=== PATIENT | female | born 1995 | race Caucasian/White ===

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

== ENCOUNTER 2017-01-24 21:52 | Emergency (ER) | payer MEDICAID ==
[~2017-01-24] VITALS: Ht 160 cm; Wt 100.2 kg
[~2017-01-24 21:52] MED LIST changes: +CEPH-507 PO
--- NOTE | 2017-01-24 23:25 | ED General ---
General Chief Complaint: Oral/Throat Problems Stated Complaint: SORE THROAT/COUGH Nursing Triage Note: PT COMPLAINS OF HAVING A SORE THROAT FOR PAST COUPLE DAYS. NO N/V. MILD COUGH NOTED BY PT. Source of Information: Patient Exam Limitations: No Limitations History of Present Illness Time Seen by Provider: 21:57 Initial Comments This 23-year-old young lady presents to emergency room with complaints of sore throat and mild cough for about 4 days. She denies fever, nausea, vomiting, or diarrhea. She is recently been on prednisone for serous otitis. She has not been taking any medications for pain or for allergies. She has had some sneezing. She reports eating and drinking has been difficult because of the pain. Allergies and Home Medications Allergies Coded Allergies: No Known Drug Allergies (Unverified , 10/29/15) Home Medications Amoxicillin 875 Mg Tablet, 875 MG PO BID, #20 Prescribed by: STACY CHU on 08/17/16 2203 Brexpiprazole 1 Mg Tablet, 1 MG PO DAILY, (Reported) Cephalexin 500 Mg Capsule, 500 MG PO QID, #28 Prescribed by: RA BOO on 10/27/16 2303 Gabapentin 300 Mg Capsule, 100 MG PO TID, #60 (Reported) Lamotrigine 100 Mg Tablet, 100 MG PO BID, #60 (Reported) Loratadine/Pseudoephedrine 1 Each Tab.er.12h, 1 EACH PO BID, #20 Prescribed by: STACY CHU on 08/17/16 2203 Omeprazole 20 Mg Tablet.dr, 20 MG PO BID, (Reported) Prednisone 10 Mg Tab, 40 MG PO DAILY, #12 Prescribed by: STACY CHU on 08/17/16 2203 Topiramate 200 Mg Cap.er.24h, 200 MG PO BID, (Reported) p-Sjbrtqs-Uas Estr/Ethin Estra 1 Each Tbdspk.3mo, 1 EACH PO DAILY, (Reported) Constitutional: no symptoms reported EENTM: see HPI Respiratory: see HPI Cardiovascular: no symptoms reported Gastrointestinal: no symptoms reported Genitourinary: no symptoms reported Musculoskeletal: no symptoms reported Skin: no symptoms reported Psychiatric/Neurological: No Symptoms Reported Hematologic/Lymphatic: No Symptoms Reported Past Ckagssv-Rxakzu-Phptrv Hx Patient Social History Alcohol Use: Denies Use Recreational Drug Use: No Smoking Status: Never a Smoker 2nd Hand Smoke Exposure: No Recent Foreign Travel: No Contact w/Someone Who Travel: No Recent Infectious Disease Expo: No Recent Hopitalizations: No Ebola Symptoms: Denies Symptoms Listed Immunizations Up To Date PED Vaccines UTD: Yes Seasonal Allergies Seasonal Allergies: No Surgeries HX Surgeries: Yes (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) Surgeries: Adenoidectomy, Orthopedic, Tonsillectomy Respiratory Hx Respiratory Disorders: No Cardiovascular Hx Cardiac Disorders: No Neurological Hx Neurological Disorders: Yes Neurological Disorders: Developmental Disorder, Seizure Disorder Genitourinary Hx Genitourinary Disorders: No Gastrointestinal Hx Gastrointestinal Disorders: Yes Gastrointestinal Disorders: Gastroesophageal Reflux Musculoskeletal Hx Musculoskeletal Disorders: No Endocrine Hx Endocrine Disorders: No HEENT HX ENT Disorders: No Cancer Hx Cancer: No Psychosocial Hx Psychiatric Problems: Yes (ASPERGERS, MILD MR) Behavioral Health Disorders: Personality Disorder Integumentary HX Skin/Integumentary Disorder: Yes (DERMOID TUMOR RIGHT FOREHEAD REMOVED) Blood Transfusions Hx Blood Disorders: No Adverse Reaction to a Blood Tr: No Physical Exam Vital Signs Vital Sign - Last 12Hours Capillary Refill : General Appearance: No Apparent Distress, WD/WN HEENT: PERRL/EOMI, TMs Normal, Normal ENT Inspection, Pharynx Normal Neck: Normal Inspection, Non Tender, Supple, No Lymphadenopathy (L), No Lymphadenopathy (R) Respiratory: Lungs Clear, Normal Breath Sounds, No Accessory Muscle Use, No Respiratory Distress Cardiovascular: Regular Rate, Rhythm, No Edema, No Murmur Gastrointestinal: Normal Bowel Sounds, Non Tender, Soft Extremity: Normal Inspection, No Pedal Edema Neurologic/Psychiatric: Alert, Oriented x3, No Motor/Sensory Deficits, Normal Mood/Affect, kaiako kura kaupapa maori II-XII Norm as Tested Skin: Normal Color, Warm/Dry Progress/Results/Core Measures Results/Orders Lab Results Laboratory Tests Test 01/24/17 22:23 Range/Units Group A Streptococcus Screen NEGATIVE NEGATIVE My Orders Orders - RA TRUJILLO MD Rapid Strep A Screen (01/24/17 21:56) Vital Signs/I&O Vital Sign - Last 12Hours 01/24/17 01/24/17 01/24/17 22:18 22:18 23:31 Temp 97.8 97.8 Pulse 90 90 0 Resp 20 20 0 B/P (MAP) 119/75 119/75 Pulse Ox 98 0 O2 Delivery Room Air Room Air Progress Note : Progress Note Rapid strep test negative Departure Impression Impression: Primary Impression: Sore throat Additional Impression: Cough Disposition: 01 HOME, SELF-CARE Condition: Stable/Unchanged Departure-Patient Inst. Decision time for Depature: 23:24 Referrals: [facility] (PCP/Family) Primary Care Physician Patient Instructions: Sore Throat in Adults Add. Discharge Instructions: Drink plenty of clear liquids. You may take ibuprofen up to 600 mg every 6 hours as needed for pain. You may additionally take Tylenol (acetaminophen) up to 1000 mg every 6 hours as needed for additional pain relief. A backup strep culture will be performed and should be available in 2-3 days. Follow-up with your primary care provider if not improved by Saturday. All discharge instructions reviewed with patient and/or family. Voiced understanding. RA TRUJILLO MD Jan 24, 2017 23:25
--- OUTSIDE RECORDS SUMMARY | 2017-01-25 00:40 | XMS REPORT | Continuity of Care Document ---
Author Author [facility] Organization [facility] Address Unknown Phone Unavailable Care Team Providers Care Java Programmer Name Role Phone Glendy Rowland PCP [phone] Source Comments Some departments are not documenting in the electronic medical record. If you do not see the information that you expected, contact Release of Information in the Health Information Management department at [phone] for further assistance in locating additional records.[facility] Active Allergies and Adverse Reactions Not on File Current Medications Not on file Active Problems Not on file Most Recent Encounters Date Type Specialty Providers Description 11/14/2016 [facility] Neurology Glendy Rowland MD Encounter Social History Tobacco Use Types Packs/Day Years Used Date Never Assessed Plan of Care Health Maintenance Due Date Last Done Comments Physical (Comprehensive) 2004 Exam Hpv Vaccines (#1) 2008 Pertussis Vaccine 2008 Tetanus Vaccine 2014 Influenza Vaccine 03/29/2017 Results from Last 3 Months Not on file
--- OUTSIDE RECORDS SUMMARY | 2017-01-25 00:42 | XMS REPORT | Continuity of Care Document ---
Author Author [facility] Organization [facility] Address Unknown Phone Unavailable Allergies Active Description Code Type Severity Reaction Onset Reported/Identified Relationship to Patient Clinical Status Yes No Known Drug Allergies [id number] Drug Allergy Unknown N/ A 10/29/2015 Medications Problems Date Dx Coded Attending Type Code Diagnosis Diagnosed By 10/29/2015 Ot G40.909 EPILEPSY, UNSP, NOT INTRACTABLE, WITHOUT 10/29/2015 Ot Z79.899 OTHER NURSING HOME (CURRENT) DRUG THERAPY 11/02/2015 BRENNAN GONZALEZ VENETIAN BLIND TAPE CUTTER Ot G40.909 11/06/2015 BRENNAN GONZALEZ VENETIAN BLIND TAPE CUTTER Ot G40.909 11/06/2015 JULIENNE HERNANDEZ MD Ot G40.909 EPILEPSY, UNSP, NOT INTRACTABLE, WITHOUT 11/06/2015 JULIENNE HERNANDEZ MD Ot N39.0 URINARY TRACT INFECTION, SITE NOT SPECIF 11/06/2015 BRENNAN GONZALEZ VENETIAN BLIND TAPE CUTTER Ot G40.909 11/07/2015 MANUEL LEO VENETIAN BLIND TAPE CUTTER Ot F84.5 ASPERGER'S SYNDROME 11/07/2015 MANUEL LEO APRN Ot G40.909 EPILEPSY, UNSP, NOT INTRACTABLE, WITHOUT 11/07/2015 MANUEL LEO VENETIAN BLIND TAPE CUTTER Ot Z79.899 OTHER TACK COVERER (CURRENT) DRUG THERAPY 11/07/2015 BRENNAN GONZALEZ VENETIAN BLIND TAPE CUTTER Ot G40.909 11/08/2015 BRENNAN GONZALEZ VENETIAN BLIND TAPE CUTTER Ot G40.909 11/08/2015 MANUEL LEO APRN Ot F84.5 ASPERGER'S SYNDROME 11/08/2015 MANUEL LEO APRN Ot G40.909 EPILEPSY, UNSP, NOT INTRACTABLE, WITHOUT 11/09/2015 MANUEL LEO APRN Ot F84.5 11/09/2015 MANUEL LEO APRN Ot G40.909 11/09/2015 MANUEL LEO APRN Ot Z79.899 11/15/2015 CANO DO, HEMA L Ot F84.5 ASPERGER'S SYNDROME 11/15/2015 CANO DO, HEMA L Ot G40.909 EPILEPSY, UNSP, NOT INTRACTABLE, WITHOUT 11/24/2015 MANUEL LEO VENETIAN BLIND TAPE CUTTER Ot F84.5 ASPERGER'S SYNDROME 11/24/2015 MANUEL LEO VENETIAN BLIND TAPE CUTTER Ot G40.909 EPILEPSY, UNSP, NOT INTRACTABLE, WITHOUT 11/24/2015 MANUEL LEO VENETIAN BLIND TAPE CUTTER Ot Z79.899 OTHER TACK COVERER (CURRENT) DRUG THERAPY 12/12/2015 BRENNAN GONZALEZ VENETIAN BLIND TAPE CUTTER Ot G40.909 EPILEPSY, UNSP, NOT INTRACTABLE, WITHOUT [...] Ot R25.1 TREMOR, UNSPECIFIED 12/23/2015 BRENNAN GONZALEZ VENETIAN BLIND TAPE CUTTER Ot G40.909 EPILEPSY, UNSP, NOT INTRACTABLE, WITHOUT 08/17/2016 LB CHU DOA K Ot F84.5 ASPERGER'S SYNDROME 08/17/2016 LB CHU DOA K Ot H66.91 OTITIS MEDIA, UNSPECIFIED, RIGHT EAR 08/17/2016 STACY CHU DO Ot H92.01 OTALGIA, RIGHT EAR 08/17/2016 VLAD DO, STACY K Ot Z79.899 OTHER NURSING HOME (CURRENT) DRUG THERAPY 08/20/2016 VLAD DO, STACY K Ot F84.5 ASPERGER'S SYNDROME 08/20/2016 VLAD DO, STACY K Ot H66.91 OTITIS MEDIA, UNSPECIFIED, RIGHT EAR 08/20/2016 VLAD DO, STACY K Ot H92.01 OTALGIA, RIGHT EAR 08/20/2016 VLAD DO, STACY K Ot Z79.899 OTHER TACK COVERER (CURRENT) DRUG THERAPY 08/20/2016 VLAD DO, STACY K Ot F84.5 ASPERGER'S SYNDROME 08/20/2016 VLAD DO, STACY K Ot H66.91 OTITIS MEDIA, UNSPECIFIED, RIGHT EAR 08/20/2016 VLAD DO, STACY K Ot H92.01 OTALGIA, RIGHT EAR 08/20/2016 VLAD DO, STACY K Ot Z79.899 OTHER NURSING HOME (CURRENT) DRUG THERAPY 10/27/2016 RONNIE WILSON, RA Saxena Ot F84.5 ASPERGER'S SYNDROME 10/27/2016 RONNIE WILSON, RA Saxena Ot G40.909 EPILEPSY, UNSP, NOT INTRACTABLE, WITHOUT 10/27/2016 RONNIE WILSON, RA Saxena Ot Z79.899 OTHER NURSING HOME (CURRENT) DRUG THERAPY Procedures Results Test Result [...] Status Pt. Type Provider Facility Loc./Unit Complaint [id number] 10/27/2016 22:02:00 2016 23:06:00 DIS Emergency RONNIE WILSON, RA Saxena [facility] ER SEIZURE [id number] 08/17/2016 21:04:00 2016 22:06:00 DIS Emergency LB CHU DOA Skyler [facility] ER R EAR PAIN/BLEEDING [id number] 12/21/2015 08:05:00 2015 09:02:00 DIS Emergency RA TRUJILLO MD [facility] ER [id number] 12/20/2015 16:03:00 2015 17:43:00 DIS Emergency RA TRUJILLO MD [facility] ER [id number] 11/15/2015 13:01:00 2015 13:46:00 DIS Emergency JEROME ELIZABETH HEMA Courtney [facility] ER [id number] 11/08/2015 10:51:00 2015 11:00:00 DIS Emergency MANUEL LEO APRN [facility] ER [id number] 11/07/2015 21:46:00 2015 23:10:00 DIS Emergency MANUEL LEO APRN [facility] ER [id number] 11/06/2015 18:03:00 2015 20:49:00 DIS Emergency JULIENNE HERNANDEZ MD [facility] ER [id number] 11/01/2015 18:46:00 ACT Outpatient BRENNAN GONZALEZ APRN [facility] LAB [id number] 10/29/2015 20:18:00 Document Registration
== END 2017-01-24 23:31 | disposition home or self-care (01) ==
LOC: EDUNIT# 21:52 → ER 21:53
DX: J02.9 Acute pharyngitis, unspecified (principal); R05 Cough; G40.909 Epilepsy, unspecified, not intractable, without status epilepticus; K21.9 Gastro-esophageal reflux disease without esophagitis; F70 Mild intellectual disabilities; Z79.899 Other long term (current) drug therapy
CPT/HCPCS: 87430; 99282

== ENCOUNTER 2017-03-19 19:34 | Emergency (ER) | payer MEDICAID ==
[~2017-03-19] VITALS: Ht 162.6 cm; Wt 100.7 kg
--- OUTSIDE RECORDS SUMMARY | 2017-03-19 19:39 | XMS REPORT | Clinical Summary ---
Author Author [facility] Organization [facility] Address Unknown Phone Unavailable Care Team Providers Care Ultrasound Tech Name Role Phone PCP Unavailable Source Comments Some departments are not documenting in the electronic medical record. If you do not see the information that you expected, contact Release of Information in the Health Information Management department at [phone] for further assistance in locating additional records.[facility] Allergies Not on File Current Medications Not on file Active Problems Not on file Social History Tobacco Use Types Packs/Day Years Used Date Never Assessed Sex Assigned at Date Recorded Not on file Last Filed Vital Signs Not on file Plan of Treatment Health Maintenance Due Date Last Done Comments PHYSICAL (COMPREHENSIVE) 2004 EXAM HPV VACCINES (#1) 2008 PERTUSSIS VACCINE 2008 TETANUS VACCINE 2014 INFLUENZA VACCINE 03/29/2017 Results Not on filefrom Last 3 Months
--- OUTSIDE RECORDS SUMMARY | 2017-03-19 19:42 | XMS REPORT ---
Author Author MYLES GARCIA Organization [facility] Address [address] [place] [address] Care Team Providers Care Waste/Materials Exchange Specialist Name Role Phone MYLES GARCIA Unavailable PROBLEMS Type Condition ICD9-CM Code [id number] Code Onset Dates Condition Status SNOMED Code Problem Epilepsy G40.909 Active 76353973 Problem Tremors of nervous system R25.1 Active 183488750 Problem Constipation K59.00 Active 74038818 Problem Physical exam, annual Z00.00 Active 103272685 Problem Vitamin D deficiency E55.9 Active 60272483 Problem Asperger syndrome F84.5 Active 52723114 Problem Nexplanon in place Z97.5 Active 258669852 Problem Mood disorder F39 Active 59238370 Problem Oppositional behavior F91.3 Active 00944760 Problem GERD (gastroesophageal reflux disease) K21.9 Active 929626557 Problem Dysuria R30.0 Active 72634409 Problem Obesity (BMI 30.0-34.9) E66.9 Active 780351478851450 ALLERGIES Unknown Allergies SOCIAL HISTORY No smoking Hx information available PLAN OF CARE Activity Details Follow Up Next available Reason:BH F/U VITAL SIGNS MEDICATIONS Unknown Medications RESULTS No Results PROCEDURES Procedure Date Ordered Related Diagnosis Body Site Family Therapy w/Pt Jul 20, 2016 IMMUNIZATIONS No Known Immunizations
[2017-03-19 20:06] LABS: BILIRUBIN,URINE NEGATIVE (NEGATIVE); KETONES,URINE NEGATIVE (NEGATIVE); LEUKOCYTE ESTERASE ,URINE 1+ (NEGATIVE); NITRITE,URINE NEGATIVE (NEGATIVE); PH,URINE 6 (5-9); PROTEIN,URINE NEGATIVE (NEGATIVE); UROBILINOGEN,URINE NORMAL (NORMAL)
[2017-03-19 20:21] LABS: WBC,URINE RARE /HPF
--- NOTE | 2017-03-19 20:33 | ED GU-Female ---
General Chief Complaint: -Female Stated Complaint: TROUBLE URINATING Nursing Triage Note: pt reports difficulty urinating and back pain x 2 weeks. Source: patient Exam Limitations: no limitations History of Present Illness Time seen by provider: 20:33 Initial Comments 21 yo female patient presents to the ED with c/o dysuria, hesitancy, and low back pain for 2 wks. patient reports a h/o UTI's. Denies fever, chills, hematuria, abdominal pain. Timing/Duration: other (2 wk onset) Severity/Quality: aching, cramping Location: other (low back) Radiation: left flank Activities at Onset: other (urinating) Prior Genitourinary Problems: similar symptoms Modifying Factors: Worsens With Movement, Worsens With Urinating Allergies and Home Medications Allergies Coded Allergies: No Known Drug Allergies (Unverified , 10/29/15) Home Medications Brexpiprazole 1 Mg Tablet, 1 MG PO DAILY, (Reported) Etonogestrel 68 Mg Implant, 68 MG SQ UD, (Reported) Gabapentin 300 Mg Capsule, 300 MG PO TID, (Reported) Lamotrigine 100 Mg Tablet, 100 MG PO BID, (Reported) Nitrofurantoin Monohyd/M-Cryst 100 Mg Capsule, 100 MG PO BID WITH MEALS, #14 Prescribed by: GALLO MORE on 04/03/17 1031 Omeprazole 20 Mg Tablet.dr, 20 MG PO DAILY, (Reported) Phenazopyridine HCl 200 Mg Tablet, 200 MG PO TID PRN for PAIN-MILD, #15 Prescribed by: GALLO MORE on 04/03/17 1031 Constitutional: No chills, No diaphoresis, No dizziness, No fever, No malaise Respiratory: No cough, No phlegm, No short of breath Cardiovascular: No chest pain, No edema Gastrointestinal: No abdominal pain, No constipation, No diarrhea, No nausea, No vomiting Genitourinary: see HPI, denies discharge, dysuria, frequency, flank pain (left flank pain), denies hematuria Musculoskeletal: see HPI, back pain, No joint pain, No neck pain Skin: no symptoms reported Psychiatric/Neurological: Denies Numbness, Denies Paresthesia, Denies Tingling , Denies Weakness All Other Systemes Reviewed Negative Unless Noted: Yes (Negative excepted noted.) Past Rwcawlt-Ysobre-Mk[place] Hx Patient Social History Alcohol Use: Denies Use Recreational Drug Use: No Smoking Status: Never a Smoker 2nd Hand Smoke Exposure: No Recent Foreign Travel: No Contact w/Someone Who Travel: No Recent Infectious Disease Expo: No Recent Hopitalizations: No Physical Abuse: No Sexual Abuse: No Mistreated: No Fear: No Immunizations Up To Date PED Vaccines UTD: Yes Seasonal Allergies Seasonal Allergies: No Surgeries History of Surgeries: Yes (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) Surgeries: Adenoidectomy, Orthopedic, Tonsillectomy Respiratory History of Respiratory Disorde: No Cardiovascular History of Cardiac Disorders: No Neurological History of Neurological Disord: Yes Neurological Disorders: Developmental Disorder, Seizure Disorder Genitourinary History of Genitourinary Disor: No Gastrointestinal History of Gastrointestinal Di: Yes Gastrointestinal Disorders: Gastroesophageal Reflux Musculoskeletal History of Musculoskeletal Dis: No Endocrine History of Endocrine Disorders: No HEENT History of HEENT Disorders: No Cancer History of Cancer: No Psychosocial History of Psychiatric Problem: Yes (ASPERGERS, MILD MR) Behavioral Health Disorders: Personality Disorder Suicide Risk Score: 1 Integumentary History of Skin or Integumenta: Yes (DERMOID TUMOR RIGHT FOREHEAD REMOVED) Blood Transfusions History of Blood Disorders: No Adverse Reaction to a Blood Tr: No Reviewed Nursing Assessment Reviewed/Agree w Nursing PMH: Yes Family Medical History Significant Family History: No Pertinent Family Hx Physical Exam Vital Signs Capillary Refill : General Appearance: WD/WN, no apparent distress HEENT: PERRL/EOMI, pharynx normal Neck: supple, normal inspection Cardiovascular: normal peripheral pulses, regular rate, rhythm, no edema, no murmur Respiratory: lungs clear, normal breath sounds, no respiratory distress, no accessory muscle use Gastrointestinal: normal bowel sounds, non tender, soft, no organomegaly, No distended Back: no vertebral tenderness, No CVA tenderness (R), CVA tenderness (L), No decreased range of motion, muscle spasm (bilateral low back muscle spasm with TTP (L>R). ) Extremities: non-tender, normal inspection, no pedal edema, normal capillary refill, pelvis stable Neurologic/Psychiatric: no motor/sensory deficits, alert, normal mood/affect, oriented x 3 Skin: normal color, warm/dry Progress/Results/Core Measures Results/Orders Lab Results My Orders Vital Signs/I&O Diagnostic Imaging Diagonstic Imaging: CT Plain Films/CT/US/NM/MRI: abdomen, pelvis Comments FINDINGS: The lung bases are clear. The liver appears normal. The gallbladder is present. The pancreas is normal. The spleen is not enlarged. The kidneys and adrenals appear normal. The small bowel is not dilated. The appendix is normal. There is enlargement of stool in the colon. The uterus is present. The urinary bladder is normal. The adnexa are unremarkable. There is no intraperitoneal free air or free fluid. IMPRESSION: No acute abnormality is seen in the abdomen or pelvis. Possible constipation Dictated by: Dictated on workstation # [id number] Reviewed: Reviewed by Me (radiology report reviewed by me) Departure Communication Progress Notes urinalysis and CT abd/pelvis results discussed with the patient. patient was given 1 dose of lortab in the ED with improvement in symptoms. plan for dsch to home. Impression Impression: Primary Impression: Lumbago Qualified Codes: M54.5 - Low back pain Additional Impression: Renal colic on left side Disposition: HOME, SELF-CARE Condition: Improved Departure-Patient Inst. Decision time for Depature: 22:18 Referrals: [facility] (PCP) Primary Care Physician BRENNAN GONZALEZ APRN (Family) Primary Care Physician Patient Instructions: Muscle Strain (DC), Renal Colic (DC) Add. Discharge Instructions: All discharge instructions reviewed with patient and/or family. Voiced understanding. Medications as instructed. Drink plenty of fluids. Alternate water and Gatorade/Powerade. Ice packs or heating pads as needed for pain. Follow-up with your primary care physician for recheck in the next 2-3 days, call for appointment time tomorrow morning. Return to the emergency department for worsened symptoms or any other concerns. CAREN SAL Mar 19, 2017 20:33
[2017-03-19] MEDS ORDERED: HYDROcodone/APAP 5 MG/325 MG (LORTAB) TAB PO STA (20:42)
--- NOTE | 2017-03-19 21:04 | Diagnostic Imaging Report ---
PROCEDURE: CT urinary tract, rule out kidney stone. TECHNIQUE: Multiple contiguous axial images were obtained through the abdomen and pelvis without the use of intravenous contrast. INDICATION: Back pain x2 weeks. FINDINGS: The lung bases are clear. The liver appears normal. The gallbladder is present. The pancreas is normal. The spleen is not enlarged. The kidneys and adrenals appear normal. The small bowel is not dilated. The appendix is normal. There is enlargement of stool in the colon. The uterus is present. The urinary bladder is normal. The adnexa are unremarkable. There is no intraperitoneal free air or free fluid. IMPRESSION: No acute abnormality is seen in the abdomen or pelvis. Possible constipation Dictated by: Dictated on workstation # [id number]
[2017-03-19] MEDS ORDERED: PHEN-639 PO (22:21)
[2017-03-19] MEDS ORDERED: CIPR500T4 PO (22:21)
== END 2017-03-19 22:31 | disposition home or self-care (01) ==
LOC: EDUNIT# 19:34 → ER 19:35
DX: M54.5 Low back pain (principal); N23 Unspecified renal colic; G40.909 Epilepsy, unspecified, not intractable, without status epilepticus; K21.9 Gastro-esophageal reflux disease without esophagitis; Z90.89 Acquired absence of other organs
CPT/HCPCS: 74176; 81000; 84703; 99283

== ENCOUNTER 2017-03-28 10:22 | Outpatient (CLI) | payer MEDICAID ==
[~2017-03-28] VITALS: Ht 162.6 cm; Wt 100.7 kg
[~2017-03-28 10:22] MED LIST changes: +CIPR500T4 PO; +PHEN-639 PO
[2017-03-28] MEDS ORDERED: LORA10TA7 PO (15:59)
[2017-03-28] MEDS ORDERED: ETON68IM3 SQ (16:00)
== END 2017-03-28 16:04 ==
LOC: PREOP 10:22
PROVIDERS: ATTEND Urology
DX: Z01.818 Encounter for other preprocedural examination (principal); N31.9 Neuromuscular dysfunction of bladder, unspecified; R33.9 Retention of urine, unspecified

== ENCOUNTER 2017-04-03 07:37 | Day surgery (SDC) | payer MEDICAID ==
[~2017-04-03] VITALS: Ht 162.6 cm; Wt 100.7 kg
[~2017-04-03 07:37] MED LIST changes: +ETON68IM3 SQ; +LORA10TA7 PO
--- OUTSIDE RECORDS SUMMARY | 2017-04-03 07:59 | XMS REPORT | Clinical Summary ---
Author Author [facility] Organization [facility] Address Unknown Phone Unavailable Care Team Providers Care Weight Control Lecturer Name Role Phone PCP Unavailable Source Comments Some departments are not documenting in the electronic medical record. If you do not see the information that you expected, contact Release of Information in the Health Information Management department at [phone] for further assistance in locating additional records.[facility] Allergies Not on File Current Medications [...]
--- OUTSIDE RECORDS SUMMARY | 2017-04-03 08:01 | XMS REPORT ---
Author Author KENAN LANCE Organization [facility] Address [address] [place] [address] Care Team Providers Care Branding Machine Operator Name Role Phone NATALIOKENAN Unavailable PROBLEMS Type Condition ICD9-CM Code [id number] Code Onset Dates Condition Status SNOMED Code Problem Vitamin D deficiency E55.9 Active 33900982 Problem GERD (gastroesophageal reflux disease) K21.9 Active 580088021 Problem Constipation K59.00 Active 04206162 Problem Physical exam, annual Z00.00 Active 543489767 Problem Asperger syndrome F84.5 Active 07489928 Problem Epilepsy G40.909 Active 99322927 Problem Nexplanon in place Z97.5 Active 594311174 Problem Mood disorder F39 Active 85001872 Problem Oppositional behavior F91.3 Active 31446695 Problem Tremors of nervous system R25.1 Active 995707750 Problem Dysuria R30.0 Active 76334390 Problem Obesity (BMI 30.0-34.9) E66.9 Active 495646888996216 ALLERGIES Substance Reaction Event Type Date Status N.K.D.A. Unknown Non Drug Allergy Jul, Unknown SOCIAL HISTORY No smoking Hx information available PLAN OF CARE Activity Details Follow Up 4 Weeks Reason: VITAL SIGNS Height 63.5 in 2016-08-01 Weight 236.8 lbs 2016-08-01 Heart Rate 72 bpm 2016-08-01 Respiratory Rate 18 2016-08-01 BMI 41.28 kg/m2 2016-08-01 Blood pressure systolic 120 mmHg 2016-08-01 Blood pressure diastolic 82 mmHg 2016-08-01 MEDICATIONS Medication Instructions Dosage Frequency Start Date End Date Duration Status Rexulti 1 MG Orally Once a day 1 tablet 24h Active Diazepam 10 mg Rectal with seizure activity 10 mg as needed Oct, Active Lamictal 25 MG Orally Twice a day 2 tablets 12h Active Topiramate 50 MG Orally Twice a day 1 tablet 12h Active Triamcinolone Acetonide 0.025 % Externally Twice a day apply thin layer to rash on hands 12h 17 Apr, 2016 Active Seasonique 0.15-0.03 &0.01 MG Orally Once a day 1 tablet 24h Feb, 91 day(s) Active Levetiracetam 750 MG Orally every 12 hrs 1 tablet 12h 30 Active Vistaril 25 MG Orally at bedtime 1 capsule as needed Active RESULTS No Results PROCEDURES Procedure Date Ordered Related Diagnosis Body Site Office Visit, Est Pt., Level 2 Aug 01, 2016 IMMUNIZATIONS No Known Immunizations
--- OUTSIDE RECORDS SUMMARY | 2017-04-03 08:01 | XMS REPORT ---
Author Author ALONSO JAIMES Organization [facility] Address [address] [place] [address] Care Team Providers Care Sales Representative Publications Name Role Phone ALONSO JAIMES Unavailable PROBLEMS Type Condition ICD9-CM Code SET53-NR Code Onset Dates Condition Status SNOMED Code Problem Vitamin D deficiency E55.9 Active 37221368 Problem GERD (gastroesophageal reflux disease) K21.9 Active 411285025 Problem Constipation K59.00 Active 09356376 Problem Physical exam, annual Z00.00 Active 207091466 Problem Asperger syndrome F84.5 Active 16834535 Problem Epilepsy G40.909 Active 09576049 Problem Nexplanon in place Z97.5 Active 599362013 Problem Mood disorder F39 Active 26510046 Problem Oppositional behavior F91.3 Active 63162026 Problem Tremors of nervous system R25.1 Active 108324172 Problem Dysuria R30.0 Active 35061096 Problem Obesity (BMI 30.0-34.9) E66.9 Active 098755059776142 ALLERGIES Substance Reaction Event Type Date Status N.K.D.A. Unknown Non Drug Allergy Jul, Unknown SOCIAL HISTORY No smoking Hx information available PLAN OF CARE Activity Details Follow Up prn Reason: VITAL SIGNS Height 63.5 in 2016-08-01 Weight 223.2 lbs 2016-08-01 Temperature 98.2 degrees Fahrenheit 2016-08-01 Heart Rate 76 bpm 2016-08-01 Respiratory Rate 20 2016-08-01 BMI 38.91 kg/m2 2016-08-01 Blood pressure systolic 120 mmHg 2016-08-01 Blood pressure diastolic 82 mmHg 2016-08-01 MEDICATIONS Medication Instructions Dosage Frequency Start Date End Date Duration Status Topiramate 50 MG Orally Twice a day 1 tablet 12h Active Levetiracetam 750 MG Orally every 12 hrs 1 tablet 12h 30 Active Diazepam 10 mg Rectal with seizure activity 10 mg as needed Oct, Active Rexulti 1 MG Orally Once a day 1 tablet 24h Active Seasonique 0.15-0.03 &0.01 MG Orally Once a day 1 tablet 24h Feb, 91 day(s) Active PredniSONE 20 MG Orally Once a day 1 tablet 24h Jul, Jul, 5 days Active Lamictal 25 MG Orally Twice a day 2 tablets 12h Active Triamcinolone Acetonide 0.025 % Externally Twice a day apply thin layer to rash on hands 12h Apr, Active Vistaril 25 MG Orally at bedtime 1 capsule as needed Active Amoxicillin 500 MG Orally every 12 hrs 1 capsule 12h Jul, 10 day(s) Active RESULTS No Results PROCEDURES Procedure Date Ordered Related Diagnosis Body Site Office Visit, Est Pt., Level 3 Aug 01, 2016 IMMUNIZATIONS No Known Immunizations
[2017-04-03] MEDS ORDERED: fentaNYL INJECTION 100 MCG/2 ML AMP ONE (08:07)
[2017-04-03] MEDS ORDERED: ONDANSETRON 4 MG/2 ML (SDV) Z0FRAN ONE ×2 (08:07→09:00)
[2017-04-03] MEDS ORDERED: LACTATED RINGERS 1,000 ML IV ONE (08:07)
[2017-04-03] MEDS ORDERED: DEXAMETHASONE 10 MG/ML (DECADRON) 1 ML VIAL ONE ×2 (08:07→09:00)
[2017-04-03] MEDS ORDERED: PROPOFOL INJECTION 50 ML IV ONE (08:07)
[2017-04-03] MEDS ORDERED: LACTATED RINGERS 1,000 ML IV PRN (08:11)
[2017-04-03] MEDS ORDERED: MIDAZOLAM 2 MG/2 ML (VERSED) VIAL ONE (08:12)
[2017-04-03] MEDS ORDERED: MIDAZOLAM 2 MG/2 ML (VERSED) VIAL IV ONE (08:15)
[2017-04-03] MEDS ORDERED: LIDOCAINE 1% 10 MG/ML 0.2 ML SYR (FOR IV START) ONE (08:16)
--- NOTE | 2017-04-03 08:22 | Progress Note-Pre Operative ---
Pre-Operative Progress Note H&P Reviewed The H&P was reviewed, patient examined and no changes noted. Date Seen by Provider: Apr 03, 2017 Time Seen by Provider: 08:22 Date H&P Reviewed: Apr 03, 2017 Time H&P Reviewed: 08:22 Pre-Operative Diagnosis: DIFFICULT URINATION, RETENTION, POSSIBLE DUS KIKI DRIVER MD Apr 03, 2017 8:22 am
--- NOTE | 2017-04-03 08:23 | Progress Note-Post Operative ---
Post-Operative Progess Note Surgeon (s)/Crime Lab Analyst (s) Surgeon KIKI DRIVER MD Crime Lab Analyst: N/A Pre-Operative Diagnosis DIFFICULT URINATION, RETENTION, POSSIBLE DUS Post-Operative Diagnosis SAME Procedure & Operative Findings Date of Procedure 04/03/17 Procedure Performed/Findings CYSTO, UD, VAGINAL EXAM Anesthesia Type GENERAL Estimated Blood Loss Estimated blood loss (mL): N/A Specimens/Packing Specimens Removed N/A Packing: N/A KIKI DRIVER MD Apr 03, 2017 8:23 am
--- NOTE | 2017-04-03 08:25 | Discharge Inst-Urology ---
Discharge Inst-Urology Discharge Medications New, Converted, or Re-newed RX: RX on Chart Patient Instructions/Follow Up Plan Please make appointment to been seen in office in 4 weeks. Increase oral fluids for 48 hours and then as needed. Diet and Activity as tolerated. If questions or concerns contact your physician Or seek help at emergency department. KIKI DRIVER MD Apr 03, 2017 8:25 am
[2017-04-03] MEDS ORDERED: LIDOCAINE 1% 10 MG/ML 0.2 ML SYR (FOR IV START) INJ ONE (08:45)
[2017-04-03 09:10] VITALS: BP 117/62
[2017-04-03] MEDS ORDERED: morphine INJ 10 MG/ML 1ML (SYR OR VIAL) IVP PRN (09:30)
[2017-04-03] MEDS ORDERED: ONDANSETRON 4 MG/2 ML (SDV) Z0FRAN IVP PRN (09:30)
[2017-04-03 10:15] VITALS: BP 121/70
[2017-04-03] MEDS ORDERED: NITR-65 PO (10:31)
[2017-04-03] MEDS ORDERED: PHEN-640 PO (10:31)
[2017-04-03 10:45] VITALS: BP 121/70
[2017-04-03 11:00] VITALS: BP 121/70
--- NOTE | 2017-04-03 12:42 | OPERATIVE REPORT ---
DATE OF SERVICE: 04/03/2017 PREOPERATIVE DIAGNOSIS: Difficult urination, possible distal urethral stenosis. POSTOPERATIVE DIAGNOSIS: 1. Difficult urination, possible distal urethral stenosis. 2. Mild cystitis. PROCEDURE PERFORMED: Cystoscopy with urethral dilatation and vaginoscopy. SURGEON: Dr. Butch Driver. ANESTHESIA: General. COMPLICATIONS: None. DESCRIPTION OF PROCEDURE: With the patient in the lithotomy position, genitalia were prepped and draped in the usual sterile fashion. Urethral dilatation was carried easily from 20-Cymraes to 30-Cymraes. Postvoid residual was 35 mL. There was some cystocele. No rectocele. Cystoscopy was performed with both lenses. There was mild cystitis, no evidence of interstitial cystitis, carcinoma in situ, no bladder tumors, foreign body. Ureteric orifice is normal in shape, size and configuration with clear refluxes. Bladder was evacuated. Cystoscope was removed. Vaginoscopy showed normal cervix, no vaginitis, discharge or bleeding. The patient tolerated the procedure and anesthesia well, was sent to the recovery room in stable condition. PLAN: See the effect of dilatation on her voiding. Put her on some Macrobid twice a day for a week and some Pyridium p.r.n. Instructions and plan was fully explained to the mother. Job ID: [id number] DocumentID: [id number] Dictated Date: 04/03/2017 09:14:51 Electronic Game Developer Date: 04/03/2017 09:43:52 Dictated By: BUTCH DRIVER MD
== END 2017-04-03 11:00 | disposition home or self-care (01) ==
LOC: SDC 07:37
PROVIDERS: ATTEND Urology
DX: N30.90 Cystitis, unspecified without hematuria (principal); N81.10 Cystocele, unspecified; G40.909 Epilepsy, unspecified, not intractable, without status epilepticus; F84.5 Asperger's syndrome; K21.9 Gastro-esophageal reflux disease without esophagitis; F32.9 Major depressive disorder, single episode, unspecified; F60.9 Personality disorder, unspecified; Z79.899 Other long term (current) drug therapy
CPT/HCPCS: 36415; 84703; 87081

== ENCOUNTER 2017-04-10 16:05 | Emergency (ER) | payer MEDICAID ==
[~2017-04-10] VITALS: Ht 162.6 cm; Wt 100.7 kg
[~2017-04-10 16:05] MED LIST changes: +NITR-65 PO; +PHEN-640 PO
--- OUTSIDE RECORDS SUMMARY | 2017-04-10 16:11 | XMS REPORT | Clinical Summary ---
Author Author [facility] Organization [facility] Address Unknown Phone Unavailable Care Team Providers Care Biodiesel Plant Manager Name Role Phone PCP Unavailable Source Comments Some departments are not documenting in the electronic medical record. If you do not see the information that you expected, contact Release of Information in the Health Information Management department at [phone] for further assistance in locating additional records.[facility] Allergies Not on File Current Medications Not [...]
--- OUTSIDE RECORDS SUMMARY | 2017-04-10 16:12 | XMS REPORT ---
Author Author MYLES GARCIA [facility] Address [address] [place] [address] Care Team Providers Care Coal Picker Name Role Phone MYLES GARCIA Unavailable PROBLEMS Type Condition ICD9-CM Code OMF72-CY Code Onset Dates Condition Status SNOMED Code Problem Vitamin D deficiency E55.9 Active 87295998 Problem GERD (gastroesophageal reflux disease) K21.9 Active 167070495 Problem Constipation K59.00 Active 64054482 Problem Physical exam, annual Z00.00 Active 145695175 Problem Asperger syndrome F84.5 Active 00889827 Problem Epilepsy G40.909 Active 76650823 Problem Nexplanon in place Z97.5 Active 932166315 Problem Mood disorder F39 Active 06265573 Problem Oppositional behavior F91.3 Active 28377942 Problem Tremors of nervous system R25.1 Active 850354985 Problem Dysuria R30.0 Active 72297715 Problem Obesity (BMI 30.0-34.9) E66.9 Active 484069263033628 ALLERGIES Unknown Allergies SOCIAL HISTORY No smoking Hx information available PLAN OF CARE Activity Details Follow Up 2 Weeks Reason:BH F/U VITAL SIGNS MEDICATIONS Unknown Medications RESULTS No Results PROCEDURES Procedure Date Ordered Related Diagnosis Body Site Family Therapy w/Pt Aug 17, 2016 IMMUNIZATIONS No Known Immunizations
--- OUTSIDE RECORDS SUMMARY | 2017-04-10 16:12 | XMS REPORT ---
Author [facility] Address [address] [place] [address] Care Team Providers Care Information Tech Name Role Phone KENAN LANCE Unavailable PROBLEMS Type Condition ICD9-CM Code TUB62-GF Code Onset Dates Condition Status SNOMED Code Problem Vitamin D deficiency E55.9 Active 31730212 Problem GERD (gastroesophageal reflux disease) K21.9 Active 443846418 Problem Constipation K59.00 Active 36575523 Problem Physical exam, annual Z00.00 Active 231788419 Problem Asperger syndrome F84.5 Active 04415833 Problem Epilepsy G40.909 Active 14144722 Problem Nexplanon in place Z97.5 Active 647242989 Problem Mood disorder F39 Active 46240743 Problem Oppositional behavior F91.3 Active 88210072 Problem Tremors of nervous system R25.1 Active 455981505 Problem Dysuria R30.0 Active 62420866 Problem Obesity (BMI 30.0-34.9) E66.9 Active 179251244109628 ALLERGIES Unknown Allergies SOCIAL HISTORY No smoking Hx information available PLAN OF CARE VITAL SIGNS MEDICATIONS Medication Instructions Dosage Frequency Start Date End Date Duration Status Rexulti 1 MG Orally Once a day 1 tablet 24h Active RESULTS No Results PROCEDURES No Known procedures IMMUNIZATIONS No Known Immunizations
--- OUTSIDE RECORDS SUMMARY | 2017-04-10 16:14 | XMS REPORT ---
Author Author KE[facility]N LANCE [facility] Address [address] [place] [address] Care Team Providers Care Tile And Marble Installer Name Role Phone KENAN LANCE Unavailable PROBLEMS Type Condition ICD9-CM Code MDR37-GT Code Onset Dates Condition Status SNOMED Code Problem Vitamin D deficiency E55.9 Active 04341081 Problem GERD (gastroesophageal reflux disease) K21.9 Active 094787551 Problem Constipation K59.00 Active 94288104 Problem Physical exam, annual Z00.00 Active 067530630 Problem Asperger syndrome F84.5 Active 79312752 Problem Epilepsy G40.909 Active 82208692 Problem Nexplanon in place Z97.5 Active 898511765 Problem Mood disorder F39 Active 63317406 Problem Oppositional behavior F91.3 Active 30126663 Problem Tremors of nervous system R25.1 Active 655875381 Problem Dysuria R30.0 Active 29771739 Problem Obesity (BMI 30.0-34.9) E66.9 Active 107301741774857 ALLERGIES Unknown Allergies SOCIAL HISTORY No smoking Hx information available PLAN OF CARE VITAL SIGNS MEDICATIONS Unknown Medications RESULTS No Results PROCEDURES No Known procedures IMMUNIZATIONS No Known Immunizations
--- NOTE | 2017-04-10 16:25 | ED Neurological Problem ---
General Stated Complaint: SEIZURE Source: patient Exam Limitations: no limitations History of Present Illness Time seen by provider: 16:22 Initial Comments To ER with reports of a seizure. She arrives per EMS from [place]. She refused to go to [facility]. Apparently the seizure began while she was on the school bus going home. According to mother this lasted for "12 minutes". Patient was then confused after she awakened. She is only on Lamictal for seizure control has recently been taken off of her topiramate for seizure control by her neurologist Dr. Rowland in [place]. No fevers or chills but she states that she did have a urethral stricture dilatation done last week and hasn't felt well since. She is currently on Pyridium but did finish her antibiotics. She is known to present here and to multiple outside hospitals or seizure-like activity which is complicated by her behavioral disorder and pseudoseizure history. Timing/Duration: 1 week Severity: moderate Allergies and Home Medications Allergies Coded Allergies: No Known Drug Allergies (Unverified , 10/29/15) Home Medications Brexpiprazole 1 Mg Tablet, 1 MG PO DAILY, (Reported) Etonogestrel 68 Mg Implant, 68 MG SQ UD, (Reported) Gabapentin 300 Mg Capsule, 300 MG PO TID, (Reported) Lamotrigine 100 Mg Tablet, 100 MG PO BID, (Reported) Nitrofurantoin Monohyd/M-Cryst 100 Mg Capsule, 100 MG PO BID WITH MEALS, #14 Prescribed by: GALLO MORE on 04/03/17 1031 Omeprazole 20 Mg Tablet.dr, 20 MG PO DAILY, (Reported) Phenazopyridine HCl 200 Mg Tablet, 200 MG PO TID PRN for PAIN-MILD, #15 Prescribed by: GALLO MORE on 04/03/17 1031 Constitutional: see HPI Eyes: No Symptoms Reported Ears, Nose, Mouth, Throat: no symptoms reported Respiratory: no symptoms reported Cardiovascular: no symptoms reported Genitourinary: no symptoms reported Skin: no symptoms reported Past Fzpsnkt-Nvrrmp-Tzlfls Hx Patient Social History 2nd Hand Smoke Exposure: No Recent Foreign Travel: No Contact w/Someone Who Travel: No Recent Hopitalizations: No Immunizations Up To Date PED Vaccines UTD: Yes Seasonal Allergies Seasonal Allergies: Yes Surgeries History of Surgeries: Yes (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) Surgeries: Orthopedic, Tonsillectomy Respiratory History of Respiratory Disorde: No Cardiovascular History of Cardiac Disorders: No Neurological History of Neurological Disord: Yes Neurological Disorders: Developmental Disorder, Seizure Disorder Reproductive System Hx Reproductive Disorders: No Genitourinary History of Genitourinary Disor: No Gastrointestinal History of Gastrointestinal Di: Yes Gastrointestinal Disorders: Gastroesophageal Reflux Musculoskeletal History of Musculoskeletal Dis: No Endocrine History of Endocrine Disorders: No HEENT History of HEENT Disorders: No Cancer History of Cancer: No Psychosocial History of Psychiatric Problem: Yes (ASPERGERS, MILD MR) Behavioral Health Disorders: Personality Disorder Integumentary History of Skin or Integumenta: Yes (DERMOID TUMOR RIGHT FOREHEAD REMOVED) Blood Transfusions History of Blood Disorders: No Adverse Reaction to a Blood Tr: No Physical Exam Vital Signs Vital Sign - Last 12Hours 04/10/17 16:27 Temp 98.5 Pulse 92 Resp 18 B/P (MAP) 120/71 O2 Delivery Room Air Capillary Refill : General Appearance: WD/WN, no apparent distress, other (alert and oriented talkative, vitals stable.) HEENT: PERRL/EOMI, normal ENT inspection, TMs normal Neck: non-tender, full range of motion Respiratory: normal breath sounds, no respiratory distress, no accessory muscle use Cardiovascular: regular rate, rhythm, no murmur Gastrointestinal: normal bowel sounds, non tender, soft Neurologic/Psychiatric: alert, normal mood/affect, oriented x 3 Crainal Nerves: normal hearing, normal speech, PERRL Skin: normal color, warm/dry Progress/Results/Core Measures Results/Orders Lab Results Laboratory Tests Test 04/10/17 16:50 04/10/17 17:00 Range/Units White Blood Count 9.7 4.3-11.0 10^3/uL Red Blood Count 4.04 L 4.35-5.85 10^6/uL Hemoglobin 11.3 L 11.5-16.0 G/DL Hematocrit 34 L 35-52 % Mean Corpuscular Volume 85 80-99 FL Mean Corpuscular Hemoglobin 28 25-34 PG Mean Corpuscular Hemoglobin Concent 33 32-36 G/DL Red Cell Distribution Width 13.1 10.0-14.5 % Platelet Count 250 130-400 10^3/uL Mean Platelet Volume 9.1 7.4-10.4 FL Neutrophils (%) (Auto) 48 42-75 % Lymphocytes (%) (Auto) 43 12-44 % Monocytes (%) (Auto) 8 0-12 % Eosinophils (%) (Auto) 1 0-10 % Basophils (%) (Auto) 0 0-10 % Neutrophils # (Auto) 4.6 1.8-7.8 X 10^3 Lymphocytes # (Auto) 4.1 H 1.0-4.0 X 10^3 Monocytes # (Auto) 0.8 0.0-1.0 X 10^3 Eosinophils # (Auto) 0.1 0.0-0.3 10^3/uL Basophils # (Auto) 0.0 0.0-0.1 10^3/uL Sodium Level 139 135-145 MMOL/L Potassium Level 4.1 3.6-5.0 MMOL/L Chloride Level 106 98-107 MMOL/L Carbon Dioxide Level 25 21-32 MMOL/L Anion Gap 8 5-14 MMOL/L Blood Urea Nitrogen 15 7-18 MG/DL Creatinine 0.70 0.60-1.30 MG/DL Estimat Glomerular Filtration Rate > 60 BUN/Creatinine Ratio 21 Glucose Level 89 70-105 MG/DL Calcium Level 9.2 8.5-10.1 MG/DL Total Bilirubin 0.3 0.1-1.0 MG/DL Aspartate Amino Transf (AST/SGOT) 12 5-34 U/L Alanine Aminotransferase (ALT/SGPT) 16 0-55 U/L Alkaline Phosphatase 86 40-136 U/L Total Protein 6.5 6.4-8.2 GM/DL Albumin 3.8 3.2-4.5 GM/DL My Orders Orders - MANUEL LEO APRN Cbc With Automated Diff (04/10/17 16:21) Comprehensive Metabolic Panel (04/10/17 16:21) Ua Culture If Indicated (04/10/17 16:21) Urine Bedside (04/10/17 16:21) Vital Signs/I&O Vital Sign - Last 12Hours 04/10/17 16:27 Temp 98.5 Pulse 92 Resp 18 B/P (MAP) 120/71 O2 Delivery Room Air Departure Impression Impression: Primary Impression: Asperger syndrome Additional Impression: Seizure-like activity Disposition: 01 HOME, SELF-CARE Condition: Stable Departure-Patient Inst. Decision time for Depature: 17:23 Referrals: [facility] (PCP) Primary Care Physician BRENNAN GONZALEZ APRN (Family) Primary Care Physician Patient Instructions: NO INSTRUCTIONS GIVEN Add. Discharge Instructions: 1. Return to ER for any concerns 2. MANUEL LEO APRN Apr 10, 2017 16:25
[2017-04-10 16:54] LABS: BASOPHILS % (AUTO) 0 % (0-10); EOSINOPHILS # (AUTO) 0.1 10^3/uL (0.0-0.3); EOSINOPHILS % (AUTO) 1 % (0-10); LYMPHOCYTES # (AUTO) 4.1 X 10^3 (1.0-4.0); LYMPHOCYTES % (AUTO) 43 % (12-44); MEAN CORPUSCULAR HEMOGLOBIN 28 PG (25-34); MEAN CORPUSCULAR HGB CONC 33 G/DL (32-36); MEAN CORPUSCULAR VOLUME 85 FL (80-99); MEAN PLATELET VOLUME 9.1 FL (7.4-10.4); MONOCYTES # (AUTO) 0.8 X 10^3 (0.0-1.0); MONOCYTES % (AUTO) 8 % (0-12); NEUTROPHILS # (AUTO) 4.6 X 10^3 (1.8-7.8); NEUTROPHILS % (AUTO) 48 % (42-75); PLATELET COUNT 250 10^3/uL (130-400); RED BLOOD COUNT 4.04 10^6/uL (4.35-5.85); RED CELL DISTRIBUTION WIDTH 13.1 % (10.0-14.5); WHITE BLOOD COUNT 9.7 10^3/uL (4.3-11.0)
[2017-04-10 17:13] LABS: ALANINE AMINOTRANSFERASE 16 U/L (0-55); ALBUMIN 3.8 GM/DL (3.2-4.5); ANION GAP 8 MMOL/L (5-14); ASPARTATE AMINO TRANSFERASE 12 U/L (5-34); BILIRUBIN,TOTAL 0.3 MG/DL (0.1-1.0); BLOOD UREA NITROGEN 15 MG/DL (7-18); BUN/CREATININE RATIO 21; CALCIUM 9.2 MG/DL (8.5-10.1); CARBON DIOXIDE 25 MMOL/L (21-32); CHLORIDE 106 MMOL/L (98-107); GFR ESTIMATED > 60; GLUCOSE 89 MG/DL (70-105); POTASSIUM 4.1 MMOL/L (3.6-5.0); SODIUM 139 MMOL/L (135-145); TOTAL PROTEIN 6.5 GM/DL (6.4-8.2)
[2017-04-10 17:15] LABS: BILIRUBIN,URINE NEGATIVE (NEGATIVE); KETONES,URINE NEGATIVE (NEGATIVE); LEUKOCYTE ESTERASE ,URINE NEGATIVE (NEGATIVE); NITRITE,URINE NEGATIVE (NEGATIVE); PH,URINE 6.5 (5-9); PROTEIN,URINE NEGATIVE (NEGATIVE); UROBILINOGEN,URINE NORMAL (NORMAL)
[2017-04-10 17:24] LABS: WBC,URINE 0-2 /HPF
== END 2017-04-10 17:37 | disposition home or self-care (01) ==
LOC: EDUNIT# 16:05 → ER 16:07
DX: F84.5 Asperger's syndrome (principal); R25.8 Other abnormal involuntary movements; G40.909 Epilepsy, unspecified, not intractable, without status epilepticus; K21.9 Gastro-esophageal reflux disease without esophagitis; F60.9 Personality disorder, unspecified; Z90.89 Acquired absence of other organs; Z87.898 Personal history of other specified conditions
CPT/HCPCS: 36415; 80053; 81000; 84703; 85025; 99283

== ENCOUNTER 2017-08-04 21:40 | Emergency (ER) | payer SELFPAY ==
[~2017-08-04] VITALS: Ht 157.5 cm; Wt 104.3 kg
--- OUTSIDE RECORDS SUMMARY | 2017-08-04 21:45 | XMS REPORT | Clinical Summary ---
Author Author [facility] Organization [facility] Address Unknown Phone Unavailable Care Team Providers Care Remediation Project Engineer Name Role Phone PCP Unavailable Source Comments Some departments are not documenting in the electronic medical record. If you do not see the information that you expected, contact Release of Information in the Health Information Management department at [phone] for further assistance in locating additional records.[facility] Allergies Not on File Current Medications Prescription Sig. Disp. Refills Start End Date Status Date lamoTRIgine (LAMICTAL) Take 1 tablet by mouth 60 tablet 3 05/14/20 Active 100 mg tabletIndications: twice daily. 17 Intractable seizures (HCC) gabapentin (NEURONTIN) Take 1 capsule by mouth 90 capsule 3 05/14/20 Active 300 mg three times daily. 17 capsuleIndications: Intractable seizures (HCC) diazepam(+) (DIASTAT) Administer 20mg per 2 kit 1 06/04/20 Active 12.5-15-17.5-20 mg rectal rectum for a seizure 17 gelIndications: Other lasting longer than 5 generalized epilepsy and minutes or if has 3 or epileptic syndromes, more seizures in 30 mins. intractable, with status NTE 2 doses in 24 hrs. epilepticus (HCC) Active Problems Not on file Encounters Date Type Specialty Care Team Description 06/03/2017 Refill Neurology Glendy Rowland MD Other generalized epilepsy and epileptic syndromes, intractable, with status epilepticus (HCC) (Primary Dx) 05/14/2017 Refill Neurology Glendy Rowland MD Other generalized epilepsy, intractable, with status epilepticus (HCC) (Primary Dx);Intractable seizures (HCC) from Last 3 Months Social History Tobacco Use Types Packs/Day Years Used Date Never Assessed Sex Assigned at Date Recorded Not on file Last Filed Vital Signs Not on file Plan of Treatment Health Maintenance Due Date Last Done Comments PHYSICAL (COMPREHENSIVE) 2004 EXAM HPV VACCINES (1 of 3 - 2008 Female 3 Dose Series) PERTUSSIS VACCINE 2008 TETANUS VACCINE 2014 INFLUENZA VACCINE 02/26/2017 Results Not on filefrom Last 3 Months
--- OUTSIDE RECORDS SUMMARY | 2017-08-04 21:45 | XMS REPORT | Encounter Summary ---
Author Author [facility] Organization [facility] Address Unknown Phone Unavailable Care Team Providers Care Core Carrier Name Role Phone PCP Unavailable Reason for Visit * Reason Comments Medication Refill Encounter Details Date Type Department Care Team Description 06/03/2017 Refill Comprehensive Epilepsy Glendy Rowland MD Other generalized Center [address] [facility] epilepsy and epileptic [facility] G056 MS 2012 syndromes, intractable, [address] [place] [address] [place] [address] (HCC) (Primary Dx) [phone] Social History Tobacco Use Types Packs/Day Years Used Date Never Assessed Sex Assigned at Date Recorded Not on file as of this encounter Plan of Treatment Not on fileas of this encounter Visit Diagnoses Diagnosis Other generalized epilepsy and epileptic syndromes, intractable, with status epilepticus (HCC) - Primary in this encounter
--- OUTSIDE RECORDS SUMMARY | 2017-08-04 21:45 | XMS REPORT | Clinical Summary ---
Author Author [facility] Address Unknown Phone Unavailable Allergies No Known Allergies Current Medications Prescription Sig. Disp. Refills Start End Date Status Date topiramate (TOPAMAX) 100 take 2 tablet (200MG) by 0 03/21/20 Active MG tablet oral route 2 times every 11 day acetaminophen-codeine take 1 tablet by oral 12 0 04/05/20 Active (TYLENOL #3) 300-30 MG route every 4 - 6 hours 11 per tablet prn pain. Max tylenol 4,000mg in 24 hours. Loratadine (CLARITIN take 1 Tablet by Oral 0 03/21/20 Active REDITABS) 5 MG TBDP route every day 11 .reconcile (MEDICATION No Sig 1 0 01/17/20 Active LIST IMPORTED) 13 Active Problems Not on file Social History Tobacco Use Types Packs/Day Years Used Date Never Smoker Sex Assigned at Date Recorded Not on file Last Filed Vital Signs Vital Sign Reading Time Taken Blood Pressure - - Pulse - - Temperature - - Respiratory Rate - - Oxygen Saturation - - Inhaled Oxygen - - Concentration Weight 60.8 kg (134 lb) 04/05/2011 11:14 AM CDT Height 148.6 cm (4' 10.5") 04/05/2011 11:14 AM CDT Body Mass Index 27.53 04/05/2011 11:14 AM CDT Plan of Treatment Health Maintenance Due Date Last Done Comments HPV Vaccines (1 of 3 - 2008 Female 3 Dose Series) Varicella Vaccines (1 of 2010 2 - 2 Dose Adolescent Series) MenB Vaccine (Bexsero) (1 2013 of 2) DTaP,Tdap,and Td Vaccines 2016 (1 - Tdap) Influenza Vaccine (#1) 2017 Results Not on filefrom Last 3 Months
--- OUTSIDE RECORDS SUMMARY | 2017-08-04 21:45 | XMS REPORT ---
Author Author CORNELIUS BROWN [facility] Address Unknown Care Team Providers Care Senior J2Ee Developer Name Role Phone CORNELIUS BROWN Unavailable PROBLEMS Type Condition ICD9-CM Code [id number] Code Onset Dates Condition Status SNOMED Code Problem Vitamin D deficiency E55.9 Active 12352083 Problem GERD (gastroesophageal reflux disease) K21.9 Active 801452777 Problem Constipation K59.00 Active 79710282 Problem Physical exam, annual Z00.00 Active 545626073 Problem Asperger syndrome F84.5 Active 95966218 Problem Epilepsy G40.909 Active 06654032 Problem Nexplanon in place Z97.5 Active 459355658 Problem Mood disorder F39 Active 02606214 Problem Oppositional behavior F91.3 Active 30639376 Problem Tremors of nervous system R25.1 Active 642150280 Problem Dysuria R30.0 Active 47061575 Problem Obesity (BMI 30.0-34.9) E66.9 Active 266877257481946 ALLERGIES Substance Reaction Event Type Date Status N.K.D.A. Unknown Non Drug Allergy Jul, Unknown SOCIAL HISTORY No smoking Hx information available PLAN OF CARE Activity Details Follow Up prn Reason:O&R #2 VITAL SIGNS MEDICATIONS Medication Instructions Dosage Frequency Start Date End Date Duration Status Levetiracetam 750 MG Orally every 12 hrs 1 tablet 12h 30 Active Diazepam 10 mg Rectal with seizure activity 10 mg as needed Oct, Active Topiramate 50 MG Orally Twice a day 1 tablet 12h Active Seasonique 0.15-0.03 &0.01 MG Orally Once a day 1 tablet 24h Feb, 91 day(s) Active Triamcinolone Acetonide 0.025 % Externally Twice a day apply thin layer to rash on hands 12h Apr, Active Lamictal 25 MG Orally Twice a day 2 tablets 12h Active Rexulti 1 MG Orally Once a day 1 tablet 24h Active RESULTS No Results PROCEDURES Procedure Date Ordered Related Diagnosis Body Site COMP ORAL EVALUATION - NEW/EST PT Aug 08, 2016 IMMUNIZATIONS No Known Immunizations
--- OUTSIDE RECORDS SUMMARY | 2017-08-04 21:45 | XMS REPORT | Encounter Summary ---
Author Author [facility] Organization [facility] Address Unknown Phone Unavailable Care Team Providers Care Loan Adviser Name Role Phone PCP Unavailable Reason for Visit * Reason Comments Medication Refill Encounter Details Date Type Department Care Team Description 05/14/2017 Refill Comprehensive Epilepsy Glendy Rowland MD Other generalized Center [address] [facility] epilepsy, intractable, [facility] G056 MS 2012 with status epilepticus [address] [place] [address] (HCC) ([place] [address] Dx);Intractable seizures [phone] (HCC) Social History Tobacco Use Types Packs/Day Years Used Date Never Assessed Sex Assigned at Date Recorded Not on file as of this encounter Plan of Treatment Not on fileas of this encounter Visit Diagnoses Diagnosis Other generalized epilepsy, intractable, with status epilepticus (HCC) - Primary Intractable seizures (HCC) Unspecified epilepsy with intractable epilepsy in this encounter
--- OUTSIDE RECORDS SUMMARY | 2017-08-04 21:45 | XMS REPORT | Continuity of Care Document ---
Author Author [employer] Organization [facility] Address Unknown Phone Unavailable Care Team Providers Care Setter Automatic Spinning Lathe Name Role Phone [employer] Unavailable Unavailable Problems Medications Allergies, Adverse Reactions, Alerts Immunizations Results Vital Signs Encounters Location Location Details Encounter Type Encounter Number Reason For Visit Attending Provider ADM Date DC Date Status Source OUTPATIENT [id number] DESTINI DESOUZA 11/14/20162016 Active [facility] OUTPATIENT [id number] DESTINI DESOUZA 05/13/2017 Active [facility] O DESTINI DESOUZA Active [facility] Procedures Plan of Care Social History Assessment and Plan Family History Advance Directives Functional Status
--- OUTSIDE RECORDS SUMMARY | 2017-08-04 21:47 | XMS REPORT ---
Author Author MYLES GARCIA Organization [facility] Address [address] [place] [address] Care Team Providers Care Radiation / Chemistry Technician Name Role Phone MYLES GARCIA Unavailable PROBLEMS Type Condition ICD9-CM Code [id number] Code Onset Dates Condition Status SNOMED Code Problem Vitamin D deficiency E55.9 Active 04567662 Problem GERD (gastroesophageal reflux disease) K21.9 Active 615017005 Problem Constipation K59.00 Active 43208317 Problem Physical exam, annual Z00.00 Active 373467625 Problem Asperger syndrome F84.5 Active 53140042 Problem Epilepsy G40.909 Active 72849317 Problem Nexplanon in place Z97.5 Active 335729939 Problem Mood disorder F39 Active 65578986 Problem Oppositional behavior F91.3 Active 88034868 Problem Tremors of nervous system R25.1 Active 433384791 Problem Dysuria R30.0 Active 57280265 Problem Obesity (BMI 30.0-34.9) E66.9 Active [id number] ALLERGIES No Information SOCIAL HISTORY Never Assessed PLAN OF CARE Activity Details Follow Up 2 Weeks Reason:BH F/U VITAL SIGNS MEDICATIONS Unknown Medications RESULTS No Results PROCEDURES No Known procedures IMMUNIZATIONS No Known Immunizations MEDICAL (GENERAL) HISTORY Type Description Date Medical History epilepsy Medical History acid reflux Surgical History 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
--- OUTSIDE RECORDS SUMMARY | 2017-08-04 21:47 | XMS REPORT ---
Author Author MYLES GARCIA Organization [facility] [place] Address [address] [place] [address] Care Team Providers Care Lockstitch Back Maker Name Role Phone MYLES GARCIA Unavailable PROBLEMS Type Condition ICD9-CM Code [id number] Code Onset Dates Condition Status SNOMED Code Problem Vitamin D deficiency E55.9 Active 42127498 Problem GERD (gastroesophageal reflux disease) K21.9 Active 697419707 Problem Constipation K59.00 Active 85460428 Problem Physical exam, annual Z00.00 Active 277308509 Problem Asperger syndrome F84.5 Active 29140016 Problem Epilepsy G40.909 Active 88249862 Problem Nexplanon in place Z97.5 Active 708243223 Problem Mood disorder F39 Active 49832919 Problem Oppositional behavior F91.3 Active 30326136 Problem Tremors of nervous system R25.1 Active 777580481 Problem Dysuria R30.0 Active 69002875 Problem Obesity (BMI 30.0-34.9) E66.9 Active [id number] ALLERGIES No Information SOCIAL HISTORY Never Assessed PLAN OF CARE Activity Details Follow Up 1 Week Reason:BH F/U VITAL SIGNS MEDICATIONS Unknown Medications [...]
--- OUTSIDE RECORDS SUMMARY | 2017-08-04 21:47 | XMS REPORT ---
Author Author ELYSE SHEPARD Organization [facility] Address [address] [place] [address] Care Team Providers Care Plant Taxonomy Teacher Name Role Phone ELYSE SHEPARD Unavailable PROBLEMS Type Condition ICD9-CM Code [id number] Code Onset Dates Condition Status SNOMED Code Problem Vitamin D deficiency E55.9 Active 98417307 Problem GERD (gastroesophageal reflux disease) K21.9 Active 037363700 Problem Constipation K59.00 Active 73507354 Problem Physical exam, annual Z00.00 Active 488039442 Problem Asperger syndrome F84.5 Active 63175365 Problem Epilepsy G40.909 Active 00964810 Problem Nexplanon in place Z97.5 Active 313665417 Problem Mood disorder F39 Active 34843916 Problem Oppositional behavior F91.3 Active 48315134 Problem Tremors of nervous system R25.1 Active 726864552 Problem Dysuria R30.0 Active 79927899 Problem Obesity (BMI 30.0-34.9) E66.9 Active 440265989505177 ALLERGIES No Known Allergies SOCIAL HISTORY Never Assessed PLAN OF CARE Activity Details Follow Up prn Reason: VITAL SIGNS Height 63.5 in 2016-12-20 Weight 229.8 lbs 2016-12-20 Temperature 99.2 degrees Fahrenheit 2016-12-20 Heart Rate 92 bpm 2016-12-20 Respiratory Rate 20 2016-12-20 BMI 40.06 kg/m2 2016-12-20 Blood pressure systolic 126 mmHg 2016-12-20 Blood pressure diastolic 90 mmHg 2016-12-20 MEDICATIONS Medication Instructions Dosage Frequency Start Date End Date Duration Status Diazepam 10 mg Rectal with seizure activity 10 mg as needed Oct, Active Triamcinolone Acetonide 0.025 % Externally Twice a day apply thin layer to rash on hands 12h 17 Apr, 2016 Active Triamcinolone Acetonide 0.1 % Externally Twice a day 1 application to affected area 12h November, 7 days Active Lamictal 25 MG Orally Twice a day 2 tablets 12h Active Topiramate 100 MG Orally Twice a day 1 tablet 12h Active Omeprazole 20 mg Orally Once a day 1 capsules 24h 90 Active Gabapentin 300 MG Orally Three times a day 1 capsule 8h Active RESULTS No Results PROCEDURES No Known [...]
--- OUTSIDE RECORDS SUMMARY | 2017-08-04 21:47 | XMS REPORT ---
Author Author MYLES GARCIA [facility] Address [address] [place] [address] Care Team Providers Care Medical Service Representative Name Role Phone MYLES GARCIA Unavailable PROBLEMS Type Condition ICD9-CM Code [id number] Code Onset Dates Condition Status SNOMED Code Problem Vitamin D deficiency E55.9 Active 33600155 Problem GERD (gastroesophageal reflux disease) K21.9 Active 355625420 Problem Constipation K59.00 Active 91702249 Problem Physical exam, annual Z00.00 Active 340887731 Problem Asperger syndrome F84.5 Active 04804378 Problem Epilepsy G40.909 Active 70667629 Problem Nexplanon in place Z97.5 Active 156487444 Problem Mood disorder F39 Active 72457928 Problem Oppositional behavior F91.3 Active 49286856 Problem Tremors of nervous system R25.1 Active 326491825 Problem Dysuria R30.0 Active 49622245 Problem Obesity (BMI 30.0-34.9) E66.9 Active 997538208274639 ALLERGIES Unknown Allergies SOCIAL HISTORY No smoking Hx information available PLAN OF CARE Activity Details Follow Up 2 Weeks Reason:BH F/U VITAL SIGNS MEDICATIONS Unknown Medications RESULTS No Results PROCEDURES Procedure Date Ordered Related Diagnosis Body Site Family Therapy w/Pt Aug 31, 2016 IMMUNIZATIONS No Known Immunizations
--- OUTSIDE RECORDS SUMMARY | 2017-08-04 21:47 | XMS REPORT ---
Author Author BRENNAN GONZALEZ Organization [facility] Address [address] [place] [address] Care Team Providers Care Rug Setter [place] Name Role Phone BRENNAN GONZALEZ Unavailable PROBLEMS Type Condition ICD9-CM Code BBU28-[id number] Code Onset Dates Condition Status SNOMED Code Problem Vitamin D deficiency E55.9 Active 08689362 Problem GERD (gastroesophageal reflux disease) K21.9 Active 283977564 Problem Constipation K59.00 Active 83743157 Problem Physical exam, annual Z00.00 Active 454087703 Problem Asperger syndrome F84.5 Active 88844172 Problem Epilepsy G40.909 Active 72920781 Problem Nexplanon in place Z97.5 Active 035670478 Problem Mood disorder F39 Active 98022209 Problem Oppositional behavior F91.3 Active 52770712 Problem Tremors of nervous system R25.1 Active 321835190 Problem Dysuria R30.0 Active 29487899 Problem Obesity (BMI 30.0-34.9) E66.9 Active 008917916438052 ALLERGIES Unknown Allergies SOCIAL HISTORY No smoking Hx information available PLAN OF CARE VITAL SIGNS MEDICATIONS Medication Instructions Dosage Frequency Start Date End Date Duration Status Seasonique 0.15-0.03 &0.01 MG Orally Once a day TAKE ONE TABLET BY MOUTH ONCE DAILY 24h 91 days Active RESULTS No Results PROCEDURES No Known procedures IMMUNIZATIONS No Known Immunizations
--- OUTSIDE RECORDS SUMMARY | 2017-08-04 21:47 | XMS REPORT ---
Author Author KENAN LANCE Organization [facility] Address [address] [place] [address] Care Team Providers Care Liability Claims Adjuster Name Role Phone KENAN LANCE Unavailable PROBLEMS Type Condition ICD9-CM Code LQA24-[id number] Code Onset Dates Condition Status SNOMED Code Problem Vitamin D deficiency E55.9 Active 52960617 Problem GERD (gastroesophageal reflux disease) K21.9 Active 578650689 Problem Constipation K59.00 Active 09878990 Problem Physical exam, annual Z00.00 Active 493233755 Problem Asperger syndrome F84.5 Active 65945784 Problem Epilepsy G40.909 Active 30668190 Problem Nexplanon in place Z97.5 Active 389859636 Problem Mood disorder F39 Active 04064848 Problem Oppositional behavior F91.3 Active 97254166 Problem Tremors of nervous system R25.1 Active 301936391 Problem Dysuria R30.0 Active 71327389 Problem Obesity (BMI 30.0-34.9) E66.9 Active [id number] ALLERGIES No Information SOCIAL HISTORY Never Assessed PLAN OF CARE VITAL SIGNS Height 63.5 in 2016-09-05 Weight 228 lbs 2016-09-05 Respiratory Rate 22 2016-09-05 BMI 39.75 kg/m2 2016-09-05 Blood pressure systolic 112 mmHg 2016-09-05 Blood pressure diastolic 62 mmHg 2016-09-05 MEDICATIONS Medication Instructions Dosage Frequency Start Date End Date Duration Status Lamictal 25 MG Orally Twice a day 2 tablets 12h Active Triamcinolone Acetonide 0.025 % Externally Twice a day apply thin layer to rash on hands 12h Apr, Active Diazepam 10 mg Rectal with seizure activity 10 mg as needed Oct, Active Rexulti 1 MG Orally Once a day 1 tablet 24h Active Topiramate 100 MG Orally Twice a day 1 tablet 12h Active RESULTS No Results PROCEDURES No Known [...]
--- OUTSIDE RECORDS SUMMARY | 2017-08-04 21:47 | XMS REPORT ---
Author Author BRITANY ELY Organization [facility] Address [address] [place] [address] Care Team Providers Care Nca Certified Concierge Name Role Phone BRITANY ELY Unavailable PROBLEMS Type Condition ICD9-CM Code NVA12-AA Code Onset Dates Condition Status SNOMED Code Problem Vitamin D deficiency E55.9 Active 45068666 Problem GERD (gastroesophageal reflux disease) K21.9 Active 961498912 Problem Constipation K59.00 Active 42647029 Problem Physical exam, annual Z00.00 Active 251679532 Problem Asperger syndrome F84.5 Active 33336140 Problem Epilepsy G40.909 Active 82855982 Problem Nexplanon in place Z97.5 Active 727970680 Problem Mood disorder F39 Active 24208052 Problem Oppositional behavior F91.3 Active 94817792 Problem Tremors of nervous system R25.1 Active 490359123 Problem Dysuria R30.0 Active 63329662 Problem Obesity (BMI 30.0-34.9) E66.9 Active 244774890350640 ALLERGIES No Known Allergies SOCIAL HISTORY Never Assessed PLAN OF CARE Activity Details Follow Up followup with PCP Dorene Reason: VITAL SIGNS Height 63.5 in 2016-10-02 Weight 224.0 lbs 2016-10-02 Temperature 98.0 degrees Fahrenheit 2016-10-02 Heart Rate 78 bpm 2016-10-02 Respiratory Rate 22 2016-10-02 BMI 39.05 kg/m2 2016-10-02 Blood pressure systolic 130 mmHg 2016-10-02 Blood pressure diastolic 76 mmHg 2016-10-02 MEDICATIONS Medication Instructions Dosage Frequency Start Date End Date Duration Status Gabapentin 300 MG Orally Three times a day 1 capsule 8h Active Triamcinolone Acetonide 0.025 % Externally Twice a day apply thin layer to rash on hands 12h 17 Apr, 2016 Active Diazepam 10 mg Rectal with seizure activity 10 mg as needed Oct, Active Topiramate 100 MG Orally Twice a day 1 tablet 12h Active Lamictal 25 MG Orally Twice a day 2 tablets 12h Active RESULTS No Results PROCEDURES Procedure Date Ordered Result Body Site INSERT DRUG IMPLANT DEVICE October 02, 2016 ETONOGESTREL IMPLANT SYSTEM October 02, 2016 IMMUNIZATIONS No Known Immunizations MEDICAL (GENERAL) HISTORY Type Description Date Medical History epilepsy Medical History acid reflux Surgical History 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
--- OUTSIDE RECORDS SUMMARY | 2017-08-04 21:47 | XMS REPORT ---
Author Author BRENNAN GONZALEZ Organization [facility] Address [address] [place] [address] Care Team Providers Care Silica Spray Mixer Name Role Phone BRENNAN GONZALEZ Unavailable PROBLEMS Type Condition ICD9-CM Code [id number] Code Onset Dates Condition Status SNOMED Code Problem Vitamin D deficiency E55.9 Active 38549985 Problem GERD (gastroesophageal reflux disease) K21.9 Active 267857454 Problem Constipation K59.00 Active 35376156 Problem Physical exam, annual Z00.00 Active 501323313 Problem Asperger syndrome F84.5 Active 71287278 Problem Epilepsy G40.909 Active 27360466 Problem Nexplanon in place Z97.5 Active 300747118 Problem Mood disorder F39 Active 95865220 Problem Oppositional behavior F91.3 Active 23948800 Problem Tremors of nervous system R25.1 Active 721862251 Problem Dysuria R30.0 Active 56707771 Problem Obesity (BMI 30.0-34.9) E66.9 Active 831623120245506 ALLERGIES No Known Allergies SOCIAL HISTORY Never Assessed PLAN OF CARE Activity Details Follow Up 4 Weeks Reason:Nexplanon w/ [place] VITAL SIGNS Height 63.5 in 2016-09-11 Weight 225.2 lbs 2016-09-11 Temperature 98.5 degrees Fahrenheit 2016-09-11 Heart Rate 77 bpm 2016-09-11 Respiratory Rate 20 2016-09-11 BMI 39.26 kg/m2 2016-09-11 Blood pressure systolic 122 mmHg 2016-09-11 Blood pressure diastolic 76 mmHg 2016-09-11 MEDICATIONS Medication Instructions Dosage Frequency Start Date End Date Duration Status Diazepam 10 mg Rectal with seizure activity 10 mg as needed Oct, Active Triamcinolone Acetonide 0.025 % Externally Twice a day apply thin layer to rash on hands 12h 17 Apr, 2016 Active Rexulti 1 MG Orally Once a day 1 tablet 24h Active Topiramate 100 MG Orally Twice a day 1 tablet 12h Active Seasonique 0.15-0.03 &0.01 MG TAKE ONE TABLET BY MOUTH ONCE DAILY 28 Active Omeprazole 20 mg Orally Once a day 1 capsules 24h 30 Active Lamictal 25 MG Orally Twice a day 2 tablets 12h Active RESULTS Name Result Date Reference Range TEST, URINE (IN HOUSE) 2016-09-11 RESULTS Negative Lot # [id number] Control + Exp date PROCEDURES Procedure Date Ordered Result Body Site URINE TEST Sep 11, 2016 IMMUNIZATIONS No Known Immunizations MEDICAL (GENERAL) HISTORY Type Description Date Medical History epilepsy Medical History acid reflux Surgical History 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
--- OUTSIDE RECORDS SUMMARY | 2017-08-04 21:48 | XMS REPORT ---
Author Author GURMEET Gómez [facility] Address Unknown Care Team Providers Care Nutrition Aide Name Role Phone GURMEET Gómez Unavailable PROBLEMS Type Condition ICD9-CM Code [id number] Code Onset Dates Condition Status SNOMED Code Problem Vitamin D deficiency E55.9 Active 28221857 Problem GERD (gastroesophageal reflux disease) K21.9 Active 248793064 Problem Constipation K59.00 Active 80299387 Problem Physical exam, annual Z00.00 Active 414050070 Problem Asperger syndrome F84.5 Active 57290177 Problem Epilepsy G40.909 Active 83997706 Problem Nexplanon in place Z97.5 Active 475419570 Problem Mood disorder F39 Active 81707673 Problem Oppositional behavior F91.3 Active 01601591 Problem Tremors of nervous system R25.1 Active 624318558 Problem Dysuria R30.0 Active 28349473 Problem Obesity (BMI 30.0-34.9) E66.9 Active 565430898917098 ALLERGIES No Known Allergies SOCIAL HISTORY Never Assessed PLAN OF CARE Activity Details Follow Up 2 Weeks Reason:Filling #2 VITAL SIGNS Height 63.5 in 2016-09-05 Blood pressure systolic 110 mmHg 2016-09-05 Blood pressure diastolic 57 mmHg 2016-09-05 MEDICATIONS Medication Instructions Dosage Frequency Start Date End Date Duration Status Diazepam 10 mg Rectal with seizure activity 10 mg as needed Oct, Active Triamcinolone Acetonide 0.025 % Externally Twice a day apply thin layer to rash on hands 12h 17 Apr, 2016 Active Seasonique 0.15-0.03 &0.01 MG TAKE ONE TABLET BY MOUTH ONCE DAILY 28 Active Topiramate 50 MG Orally Twice a day 1 tablet 12h Active Lamictal 25 MG Orally Twice a day 2 tablets 12h Active Levetiracetam 750 MG Orally every 12 hrs 1 tablet 12h 30 Active Rexulti 1 MG Orally Once a day 1 tablet 24h Active RESULTS No Results PROCEDURES Procedure Date Ordered Result Body Site LTD ORAL EVALUATION - PROBLEM FOCUS Sep 05, 2016 INTRAORL-PERIAPICAL 1 FILM [id number] Sep 05, 2016 BITEWING - SINGLE FILM Sep 05, 2016 IMMUNIZATIONS No Known Immunizations MEDICAL (GENERAL) HISTORY Type Description Date Medical History epilepsy Medical History acid reflux Surgical History 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
--- OUTSIDE RECORDS SUMMARY | 2017-08-04 21:48 | XMS REPORT ---
Author Author ELYSE SHEPARD Organization [facility] Address [address] [place] [address] Care Team Providers Care Feather Trimmer Name Role Phone ELYSE SHEPARD Unavailable PROBLEMS Type Condition ICD9-CM Code UVP19-VT Code Onset Dates Condition Status SNOMED Code Problem Vitamin D deficiency E55.9 Active 65201133 Problem GERD (gastroesophageal reflux disease) K21.9 Active 392198346 Problem Constipation K59.00 Active 63479946 Problem Physical exam, annual Z00.00 Active 565251078 Problem Asperger syndrome F84.5 Active 52710129 Problem Epilepsy G40.909 Active 13080077 Problem Nexplanon in place Z97.5 Active 300959158 Problem Mood disorder F39 Active 50359790 Problem Oppositional behavior F91.3 Active 73645706 Problem Tremors of nervous system R25.1 Active 567813100 Problem Dysuria R30.0 Active 04166912 Problem Obesity (BMI 30.0-34.9) E66.9 Active 770821977620363 ALLERGIES Substance Reaction Event Type Date Status N.K.D.A. Unknown Non Drug Allergy Jul, Unknown SOCIAL HISTORY No smoking Hx information available PLAN OF CARE Activity Details Follow Up prn Reason: VITAL SIGNS Height 63.5 in 2016-08-23 Weight 224.8 lbs 2016-08-23 Temperature 99.4 degrees Fahrenheit 2016-08-23 Heart Rate 76 bpm 2016-08-23 Respiratory Rate 20 2016-08-23 BMI 39.19 kg/m2 2016-08-23 Blood pressure systolic 122 mmHg 2016-08-23 Blood pressure diastolic 68 mmHg 2016-08-23 MEDICATIONS Medication Instructions Dosage Frequency Start Date End Date Duration Status Cefdinir 300 MG Orally every 12 hrs 1 capsule 12h Jul, Aug, 10 day(s) Active Diazepam 10 mg Rectal with seizure activity 10 mg as needed Oct, Active Triamcinolone Acetonide 0.025 % Externally Twice a day apply thin layer to rash on hands 12h 17 Apr, 2016 Active Lamictal 25 MG Orally Twice a day 2 tablets 12h Active Topiramate 50 MG Orally Twice a day 1 tablet 12h Active Levetiracetam 750 MG Orally every 12 hrs 1 tablet 12h 30 Active Seasonique 0.15-0.03 &0.01 MG TAKE ONE TABLET BY MOUTH ONCE DAILY 28 Active Rexulti 1 MG Orally Once a day 1 tablet 24h Active RESULTS No Results PROCEDURES Procedure Date Ordered Related Diagnosis Body Site Office Visit, Est Pt., Level 3 Aug 23, 2016 IMMUNIZATIONS No Known Immunizations
--- OUTSIDE RECORDS SUMMARY | 2017-08-04 21:49 | XMS REPORT | Continuity of Care Document ---
Author Author [facility] Organization [facility] Address Unknown Phone Unavailable Allergies Active Description Code Type Severity Reaction Onset Reported/Identified Relationship to Patient Clinical Status Yes No Known Drug Allergies [id number] Drug Allergy Unknown N/A 10/29/2015 Medications There is no data. Problems Date Dx Coded Attending Type Code Diagnosis Diagnosed By 10/29/2015 Ot G40.909 EPILEPSY, UNSP, NOT INTRACTABLE, WITHOUT 10/29/2015 Ot Z79.899 OTHER HORSE RACER (CURRENT) DRUG THERAPY 11/02/2015 BRENNAN GONZALEZ APRN Ot G40.909 11/06/2015 BRENNAN GONZALEZ COAL UNLOADER Ot G40.909 11/06/2015 JULIENNE HERNANDEZ MD Ot G40.909 EPILEPSY, UNSP, NOT INTRACTABLE, WITHOUT 11/06/2015 JULIENNE HERNANDEZ MD Ot N39.0 URINARY TRACT INFECTION, SITE NOT SPECIF 11/06/2015 BRENNAN GONZALEZ COAL UNLOADER Ot G40.909 11/07/2015 MANUEL LEO COAL UNLOADER Ot F84.5 ASPERGER'S SYNDROME 11/07/2015 MANUEL LEO APRN Ot G40.909 EPILEPSY, UNSP, NOT INTRACTABLE, WITHOUT 11/07/2015 MANUEL LEO COAL UNLOADER Ot Z79.899 OTHER RESIDENTIAL (CURRENT) DRUG THERAPY 11/07/2015 BRENNAN GONZALEZ COAL UNLOADER Ot G40.909 11/08/2015 BRENNAN GONZALEZ COAL UNLOADER Ot G40.909 11/08/2015 MANUEL LEO COAL UNLOADER Ot F84.5 ASPERGER'S SYNDROME 11/08/2015 MANUEL LEO APRN Ot G40.909 EPILEPSY, UNSP, NOT INTRACTABLE, WITHOUT 11/09/2015 MANUEL LEO APRN Ot F84.5 11/09/2015 MANUEL LEO COAL UNLOADER Ot G40.909 11/09/2015 MANUEL LEO APRN Ot Z79.899 11/15/2015 CANO DO, HEMA L Ot F84.5 ASPERGER'S SYNDROME 11/15/2015 JEROME ELIZABETH, HEMA L Ot G40.909 EPILEPSY, UNSP, NOT INTRACTABLE, WITHOUT 11/24/2015 MANUEL LEO APRN Ot F84.5 ASPERGER'S SYNDROME 11/24/2015 MANUEL LEO APRN Ot G40.909 EPILEPSY, UNSP, NOT INTRACTABLE, WITHOUT 11/24/2015 MANUEL LEO COAL UNLOADER Ot Z79.899 OTHER RESIDENTIAL (CURRENT) DRUG THERAPY 12/12/2015 BRENNAN GONZALEZ COAL UNLOADER Ot G40.909 EPILEPSY, UNSP, NOT INTRACTABLE, WITHOUT [...] Ot R25.1 TREMOR, UNSPECIFIED 12/23/2015 BRENNAN GONZALEZ APRN Ot G40.909 EPILEPSY, UNSP, NOT INTRACTABLE, WITHOUT 08/17/2016 STACY CHU DO Ot F84.5 ASPERGER'S SYNDROME 08/17/2016 STACY CHU DO Ot H66.91 OTITIS MEDIA, UNSPECIFIED, RIGHT EAR 08/17/2016 VLAD DO, STACY K Ot H92.01 OTALGIA, RIGHT EAR 08/17/2016 VLAD DO, STACY K Ot Z79.899 OTHER HORSE RACER (CURRENT) DRUG THERAPY 08/20/2016 VLAD DO, STACY K Ot F84.5 ASPERGER'S SYNDROME 08/20/2016 VLAD DO, STACY K Ot H66.91 OTITIS MEDIA, UNSPECIFIED, RIGHT EAR 08/20/2016 VLAD DO, STACY K Ot H92.01 OTALGIA, RIGHT EAR 08/20/2016 VLAD DO, STACY K Ot Z79.899 OTHER RESIDENTIAL (CURRENT) DRUG THERAPY 08/20/2016 VLAD DO, STACY K Ot F84.5 ASPERGER'S SYNDROME 08/20/2016 VLAD DO, STACY K Ot H66.91 OTITIS MEDIA, UNSPECIFIED, RIGHT EAR 08/20/2016 VLAD DO, STAYC K Ot H92.01 OTALGIA, RIGHT EAR 08/20/2016 VLAD DO, STACY K Ot Z79.899 OTHER RESIDENTIAL (CURRENT) DRUG THERAPY 10/27/2016 RONNIE WILSON, RA Saxena Ot F84.5 ASPERGER'S SYNDROME 10/27/2016 RONNIE WILSON, RA Saxena Ot G40.909 EPILEPSY, UNSP, NOT INTRACTABLE, WITHOUT 10/27/2016 RA TRUJILLO MD Ot Z79.899 OTHER HORSE RACER (CURRENT) DRUG THERAPY 01/24/2017 RA TRUJILLO MD Ot F70 MILD INTELLECTUAL DISABILITIES 01/24/2017 RA TRUJILLO MD Ot G40.909 EPILEPSY, UNSP, NOT INTRACTABLE, WITHOUT 01/24/2017 RA TRUJILLO MD Ot J02.9 ACUTE PHARYNGITIS, UNSPECIFIED 01/24/2017 RA TRUJILLO MD Ot K21.9 GASTRO-ESOPHAGEAL REFLUX DISEASE WITHOUT 01/24/2017 RA TRUJILLO MD Ot R05 COUGH 01/24/2017 RA TRUJILLO MD Ot Z79.899 OTHER HORSE RACER (CURRENT) DRUG THERAPY 01/25/2017 RA TRUJILLO MD Ot F70 MILD INTELLECTUAL DISABILITIES 01/25/2017 RA TRUJILLO MD Ot G40.909 EPILEPSY, UNSP, NOT INTRACTABLE, WITHOUT 01/25/2017 RA TRUJILLO MD Ot J02.9 ACUTE PHARYNGITIS, UNSPECIFIED 01/25/2017 RA TRUJILLO MD Ot K21.9 GASTRO-ESOPHAGEAL REFLUX DISEASE WITHOUT 01/25/2017 RA TRUJILLO MD Ot R05 COUGH 01/25/2017 RA TRUJILLO MD Ot Z79.899 OTHER HORSE RACER (CURRENT) DRUG THERAPY 03/19/2017 CAREN BAH Ot G40.909 EPILEPSY, UNSP, NOT INTRACTABLE, WITHOUT 03/19/2017 CAREN BAH Ot K21.9 GASTRO-ESOPHAGEAL REFLUX DISEASE WITHOUT 03/19/2017 CAREN BAH Ot M54.5 LOW BACK PAIN 03/19/2017 CAREN BAH Ot N23 UNSPECIFIED RENAL COLIC 03/19/2017 CAREN BAH Ot R30.0 DYSURIA 03/19/2017 CAREN BAH Ot Z90.89 ACQUIRED ABSENCE OF OTHER ORGANS 04/02/2017 KIKI DRIVER MD Ot N31.9 NEUROMUSCULAR DYSFUNCTION OF BLADDER, UN 04/02/2017 KIKI DRIVER MD, Ot R33.9 RETENTION OF URINE, UNSPECIFIED 04/02/2017 KIKI DRIVER MD, Ot Z01.818 ENCOUNTER FOR OTHER PREPROCEDURAL EXAMIN 04/03/2017 KIKI DRIVER MD Ot F32.9 MAJOR DEPRESSIVE DISORDER, SINGLE EPISOD 04/03/2017 KIKI DRIVER MD Ot F60.9 PERSONALITY DISORDER, UNSPECIFIED 04/03/2017 KIKI DRIVER MD Ot F84.5 ASPERGER'S SYNDROME 04/03/2017 KIKI DRIVER MD, Ot G40.909 EPILEPSY, UNSP, NOT INTRACTABLE, WITHOUT 04/03/2017 KIKI DRIVER MD Ot K21.9 GASTRO-ESOPHAGEAL REFLUX DISEASE WITHOUT 04/03/2017 KIKI DRIVER MD Ot N30.90 CYSTITIS, UNSPECIFIED WITHOUT HEMATURIA 04/03/2017 KIKI DRIVER MD, Ot N81.10 CYSTOCELE, UNSPECIFIED 04/03/2017 KIKI DRIVER MD Ot Z79.899 OTHER RESIDENTIAL (CURRENT) DRUG THERAPY 04/09/2017 KIKI DRIVER MD Ot F32.9 MAJOR DEPRESSIVE DISORDER, SINGLE EPISOD 04/09/2017 VILLA WILSON, KIKI [place] Ot F60.9 PERSONALITY DISORDER, UNSPECIFIED 04/09/2017 KIKI DRIVER MD Ot F84.5 ASPERGER'S SYNDROME 04/09/2017 VILLA WILSON, KIKI [place] Ot G40.909 EPILEPSY, UNSP, NOT INTRACTABLE, WITHOUT 04/09/2017 VILLA WILSON, KIKI [place] Ot K21.9 GASTRO-ESOPHAGEAL REFLUX DISEASE WITHOUT 04/09/2017 KIKI DRIVER MD Ot N30.90 CYSTITIS, UNSPECIFIED WITHOUT HEMATURIA 04/09/2017 KIKI DRIVER MD Ot N81.10 CYSTOCELE, UNSPECIFIED 04/09/2017 KIKI DRIVER MD Ot Z79.899 OTHER RESIDENTIAL (CURRENT) DRUG THERAPY 04/10/2017 MANUEL LEO APRN Ot F60.9 PERSONALITY DISORDER, UNSPECIFIED 04/10/2017 MANUEL LEO APRN Ot F84.5 ASPERGER'S SYNDROME 04/10/2017 MANUEL LEO APRN Ot G40.909 EPILEPSY, UNSP, NOT INTRACTABLE, WITHOUT 04/10/2017 MANUEL LEO APRN Ot K21.9 GASTRO-ESOPHAGEAL REFLUX DISEASE WITHOUT 04/10/2017 MANUEL LEO APRN Ot R25.8 OTHER ABNORMAL INVOLUNTARY MOVEMENTS 04/10/2017 MANUEL LEO APRN Ot R56.9 UNSPECIFIED CONVULSIONS 04/10/2017 MANUEL LEO COAL UNLOADER Ot Z87.898 PERSONAL HISTORY OF OTHER SPECIFIED COND 04/10/2017 MANUEL LEO APRN Ot Z90.89 ACQUIRED ABSENCE OF OTHER ORGANS Procedures There is no data. Results Test Result Range Complete urinalysis with reflex to culture - 10/27/16 22:19 Urine color determination YELLOW NRG Urine clarity determination CLEAR NRG Urine pH measurement by test strip 6 5-9 Specific gravity of urine by test strip 1.025 1.016- 1.022 Urine protein assay by test strip, semi-quantitative [...] CULTURE RESULTS MORE THAN 3 ISOLATES NRG Streptococcus pyogenes antigen detection - 01/24/17 22:23 Streptococcus pyogenes antigen detection NEGATIVE NEGATIVE Bacterial throat culture - 01/24/17 22:23 Bacterial throat culture NBS NRG Complete urinalysis with reflex to culture - 03/19/17 19:59 Urine color determination YELLOW NRG Urine clarity determination CLEAR NRG Urine pH measurement by test strip 6 5-9 Specific gravity of urine by test strip 1.015 1.016- 1.022 Urine protein assay by test strip, semi-quantitative NEGATIVE NEGATIVE Urine glucose detection by automated test strip NEGATIVE NEGATIVE Erythrocytes detection in urine sediment by light microscopy 1+ NEGATIVE Urine ketones detection by automated test strip NEGATIVE NEGATIVE Urine nitrite detection by test strip NEGATIVE NEGATIVE Urine total bilirubin detection by test strip NEGATIVE NEGATIVE Urine urobilinogen measurement by automated test strip (mass/volume) NORMAL NORMAL Urine leukocyte esterase detection by dipstick 1+ NEGATIVE Automated urine sediment erythrocyte count by microscopy (number/high power field) RARE NRG Automated urine sediment leukocyte count by microscopy (number/high power field ) RARE NRG Bacteria detection in urine sediment by light microscopy NEGATIVE NRG Squamous epithelial cells detection in urine sediment by light microscopy 10-25 NRG Crystals detection in urine sediment by light microscopy NONE NRG Casts detection in urine sediment by light microscopy NONE NRG Mucus detection in urine sediment by light microscopy NEGATIVE NRG Complete urinalysis with reflex to culture NO NRG Serum or plasma choriogonadotropin ( test) detection - 04/03/17 08:05 Serum or plasma choriogonadotropin ( test) detection NEGATIVE NEGATIVE Methicillin resistant Staphylococcus aureus (MRSA) screening culture - 08:20 Methicillin resistant Staphylococcus aureus (MRSA) screening culture NEG NRG Complete blood count (CBC) with automated white blood cell (WBC) differential - 04/10/17 16:50 Blood leukocytes automated count (number/volume) 9.7 10*3/uL 4.3-11.0 Blood erythrocytes automated count (number/volume) 4.04 10*6/uL 4.35-5.85 Venous blood hemoglobin measurement (mass/volume) 11.3 g/dL 11.5-16.0 Blood hematocrit (volume fraction) 34 % 35-52 Automated erythrocyte mean corpuscular volume 85 [foz_us] 80-99 Automated erythrocyte mean corpuscular hemoglobin (mass per erythrocyte) 28 pg 25-34 Automated erythrocyte mean corpuscular hemoglobin concentration measurement ( mass/volume) 33 g/dL 32-36 Automated erythrocyte distribution width ratio 13.1 % 10.0-14.5 Automated blood platelet count (count/volume) 250 10*3/uL 130-400 Automated blood platelet mean volume measurement 9.1 [foz_us] 7.4-10.4 Automated blood neutrophils/100 leukocytes 48 % 42-75 Automated blood lymphocytes/100 leukocytes 43 % 12-44 Blood monocytes/100 leukocytes 8 % 0-12 Automated blood eosinophils/100 leukocytes 1 % 0-10 Automated blood basophils/100 leukocytes 0 % 0-10 Blood neutrophils automated count (number/volume) 4.6 10*3 1.8-7.8 Blood lymphocytes automated count (number/volume) 4.1 10*3 1.0-4.0 Blood monocytes automated count (number/volume) 0.8 10*3 0.0-1.0 Automated eosinophil count 0.1 10*3/uL 0.0-0.3 Automated blood basophil count (count/volume) 0.0 10*3/uL 0.0-0.1 Comprehensive metabolic panel - 04/10/17 16:50 Serum or plasma sodium measurement (moles/volume) 139 mmol/L 135-145 Serum or plasma potassium measurement (moles/volume) 4.1 mmol/L 3.6-5.0 Serum or plasma chloride measurement (moles/volume) 106 mmol/L 98-107 Carbon dioxide 25 mmol/L 21-32 Serum or plasma anion gap determination (moles/volume) 8 mmol/L 5-14 Serum or plasma urea nitrogen measurement (mass/volume) 15 mg/dL 7-18 Serum or plasma creatinine measurement (mass/volume) 0.70 mg/dL 0.60-1.30 Serum or plasma urea nitrogen/creatinine mass ratio 21 NRG Serum or plasma creatinine measurement with calculation of estimated glomerular filtration rate > NRG Serum or plasma glucose measurement (mass/volume) 89 mg/dL 70-105 Serum or plasma calcium measurement (mass/volume) 9.2 mg/dL 8.5-10.1 Serum or plasma total bilirubin measurement (mass/volume) 0.3 mg/dL 0.1-1.0 Serum or plasma alkaline phosphatase measurement (enzymatic activity/volume) 86 U/L 40-136 Serum or plasma aspartate aminotransferase measurement (enzymatic activity/ volume) 12 U/L 5-34 Serum or plasma alanine aminotransferase measurement (enzymatic activity/volume ) 16 U/L 0-55 Serum or plasma protein measurement (mass/volume) 6.5 g/dL 6.4-8.2 Serum or plasma albumin measurement (mass/volume) 3.8 g/dL 3.2-4.5 Complete urinalysis with reflex to culture - 04/10/17 17:00 Urine color determination YELLOW NRG Urine clarity determination CLEAR NRG Urine pH measurement by test strip 6.5 5-9 Specific gravity of urine by test strip 1.010 1.016- 1.022 Urine protein assay by test strip, semi-quantitative NEGATIVE NEGATIVE Urine glucose detection by automated test strip NEGATIVE NEGATIVE Erythrocytes detection in urine sediment by light microscopy NEGATIVE NEGATIVE Urine ketones detection by automated test strip NEGATIVE NEGATIVE Urine nitrite detection by test strip NEGATIVE NEGATIVE Urine total bilirubin detection by test strip NEGATIVE NEGATIVE Urine urobilinogen measurement by automated test strip (mass/volume) NORMAL NORMAL Urine leukocyte esterase detection by dipstick NEGATIVE NEGATIVE Automated urine sediment erythrocyte count by microscopy (number/high power field) NONE NRG Automated urine sediment leukocyte count by microscopy (number/high power field ) [HPF] NRG Bacteria detection in urine sediment by light microscopy TRACE NRG Squamous epithelial cells detection in urine sediment by light microscopy 2-5 NRG Crystals detection in urine sediment by light microscopy NONE NRG Casts detection in urine sediment by light microscopy NONE NRG Mucus detection in urine sediment by light microscopy NEGATIVE NRG Complete urinalysis with reflex to culture NO NRG Encounters ACCT No. Visit Date/Time Discharge Status Pt. Type Provider Facility Loc./Unit Complaint [id number] 04/10/2017 16:07:00 04/10/2017 17:37:00 DIS Emergency MANUEL LEO APRN [facility] ER SEIZURE [id number] 04/03/2017 07:37:00 04/03/2017 11:00:00 DIS Outpatient KIKI DRIVER MD [facility] SDC NEUROGENIC BLADDER, RETENTION, DUS [id number] 03/28/2017 10:22:00 03/28/2017 16:04:00 DIS Outpatient KIKI DRIVER MD [facility] PREOP CYSTO, UD [id number] 03/19/2017 19:35:00 03/19/2017 22:31:00 DIS Emergency CAREN BAH [facility] ER TROUBLE URINATING [id number] 01/24/2017 21:53:00 01/24/2017 23:31:00 DIS Emergency RA TRUJILLO MD [facility] ER SORE THROAT/COUGH [id number] 10/27/2016 22:02:00 10/27/2016 23:06:00 DIS Emergency RA TRUJILLO MD [facility] ER SEIZURE [id number] 08/17/2016 21:04:00 08/17/2016 22:06:00 DIS Emergency STACY CHU DO [facility] ER R EAR PAIN/BLEEDING [id number] 12/21/2015 08:05:00 12/21/2015 09:02:00 DIS Emergency RA TRUJILLO MD [facility] ER [id number] 12/20/2015 16:03:00 12/20/2015 17:43:00 DIS Emergency RA TRUJILLO MD [facility] ER [id number] 11/15/2015 13:01:00 11/15/2015 13:46:00 DIS Emergency HEMA CANO DO [facility] ER [id number] 11/08/2015 10:51:00 11/08/2015 11:00:00 DIS Emergency MANUEL LEO APRN [facility] ER [id number] 11/07/2015 21:46:00 11/07/2015 23:10:00 DIS Emergency MANUEL LEO APRN [facility] ER [id number] 11/06/2015 18:03:00 11/06/2015 20:49:00 DIS Emergency JULIENNE HERNANDEZ MD [facility] ER [id number] 11/01/2015 18:46:00 11/01/2015 23:59:59 [facility] Outpatient BRENNAN GONZALEZ APRN [facility] LAB [id number] 10/29/2015 20:18:00 Document Registration
--- NOTE | 2017-08-04 22:10 | ED Neurological Problem ---
General Chief Complaint: Head/Cervical Problems Stated Complaint: FELL,SEIZURES Source: patient, family Exam Limitations: no limitations History of Present Illness Time seen by provider: 22:08 Initial Comments To ER by both parents with reports of seizures. Patient slipped and fell in the mud denies striking less overhead. She then had a seizure. She is alert and oriented at this time talking. GCS 15. She has known have a seizure disorder and frequency this emergency room and [facility] where I have also evaluated the patient. 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 Timing/Duration: 1-3 hours Severity: moderate Associated Symptoms: seizures Allergies and Home Medications Allergies Coded Allergies: No Known Drug Allergies (Unverified , 10/29/15) Home Medications Brexpiprazole 1 Mg Tablet, 1 MG PO DAILY, (Reported) Etonogestrel 68 Mg Implant, 68 MG SQ UD, (Reported) Gabapentin 300 Mg Capsule, 300 MG PO TID, (Reported) Lamotrigine 100 Mg Tablet, 100 MG PO BID, (Reported) Nitrofurantoin Monohyd/M-Cryst 100 Mg Capsule, 100 MG PO BID WITH MEALS, #14 Prescribed by: GALLO MORE on 04/03/17 1031 Omeprazole 20 Mg Tablet.dr, 20 MG PO DAILY, (Reported) Phenazopyridine HCl 200 Mg Tablet, 200 MG PO TID PRN for PAIN-MILD, #15 Prescribed by: GALLO MORE on 04/03/17 1031 Constitutional: see HPI Eyes: No Symptoms Reported Ears, Nose, Mouth, Throat: no symptoms reported Respiratory: no symptoms reported Cardiovascular: no symptoms reported Genitourinary: no symptoms reported Musculoskeletal: no symptoms reported Skin: no symptoms reported Psychiatric/Neurological: See HPI, Headache Past Mgirxrl-Netjzb-Miiycu Hx Patient Social History 2nd Hand Smoke Exposure: No Recent Foreign Travel: No Contact w/Someone Who Travel: No Recent Hopitalizations: No Immunizations Up To Date PED Vaccines UTD: Yes Seasonal Allergies Seasonal Allergies: Yes Surgeries History of Surgeries: Yes (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 , LEFT TOE) Surgeries: Orthopedic, Tonsillectomy Respiratory History of Respiratory Disorde: No Cardiovascular History of Cardiac Disorders: No Neurological History of Neurological Disord: Yes (EPILEPSY-LAST SEIZURE IN JANUARY 12) Neurological Disorders: Developmental Disorder, Seizure Disorder Reproductive System Hx Reproductive Disorders: No Genitourinary History of Genitourinary Disor: No Gastrointestinal History of Gastrointestinal Di: Yes Gastrointestinal Disorders: Gastroesophageal Reflux Musculoskeletal History of Musculoskeletal Dis: No Endocrine History of Endocrine Disorders: No HEENT History of HEENT Disorders: No Cancer History of Cancer: No Psychosocial History of Psychiatric Problem: Yes (ASPERGERS, MILD MR) Behavioral Health Disorders: Personality Disorder Integumentary History of Skin or Integumenta: Yes (DERMOID TUMOR RIGHT FOREHEAD REMOVED) Blood Transfusions History of Blood Disorders: No Adverse Reaction to a Blood Tr: No Physical Exam Vital Signs Capillary Refill : General Appearance: WD/WN, no apparent distress HEENT: PERRL/EOMI, normal ENT inspection Neck: non-tender, full range of motion Respiratory: no respiratory distress, no accessory muscle use Cardiovascular: regular rate, rhythm, no murmur Gastrointestinal: normal bowel sounds, non tender, soft Extremities: normal range of motion, non-tender Neurologic/Psychiatric: alert, normal mood/affect, oriented x 3 Crainal Nerves: normal hearing, normal speech, PERRL Skin: normal color, warm/dry Comments GCS 15. Pupils are equal. There is no scalp hematoma or abrasion or laceration. Stroke NIH Stroke Scale Assessment Limb Ataxia: 2=Present in two limbs (2), Total: 2 Progress/Results/Core Measures Results/Orders My Orders Orders - MANUEL LEO APRN Mixing Study Ptt Pt (08/04/17 22:04) Ct Head/Cervical Spine Wo (08/04/17 22:04) Departure Impression Impression: Primary Impression: Seizure disorder Additional Impression: Fall Disposition: 01 HOME, SELF-CARE Condition: Stable Departure-Patient Inst. Decision time for Depature: 22:10 Referrals: [facility]/ (PCP) Primary Care Physician BRENNAN GONZALEZ APRN (Family) Primary Care Physician Patient Instructions: Seizures, Child (DC) Add. Discharge Instructions: Continue all current medications. All discharge instructions reviewed with patient and/or family. Voiced understanding. MANUEL LEO APRN Aug 04, 2017 22:10
--- NOTE | 2017-08-05 07:06 | Diagnostic Imaging Report ---
PROCEDURE: CT head and CT cervical spine without contrast. TECHNIQUE: Multiple contiguous axial images were obtained through the brain and cervical spine without the use of intravenous contrast. Sagittal and coronal reformations through the cervical spine were then performed. INDICATION: Status post fall, hitting left side of head. History of seizures. COMPARISON: None CT HEAD FINDINGS: The ventricles and sulci are within normal limits. There is no midline shift or mass effect. No evidence for acute intracranial hemorrhage or extra-axial fluid collections. The bony calvarium is intact. Mucosal thickening the right maxillary sinus. CT CERVICAL SPINE FINDINGS: There is normal alignment and curvature of the cervical spine. There is no evidence for acute bony abnormality. The odontoid is intact. The prevertebral soft tissues are normal. IMPRESSION: 1. No acute intracranial abnormality. 2. No evidence for acute cervical spine fracture or subluxation. A preliminary report was provided by [employer]. Dictated by: Dictated on workstation # [id number]
== END 2017-08-04 23:27 | disposition home or self-care (01) ==
LOC: EDUNIT# 21:40 → ER 21:41
DX: G40.909 Epilepsy, unspecified, not intractable, without status epilepticus (principal); K21.9 Gastro-esophageal reflux disease without esophagitis; Z90.89 Acquired absence of other organs; W01.0XXA Fall on same level from slipping, tripping and stumbling without subsequent striking against object, initial encounter
CPT/HCPCS: 70450; 72125; 99282

== ENCOUNTER 2018-04-17 11:25 | Emergency (ER) | payer SELFPAY ==
[~2018-04-17] VITALS: Ht 157.5 cm; Wt 102.1 kg
--- OUTSIDE RECORDS SUMMARY | 2018-04-17 11:30 | XMS REPORT | Clinical Summary ---
Author Author [facility] Address Unknown Phone Unavailable Care Team Providers [employer] Sales Consultant Name Role Phone PP Unavailable Allergies No Known Allergies Current Medications [...] Vaccines (1 of 3 - 2008 Female 3-dose series) Varicella Vaccines (1 of 2010 2 - 2-dose adolescent series) MenB Vaccine (Bexsero) (1 2013 of 2) DTaP,Tdap,and Td Vaccines 2016 (1 - Tdap) Results Not on filefrom Last 3 Months
--- OUTSIDE RECORDS SUMMARY | 2018-04-17 11:31 | XMS REPORT ---
Author Author KENAN LANCE [facility] Address [address] [place] [address] Care Team Providers Care Administrative Receptionist Name Role Phone KENAN LANCE Unavailable PROBLEMS Type Condition ICD9-CM Code LOE13-EQ Code Onset Dates Condition Status SNOMED Code Problem Constipation K59.00 Active 77703426 Problem Dysuria R30.0 Active 72437808 Problem Oppositional behavior F91.3 Active 18987659 Problem Asperger syndrome F84.5 Active 12307905 Problem Epilepsy G40.909 Active 38821717 Problem Tremors of nervous system R25.1 Active 910009873 Problem GERD without esophagitis K21.9 Active 786868942 Problem Benign essential tremor G25.0 Active 515258316 Problem Morbid (severe) obesity due to excess calories E66.01 Active 677431113 Problem Mood disorder F39 Active 26705172 Problem Episode of recurrent major depressive disorder, unspecified depression episode severity F33.9 Active 936499523 Problem Body mass index (BMI) of 40.0-44.9 in adult Z68.41 Active 104267345 ALLERGIES No Information ENCOUNTERS Encounter Location Date Diagnosis [facility] [address], [place] [address] Apr, [facility] [id number] [place] [address]58- 3575 Apr, [facility] [address], [place] [address] Mar, Asperger syndrome F84.5 [facility] [address], [place] [address] Mar, [facility] [address], [place] [address] 07 Mar, 2018 Vertigo R42 [facility] [address] [address] 07 Mar, 2018 GERD without esophagitis K21.9 [facility] [address] [address] Mar, Asperger syndrome F84.5 [facility] [address] [address] Mar, [facility] [address] [address] Mar, Right otitis media with effusion H65.91 [place] [address] [address] Feb, [place] [address] [address] Jan, GERD without esophagitis K21.9 [facility] [address] [address] Dec, Hematuria, unspecified type R31.9 and Acute cystitis with hematuria N30.01 [place] [address] [address] November, Asperger syndrome F84.5 [place] [address] [address]- [address] November, [facility] [address] [address] Oct, Benign essential tremor G25.0 and GERD without esophagitis K21.9 [place] [address] [address] Aug, [facility] [address] [address] Aug, Asperger syndrome F84.5 [facility] [address] [address] Aug, Diarrhea, unspecified type R19.7 [facility] [address], [place] [address] Aug, Episode of recurrent major depressive disorder, unspecified depression episode severity F33.9 [facility] [id number] [id number] Jul, Dental examination Z01.20 [place] [id number] [place] [address] 07855- 6964 Jul, Asperger syndrome F84.5 [facility] [id number] [place] [address] 63885- 6858 Jul, Asperger syndrome F84.5 [facility] [id number] [place] [address] 09790- 8584 Jul, Dental examination Z01.20 [place] [address] [place] [address] 45506- 5146 Jul, Asperger syndrome F84.5 ; Epilepsy G40.909 ; GERD ( gastroesophageal reflux disease) K21.9 ; Mood disorder F39 ; BMI 40.0-44.9, adult Z68.41 and Tremors of nervous system R25.1 [place] [address] [place] [address] 60477- 9696 Jul, Asperger syndrome F84.5 and Oppositional behavior F91.3 [facility] [id number] [place] [address] 27239- 3992 Jun, Tremors of nervous system R25.1 [facility] [id number] [place] [address] 75447- 6329 Jun, Asperger syndrome F84.5 [facility] [id number] [place] [address] 11838- 1573 Jun, Asperger syndrome F84.5 [facility] [id number] [place] [address] 58539- 5882 May, [facility] [id number] [place] [address] 06083 -4880 May, Acute non-recurrent frontal sinusitis J01.10 [place] [id number] [place] [address] 47675- 9725 May, Mood disorder F39 and Asperger syndrome F84.5 [place] [address] 19498- 9949 May, Acne vulgaris L70.0 [place] [address] 19653- 7041 May, Acne vulgaris L70.0 and Tremors of nervous system R25.1 [facility] [id number] [place] [address]23 -5842 May, Other viral agents as the cause of diseases classified elsewhere B97.89 and Acute upper respiratory infection, unspecified J06.9 [place] [id number] [place] [address] 99170- 6066 May, Mood disorder F39 and Asperger syndrome F84.5 [place] [address] 97427- 9264 Apr, Asperger syndrome F84.5 [facility] [id number] [place] [address] 28633- 8940 Apr, Asperger syndrome F84.5 and Oppositional behavior F91.3 [facility] [id number] [place] [address] 89154- 1389 Mar, Mood disorder F39 and Asperger syndrome F84.5 [place] [address] 65[address]- 0498 Feb, GERD (gastroesophageal reflux disease) K21.9 ; Dysuria R30.0 ; Otalgia of right ear H92.01 and Decreased urination R34 [address] [address]- [address] Feb, Mood disorder F39 and Asperger syndrome F84.5 [facility] [id number] [place] [address] 58490- 5377 Feb, Asperger syndrome F84.5 and Oppositional behavior F91.3 [facility] [id number] [place] [address]2932 [address]75 Jan, Viral gastroenteritis A08.4 [facility] [address] [address]- [address] Jan, Mood disorder F39 and Asperger syndrome F84.5 [place] [address] 12540- 6712 Jan, Asperger syndrome F84.5 and Oppositional behavior F91.3 [facility] [id number] [place] [address] 14565 -[address] Dec, FRANSICO (secretory otitis media), right H65.91 [place] [id number] [place] [address] 63933- 1061 Dec, Mood disorder F39 and Asperger syndrome F84.5 [facility] [id number] [place] [address] 92345- 6725 Dec, Otalgia, left ear H92.02 [place] [id number] [place] [address] 21166- 3895 Dec, [facility] [facility] [id number] [place] [address] 19378- 1215 Dec, Mood disorder F39 and Asperger syndrome F84.5 [facility] [address] [place] [address] [id number] 07 Dec, 2016 Dental examination Z01.20 [place] [id number] [place] [address] 96813- 3418 November, Medicare annual wellness visit, subsequent Z00.00 ; GERD ( gastroesophageal reflux disease) K21.9 ; Counseling on health promotion and disease prevention Z71.89 and Encounter for preventative adult health care exam with abnormal findings Z00.01 [facility] [address] [address] November, Allergic contact dermatitis due to plants, except food L23.7 [place] [address] 22531- 14[address] 02 Nov, 2016 Mood disorder F39 and Asperger syndrome F84.5 [facility] [address] [address] 31 Sep, 2016 Acute bacterial conjunctivitis of right eye H10.31 and Acute suppurative otitis media of right ear without spontaneous rupture of tympanic membrane, recurrence not specified H66.001 [place] [address] [address]- 4748 07 Sep, 2016 Nexplanon insertion Z30.017 [place] [address] 97742- 3162 2016 Mood disorder F39 and Asperger syndrome F84.5 [place] [address] 74543- 6315 28 Aug, 2016 Mood disorder F39 and Asperger syndrome F84.5 [place] [address] 15949- 4801 14 Aug, 2016 control counseling Z30.09 [place] [address] 62[address]- 4345 08 Aug, 2016 Asperger syndrome F84.5 and Oppositional behavior F91.3 [facility] [address] [id number] 08 Aug, 2016 Dental examination Z01.20 [place] [address] 0[address]- 2490 03 Aug, 2016 Mood disorder F39 and Asperger syndrome F84.5 [facility] [address] [address] Jul, Acute suppurative otitis media of both ears without spontaneous rupture of tympanic membranes, recurrence not specified H66.003 [facility] [id number] [place] [address] 36448- 3820 Jul, [facility] [id number] [place] [address] 67487- 0395 Jul, Asperger syndrome F84.5 [facility] [id number] [place] [address] 01124- 7695 Jul, [facility] [id number] [place] [address] 02948- 2946 Jul, Mood disorder F39 and Asperger syndrome F84.5 [facility] [id number] [place] [address] [id number] Jul, Dental examination Z01.20 [facility] [id number] [place] [address] 72516 -1756 Jul, Acute non-recurrent pansinusitis J01.40 [facility] [id number] [place] [address] 00578- 9316 Jul, Asperger syndrome F84.5 and Oppositional behavior F91.3 [facility] [id number] [place] [address] 61664- 8900 Jun, Mood disorder F39 and Asperger syndrome F84.5 [facility] [id number] [place] [address] 73592- 2454 Jun, Mood disorder F39 and Asperger syndrome F84.5 [facility] [address] [place] [address] 46853- 2532 Jun, Mood disorder F39 and Asperger syndrome F84.5 [facility] [id number] [place] [address] 48245- 0019 May, Mood disorder F39 and Asperger syndrome F84.5 [facility] [id number] [place] [address] 60574- 2729 May, [facility] [id number] [place] [address] 96272- 6460 May, Asperger syndrome F84.5 and Oppositional behavior F91.3 [facility] [id number] [place] [address] 96761- 5429 17 May, 2016 Oral contraceptive pill surveillance Z30.41 [facility] [address] 72679- 3777 16 May, 2016 Mood disorder F39 and Asperger syndrome F84.5 [facility] [id number] [place] [address] 234629- 4248 11 May, 2016 Asperger syndrome F84.5 and Oppositional behavior F91.3 [place] [id number] [place] [address] 36995- 7283 02 May, 2016 Mood disorder F39 and Asperger syndrome F84.5 [facility] [id number] [place] [address] 22952- 4419 31 Apr, 2016 [facility] [id number] [place] [address] 45171- 7310 Apr, Oppositional behavior F91.3 [facility] [id number] [place] [address] 99881- 7356 Apr, Asperger syndrome F84.5 and Oppositional behavior F91.3 [facility] [id number] [place] [address] 71617 -0858 Apr, Contact dermatitis, unspecified contact dermatitis type, unspecified trigger L25.9 [facility] [id number] [place] [address] 46656- 0739 Apr, Mood disorder F39 and Asperger syndrome F84.5 [facility] [id number] [place] [address] 34485 -8859 15 Apr, 2016 Acute non-recurrent frontal sinusitis J01.10 and Encounter for immunization Z23 [facility] [address] [id number] 10 Apr, 2016 Encounter for dental examination Z01.20 [facility] [address] [id number] 21 Mar, 2016 Encounter for routine child health examination without abnormal findings Z00.129 [facility] [address] 09497- 6742 14 Mar, 2016 Mood disorder F39 and Asperger syndrome F84.5 [facility] [address] 87368- 2133 06 Mar, 2016 [place] [address] 48799- 5644 06 Mar, 2016 Asperger syndrome F84.5 and Oppositional behavior F91.3 [facility] [address] 56426- 0225 Feb, Mood disorder F39 and Asperger syndrome F84.5 [facility] [address] 81089- 2018 Feb, Fatigue, unspecified type R53.83 and GERD (gastroesophageal reflux disease) K21.9 [facility] [id number] [place] [address] 27133- 6375 Feb, Mood disorder F39 and Asperger syndrome F84.5 [facility] [id number] [place] [address] 66840- 4387 Feb, Asperger syndrome F84.5 and Oppositional behavior F91.3 [facility] [id number] [place] [address] 54128 -0904 05 Feb, 2016 Itchy eyes H57.8 [facility] [id number] [place] [address] 06614- 6471 Feb, Encounter for initial prescription of contraceptives Z30.019 [facility] [address] 55206- 7954 Feb, Mood disorder F39 and Asperger syndrome F84.5 [facility] [address] [place] [address] 03276- 8087 Feb, [place] [id number] [place] [address] 35503- 0559 Jan, Asperger syndrome F84.5 and Oppositional behavior F91.3 [facility] [id number] [place] [address] 13784- 5912 Jan, Mood disorder F39 and Asperger syndrome F84.5 [facility] [id number] [place] [address] 15913- 4684 Jan, [facility] [id number] [place] [address] 26896 -2558 Jan, Acute cystitis without hematuria N30.00 ; Asperger syndrome F84.5 and Oppositional behavior F91.3 [place] [id number] [place] [address] 91433- 0806 Dec, Mood disorder F39 and Asperger syndrome F84.5 [place] [id number] [place] [address] 83188- 0951 Dec, Epilepsy G40.909 ; Asperger syndrome F84.5 ; Vitamin D deficiency E55.9 and Routine health maintenance Z00.00 [place] [address] [place] [address] 70265- 1543 Dec, Mood disorder F39 and Asperger syndrome F84.5 [place] [address] [place] [address] 07751- 0383 Dec, Epilepsy G40.909 ; Asperger syndrome F84.5 ; Vitamin D deficiency E55.9 ; GERD (gastroesophageal reflux disease) K21.9 ; Tremors of nervous system R25.1 ; Constipation K59.00 ; Oppositional behavior F91.3 ; Routine health maintenance Z00.00 ; Dysuria R30.0 ; Obesity (BMI 30.0-34.9) E66.9 and Other seasonal allergic rhinitis J30.2 [facility] [address] 45[address] -8860 Dec, Leg pain, right M79.604 [place] [address] 80364- 6975 Dec, [place] [address] 45894- 5724 Dec, Dental examination Z01.20 [place] [address] 82368- 1091 November, Epilepsy G40.909 [place] [address] 75751- 1164 November, Scabies B86 ; Epilepsy G40.909 ; Vitamin D deficiency E55.9 ; Oppositional behavior F91.3 ; GERD (gastroesophageal reflux disease) K21.9 and Tremors of nervous system R25.1 [facility] [address] [address] November, Contact dermatitis, unspecified contact dermatitis type, unspecified trigger L25.9 [place] [address] 93175- 8458 November, Asperger syndrome F84.5 ; Epilepsy G40.909 and Oppositional behavior F91.3 [place] [address] 93361- 7274 November, [place] [address] 96771- 5428 Oct, Encounter for Depo-Provera contraception Z30.42 [place] [address] 72808- 2645 15 Oct, 2015 Epilepsy G40.909 ; Asperger syndrome F84.5 ; Vitamin D deficiency E55.9 ; Encounter for Depo-Provera contraception Z30.42 ; GERD ( gastroesophageal reflux disease) K21.9 ; Tremors of nervous system R25.1 and Constipation K59.00 [facility] [address], [place] [address]- 24[address] 13 Oct, 2015 Seizure disorder G40.909 and Depo-Provera contraceptive status Z30.42 [facility] [address], [place] [address]- 9435 12 Oct, 2015 [place] [address], [place] [address]- 6780 05 Oct, 2015 Epilepsy G40.909 ; Encounter for Depo-Provera contraception Z30.42 ; Asperger syndrome F84.5 and Vitamin D deficiency E55.9 IMMUNIZATIONS No Known Immunizations SOCIAL HISTORY Never Assessed REASON FOR VISIT [facility]s in-[facility] PLAN OF CARE VITAL SIGNS MEDICATIONS Unknown Medications RESULTS No Results PROCEDURES No Known procedures INSTRUCTIONS MEDICATIONS ADMINISTERED No Known Medications MEDICAL (GENERAL) HISTORY Type Description Date Medical History epilepsy Medical History acid reflux Medical History Nexplanon in place Surgical History 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
--- OUTSIDE RECORDS SUMMARY | 2018-04-17 11:31 | XMS REPORT | Clinical Summary ---
Author Author [facility] Organization [facility] Address Unknown Phone Unavailable Care Team Providers Care Public Health Veterinarian Name Role Phone Glendy Rowland MD Unavailable Glendy Rowland MD PCP Source Comments Some departments are not documenting in the electronic medical record. If you do not see the information that you expected, contact Release of Information in the Health Information Management department at [phone] for further assistance in locating additional records.[facility] Allergies Not on File Current Medications Prescription [...] epilepticus (HCC) Active Problems Not on file Social History Tobacco Use Types Packs/Day Years Used Date Never Assessed Sex Assigned at Date Recorded Not on file Last Filed Vital Signs Not on file Plan of Treatment Health Maintenance Due Date Last Done Comments PHYSICAL (COMPREHENSIVE) 2004 EXAM HPV VACCINES (1 of 3 - 2008 Female 3-dose series) PERTUSSIS VACCINE 2008 HIV SCREENING 2012 TETANUS VACCINE 2014 INFLUENZA VACCINE 04/28/2018 Results Not on filefrom Last 3 Months
--- OUTSIDE RECORDS SUMMARY | 2018-04-17 11:32 | XMS REPORT ---
Author Author BRENNAN GONZALEZ Organization [facility] Address [address] [place] [address] Care Team Providers Care Simonizer Name Role Phone BRENNAN GONZALEZ Unavailable PROBLEMS Type Condition ICD9-CM Code PFB23-QB Code Onset Dates Condition Status SNOMED Code Problem Constipation K59.00 Active 94559493 Problem Dysuria R30.0 Active 96780719 Problem Oppositional behavior F91.3 Active 97249756 Problem Asperger syndrome F84.5 Active 99526780 Problem Epilepsy G40.909 Active 06463894 Problem Tremors of nervous system R25.1 Active 024830326 Problem GERD without esophagitis K21.9 Active 502691103 Problem Benign essential tremor G25.0 Active 107835379 Problem Morbid (severe) obesity due to excess calories E66.01 Active 249652485 Problem Mood disorder F39 Active 10728898 Problem Episode of recurrent major depressive disorder, unspecified depression episode severity F33.9 Active 277649531 Problem Body mass index (BMI) of 40.0-44.9 in adult Z68.41 Active [id number] ALLERGIES No Information ENCOUNTERS Encounter Location Date Diagnosis [facility] [id number] [address] Apr, [facility] [id number] [place] [address]7615- 1395 Apr, [facility] [id number] [address] Mar, Asperger syndrome F84.5 [facility] [id number] [place] [address] 29901- 9061 Mar, [facility] [address] [address] Mar, Right otitis media with effusion H65.91 [facility] [id number] [place] [address] 49561- 9807 Feb, [facility] [id number] [place] [address] 11649- 5519 Jan, GERD without esophagitis K21.9 [facility] [id number] [place] [address] 06365 -1309 Dec, Hematuria, unspecified type R31.9 and Acute cystitis with hematuria N30.01 [facility] [id number] [place] [address] 19472- 2147 November, Asperger syndrome F84.5 [facility] [id number] [place] [address] 89131- 6352 November, [facility] [id number] [place] [address] 12951- 9997 Oct, Benign essential tremor G25.0 and GERD without esophagitis K21.9 [facility] [id number] [place] [address] 72588- 4915 Aug, [facility] [id number] [place] [address] 39946- 5609 Aug, Asperger syndrome F84.5 [facility] [id number] [place] [address] 30351 -2668 Aug, Diarrhea, unspecified type R19.7 [facility] [id number] [place] [address] 46358- 0712 Aug, Episode of recurrent major depressive disorder, unspecified depression episode severity F33.9 [facility] [id number] [place] [address] [id number] Jul, Dental examination Z01.20 [facility] [id number] [place] [address] 04002- 7654 Jul, Asperger syndrome F84.5 [facility] [address] [place] [address] 8779 Jul, Asperger syndrome F84.5 [facility] [address] 25110- 0177 Jul, Dental examination Z01.20 [facility] [id number] [place] [address] 20806- 5759 Jul, Asperger syndrome F84.5 ; Epilepsy G40.909 ; GERD ( gastroesophageal reflux disease) K21.9 ; Mood disorder F39 ; BMI 40.0-44.9, adult Z68.41 and Tremors of nervous system R25.1 [place] [address] 19509- 9566 Jul, Asperger syndrome F84.5 and Oppositional behavior F91.3 [facility] [address] 43591- 7180 Jun, Tremors of nervous system R25.1 [facility] [address] 82848- 8988 14 Jun, 2017 Asperger syndrome F84.5 [place] [address] 04764- 5031 Jun, Asperger syndrome F84.5 [facility] [address] 29939- 6599 May, [facility] [id number] [place] [address] 42025 -3161 May, Acute non-recurrent frontal sinusitis J01.10 [facility] [id number] [place] [address] 20906- 0704 May, Mood disorder F39 and Asperger syndrome F84.5 [facility] [id number] [place] [address] 39443- 0194 May, Acne vulgaris L70.0 [facility] [address] 71484- 6147 May, Acne vulgaris L70.0 and Tremors of nervous system R25.1 [facility] [id number] [place] [address] 64469 -3068 May, Other viral agents as the cause of diseases classified elsewhere B97.89 and Acute upper respiratory infection, unspecified J06.9 [facility] [id number] [place] [address] 65534- 1588 May, Mood disorder F39 and Asperger syndrome F84.5 [place] [address] 99372- 7907 Apr, Asperger syndrome F84.5 [place] [address] 39311- 4571 Apr, Asperger syndrome F84.5 and Oppositional behavior F91.3 [facility] [address] 04500- 6581 Mar, Mood disorder F39 and Asperger syndrome F84.5 [facility] [id number] [place] [address] 41804- 5338 Feb, GERD (gastroesophageal reflux disease) K21.9 ; Dysuria R30.0 ; Otalgia of right ear H92.01 and Decreased urination R34 [facility] [id number] [place] [address] 50631- 6003 Feb, Mood disorder F39 and Asperger syndrome F84.5 [facility] [id number] [place] [address] 45678- 3237 Feb, Asperger syndrome F84.5 and Oppositional behavior F91.3 [facility] [address] 37597 -8360 Jan, Viral gastroenteritis A08.4 [facility] [id number] [place] [address] 55454- 6358 Jan, Mood disorder F39 and Asperger syndrome F84.5 [facility] [address], [place] [address] 07 Jan, 2017 Asperger syndrome F84.5 and Oppositional behavior F91.3 [facility] [id number] [place] [address] 67302 -3031 Dec, FRANSICO (secretory otitis media), right H65.[address] 87969- 3900 Dec, Mood disorder F39 and Asperger syndrome F84.5 [id number] [place] [address] 11801- 2744 Dec, Otalgia, left ear H92.02 [place] [id number] [place] [address] 66290- 2710 14 Dec, 2016 [id number] [place] [address] 12732- 3534 Dec, Mood disorder F39 and Asperger syndrome F84.5 [facility] [id number] [place] [address] [id number] 07 Dec, 2016 Dental examination Z01.20 [place] [id number] [place] [address] 05921- 9090 November, Medicare annual wellness visit, subsequent Z00.00 ; GERD ( gastroesophageal reflux disease) K21.9 ; Counseling on health promotion and disease prevention Z71.89 and Encounter for preventative adult health care exam with abnormal findings Z00.01 [facility] [address] [place] [address] 42225 -8356 November, Allergic contact dermatitis due to plants, except food L23.7 [place] [id number] [place] [address] 70248- 8140 November, Mood disorder F39 and Asperger syndrome F84.5 [facility] [address] [place] [id number] [place] [address] 82082 -5867 Sep, Acute bacterial conjunctivitis of right eye H10.31 and Acute suppurative otitis media of right ear without spontaneous rupture of tympanic membrane, recurrence not specified H66.001 [facility] [address] 89965- 6046 07 Sep, 2016 Nexplanon insertion Z30.017 [facility] [address] 84053- 3290 2016 Mood disorder F39 and Asperger syndrome F84.5 [facility] [address] 797393- 8807 28 Aug, 2016 Mood disorder F39 and Asperger syndrome F84.5 [place] [address] 797391- 3474 14 Aug, 2016 control counseling Z30.09 [place] [address] 20980- 2619 08 Aug, 2016 Asperger syndrome F84.5 and Oppositional behavior F91.3 [facility] [address] [id number] 08 Aug, 2016 Dental examination Z01.20 [facility] [address] 11225- 1658 03 Aug, 2016 Mood disorder F39 and Asperger syndrome F84.5 [facility] [id number] [place] [address] 57112 -1479 Jul, Acute suppurative otitis media of both ears without spontaneous rupture of tympanic membranes, recurrence not specified H66.003 [facility] [id number] [place] [address] 23463- 4719 Jul, [facility] [address] 35159- 2185 Jul, Asperger syndrome F84.5 [facility] [id number] [place] [address] 35398- 6079 Jul, [facility] [address] [place] [address]- 8953 Jul, Mood disorder F39 and Asperger syndrome F84.5 [facility] [address] [place] [address] [id number] 11 Jul, 2016 Dental examination Z01.20 [facility] [address] [place] [address] 08851 -6265 Jul, Acute non-recurrent pansinusitis J01.40 [facility] [id number] [place] [address] 22900- 4749 Jul, Asperger syndrome F84.5 and Oppositional behavior F91.3 [facility] [id number] [place] [address] 87021- 5150 Jun, Mood disorder F39 and Asperger syndrome F84.5 [facility] [id number] [place] [address] 68364- 9141 14 Jun, 2016 Mood disorder F39 and Asperger syndrome F84.5 [facility] [id number] [place] [address] 52613- 6080 09 Jun, 2016 Mood disorder F39 and Asperger syndrome F84.5 [facility] [id number] [place] [address] 87037- 6946 30 May, 2016 Mood disorder F39 and Asperger syndrome F84.5 [facility] [id number] [place] [address] 62220- 1058 May, [facility] [id number] [place] [address] 58085- 4721 22 May, 2016 Asperger syndrome F84.5 and Oppositional behavior F91.3 [facility] [id number] [place] [address] 42671- 1582 17 May, 2016 Oral contraceptive pill surveillance Z30.41 [facility] [address] [place] [address] 27654- 2792 16 May, 2016 Mood disorder F39 and Asperger syndrome F84.5 [facility] [id number] [place] [address] 58182- 5848 11 May, 2016 Asperger syndrome F84.5 and Oppositional behavior F91.3 [facility] [id number] [place] [address] 45188- 6322 02 May, 2016 Mood disorder F39 and Asperger syndrome F84.5 [facility] [address] 08116- 8410 Apr, [facility] [address] 99067- 6677 Apr, Oppositional behavior F91.3 [place] [address] 78939- 0276 Apr, Asperger syndrome F84.5 and Oppositional behavior F91.3 [facility] [address] 31119 -0392 Apr, Contact dermatitis, unspecified contact dermatitis type, unspecified trigger L25.9 [facility] [id number] [place] [address] 12947- 8980 17 Apr, 2016 Mood disorder F39 and Asperger syndrome F84.5 [facility] [id number] [place] [address] 69151 -5612 15 Apr, 2016 Acute non-recurrent frontal sinusitis J01.10 and Encounter for immunization Z23 [facility] [id number] [place] [address] [id number] 10 Apr, 2016 Encounter for dental examination Z01.20 [facility] [id number] [place] [address] [id number] 21 Mar, 2016 Encounter for routine child health examination without abnormal findings Z00.129 [facility] [id number] [place] [address] 76928- 2338 14 Mar, 2016 Mood disorder F39 and Asperger syndrome F84.5 [facility] [id number] [place] [address] 81198- 5481 Mar, [facility] [id number] [place] [address] 99380- 4867 Mar, Asperger syndrome F84.5 and Oppositional behavior F91.3 [facility] [id number] [place] [address] 54201- 9841 Feb, Mood disorder F39 and Asperger syndrome F84.5 [facility] [address] 85559- 9325 Feb, Fatigue, unspecified type R53.83 and GERD (gastroesophageal reflux disease) K21.9 [facility] [id number] [place] [address] 15687- 4232 Feb, Mood disorder F39 and Asperger syndrome F84.5 [facility] [id number] [place] [address] 03248- 2733 Feb, Asperger syndrome F84.5 and Oppositional behavior F91.3 [facility] [id number] [place] [address] 41620 -0833 Feb, Itchy eyes H57.8 [facility] [address] 37280- 6556 Feb, Encounter for initial prescription of contraceptives Z30.019 [facility] [id number] [place] [address] 99959- 7106 Feb, Mood disorder F39 and Asperger syndrome F84.5 [facility] [id number] [place] [address] 19003- 4699 Feb, [facility] [id number] [place] [address] 55733- 4022 Jan, Asperger syndrome F84.5 and Oppositional behavior F91.3 [facility] [id number] [place] [address] 11048- 8843 Jan, Mood disorder F39 and Asperger syndrome F84.5 [facility] [address] [place] [address]- 1395 Jan, [facility] [id number] [place] [address] 18613 -6177 Jan, Acute cystitis without hematuria N30.00 ; Asperger syndrome F84.5 and Oppositional behavior F91.3 [facility] [address] 21571- 0894 Dec, Mood disorder F39 and Asperger syndrome F84.5 [place] [address] 18201- 9004 Dec, Epilepsy G40.909 ; Asperger syndrome F84.5 ; Vitamin D deficiency E55.9 and Routine health maintenance Z00.00 [place] [address] 74370- 6388 Dec, Mood disorder F39 and Asperger syndrome F84.5 [place] [address] 68862- 1498 Dec, Epilepsy G40.909 ; Asperger syndrome F84.5 ; Vitamin D deficiency E55.9 ; GERD (gastroesophageal reflux disease) K21.9 ; Tremors of nervous system R25.1 ; Constipation K59.00 ; Oppositional behavior F91.3 ; Routine health maintenance Z00.00 ; Dysuria R30.0 ; Obesity (BMI 30.0-34.9) E66.9 and Other seasonal allergic rhinitis J30.2 [facility] [id number] [place] [address] 17082 -3443 Dec, Leg pain, right M79.604 [place] [address] 54961- 1383 Dec, [place] [address] 94840- 1057 Dec, Dental examination Z01.20 [place] [address] 87656- 7707 November, Epilepsy G40.909 [facility] [id number] [place] [address] 88164- 7431 November, Scabies B86 ; Epilepsy G40.909 ; Vitamin D deficiency E55.9 ; Oppositional behavior F91.3 ; GERD (gastroesophageal reflux disease) K21.9 and Tremors of nervous system R25.1 [facility] [address] 62448 -8451 November, Contact dermatitis, unspecified contact dermatitis type, unspecified trigger L25.9 [place] [address] 81799- 5822 November, Asperger syndrome F84.5 ; Epilepsy G40.909 and Oppositional behavior F91.3 [place] [address] 48849- 7279 November, [place] [address] 69096- 0994 Oct, Encounter for Depo-Provera contraception Z30.42 [place] [address] 81616- 3683 Oct, Epilepsy G40.909 ; Asperger syndrome F84.5 ; Vitamin D deficiency E55.9 ; Encounter for Depo-Provera contraception Z30.42 ; GERD ( gastroesophageal reflux disease) K21.9 ; Tremors of nervous system R25.1 and Constipation K59.00 [place] [address] 37340- 3970 Oct, Seizure disorder G40.909 and Depo-Provera contraceptive status Z30.42 [place] [address] 39679- 5297 Oct, [place] [address] 27205- 3364 Oct, Epilepsy G40.909 ; Encounter for Depo-Provera contraception Z30.42 ; Asperger syndrome F84.5 and Vitamin D deficiency E55.9 IMMUNIZATIONS No Known Immunizations SOCIAL HISTORY Never Assessed REASON FOR VISIT Refill request PLAN OF CARE VITAL SIGNS MEDICATIONS Medication Instructions Dosage Frequency Start Date End Date Duration Status Omeprazole 20 mg Orally 2 times a day 1 capsules 12h Active RESULTS No Results PROCEDURES No [...]
--- OUTSIDE RECORDS SUMMARY | 2018-04-17 11:32 | XMS REPORT ---
Author Author ARIANE HARDY [facility] Address [address] [place] [address] Care Team Providers Care Senior Principal Process Engineer Name Role Phone ARIANE HARDY Unavailable PROBLEMS Type Condition ICD9-CM Code BSI46-VD Code Onset Dates Condition Status SNOMED Code Problem Constipation K59.00 Active 96471437 Problem Dysuria R30.0 Active 57282212 Problem Oppositional behavior F91.3 Active 97452846 Problem Asperger syndrome F84.5 Active 33824777 Problem Epilepsy G40.909 Active 71531797 Problem Tremors of nervous system R25.1 Active 316601247 Problem GERD without esophagitis K21.9 Active 413313272 Problem Benign essential tremor G25.0 Active 498860209 Problem Morbid (severe) obesity due to excess calories E66.01 Active 961594855 Problem Mood disorder F39 Active 40386577 Problem Episode of recurrent major depressive disorder, unspecified depression episode severity F33.9 Active 560832689 Problem Body mass index (BMI) of 40.0-44.9 in adult Z68.41 Active 053758548 ALLERGIES No Known Allergies ENCOUNTERS Encounter Location Date Diagnosis [facility] [id number] [place] [address] 56439- 0079 Feb, [facility] [id number] [place] [address] 30400- 9490 Jan, GERD without esophagitis K21.9 [facility] WALK IN [facility] [id number] [place] [address] 35610 -7819 Dec, Hematuria, unspecified type R31.9 and Acute cystitis with hematuria N30.01 [facility] [address] [address] November, Asperger syndrome F84.5 [facility] [id number] [place] [address] 26572- 6452 November, [facility] [address] 31[address]- 8070 Oct, Benign essential tremor G25.0 and GERD without esophagitis K21.9 [facility] [address] 87673- 6533 Aug, [facility] [address] 47716- 9305 Aug, Asperger syndrome F84.5 [facility] WALK IN [facility] [address] 57040 [address]42[address] 02 Aug, 2017 Diarrhea, unspecified type R19.7 [place] [address] 55882- 7456 02 Aug, 2017 Episode of recurrent major depressive disorder, unspecified depression episode severity F33.9 [facility] [id number] [place] [address] [id number] Jul, Dental examination Z01.20 [place] [address] 15314- 3200 Jul, Asperger syndrome F84.5 [place] [id number] [place] [address] 82101- 7618 Jul, Asperger syndrome F84.5 [facility] [id number] [place] [address] 43754- 7173 Jul, Dental examination Z01.20 [place] [address] 05915- 0064 Jul, Asperger syndrome F84.5 ; Epilepsy G40.909 ; GERD ( gastroesophageal reflux disease) K21.9 ; Mood disorder F39 ; BMI 40.0-44.9, adult Z68.41 and Tremors of nervous system R25.1 [facility] [address] 86222- 3426 Jul, Asperger syndrome F84.5 and Oppositional behavior F91.3 [place] [id number] [place] [address] 90926- 2219 Jun, Tremors of nervous system R25.1 [place] [id number] [place] [address] 07702- 9298 14 Jun, 2017 Asperger syndrome F84.5 [place] [address] 80494- 2334 Jun, Asperger syndrome F84.5 [place] [address] 81834- 7542 May, [facility] [id number] [place] [address] 58844 -3579 May, Acute non-recurrent frontal sinusitis J01.10 [place] [address] 67501- 3583 May, Mood disorder F39 and Asperger syndrome F84.5 [place] [id number] [place] [address] 16760- 1216 May, Acne vulgaris L70.0 [place] [id number] [place] [address] 68208- 4894 May, Acne vulgaris L70.0 and Tremors of nervous system R25.1 [facility] [id number] [place] [address] 83051 -8843 May, Other viral agents as the cause of diseases classified elsewhere B97.89 and Acute upper respiratory infection, unspecified J06.9 [place] [id number] [place] [address] 83187- 3480 May, Mood disorder F39 and Asperger syndrome F84.5 [place] [id number] [place] [address] 38517- 1731 Apr, Asperger syndrome F84.5 [place] [id number] [place] [address] 53551- 5376 Apr, Asperger syndrome F84.5 and Oppositional behavior F91.3 [place] [id number] [place] [address] 32854- 7887 Mar, Mood disorder F39 and Asperger syndrome F84.5 [place] [address] 88418- 8824 Feb, GERD (gastroesophageal reflux disease) K21.9 ; Dysuria R30.0 ; Otalgia of right ear H92.01 and Decreased urination R34 [place] [address] 69587- 9240 Feb, Mood disorder F39 and Asperger syndrome F84.5 [place] [address] 79925- 9661 Feb, Asperger syndrome F84.5 and Oppositional behavior F91.3 [facility]ARE [address] 92725 -9325 Jan, Viral gastroenteritis A08.4 [place] [address] 57991- 3040 Jan, Mood disorder F39 and Asperger syndrome F84.5 [place] [address] 26703- 1889 Jan, Asperger syndrome F84.5 and Oppositional behavior F91.3 [facility] [id number] [place] [address] 61712 -5836 Dec, FRANSICO (secretory otitis media), right H65.91 [place] [address] 03056- 2047 Dec, Mood disorder F39 and Asperger syndrome F84.5 [place] [id number] [place] [address] 58532- 7132 19 Best, 2017 Otalgia, left ear H92.02 [facility] [address] [place] [address] 78819- 4416 14 Dec, 2016 [place] [id number] [place] [address] 29829- 4652 14 Dec, 2016 Mood disorder F39 and Asperger syndrome F84.5 [facility] [address] [place] [address] [phone] Dec, 2016 Dental examination Z01.20 [place] [id number] [place] [address] 05390- 3769 November, Medicare annual wellness visit, subsequent Z00.00 ; GERD ( gastroesophageal reflux disease) K21.9 ; Counseling on health promotion and disease prevention Z71.89 and Encounter for preventative adult health care exam with abnormal findings Z00.01 [facility] [id number] [place] [address] 99718 -1233 November, Allergic contact dermatitis due to plants, except food L23.7 [place] [id number] [place] [address] 42314- 3991 November, Mood disorder F39 and Asperger syndrome F84.5 [facility] [place] [id number] [place] [address] 71560 -1612 Sep, Acute bacterial conjunctivitis of right eye H10.31 and Acute suppurative otitis media of right ear without spontaneous rupture of tympanic membrane, recurrence not specified H66.001 [place] [address] [place] [address] 45688- 8284 Sep, Nexplanon insertion Z30.017 [place] [id number] [place] [address] 58031- 2668 Sep, Mood disorder F39 and Asperger syndrome F84.5 [place] [id number] [place] [address] 08634- 5784 Aug, Mood disorder F39 and Asperger syndrome F84.5 [place] [address] [place] [address] 73[address] 14 Aug, 2016 control counseling Z30.09 [facility] [address] 40952- 7433 08 Aug, 2016 Asperger syndrome F84.5 and Oppositional behavior F91.3 [facility] [id number] [place] [address] [phone] 08 Aug, 2016 Dental examination Z01.20 [facility] [address] 25912- 7109 03 Aug, 2016 Mood disorder F39 and Asperger syndrome F84.5 [facility] [address] 36970 -9726 26 Jul, 2016 Acute suppurative otitis media of both ears without spontaneous rupture of tympanic membranes, recurrence not specified H66.003 [facility] [address] 34730- 2741 24 Jul, 2016 [facility] [address] 73693- 4455 Jul, Asperger syndrome F84.5 [facility] [id number] [place] [address] 98529- 2416 Jul, [facility] [id number] [place] [address] 15960- 0003 Jul, Mood disorder F39 and Asperger syndrome F84.5 [facility] [id number] [place] [address] [phone] 11 Jul, 2016 Dental examination Z01.20 [facility] [address] 82081 -6815 04 Jul, 2016 Acute non-recurrent pansinusitis J01.40 [facility] [id number] [place] [address] 05434- 2789 04 Jul, 2016 Asperger syndrome F84.5 and Oppositional behavior F91.3 [facility] [address] [place] [address]- 0784 23 Jun, 2016 Mood disorder F39 and Asperger syndrome F84.5 [facility] [id number] [place] [address] 76327- 9003 14 Jun, 2016 Mood disorder F39 and Asperger syndrome F84.5 [facility] [address] [place] [address] 08521- 9666 09 Jun, 2016 Mood disorder F39 and Asperger syndrome F84.5 [facility] [id number] [place] [address] 08953- 1977 30 May, 2016 Mood disorder F39 and Asperger syndrome F84.5 [facility] [id number] [place] [address] 13894- 5222 28 May, 2016 [facility] [id number] [place] [address] 51936- 7253 May, Asperger syndrome F84.5 and Oppositional behavior F91.3 [facility] [address] [place] [address] 26027- 2455 17 May, 2016 Oral contraceptive pill surveillance Z30.41 [facility] [id number] [place] [address] 32914- 3840 16 May, 2016 Mood disorder F39 and Asperger syndrome F84.5 [facility] [address] [place] [address] 94996- 5117 May, Asperger syndrome F84.5 and Oppositional behavior F91.3 [facility] [address] [place] [address] 24010- 8416 02 May, 2016 Mood disorder F39 and Asperger syndrome F84.5 [facility] [address] [place] [address] 94540- 0419 31 Apr, 2016 [facility] [id number] [address]- 1247 Apr, Oppositional behavior F91.3 [facility] [address] [place] [address]- 8636 Apr, Asperger syndrome F84.5 and Oppositional behavior F91.3 [facility] WALK IN [facility] [id number] [place] [address] 13881 -5974 Apr, Contact dermatitis, unspecified contact dermatitis type, unspecified trigger L25.9 [facility] [address] 08881- 1943 17 Apr, 2016 Mood disorder F39 and Asperger syndrome F84.5 [facility] WALK IN [facility] [id number] [place] [address] 34144 -9604 15 Apr, 2016 Encounter for immunization Z23 and Acute non-recurrent frontal sinusitis J01.10 [facility] [id number] [place] [address] [phone] 10 Apr, 2016 Encounter for dental examination Z01.20 [facility] [address] [id number] 21 Mar, 2016 Encounter for routine child health examination without abnormal findings Z00.129 [facility] [address] 45318- 4548 14 Mar, 2016 Mood disorder F39 and Asperger syndrome F84.5 [facility] [id number] [place] [address] 61973- 6499 06 Mar, 2016 [facility] [id number] [place] [address] 67058- 1040 06 Mar, 2016 Asperger syndrome F84.5 and Oppositional behavior F91.3 [facility] [id number] [place] [address] 50141- 2467 Feb, Mood disorder F39 and Asperger syndrome F84.5 [facility] [id number] [place] [address] 63237- 1199 Feb, Fatigue, unspecified type R53.83 and GERD (gastroesophageal reflux disease) K21.9 [facility] [address] 97770- 9419 Feb, Mood disorder F39 and Asperger syndrome F84.5 [place] [address] 12834- 0965 Feb, Asperger syndrome F84.5 and Oppositional behavior F91.3 [facility] [address] 67493 -8781 Feb, Itchy eyes H57.8 [place] [address] 07488- 2459 Feb, Encounter for initial prescription of contraceptives Z30.019 [place] [address] 53453- 9921 Feb, Mood disorder F39 and Asperger syndrome F84.5 [place] [address] 43035- 9072 Feb, [place] [address] 50185- 4160 Jan, Asperger syndrome F84.5 and Oppositional behavior F91.3 [place] [address] 12729- 4180 Jan, Mood disorder F39 and Asperger syndrome F84.5 [place] [address] 65717- 6253 Jan, [facility] [address] 12136 -6444 Jan, Acute cystitis without hematuria N30.00 ; Asperger syndrome F84.5 and Oppositional behavior F91.3 [place] [address] 45936- 1876 Dec, Mood disorder F39 and Asperger syndrome F84.5 [place] [address] 54427- 1187 Dec, Epilepsy G40.909 ; Asperger syndrome F84.5 ; Vitamin D deficiency E55.9 and Routine health maintenance Z00.00 [place] [address] 95124- 8092 13 Dec, 2015 Mood disorder F39 and Asperger syndrome F84.5 [place] [address] 20597- 9543 Dec, Epilepsy G40.909 ; Asperger syndrome F84.5 ; Vitamin D deficiency E55.9 ; GERD (gastroesophageal reflux disease) K21.9 ; Tremors of nervous system R25.1 ; Constipation K59.00 ; Oppositional behavior F91.3 ; Routine health maintenance Z00.00 ; Dysuria R30.0 ; Obesity (BMI 30.0-34.9) E66.9 and Other seasonal allergic rhinitis J30.2 [facility] [place] [address] 58814 -0092 Dec, Leg pain, right M79.604 [place] [address] 64400- 2563 Dec, [place] [address] 46633- 7780 Dec, Dental examination Z01.20 [place] [address] 63911- 3503 November, Epilepsy G40.909 [place] [address] 69975- 8041 November, Scabies B86 ; Epilepsy G40.909 ; Vitamin D deficiency E55.9 ; Oppositional behavior F91.3 ; GERD (gastroesophageal reflux disease) K21.9 and Tremors of nervous system R25.1 [facility] [address] [address] -[address] November, Contact dermatitis, unspecified contact dermatitis type, unspecified trigger L25.[address] 39060- 9672 November, Asperger syndrome F84.5 ; Epilepsy G40.909 and Oppositional behavior F91.3 [place] [id number] [place] [address] 58809- 2398 November, [place] [address] 01602- 9109 Oct, Encounter for Depo-Provera contraception Z30.42 [place] [address] 91973- 5658 15 Oct, 2015 Epilepsy G40.909 ; Asperger syndrome F84.5 ; Vitamin D deficiency E55.9 ; Encounter for Depo-Provera contraception Z30.42 ; GERD ( gastroesophageal reflux disease) K21.9 ; Tremors of nervous system R25.1 and Constipation K59.00 [place] [address] 44278- 2346 13 Oct, 2015 Seizure disorder G40.909 and Depo-Provera contraceptive status Z30.42 [place] [address] 61428- 0760 12 Oct, 2015 [place] [address] 32740- 5287 05 Oct, 2015 Epilepsy G40.909 ; Encounter for Depo-Provera contraception Z30.42 ; Asperger syndrome F84.5 and Vitamin D deficiency E55.9 IMMUNIZATIONS No Known Immunizations SOCIAL HISTORY Never Assessed REASON FOR VISIT Blood in urine SUSU Flaherty 09/2016 PLAN OF CARE Activity Details Follow Up prn Reason: VITAL SIGNS Height 64.75 in 2018-01-15 Weight 236.4 lbs 2018-01-15 Temperature 98.1 degrees Fahrenheit 2018-01-15 Heart Rate 84 bpm 2018-01-15 Respiratory Rate 2018-01-15 BMI 39.64 kg/m2 2018-01-15 Blood pressure systolic 110 mmHg 2018-01-15 Blood pressure diastolic 70 mmHg 2018-01-15 MEDICATIONS Medication Instructions Dosage Frequency Start Date End Date Duration Status Rexulti 1 MG Orally Once a day 1 tablet 24h 90 days Active Zoloft 25 MG Orally Once a day 1 tablet 24h 12 Jul, 2017 90 days Active Nexplanon 68 MG as directed 14 Dec, 2016 Active Lamictal 100 mg Orally Twice a day 1 tab am and 1 tab hs 12h 14 days Active Diazepam 10 mg Rectal with seizure activity 10 mg as needed Oct, Active Bactrim DS 800-160 MG Orally Twice a day 1 tablet 12h 5 days Active Propranolol HCl 10 mg Orally Twice a day 1 tablet 12h 17 May, 2017 90 days Active Omeprazole 20 mg Orally 2 times a day 1 capsules 12h 90 days Active RESULTS Name Result Date Reference Range UA LONG DIP (IN HOUSE) 2018-01-15 Lot # [id number] Exp date 2018-11-25 Clarity clear Color pink Odor none GLU negative KEVIN 1+ KET negative SG 1.015 BLO 3+ pH 6.0 Protein 2+ URO 0.2 NIT negative SHADE trace Lot # [id number] Exp date Jun 2018 PROCEDURES Procedure Date Ordered Result Body Site URINALYSIS, AUTO, W/O SCOPE January 15, 2018 INSTRUCTIONS MEDICATIONS ADMINISTERED No Known Medications MEDICAL [...]
--- OUTSIDE RECORDS SUMMARY | 2018-04-17 11:33 | XMS REPORT ---
Author Author KENAN LANCE [facility] Address [address] [place] [address] Care Team Providers Care Edm Operator Name Role Phone KENAN LANCE Unavailable PROBLEMS Type Condition ICD9-CM Code PDK66-QS Code Onset Dates Condition Status SNOMED Code Problem Constipation K59.00 Active 51623127 Problem Dysuria R30.0 Active 22451342 Problem Oppositional behavior F91.3 Active 57397064 Problem Asperger syndrome F84.5 Active 78449829 Problem Epilepsy G40.909 Active 19517183 Problem Tremors of nervous system R25.1 Active 733941848 Problem GERD without esophagitis K21.9 Active 585082566 Problem Benign essential tremor G25.0 Active 375479734 Problem Morbid (severe) obesity due to excess calories E66.01 Active 536477896 Problem Mood disorder F39 Active 68612974 Problem Episode of recurrent major depressive disorder, unspecified depression episode severity F33.9 Active 937846889 Problem Body mass index (BMI) of 40.0-44.9 in adult Z68.41 Active 357466063 ALLERGIES No Information ENCOUNTERS Encounter Location Date Diagnosis [facility] [id number] [place] [address] 07584- 5226 Feb, [facility] [address] [place] [place] [id number] [place] [address] 82111- 9731 Jan, GERD without esophagitis K21.9 [facility] [id number] [place] [address] 28241 -9605 Dec, Hematuria, unspecified type R31.9 and Acute cystitis with hematuria N30.01 [facility] [address] [place] [address] 45134- 5085 November, Asperger syndrome F84.5 [facility] [id number] [place] [address] 88184- 0041 November, [facility] [address] 59346- 6026 Oct, Benign essential tremor G25.0 and GERD without esophagitis K21.9 [facility] [address] 45935- 2397 Aug, [facility] [address] 00544- 4379 Aug, Asperger syndrome F84.5 [facility] [address] 09359 -7679 Aug, Diarrhea, unspecified type R19.7 [place] [address] 26269- 0051 Aug, Episode of recurrent major depressive disorder, unspecified depression episode severity F33.9 [facility] [address] [id number] Jul, Dental examination Z01.20 [place] [address] 61207- 0823 Jul, Asperger syndrome F84.5 [facility] [id number] [place] [address] 21010- 2502 Jul, Asperger syndrome F84.5 [facility] [id number] [place] [address] 77648- 8244 Jul, Dental examination Z01.20 [facility] [id number] [place] [address] 49940- 2263 Jul, Asperger syndrome F84.5 ; Epilepsy G40.909 ; GERD ( gastroesophageal reflux disease) K21.9 ; Mood disorder F39 ; BMI 40.0-44.9, adult Z68.41 and Tremors of nervous system R25.1 [facility] [address] 00302- 0541 Jul, Asperger syndrome F84.5 and Oppositional behavior F91.3 [place] [id number] [place] [address] 99558- 8749 Jun, Tremors of nervous system R25.1 [place] [id number] [place] [address] 05247- 5177 14 Jun, 2017 Asperger syndrome F84.5 [place] [id number] [place] [address] 97240- 3511 Jun, Asperger syndrome F84.5 [place] [id number] [place] [address] 30045- 5390 May, [facility] [address] [id number] [place] [address] 75800 -0834 May, Acute non-recurrent frontal sinusitis J01.10 [place] [id number] [place] [address] 03299- 8460 May, Mood disorder F39 and Asperger syndrome F84.5 [place] [id number] [place] [address] 97898- 6877 May, Acne vulgaris L70.0 [place] [id number] [place] [address] 51647- 4528 May, Acne vulgaris L70.0 and Tremors of nervous system R25.1 [facility] [id number] [place] [address] 37137 -2950 May, Other viral agents as the cause of diseases classified elsewhere B97.89 and Acute upper respiratory infection, unspecified J06.9 [place] [id number] [place] [address] 65359- 7578 May, Mood disorder F39 and Asperger syndrome F84.5 [place] [address] [place] [address] 81241- 0757 Apr, Asperger syndrome F84.5 [place] [id number] [place] [address] 38967- 7798 Apr, Asperger syndrome F84.5 and Oppositional behavior F91.3 [place] [id number] [place] [address] 60180- 9918 Mar, Mood disorder F39 and Asperger syndrome F84.5 [place] [address] 59691- 8128 Feb, GERD (gastroesophageal reflux disease) K21.9 ; Dysuria R30.0 ; Otalgia of right ear H92.01 and Decreased urination R34 [place] [address] 69692- 0031 Feb, Mood disorder F39 and Asperger syndrome F84.5 [place] [address] 27038- 2855 Feb, Asperger syndrome F84.5 and Oppositional behavior F91.3 [facility] [id number] [place] [address] 35126 -1556 Jan, Viral gastroenteritis A08.[address] 28542- 8176 Jan, Mood disorder F39 and Asperger syndrome F84.5 [place] [address] 84854- 0202 Jan, Asperger syndrome F84.5 and Oppositional behavior F91.3 [facility] [place] [id number] [place] [address] 90223 -8390 Dec, RFANSICO (secretory otitis media), right H65.91 [place] [address] 05649- 8437 Dec, Mood disorder F39 and Asperger syndrome F84.5 [place] [address] 65709- 9926 Dec, Otalgia, left ear H92.02 [place] [address] [place] [address] 60240- 7930 14 Dec, 2016 [place] [address] 86435- 6325 14 Dec, 2016 Mood disorder F39 and Asperger syndrome F84.5 [facility] [address] [place] [address] [id number] 07 Dec, 2016 Dental examination Z01.20 [place] [address] 79290- 7781 November, Medicare annual wellness visit, subsequent Z00.00 ; GERD ( gastroesophageal reflux disease) K21.9 ; Counseling on health promotion and disease prevention Z71.89 and Encounter for preventative adult health care exam with abnormal findings Z00.01 [facility] [place] [id number] [place] [address] 42609 -8497 November, Allergic contact dermatitis due to plants, except food L23.7 [place] [id number] [place] [address] 80219- 9566 November, Mood disorder F39 and Asperger syndrome F84.5 [facility] [place] [id number] [place] [address] 56802 -8607 Sep, Acute bacterial conjunctivitis of right eye H10.31 and Acute suppurative otitis media of right ear without spontaneous rupture of tympanic membrane, recurrence not specified H66.001 [place] [id number] [place] [address] 06717- 9719 Sep, Nexplanon insertion Z30.017 [place] [id number] [place] [address] 28111- 0285 Sep, Mood disorder F39 and Asperger syndrome F84.5 [place] [id number] [place] [address] 82333- 1104 Aug, Mood disorder F39 and Asperger syndrome F84.5 [place] [id number] [place] [address] 60476- 3807 14 Aug, 2016 control counseling Z30.09 [facility] [id number] [place] [address] 72613- 5409 08 Aug, 2016 Asperger syndrome F84.5 and Oppositional behavior F91.3 [facility] [address] [id number] [place] [address] [id number] 08 Aug, 2016 Dental examination Z01.20 [facility] [address] 33231- 8253 03 Aug, 2016 Mood disorder F39 and Asperger syndrome F84.5 [facility] [address] 59241 -3355 Jul, Acute suppurative otitis media of both ears without spontaneous rupture of tympanic membranes, recurrence not specified H66.003 [facility] [id number] [place] [address] 51757- 8909 Jul, [facility] [address] 43230- 6448 Jul, Asperger syndrome F84.5 [facility] [address] 29620- 2193 Jul, [facility] [id number] [place] [address] 80660- 8892 Jul, Mood disorder F39 and Asperger syndrome F84.5 [facility] [id number] [place] [address] [id number] Jul, Dental examination Z01.20 [facility] [id number] [place] [address] 62902 -2332 04 Jul, 2016 Acute non-recurrent pansinusitis J01.40 [facility] [id number] [place] [address] 58236- 0489 04 Jul, 2016 Asperger syndrome F84.5 and Oppositional behavior F91.3 [facility] [id number] [place] [address] 63708- 3480 23 Jun, 2016 Mood disorder F39 and Asperger syndrome F84.5 [facility] [address] [place] [address] 70444- 1978 14 Jun, 2016 Mood disorder F39 and Asperger syndrome F84.5 [facility] [id number] [place] [address] 03855- 3189 09 Jun, 2016 Mood disorder F39 and Asperger syndrome F84.5 [facility] [id number] [place] [address] 71790- 0691 30 May, 2016 Mood disorder F39 and Asperger syndrome F84.5 [facility] [id number] [place] [address] 64724- 2728 28 May, 2016 [facility] [id number] [place] [address] 31696- 3476 May, Asperger syndrome F84.5 and Oppositional behavior F91.3 [facility] [id number] [place] [address] 70863- 3647 17 May, 2016 Oral contraceptive pill surveillance Z30.41 [facility] [id number] [place] [address] 08236- 3446 16 May, 2016 Mood disorder F39 and Asperger syndrome F84.5 [facility] [id number] [place] [address] 48759- 4665 May, Asperger syndrome F84.5 and Oppositional behavior F91.3 [facility] [address] [place] [address] 69671- 0741 02 May, 2016 Mood disorder F39 and Asperger syndrome F84.5 [facility] [id number] [place] [address] 55081- 5281 31 Apr, 2016 [facility] [id number] [place] [address] 45100- 2710 Apr, Oppositional behavior F91.3 [facility] [id number] [place] [address] 37458- 4454 Apr, Asperger syndrome F84.5 and Oppositional behavior F91.3 [facility] [id number] [place] [address] 86383 -3999 17 Apr, 2016 Contact dermatitis, unspecified contact dermatitis type, unspecified trigger L25.9 [facility] [id number] [place] [address] 83740- 7784 17 Apr, 2016 Mood disorder F39 and Asperger syndrome F84.5 [facility] [id number] [place] [address] 81528 -0460 15 Apr, 2016 Acute non-recurrent frontal sinusitis J01.10 and Encounter for immunization Z23 [facility] [id number] [place] [address] [id number] 10 Apr, 2016 Encounter for dental examination Z01.20 [facility] [id number] [place] [address] [id number] 21 Mar, 2016 Encounter for routine child health examination without abnormal findings Z00.129 [facility] [id number] [place] [address] 27452- 3948 14 Mar, 2016 Mood disorder F39 and Asperger syndrome F84.5 [facility] [id number] [place] [address] 65073- 2691 06 Mar, 2016 [facility] [id number] [place] [address] 43443- 8508 06 Mar, 2016 Asperger syndrome F84.5 and Oppositional behavior F91.3 [facility] [id number] [place] [address] 98130- 2444 Feb, Mood disorder F39 and Asperger syndrome F84.5 [facility] [id number] [place] [address] 46928- 0645 Feb, Fatigue, unspecified type R53.83 and GERD (gastroesophageal reflux disease) K21.9 [facility] [id number] [place] [address] 08844- 7021 Feb, Mood disorder F39 and Asperger syndrome F84.5 [facility] [id number] [place] [address] 93716- 7985 Feb, Asperger syndrome F84.5 and Oppositional behavior F91.3 [facility] [address] 73037 -7172 Feb, Itchy eyes H57.8 [place] [address] 81362- 9709 Feb, Encounter for initial prescription of contraceptives Z30.019 [place] [address] 91655- 0376 Feb, Mood disorder F39 and Asperger syndrome F84.5 [place] [address] 93170- 8563 Feb, [place] [address] 69853- 3713 Jan, Asperger syndrome F84.5 and Oppositional behavior F91.3 [place] [address] 36415- 4319 Jan, Mood disorder F39 and Asperger syndrome F84.5 [place] [address] 86672- 2271 Jan, [facility] [address] 81587 -2726 Jan, Acute cystitis without hematuria N30.00 ; Asperger syndrome F84.5 and Oppositional behavior F91.3 [place] [address] 32490- 2459 Dec, Mood disorder F39 and Asperger syndrome F84.5 [place] [address] [place] [id number] [place] [address] 89362- 5811 Dec, Epilepsy G40.909 ; Asperger syndrome F84.5 ; Vitamin D deficiency E55.9 and Routine health maintenance Z00.00 [place] [address] 34108- 6373 13 Dec, 2015 Mood disorder F39 and Asperger syndrome F84.5 [place] [address] 07703- 2461 Dec, Epilepsy G40.909 ; Asperger syndrome F84.5 ; Vitamin D deficiency E55.9 ; GERD (gastroesophageal reflux disease) K21.9 ; Tremors of nervous system R25.1 ; Constipation K59.00 ; Oppositional behavior F91.3 ; Routine health maintenance Z00.00 ; Dysuria R30.0 ; Obesity (BMI 30.0-34.9) E66.9 and Other seasonal allergic rhinitis J30.2 [facility] [place] [address] 15768 -1763 Dec, Leg pain, right M79.[address] 04306- 6535 Dec, [address] 33355- 8306 Dec, Dental examination Z01.20 [place] [address] 58215- 5591 November, Epilepsy G40.[address] 64701- 1014 November, Scabies B86 ; Epilepsy G40.909 ; Vitamin D deficiency E55.9 ; Oppositional behavior F91.3 ; GERD (gastroesophageal reflux disease) K21.9 and Tremors of nervous system R25.1 [facility] [address] 67481 -5202 November, Contact dermatitis, unspecified contact dermatitis type, unspecified trigger L25.[address] 18770- 1491 November, Asperger syndrome F84.5 ; Epilepsy G40.909 and Oppositional behavior F91.3 [place] [id number] [place] [address] 83963- 7739 November, [place] [address] [place] [phone]- 7958 28 Oct, 2015 Encounter for Depo-Provera contraception Z30.42 [place] [address] 58948- 0333 15 Oct, 2015 Epilepsy G40.909 ; Asperger syndrome F84.5 ; Vitamin D deficiency E55.9 ; Encounter for Depo-Provera contraception Z30.42 ; GERD ( gastroesophageal reflux disease) K21.9 ; Tremors of nervous system R25.1 and Constipation K59.[address] 84333- 0313 13 Oct, 2015 Seizure disorder G40.909 and Depo-Provera contraceptive status Z30.42 [place] [address] 12575- 5722 12 Oct, [address] 29228- 4456 05 Oct, 2015 Epilepsy G40.909 ; Encounter for Depo-Provera contraception Z30.42 ; Asperger syndrome F84.5 and Vitamin D deficiency E55.9 IMMUNIZATIONS No Known Immunizations SOCIAL HISTORY Never Assessed REASON FOR VISIT PLAN OF CARE VITAL SIGNS MEDICATIONS Medication Instructions Dosage Frequency Start Date End Date Duration Status Lamictal 100 mg Orally Twice a day 1 tab am and 1 tab hs 12h 14 days Active RESULTS No Results PROCEDURES No [...]
--- OUTSIDE RECORDS SUMMARY | 2018-04-17 11:33 | XMS REPORT ---
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 Role Phone KENAN LANCE Unavailable PROBLEMS Type Condition ICD9-CM Code [id number] Code Onset Dates Condition Status SNOMED Code Problem Constipation K59.00 Active 32042667 Problem Dysuria R30.0 Active 66972026 Problem Oppositional behavior F91.3 Active 30922421 Problem Asperger syndrome F84.5 Active 88392929 Problem Epilepsy G40.909 Active 66727431 Problem Tremors of nervous system R25.1 Active 230864347 Problem GERD without esophagitis K21.9 Active 263802182 Problem Benign essential tremor G25.0 Active 202001543 Problem Morbid (severe) obesity due to excess calories E66.01 Active 031380719 Problem Mood disorder F39 Active 05514911 Problem Episode of recurrent major depressive disorder, unspecified depression episode severity F33.9 Active 123936940 Problem Body mass index (BMI) of 40.0-44.9 in adult Z68.41 Active 178378313 ALLERGIES No Information ENCOUNTERS Encounter Location Date Diagnosis [facility] [id number] [place] [address] 04750- 1688 Jan, GERD without esophagitis K21.9 [facility] [address] [place] [address] 32620 [address]2020 Dec, Hematuria, unspecified type R31.9 and Acute cystitis with hematuria N30.01 [facility] [address] [place] [address] 27556- 8832 November, Asperger syndrome F84.5 [facility] [address] [place] [address] 28376- 3065 November, [facility] [id number] [place] [address] 38700- 0961 Oct, Benign essential tremor G25.0 and GERD without esophagitis K21.9 [facility] [id number] [place] [address] 21834- 2066 Aug, [facility] [id number] [place] [address] 43567- 3509 Aug, Asperger syndrome F84.5 [facility] [id number] [place] [address] 52185 -2254 Aug, Diarrhea, unspecified type R19.7 [facility] [address] 53190- 3044 02 Aug, 2017 Episode of recurrent major depressive disorder, unspecified depression episode severity F33.9 [facility] [id number] [place] [id number] Jul, Dental examination Z01.20 [facility] [id number] [place] [address] 04403- 2253 Jul, Asperger syndrome F84.5 [facility] [id number] [place] [address] 25069- 8226 Jul, Asperger syndrome F84.5 [facility] [address] [place] [address] 91766- 9358 Jul, Dental examination Z01.20 [facility] [address] [place] [address] 70271- 6993 Jul, Asperger syndrome F84.5 ; Epilepsy G40.909 ; GERD ( gastroesophageal reflux disease) K21.9 ; Mood disorder F39 ; BMI 40.0-44.9, adult Z68.41 and Tremors of nervous system R25.1 [facility] [address] [place] [address] 11645- 1611 Jul, Asperger syndrome F84.5 and Oppositional behavior F91.3 [facility] [address] [place] [address] 29858- 1927 28 Jun, 2017 Tremors of nervous system R25.1 [facility] [id number] [place] [address] 84885- 0247 14 Jun, 2017 Asperger syndrome F84.5 [facility] [address] [place] [address] 85973- 7973 Jun, Asperger syndrome F84.5 [facility] [address] [place] [address] 67303- 4969 May, [facility] [id number] [place] [address] 57894 -6453 May, Acute non-recurrent frontal sinusitis J01.10 [facility] [id number] [place] [address] 39573- 1097 May, Mood disorder F39 and Asperger syndrome F84.5 [facility] [id number] [place] [address] 20629- 4668 May, Acne vulgaris L70.0 [facility] [id number] [place] [address] 54720- 0419 May, Acne vulgaris L70.0 and Tremors of nervous system R25.1 [facility] [id number] [place] [address] 11704 -5887 May, Other viral agents as the cause of diseases classified elsewhere B97.89 and Acute upper respiratory infection, unspecified J06.9 [facility] [address] [place] [address] 25121- 4818 May, Mood disorder F39 and Asperger syndrome F84.5 [facility] [id number] [place] [address] 54339- 4114 Apr, Asperger syndrome F84.5 [facility] [address] [place] [address] 84083- 0836 Apr, Asperger syndrome F84.5 and Oppositional behavior F91.3 [facility] [id number] [place] [address] 89062- 5798 07 Mar, 2017 Mood disorder F39 and Asperger syndrome F84.5 [facility] [id number] [place] [address] 35035- 2997 Feb, GERD (gastroesophageal reflux disease) K21.9 ; Dysuria R30.0 ; Otalgia of right ear H92.01 and Decreased urination R34 [facility] [id number] [place] [address] 77196- 1637 Feb, Mood disorder F39 and Asperger syndrome F84.5 [facility] [address] 89057- 9439 Feb, Asperger syndrome F84.5 and Oppositional behavior F91.3 [facility] [address] 60473 -1475 Jan, Viral gastroenteritis A08.4 [facility] [address] 20943- 0386 Jan, Mood disorder F39 and Asperger syndrome F84.5 [facility] [id number] [place] [address] 40599- 7811 Jan, Asperger syndrome F84.5 and Oppositional behavior F91.3 [facility] [id number] [place] [address] 34916 -4778 Dec, FRANSICO (secretory otitis media), right H65.91 [facility] [address] [place] [address] 67299- 8686 Dec, Mood disorder F39 and Asperger syndrome F84.5 [facility] [address] [place] [address] 38341- 8471 Dec, Otalgia, left ear H92.02 [facility] [address] [place] [address] 58799- 7278 14 Dec, 2016 [facility] [address] [place] [address] 43872- 1728 14 Dec, 2016 Mood disorder F39 and Asperger syndrome F84.5 [facility] [address] [place] [address] [id number] 07 Dec, 2016 Dental examination Z01.20 [facility] [id number] [place] [address] 19545- 7854 31 Nov, 2016 Medicare annual wellness visit, subsequent Z00.00 ; GERD ( gastroesophageal reflux disease) K21.9 ; Counseling on health promotion and disease prevention Z71.89 and Encounter for preventative adult health care exam with abnormal findings Z00.01 [facility] [id number] [place] [address] 29973 -3589 25 Nov, 2016 Allergic contact dermatitis due to plants, except food L23.7 [place] [id number] [place] [address] 68321- 2969 02 Nov, 2016 Mood disorder F39 and Asperger syndrome F84.5 [facility] [id number] [place] [address] 56522 -4245 Sep, Acute bacterial conjunctivitis of right eye H10.31 and Acute suppurative otitis media of right ear without spontaneous rupture of tympanic membrane, recurrence not specified H66.001 [facility] [address] [place] [address] 25907- 1435 07 Sep, 2016 Nexplanon insertion Z30.017 [facility] [address] [place] [address] 12754- 0042 2016 Mood disorder F39 and Asperger syndrome F84.5 [facility] [address] [place] [address] 56769- 9824 28 Aug, 2016 Mood disorder F39 and Asperger syndrome F84.5 [facility] [id number] [place] [address] 74191- 0591 14 Aug, 2016 control counseling Z30.09 [facility] [address] [place] [address]- 6108 08 Aug, 2016 Asperger syndrome F84.5 and Oppositional behavior F91.3 [facility] [id number] [place] [address] [id number] 08 Aug, 2016 Dental examination Z01.20 [facility] [id number] [place] [address] 37824- 5635 03 Aug, 2016 Mood disorder F39 and Asperger syndrome F84.5 [facility] [id number] [place] [address] 25210 -9697 Jul, Acute suppurative otitis media of both ears without spontaneous rupture of tympanic membranes, recurrence not specified H66.003 [facility] [id number] [place] [address] 31271- 2874 Jul, [facility] [id number] [place] [address] 45453- 0522 Jul, Asperger syndrome F84.5 [facility] [address] [place] [address] 43756- 7756 Jul, [facility] [id number] [place] [address] 55763- 7771 Jul, Mood disorder F39 and Asperger syndrome F84.5 [facility] [address] [place] [address] [id number] Jul, Dental examination Z01.20 [facility] [id number] [place] [address] 17375 -1679 Jul, Acute non-recurrent pansinusitis J01.40 [facility] [id number] [place] [address] 81178- 6831 Jul, Asperger syndrome F84.5 and Oppositional behavior F91.3 [facility] [id number] [place] [address] 25270- 6791 Jun, Mood disorder F39 and Asperger syndrome F84.5 [facility] [address] [address]- 6646 14 Jun, 2016 Mood disorder F39 and Asperger syndrome F84.5 [facility] [id number] [place] [address] 93331- 0297 09 Jun, 2016 Mood disorder F39 and Asperger syndrome F84.5 [facility] [address] [place] [address] 24174- 4247 30 May, 2016 Mood disorder F39 and Asperger syndrome F84.5 [facility] [id number] [place] [address] 79976- 6527 May, [facility] [address] [place] [address] 28952- 4617 May, Asperger syndrome F84.5 and Oppositional behavior F91.3 [facility] [address] [place] [address] 78937- 2142 17 May, 2016 Oral contraceptive pill surveillance Z30.41 [facility] [address] [place] [address] 40534- 5737 16 May, 2016 Mood disorder F39 and Asperger syndrome F84.5 [facility] [address] [place] [address] 77087- 7422 May, Asperger syndrome F84.5 and Oppositional behavior F91.3 [facility] [address] [place] [address] 14850- 3665 May, Mood disorder F39 and Asperger syndrome F84.5 [facility] [address] [place] [address] 18148- 2288 Apr, [facility] [id number] [place] [address] 79476- 5844 Apr, Oppositional behavior F91.3 [facility] [address] [place] [address] 02421- 0319 Apr, Asperger syndrome F84.5 and Oppositional behavior F91.3 [facility] [id number] [place] [address] 97508 -2980 17 Apr, 2016 Contact dermatitis, unspecified contact dermatitis type, unspecified trigger L25.9 [facility] [id number] [place] [address] 06723- 0456 17 Apr, 2016 Mood disorder F39 and Asperger syndrome F84.5 [facility] [id number] [place] [address] 63902 -8055 15 Apr, 2016 Acute non-recurrent frontal sinusitis J01.10 and Encounter for immunization Z23 [facility] [address] [id number] 10 Apr, 2016 Encounter for dental examination Z01.20 [facility] [address] [id number] 21 Mar, 2016 Encounter for routine child health examination without abnormal findings Z00.129 [facility] [address] 43506- 3228 14 Mar, 2016 Mood disorder F39 and Asperger syndrome F84.5 [facility] [address] 87591- 5033 06 Mar, 2016 [facility] [address] 70800- 8821 06 Mar, 2016 Asperger syndrome F84.5 and Oppositional behavior F91.3 [facility] [address] 44287- 2268 Feb, Mood disorder F39 and Asperger syndrome F84.5 [facility] [id number] [place] [address] 07643- 2250 Feb, Fatigue, unspecified type R53.83 and GERD (gastroesophageal reflux disease) K21.9 [facility] [address] [place] [address] 92418- 8328 17 Feb, 2016 Mood disorder F39 and Asperger syndrome F84.5 [facility] [address] [place] [address]- 8640 Feb, Asperger syndrome F84.5 and Oppositional behavior F91.3 [facility] [address] 20670 -7949 Feb, Itchy eyes H57.8 [facility] [facility] [address] 51523- 0292 Feb, Encounter for initial prescription of contraceptives Z30.019 [facility] [facility] [address] 72755- 0239 Feb, Mood disorder F39 and Asperger syndrome F84.5 [facility] [facility] [address] 52516- 7631 Feb, [facility] [address] 96585- 4002 Jan, Asperger syndrome F84.5 and Oppositional behavior F91.3 [facility] [facility] [address] 40742- 3273 Jan, Mood disorder F39 and Asperger syndrome F84.5 [facility] [facility] [address] 31406- 9903 Jan, [facility] [address] 92349 -5190 Jan, Acute cystitis without hematuria N30.00 ; Asperger syndrome F84.5 and Oppositional behavior F91.3 [facility] [address] [place] [address] 27759- 7379 Dec, Mood disorder F39 and Asperger syndrome F84.5 [facility] [address] 22192- 1731 13 Dec, 2015 Epilepsy G40.909 ; Asperger syndrome F84.5 ; Vitamin D deficiency E55.9 and Routine health maintenance Z00.00 [facility] [address] 58743- 7541 13 Dec, 2015 Mood disorder F39 and Asperger syndrome F84.5 [facility] [address] 62796- 0805 Dec, Epilepsy G40.909 ; Asperger syndrome F84.5 ; Vitamin D deficiency E55.9 ; GERD (gastroesophageal reflux disease) K21.9 ; Tremors of nervous system R25.1 ; Constipation K59.00 ; Oppositional behavior F91.3 ; Routine health maintenance Z00.00 ; Dysuria R30.0 ; Obesity (BMI 30.0-34.9) E66.9 and Other seasonal allergic rhinitis J30.2 [facility] [address] 01797 -9510 Dec, Leg pain, right M79.604 [facility] [facility] [address] 15539- 8840 Dec, [facility] [address] 31959- 5188 Dec, Dental examination Z01.20 [facility] [facility] [address] 60585- 2225 November, Epilepsy G40.909 [facility] [facility] [address] 11674- 3040 November, Scabies B86 ; Epilepsy G40.909 ; Vitamin D deficiency E55.9 ; Oppositional behavior F91.3 ; GERD (gastroesophageal reflux disease) K21.9 and Tremors of nervous system R25.1 [facility] [address] 00392 -1066 November, Contact dermatitis, unspecified contact dermatitis type, unspecified trigger L25.9 [facility] [facility] [address] 07781- 1558 November, Asperger syndrome F84.5 ; Epilepsy G40.909 and Oppositional behavior F91.3 [facility] [address] 83076- 2203 November, [facility] [address] [place] [address] 47293- 4292 Oct, Encounter for Depo-Provera contraception Z30.42 [facility] [facility] [address] [place] [address] 29760- 6303 Oct, Epilepsy G40.909 ; Asperger syndrome F84.5 ; Vitamin D deficiency E55.9 ; Encounter for Depo-Provera contraception Z30.42 ; GERD ( gastroesophageal reflux disease) K21.9 ; Tremors of nervous system R25.1 and Constipation K59.[address] 49080- 8870 Oct, Seizure disorder G40.909 and Depo-Provera contraceptive status Z30.42 [address] [place] [address] 95347- 0402 Oct, [facility] [address] [place] [address] 18023- 5127 05 Oct, 2015 Epilepsy G40.909 ; Encounter for Depo-Provera contraception Z30.42 ; Asperger syndrome F84.5 and Vitamin D deficiency E55.9 IMMUNIZATIONS No Known Immunizations SOCIAL HISTORY Never Assessed REASON FOR VISIT PALS in - [employer] PLAN OF CARE VITAL SIGNS MEDICATIONS Unknown [...]
--- OUTSIDE RECORDS SUMMARY | 2018-04-17 11:33 | XMS REPORT ---
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 Name Role Phone LISA BRENNAN Unavailable PROBLEMS Type Condition ICD9-CM Code UAN86-YG Code Onset Dates Condition Status SNOMED Code Problem Constipation K59.00 Active 86900979 Problem Dysuria R30.0 Active 09319805 Problem Oppositional behavior F91.3 Active 22096335 Problem Asperger syndrome F84.5 Active 19459111 Problem Epilepsy G40.909 Active 11390442 Problem Tremors of nervous system R25.1 Active 497059704 Problem GERD without esophagitis K21.9 Active 743140744 Problem Benign essential tremor G25.0 Active 735815211 Problem Morbid (severe) obesity due to excess calories E66.01 Active 603066091 Problem Mood disorder F39 Active 67493925 Problem Episode of recurrent major depressive disorder, unspecified depression episode severity F33.9 Active 352845188 Problem Body mass index (BMI) of 40.0-44.9 in adult Z68.41 Active 585184914 ALLERGIES No Information ENCOUNTERS Encounter Location Date Diagnosis [facility] [id number] [place] [address] 07911- 4116 Jan, GERD without esophagitis K21.9 [facility] [address] [address] Dec, Hematuria, unspecified type R31.9 and Acute cystitis with hematuria N30.01 [facility] [id number] [place] [address] 62236- 6672 November, Asperger syndrome F84.5 [facility] [address] [address] November, [facility] [id number] [place] [address] 94097- 0353 Oct, Benign essential tremor G25.0 and GERD without esophagitis K21.9 [facility] [id number] [place] [address] 78594- 9114 Aug, [facility] [id number] [place] [address] 53526- 0315 Aug, Asperger syndrome F84.[address] [facility] [id number] [place] [address] 36948 -8587 Aug, Diarrhea, unspecified type R19.7 [place] [address] 74267- 2193 Aug, Episode of recurrent major depressive disorder, unspecified depression episode severity F33.9 [facility] [id number] [place] [address] [id number] Jul, Dental examination Z01.20 [place] [id number] [place] [address] 73433- 0023 Jul, Asperger syndrome F84.5 [place] [address] 34320- 7962 Jul, Asperger syndrome F84.5 [place] [id number] [place] [address] 94096- 4445 Jul, Dental examination Z01.20 [place] [id number] [place] [address] 93796- 3900 Jul, Asperger syndrome F84.5 ; Epilepsy G40.909 ; GERD ( gastroesophageal reflux disease) K21.9 ; Mood disorder F39 ; BMI 40.0-44.9, adult Z68.41 and Tremors of nervous system R25.1 [facility] [address] [place] [address] 82753- 8348 Jul, Asperger syndrome F84.5 and Oppositional behavior F91.3 [place] [id number] [address] Jun, Tremors of nervous system R25.1 [place] [id number] [place] [address] 99626- 7648 14 Jun, 2017 Asperger syndrome F84.5 [place] [id number] [place] [address] 98698- 9368 Jun, Asperger syndrome F84.5 [place] [id number] [place] [address] 65575- 0279 May, [facility] [id number] [place] [address] 49489 -3239 May, Acute non-recurrent frontal sinusitis J01.10 [place] [id number] [place] [address] 45808- 5577 May, Mood disorder F39 and Asperger syndrome F84.5 [place] [id number] [place] [address] 70237- 3226 May, Acne vulgaris L70.0 [place] [id number] [place] [address] 09122- 7181 May, Acne vulgaris L70.0 and Tremors of nervous system R25.1 [facility] [id number] [place] [address] 24618 -0618 May, Other viral agents as the cause of diseases classified elsewhere B97.89 and Acute upper respiratory infection, unspecified J06.9 [place] [address] [place] [address] 08510- 6954 May, Mood disorder F39 and Asperger syndrome F84.5 [place] [id number] [place] [address] 56424- 6481 Apr, Asperger syndrome F84.5 [place] [address] [place] [address] 02860- 5078 Apr, Asperger syndrome F84.5 and Oppositional behavior F91.3 [place] [id number] [place] [address] 39688- 6636 07 Mar, 2017 Mood disorder F39 and Asperger syndrome F84.5 [place] [address] 01485- 0467 Feb, GERD (gastroesophageal reflux disease) K21.9 ; Dysuria R30.0 ; Otalgia of right ear H92.01 and Decreased urination R34 [place] [address] 96891- 6713 Feb, Mood disorder F39 and Asperger syndrome F84.5 [place] [address] 25532- 5608 Feb, Asperger syndrome F84.5 and Oppositional behavior F91.3 [facility] [address] 42255 -6998 Jan, Viral gastroenteritis A08.4 [place] [address] 53702- 4294 Jan, Mood disorder F39 and Asperger syndrome F84.5 [place] [address] 76736- 9041 Jan, Asperger syndrome F84.5 and Oppositional behavior F91.3 [facility] [address] 62808 [address]1782 Dec, FRANSICO (secretory otitis media), right H65.91 [place] [address] 30662- 3466 Dec, Mood disorder F39 and Asperger syndrome F84.5 [place] [address] 56528- 7558 19 Dec, 2016 Otalgia, left ear H92.02 [place] [address] 98160- 0421 14 Dec, 2016 [place] [id number] [place] [address] 04827- 5171 14 Dec, 2016 Mood disorder F39 and Asperger syndrome F84.5 [facility] [address] [place] [address] [phone] 07 Dec, 2016 Dental examination Z01.20 [place] [id number] [place] [address] 41447- 9513 31 Nov, 2016 Medicare annual wellness visit, subsequent Z00.00 ; GERD ( gastroesophageal reflux disease) K21.9 ; Counseling on health promotion and disease prevention Z71.89 and Encounter for preventative adult health care exam with abnormal findings Z00.01 [facility] [address] 96009 -5419 25 Nov, 2016 Allergic contact dermatitis due to plants, except food L23.7 [place] [id number] [place] [address] 10281- 7628 02 Nov, 2016 Mood disorder F39 and Asperger syndrome F84.5 [facility] [id number] [place] [address] 96106 -7833 31 Sep, 2016 Acute bacterial conjunctivitis of right eye H10.31 and Acute suppurative otitis media of right ear without spontaneous rupture of tympanic membrane, recurrence not specified H66.001 [place] [id number] [place] [address] 67190- 1765 07 Sep, 2016 Nexplanon insertion Z30.017 [place] [id number] [place] [address] 57964- 7240 2016 Mood disorder F39 and Asperger syndrome F84.5 [place] [id number] [place] [address] 51824- 6328 28 Aug, 2016 Mood disorder F39 and Asperger syndrome F84.5 [place] [id number] [place] [address] 19450- 9077 14 Aug, 2016 control counseling Z30.09 [place] [address] [place] [address]- 5726 08 Aug, 2016 Asperger syndrome F84.5 and Oppositional behavior F91.3 [facility] [id number] [place] [address] [phone] 08 Aug, 2016 Dental examination Z01.20 [facility] [address] [place] [address] 70450- 1114 Aug, Mood disorder F39 and Asperger syndrome F84.5 [facility] [id number] [place] [address] 33662 -3030 Jul, Acute suppurative otitis media of both ears without spontaneous rupture of tympanic membranes, recurrence not specified H66.003 [facility] [id number] [place] [address] 61092- 3070 Jul, [facility] [id number] [place] [address] 20233- 0749 Jul, Asperger syndrome F84.5 [facility] [id number] [place] [address] 09050- 2104 Jul, [facility] [id number] [place] [address] 58224- 1967 Jul, Mood disorder F39 and Asperger syndrome F84.5 [facility] [address] [place] [address] [id number] Jul, Dental examination Z01.[address] [facility] [id number] [place] [address] 24315 -1325 Jul, Acute non-recurrent pansinusitis J01.40 [facility] [id number] [place] [address] 73004- 9949 Jul, Asperger syndrome F84.5 and Oppositional behavior F91.3 [facility] [address] [place] [address] 97877- 6964 Jun, Mood disorder F39 and Asperger syndrome F84.5 [facility] [id number] [address]- 6132 14 Jun, 2016 Mood disorder F39 and Asperger syndrome F84.5 [facility] [id number] [place] [address] 21517- 7840 09 Jun, 2016 Mood disorder F39 and Asperger syndrome F84.5 [facility] [id number] [place] [address] 15649- 6019 30 May, 2016 Mood disorder F39 and Asperger syndrome F84.5 [facility] [id number] [place] [address] 19564- 5531 May, [place] [id number] [place] [address] 59920- 3635 May, Asperger syndrome F84.5 and Oppositional behavior F91.3 [place] [id number] [place] [address] 39038- 8620 May, Oral contraceptive pill surveillance Z30.41 [facility] [id number] [place] [address] 47942- 0505 16 May, 2016 Mood disorder F39 and Asperger syndrome F84.5 [place] [id number] [place] [address] 81125- 3347 May, Asperger syndrome F84.5 and Oppositional behavior F91.3 [place] [address] [place] [address] 29024- 5141 May, Mood disorder F39 and Asperger syndrome F84.5 [facility] [address] [place] [address] 39029- 0756 Apr, [facility] [id number] [place] [address] 17401- 3532 Apr, Oppositional behavior F91.3 [facility] [address] [place] [address] 80352- 0690 Apr, Asperger syndrome F84.5 and Oppositional behavior F91.3 [facility] [id number] [place] [address] 36413 -5807 17 Apr, 2016 Contact dermatitis, unspecified contact dermatitis type, unspecified trigger L25.9 [facility] [id number] [place] [address] 56587- 2043 17 Apr, 2016 Mood disorder F39 and Asperger syndrome F84.5 [facility] [id number] [place] [address] 20455 -4325 15 Apr, 2016 Acute non-recurrent frontal sinusitis J01.10 and Encounter for immunization Z23 [facility] [address] [id number] 10 Apr, 2016 Encounter for dental examination Z01.20 [facility] [address] [id number] 21 Mar, 2016 Encounter for routine child health examination without abnormal findings Z00.129 [facility] [address] 85839- 0104 14 Mar, 2016 Mood disorder F39 and Asperger syndrome F84.5 [facility] [address] 70432- 2137 06 Mar, 2016 [facility] [address] 65954- 8745 06 Mar, 2016 Asperger syndrome F84.5 and Oppositional behavior F91.3 [facility] [address] 98636- 7690 Feb, Mood disorder F39 and Asperger syndrome F84.5 [facility] [id number] [place] [address] 18801- 6375 Feb, Fatigue, unspecified type R53.83 and GERD (gastroesophageal reflux disease) K21.9 [facility] [id number] [place] [address] 64125- 6427 17 Feb, 2016 Mood disorder F39 and Asperger syndrome F84.5 [facility] [address] 37966- 8100 Feb, Asperger syndrome F84.5 and Oppositional behavior F91.[address] [facility] [id number] [place] [address] 97832 -6997 Feb, Itchy eyes H57.8 [place] [address] 57640- 6303 Feb, Encounter for initial prescription of contraceptives Z30.019 [place] [address] 17360- 2066 Feb, Mood disorder F39 and Asperger syndrome F84.5 [place] [address] 55810- 9223 Feb, [place] [address] 25050- 6325 Jan, Asperger syndrome F84.5 and Oppositional behavior F91.3 [place] [id number] [place] [address] 03098- 5498 Jan, Mood disorder F39 and Asperger syndrome F84.5 [place] [address] 60900- 7690 Jan, [facility] [id number] [place] [address] 42252 -5627 Jan, Acute cystitis without hematuria N30.00 ; Asperger syndrome F84.5 and Oppositional behavior F91.3 [place] [id number] [place] [address] 40933- 4014 Dec, Mood disorder F39 and Asperger syndrome F84.5 [place] [address] 55239- 0152 Dec, Epilepsy G40.909 ; Asperger syndrome F84.5 ; Vitamin D deficiency E55.9 and Routine health maintenance Z00.00 [place] [address] 93412- 3180 Dec, Mood disorder F39 and Asperger syndrome F84.5 [place] [address] 87489- 3727 Dec, Epilepsy G40.909 ; Asperger syndrome F84.5 ; Vitamin D deficiency E55.9 ; GERD (gastroesophageal reflux disease) K21.9 ; Tremors of nervous system R25.1 ; Constipation K59.00 ; Oppositional behavior F91.3 ; Routine health maintenance Z00.00 ; Dysuria R30.0 ; Obesity (BMI 30.0-34.9) E66.9 and Other seasonal allergic rhinitis J30.[address] [facility] [address] 88644 -4954 Dec, Leg pain, right M79.604 [place] [address] 19086- 8442 Dec, [place] [address] 05651- 1263 Dec, Dental examination Z01.20 [place] [address] 12836- 6922 November, Epilepsy G40.909 [place] [address] 89399- 1327 November, Scabies B86 ; Epilepsy G40.909 ; Vitamin D deficiency E55.9 ; Oppositional behavior F91.3 ; GERD (gastroesophageal reflux disease) K21.9 and Tremors of nervous system R25.[address] [facility] [address] 43867 -3519 November, Contact dermatitis, unspecified contact dermatitis type, unspecified trigger L25.9 [place] [address] 22206- 6326 November, Asperger syndrome F84.5 ; Epilepsy G40.909 and Oppositional behavior F91.3 [place] [address] 61289- 8495 November, [place] [address] [place] [address] 22991- 5052 28 Oct, 2015 Encounter for Depo-Provera contraception Z30.42 [place] [id number] [place] [address] 07777- 6322 15 Oct, 2015 Epilepsy G40.909 ; Asperger syndrome F84.5 ; Vitamin D deficiency E55.9 ; Encounter for Depo-Provera contraception Z30.42 ; GERD ( gastroesophageal reflux disease) K21.9 ; Tremors of nervous system R25.1 and Constipation K59.00 [place] [id number] [place] [address] 50508- 5228 13 Oct, 2015 Seizure disorder G40.909 and Depo-Provera contraceptive status Z30.42 [place] [id number] [place] [address] 65203- 6087 Oct, [place] [id number] [place] [address] 06980- 5321 05 Oct, 2015 Epilepsy G40.909 ; Encounter for Depo-Provera contraception Z30.42 ; Asperger syndrome F84.5 and Vitamin D deficiency E55.9 IMMUNIZATIONS No Known Immunizations SOCIAL HISTORY Never Assessed REASON FOR VISIT PLAN OF CARE VITAL SIGNS MEDICATIONS Medication Instructions Dosage Frequency Start Date End Date Duration Status Propranolol HCl 10 mg Orally Twice a day 1 tablet 12h 17 May, 2017 90 days Active Omeprazole 20 mg Orally 2 times a day 1 capsules 12h 90 days Active RESULTS No Results PROCEDURES No [...]
--- OUTSIDE RECORDS SUMMARY | 2018-04-17 11:34 | XMS REPORT ---
Author Author KENAN LANCE [facility] Address [address] [place] [address] Care Team Providers Care Shift Superintendent Caustic Cresylate Name Role Phone KENAN LNACE Unavailable PROBLEMS Type Condition ICD9-CM Code [id number] Code Onset Dates Condition Status SNOMED Code Problem Constipation K59.00 Active 25886802 Problem Dysuria R30.0 Active 78039181 Problem Oppositional behavior F91.3 Active 68672399 Problem Asperger syndrome F84.5 Active 04151677 Problem Epilepsy G40.909 Active 06437519 Problem Tremors of nervous system R25.1 Active 660685915 Problem GERD without esophagitis K21.9 Active 776765115 Problem Benign essential tremor G25.0 Active 945618348 Problem Morbid (severe) obesity due to excess calories E66.01 Active 915640893 Problem Mood disorder F39 Active 38982321 Problem Episode of recurrent major depressive disorder, unspecified depression episode severity F33.9 Active 127658827 Problem Body mass index (BMI) of 40.0-44.9 in adult Z68.41 Active 674543835 ALLERGIES No Information ENCOUNTERS Encounter Location Date Diagnosis [facility] [id number] [place] [address] 60440- 8484 November, [facility] [id number] [place] [address] 23533- 6220 Oct, Benign essential tremor G25.0 and GERD without esophagitis K21.9 [facility] [id number] [place] [address] 23327- 0456 Aug, [facility] [id number] [place] [address] 41768- 8653 Aug, Asperger syndrome F84.5 [facility] [id number] [place] [address] 64135 -8922 Aug, Diarrhea, unspecified type R19.7 [place] [address] [place] [address] 59398- 6631 Aug, Episode of recurrent major depressive disorder, unspecified depression episode severity F33.9 [facility] [address] [place] [address] [id number] Jul, Dental examination Z01.20 [place] [id number] [place] [address] 01133- 6136 Jul, Asperger syndrome F84.5 [place] [id number] [place] [address] 62230- 2029 Jul, Asperger syndrome F84.5 [place] [id number] [place] [address] 07946- 4987 Jul, Dental examination Z01.20 [place] [id number] [place] [address] 51902- 7928 Jul, Asperger syndrome F84.5 ; Epilepsy G40.909 ; GERD ( gastroesophageal reflux disease) K21.9 ; Mood disorder F39 ; BMI 40.0-44.9, adult Z68.41 and Tremors of nervous system R25.1 [place] [id number] [place] [address] 25232- 3167 Jul, Asperger syndrome F84.5 and Oppositional behavior F91.3 [place] [address] [place] [address] 42167- 1534 Jun, Tremors of nervous system R25.1 [place] [id number] [place] [address] 94237- 6619 14 Jun, 2017 Asperger syndrome F84.5 [place] [id number] [place] [address] 35577- 0900 Jun, Asperger syndrome F84.5 [place] [id number] [place] [address] 45957- 5659 May, [facility] [id number] [place] [address] 04446 -0253 May, Acute non-recurrent frontal sinusitis J01.10 [facility] [id number] [place] [address] 58911- 8364 May, Mood disorder F39 and Asperger syndrome F84.5 [place] [address] 54667- 3181 May, Acne vulgaris L70.0 [place] [address] 42959- 1970 May, Acne vulgaris L70.0 and Tremors of nervous system R25.1 [facility] [id number] [place] [address] 84959 -7446 May, Other viral agents as the cause of diseases classified elsewhere B97.89 and Acute upper respiratory infection, unspecified J06.9 [place] [id number] [place] [address] 47642- 7434 May, Mood disorder F39 and Asperger syndrome F84.5 [place] [id number] [place] [address] 51185- 5385 Apr, Asperger syndrome F84.5 [place] [id number] [place] [address] 80606- 7642 Apr, Asperger syndrome F84.5 and Oppositional behavior F91.3 [place] [id number] [place] [address] 30840- 7011 Mar, Mood disorder F39 and Asperger syndrome F84.5 [place] [address] 11431- 4298 Feb, GERD (gastroesophageal reflux disease) K21.9 ; Dysuria R30.0 ; Otalgia of right ear H92.01 and Decreased urination R34 [place] [address] 58700- 0703 Feb, Mood disorder F39 and Asperger syndrome F84.5 [facility] [id number] [place] [address] 10776- 3751 Feb, Asperger syndrome F84.5 and Oppositional behavior F91.3 [facility] [id number] [place] [address] 23956 -4931 Jan, Viral gastroenteritis A08.4 [facility] [id number] [place] [address] 43512- 0156 Jan, Mood disorder F39 and Asperger syndrome F84.5 [place] [address] 33239- 8126 Jan, Asperger syndrome F84.5 and Oppositional behavior F91.3 [facility] [id number] [place] [address] 13337 -2532 Dec, FRANSICO (secretory otitis media), right H65.91 [place] [id number] [place] [address] 34336- 9926 Dec, Mood disorder F39 and Asperger syndrome F84.5 [place] [id number] [place] [address] 15209- 1271 Dec, Otalgia, left ear H92.02 [place] [id number] [place] [address] 84928- 2750 Dec, [facility] [id number] [place] [address] 30171- 8385 Dec, Mood disorder F39 and Asperger syndrome F84.5 [facility] [address] [place] [address] [id number] 07 Dec, 2016 Dental examination Z01.20 [place] [id number] [place] [address] 44246- 7653 November, Medicare annual wellness visit, subsequent Z00.00 ; GERD ( gastroesophageal reflux disease) K21.9 ; Counseling on health promotion and disease prevention Z71.89 and Encounter for preventative adult health care exam with abnormal findings Z00.01 [facility] [address] 99809 -6602 November, Allergic contact dermatitis due to plants, except food L23.7 [place] [address] 20468- 7074 02 Nov, 2016 Mood disorder F39 and Asperger syndrome F84.5 [facility] [address] 65492 -5102 31 Sep, 2016 Acute bacterial conjunctivitis of right eye H10.31 and Acute suppurative otitis media of right ear without spontaneous rupture of tympanic membrane, recurrence not specified H66.001 [place] [address] 53038- 0133 07 Sep, 2016 Nexplanon insertion Z30.017 [place] [address] 18554- 1009 2016 Mood disorder F39 and Asperger syndrome F84.5 [place] [address] 00365- 4733 28 Aug, 2016 Mood disorder F39 and Asperger syndrome F84.5 [place] [address] 89874- 6572 14 Aug, 2016 control counseling Z30.09 [place] [address] 97166- 2293 08 Aug, 2016 Asperger syndrome F84.5 and Oppositional behavior F91.3 [facility] [address] [id number] 08 Aug, 2016 Dental examination Z01.20 [place] [address] 25390- 8584 03 Aug, 2016 Mood disorder F39 and Asperger syndrome F84.5 [facility] [address] [place] [address] -[address]8 Jul, Acute suppurative otitis media of both ears without spontaneous rupture of tympanic membranes, recurrence not specified H66.003 [facility] [id number] [place] [address] 19367- 8697 Jul, [facility] [id number] [place] [address] 40854- 1665 Jul, Asperger syndrome F84.5 [facility] [address] 39371- 5271 Jul, [facility] [address] 83131- 8154 Jul, Mood disorder F39 and Asperger syndrome F84.5 [facility] [address] [id number] Jul, Dental examination Z01.20 [facility] [address] 53473 -5641 Jul, Acute non-recurrent pansinusitis J01.40 [facility] [address] 60781- 3022 Jul, Asperger syndrome F84.5 and Oppositional behavior F91.3 [facility] [id number] [place] [address] 95097- 3620 Jun, Mood disorder F39 and Asperger syndrome F84.5 [facility] [id number] [place] [address] 24796- 4814 Jun, Mood disorder F39 and Asperger syndrome F84.5 [facility] [id number] [place] [address] 35785- 6749 Jun, Mood disorder F39 and Asperger syndrome F84.5 [facility] [id number] [place] [address] 81546- 2650 May, Mood disorder F39 and Asperger syndrome F84.5 [facility] [id number] [place] [address] 06149- 2373 May, [place] [id number] [place] [address] 66164- 4103 May, Asperger syndrome F84.5 and Oppositional behavior F91.3 [place] [id number] [place] [address] 96827- 6970 May, Oral contraceptive pill surveillance Z30.41 [place] [id number] [place] [address] 86591- 2682 16 May, 2016 Mood disorder F39 and Asperger syndrome F84.5 [place] [address] 75930- 0790 May, Asperger syndrome F84.5 and Oppositional behavior F91.3 [place] [id number] [place] [address] 50219- 3227 May, Mood disorder F39 and Asperger syndrome F84.5 [place] [id number] [place] [address] 11996- 5106 Apr, [place] [address] 88495- 0927 Apr, Oppositional behavior F91.3 [place] [id number] [place] [address] 57642- 2279 Apr, Asperger syndrome F84.5 and Oppositional behavior F91.3 [facility] [id number] [place] [address] 73886 -3301 Apr, Contact dermatitis, unspecified contact dermatitis type, unspecified trigger L25.9 [place] [id number] [place] [address] 66380- 0216 Apr, Mood disorder F39 and Asperger syndrome F84.5 [facility] [address] [place] [address] 95625 -3008 15 Apr, 2016 Acute non-recurrent frontal sinusitis J01.10 and Encounter for immunization Z23 [facility] [address] [place] [address] [id number] 10 Apr, 2016 Encounter for dental examination Z01.20 [facility] [id number] [place] [address] [id number] 21 Mar, 2016 Encounter for routine child health examination without abnormal findings Z00.129 [facility] [address] 75046- 3113 14 Mar, 2016 Mood disorder F39 and Asperger syndrome F84.5 [facility] [address] 43004- 7849 06 Mar, 2016 [place] [address] 26505- 4125 06 Mar, 2016 Asperger syndrome F84.5 and Oppositional behavior F91.3 [facility] [address] 62708- 1280 Feb, Mood disorder F39 and Asperger syndrome F84.5 [facility] [address] 23614- 0467 Feb, Fatigue, unspecified type R53.83 and GERD (gastroesophageal reflux disease) K21.9 [facility] [id number] [place] [address] 24912- 8638 Feb, Mood disorder F39 and Asperger syndrome F84.5 [facility] [address] 95490- 2653 Feb, Asperger syndrome F84.5 and Oppositional behavior F91.3 [facility] [address] 85867 -1613 05 Feb, 2016 Itchy eyes H57.8 [facility] [address] 57205- 7833 04 Feb, 2016 Encounter for initial prescription of contraceptives Z30.019 [facility] [address] 73098- 6980 Feb, Mood disorder F39 and Asperger syndrome F84.5 [place] [address] [place] [address] 89361- 4813 Feb, [place] [id number] [place] [address] 88209- 9718 Jan, Asperger syndrome F84.5 and Oppositional behavior F91.3 [place] [id number] [place] [address] 00252- 5010 Jan, Mood disorder F39 and Asperger syndrome F84.5 [place] [id number] [place] [address] 41613- 7697 Jan, [facility] [address] [place] [address] 88984 -7663 Jan, Acute cystitis without hematuria N30.00 ; Asperger syndrome F84.5 and Oppositional behavior F91.3 [place] [id number] [place] [address] 63024- 6319 Dec, Mood disorder F39 and Asperger syndrome F84.5 [place] [id number] [place] [address] 83578- 6593 Dec, Epilepsy G40.909 ; Asperger syndrome F84.5 ; Vitamin D deficiency E55.9 and Routine health maintenance Z00.00 [place] [address] [place] [address] 07535- 5049 Dec, Mood disorder F39 and Asperger syndrome F84.5 [place] [address] [place] [address] 49517- 0960 Dec, Epilepsy G40.909 ; Asperger syndrome F84.5 ; Vitamin D deficiency E55.9 ; GERD (gastroesophageal reflux disease) K21.9 ; Tremors of nervous system R25.1 ; Constipation K59.00 ; Oppositional behavior F91.3 ; Routine health maintenance Z00.00 ; Dysuria R30.0 ; Obesity (BMI 30.0-34.9) E66.9 and Other seasonal allergic rhinitis J30.2 [facility] [address] 69801 -3672 Dec, Leg pain, right M79.604 [facility] [address] 39411- 9915 Dec, [place] [address] 28850- 8722 Dec, Dental examination Z01.20 [place] [address] 07872- 3593 November, Epilepsy G40.909 [place] [address] 24801- 8841 November, Scabies B86 ; Epilepsy G40.909 ; Vitamin D deficiency E55.9 ; Oppositional behavior F91.3 ; GERD (gastroesophageal reflux disease) K21.9 and Tremors of nervous system R25.1 [facility] [address] 53469 -2124 November, Contact dermatitis, unspecified contact dermatitis type, unspecified trigger L25.9 [place] [address] 40995- 6538 November, Asperger syndrome F84.5 ; Epilepsy G40.909 and Oppositional behavior F91.3 [place] [id number] [place] [address] 89962- 8686 November, [place] [address] 55567- 3783 Oct, Encounter for Depo-Provera contraception Z30.42 [place] [id number] [place] [address] 34233- 3870 Oct, Epilepsy G40.909 ; Asperger syndrome F84.5 ; Vitamin D deficiency E55.9 ; Encounter for Depo-Provera contraception Z30.42 ; GERD ( gastroesophageal reflux disease) K21.9 ; Tremors of nervous system R25.1 and Constipation K59.00 [place] [address] [address]- 4000 13 Oct, 2015 Seizure disorder G40.909 and Depo-Provera contraceptive status Z30.42 [place] [address] [address]- 8194 12 Oct, 2015 [place] [address] [place] [address] 30252- 0063 05 Oct, 2015 Epilepsy G40.909 ; Encounter for Depo-Provera contraception Z30.42 ; Asperger syndrome F84.5 and Vitamin D deficiency E55.9 IMMUNIZATIONS No Known Immunizations SOCIAL HISTORY Never Assessed REASON FOR VISIT med refill PLAN OF CARE VITAL SIGNS MEDICATIONS Medication Instructions Dosage Frequency Start Date End Date Duration Status Lamictal 100 mg Orally Twice a day 1/2 tablet 12h 30 days Active RESULTS No Results PROCEDURES No [...]
--- OUTSIDE RECORDS SUMMARY | 2018-04-17 11:34 | XMS REPORT ---
Author Author BRENNAN GONZALEZ Organization [facility] Address [address] [place] [address] Care Team Providers Care Collet Driller Name Role Phone GONZALEZJAE AbdallaELE Unavailable PROBLEMS Type Condition ICD9-CM Code XFQ55-NX Code Onset Dates Condition Status SNOMED Code Problem Constipation K59.00 Active 80968876 Problem Dysuria R30.0 Active 91047602 Problem Oppositional behavior F91.3 Active 80478062 Problem Asperger syndrome F84.5 Active 80493347 Problem Epilepsy G40.909 Active 70792765 Problem Tremors of nervous system R25.1 Active 642789159 Problem GERD without esophagitis K21.9 Active 844721414 Problem Benign essential tremor G25.0 Active 006693581 Problem Morbid (severe) obesity due to excess calories E66.01 Active 368905767 Problem Mood disorder F39 Active 13320832 Problem Episode of recurrent major depressive disorder, unspecified depression episode severity F33.9 Active 355710962 Problem Body mass index (BMI) of 40.0-44.9 in adult Z68.41 Active 310562059 ALLERGIES No Known Allergies ENCOUNTERS Encounter Location Date Diagnosis [facility] [id number] [place] [address] 37508- 5547 November, Asperger syndrome F84.5 [facility] [address] [address] November, [facility] [id number] [place] [address] 45974- 3118 Oct, Benign essential tremor G25.0 and GERD without esophagitis K21.9 [facility] [id number] [place] [address] 77125- 5768 Aug, [facility] [id number] [place] [address] 32131- 5610 Aug, Asperger syndrome F84.5 [facility] [id number] [place] [address] 20028 -3689 02 Aug, 2017 Diarrhea, unspecified type R19.7 [facility] [id number] [place] [address] 03701- 3971 02 Aug, 2017 Episode of recurrent major depressive disorder, unspecified depression episode severity F33.9 [facility] [id number] [place] [address] [id number] Jul, Dental examination Z01.20 [facility] [id number] [place] [address] 66880- 6763 Jul, Asperger syndrome F84.5 [facility] [id number] [place] [address] 32784- 6987 Jul, Asperger syndrome F84.5 [facility] [id number] [place] [address] 49348- 4535 Jul, Dental examination Z01.20 [facility] [id number] [place] [address] 28178- 8344 Jul, Asperger syndrome F84.5 ; Epilepsy G40.909 ; GERD ( gastroesophageal reflux disease) K21.9 ; Mood disorder F39 ; BMI 40.0-44.9, adult Z68.41 and Tremors of nervous system R25.1 [facility] [id number] [place] [address] 31288- 8933 Jul, Asperger syndrome F84.5 and Oppositional behavior F91.3 [facility] [id number] [place] [address] 71947- 2365 Jun, Tremors of nervous system R25.1 [facility] [id number] [place] [address] 94136- 6835 Jun, Asperger syndrome F84.5 [facility] [id number] [place] [address] 93582- 8408 Jun, Asperger syndrome F84.5 [facility] [id number] [place] [address] 95602- 0579 May, [facility] [id number] [place] [address] 44360 -7661 May, Acute non-recurrent frontal sinusitis J01.10 [place] [address] 79005- 8782 May, Mood disorder F39 and Asperger syndrome F84.5 [facility] [id number] [place] [address] 04470- 9125 May, Acne vulgaris L70.0 [place] [address] 77096- 5635 May, Acne vulgaris L70.0 and Tremors of nervous system R25.1 [facility] [id number] [place] [address] 40480 -9192 May, Other viral agents as the cause of diseases classified elsewhere B97.89 and Acute upper respiratory infection, unspecified J06.9 [facility] [id number] [place] [address] 26865- 6091 May, Mood disorder F39 and Asperger syndrome F84.5 [facility] [id number] [place] [address] 11775- 3612 Apr, Asperger syndrome F84.5 [facility] [id number] [place] [address] 93878- 8364 Apr, Asperger syndrome F84.5 and Oppositional behavior F91.3 [place] [address] 16034- 8904 Mar, Mood disorder F39 and Asperger syndrome F84.5 [facility] [id number] [place] [address] 24183- 2408 Feb, GERD (gastroesophageal reflux disease) K21.9 ; Dysuria R30.0 ; Otalgia of right ear H92.01 and Decreased urination R34 [facility] [id number] [place] [address] 05373- 4891 Feb, Mood disorder F39 and Asperger syndrome F84.5 [facility] [address] 04016- 6960 Feb, Asperger syndrome F84.5 and Oppositional behavior F91.3 [facility] [address] 42048 -2527 Jan, Viral gastroenteritis A08.4 [facility] [address] 23581- 6897 Jan, Mood disorder F39 and Asperger syndrome F84.5 [place] [address] 38957- 5763 Jan, Asperger syndrome F84.5 and Oppositional behavior F91.3 [facility] [address] 89601 -7659 Dec, FRANSICO (secretory otitis media), right H65.91 [facility] [address] 61297- 6988 Dec, Mood disorder F39 and Asperger syndrome F84.5 [facility] [address] 44808- 6663 Dec, Otalgia, left ear H92.02 [facility] [id number] [place] [address] 44126- 3822 Dec, [facility] [address] 65947- 6674 Dec, Mood disorder F39 and Asperger syndrome F84.5 [facility] [id number] [place] [address] [id number] 07 Dec, 2016 Dental examination Z01.20 [facility] [address] 37459- 2054 31 Nov, 2016 Medicare annual wellness visit, subsequent Z00.00 ; GERD ( gastroesophageal reflux disease) K21.9 ; Counseling on health promotion and disease prevention Z71.89 and Encounter for preventative adult health care exam with abnormal findings Z00.01 [facility] [address] 25602 -8216 25 Nov, 2016 Allergic contact dermatitis due to plants, except food L23.7 [place] [address] 31127- 8944 02 Nov, 2016 Mood disorder F39 and Asperger syndrome F84.5 [facility] [address] 03585 -3091 31 Sep, 2016 Acute bacterial conjunctivitis of right eye H10.31 and Acute suppurative otitis media of right ear without spontaneous rupture of tympanic membrane, recurrence not specified H66.001 [place] [address] 35062- 1331 07 Sep, 2016 Nexplanon insertion Z30.017 [place] [address] 00084- 9256 2016 Mood disorder F39 and Asperger syndrome F84.5 [place] [address] 96708- 1676 28 Aug, 2016 Mood disorder F39 and Asperger syndrome F84.5 [place] [address] 48893- 4960 14 Aug, 2016 control counseling Z30.09 [place] [address] 25000- 7027 08 Aug, 2016 Asperger syndrome F84.5 and Oppositional behavior F91.3 [facility] [id number] [place] [address] [id number] 08 Aug, 2016 Dental examination Z01.20 [place] [address] 41059- 7196 Aug, Mood disorder F39 and Asperger syndrome F84.5 [facility] [id number] [place] [address] 54266 -2522 Jul, Acute suppurative otitis media of both ears without spontaneous rupture of tympanic membranes, recurrence not specified H66.003 [facility] [id number] [place] [address] 68596- 6508 Jul, [facility] [id number] [place] [address] 21818- 1709 Jul, Asperger syndrome F84.5 [facility] [id number] [place] [address] 67618- 1241 Jul, [facility] [id number] [place] [address] 83915- 7470 Jul, Mood disorder F39 and Asperger syndrome F84.5 [facility] [address] [id number] Jul, Dental examination Z01.20 [facility] [id number] [place] [address] 55037 -1899 Jul, Acute non-recurrent pansinusitis J01.40 [facility] [id number] [place] [address] 92223- 4999 Jul, Asperger syndrome F84.5 and Oppositional behavior F91.3 [facility] [id number] [place] [address] 78824- 1567 Jun, Mood disorder F39 and Asperger syndrome F84.5 [facility] [id number] [place] [address] 75215- 1203 Jun, Mood disorder F39 and Asperger syndrome F84.5 [facility] [id number] [place] [address] 62083- 6204 Jun, Mood disorder F39 and Asperger syndrome F84.5 [facility] [address] [place] [address]- 4360 30 May, 2016 Mood disorder F39 and Asperger syndrome F84.5 [facility] [id number] [place] [address] 15589- 5320 May, [facility] [id number] [place] [address] 09011- 3005 May, Asperger syndrome F84.5 and Oppositional behavior F91.3 [facility] [id number] [place] [address] 15540- 1886 May, Oral contraceptive pill surveillance Z30.41 [place] [address] 609636- 4652 16 May, 2016 Mood disorder F39 and Asperger syndrome F84.5 [place] [id number] [place] [address] 17178- 6941 May, Asperger syndrome F84.5 and Oppositional behavior F91.3 [facility] [id number] [place] [address] 55162- 5378 May, Mood disorder F39 and Asperger syndrome F84.5 [place] [id number] [place] [address] 00113- 5039 Apr, [place] [id number] [place] [address] 90221- 3414 Apr, Oppositional behavior F91.3 [facility] [id number] [place] [address] 49277- 7491 Apr, Asperger syndrome F84.5 and Oppositional behavior F91.3 [facility] [id number] [place] [address] 82146 -4198 Apr, Contact dermatitis, unspecified contact dermatitis type, unspecified trigger L25.9 [facility] [id number] [place] [address] 71967- 4334 Apr, Mood disorder F39 and Asperger syndrome F84.5 [facility] [id number] [place] [address] 38373 -4747 15 Apr, 2016 Acute non-recurrent frontal sinusitis J01.10 and Encounter for immunization Z23 [facility] [address] [place] [address] [id number] 10 Apr, 2016 Encounter for dental examination Z01.20 [facility] [address] [id number] 21 Mar, 2016 Encounter for routine child health examination without abnormal findings Z00.129 [facility] [address] 50292- 5056 14 Mar, 2016 Mood disorder F39 and Asperger syndrome F84.5 [facility] [address] 27128- 7254 06 Mar, 2016 [place] [address] 06409- 3023 06 Mar, 2016 Asperger syndrome F84.5 and Oppositional behavior F91.3 [facility] [address] 84658- 3258 Feb, Mood disorder F39 and Asperger syndrome F84.5 [facility] [address] 41704- 1065 Feb, Fatigue, unspecified type R53.83 and GERD (gastroesophageal reflux disease) K21.9 [facility] [id number] [place] [address] 73406- 0111 Feb, Mood disorder F39 and Asperger syndrome F84.5 [facility] [id number] [place] [address] 30695- 3347 Feb, Asperger syndrome F84.5 and Oppositional behavior F91.3 [facility] [id number] [place] [address] 94031 -7136 05 Feb, 2016 Itchy eyes H57.8 [facility] [address] 14532- 4644 Feb, Encounter for initial prescription of contraceptives Z30.019 [facility] [id number] [place] [address] 54858- 6364 Feb, Mood disorder F39 and Asperger syndrome F84.5 [facility] [id number] [place] [address] 80418- 5638 Feb, [place] [address] 12589- 0751 Jan, Asperger syndrome F84.5 and Oppositional behavior F91.3 [place] [id number] [place] [address] 13969- 8079 Jan, Mood disorder F39 and Asperger syndrome F84.5 [place] [id number] [place] [address] 73460- 5289 Jan, [facility] [id number] [place] [address] 19756 -6752 Jan, Acute cystitis without hematuria N30.00 ; Asperger syndrome F84.5 and Oppositional behavior F91.3 [place] [id number] [place] [address] 80267- 1528 Dec, Mood disorder F39 and Asperger syndrome F84.5 [place] [id number] [place] [address] 72569- 8570 Dec, Epilepsy G40.909 ; Asperger syndrome F84.5 ; Vitamin D deficiency E55.9 and Routine health maintenance Z00.00 [facility] [id number] [place] [address] 14141- 5510 Dec, Mood disorder F39 and Asperger syndrome F84.5 [facility] [id number] [place] [address] 55948- 0143 09 Dec, 2015 Epilepsy G40.909 ; Asperger syndrome F84.5 ; Vitamin D deficiency E55.9 ; GERD (gastroesophageal reflux disease) K21.9 ; Tremors of nervous system R25.1 ; Constipation K59.00 ; Oppositional behavior F91.3 ; Routine health maintenance Z00.00 ; Dysuria R30.0 ; Obesity (BMI 30.0-34.9) E66.9 and Other seasonal allergic rhinitis J30.2 [facility] [address] 66220 -8766 Dec, Leg pain, right M79.604 [place] [address] 98406- 9038 Dec, [place] [address] 86551- 4440 Dec, Dental examination Z01.20 [place] [address] 94252- 2831 November, Epilepsy G40.[address] 52669- 6391 November, Scabies B86 ; Epilepsy G40.909 ; Vitamin D deficiency E55.9 ; Oppositional behavior F91.3 ; GERD (gastroesophageal reflux disease) K21.9 and Tremors of nervous system R25.1 [facility] [address] 10086 -6568 November, Contact dermatitis, unspecified contact dermatitis type, unspecified trigger L25.9 [place] [address] 50476- 1701 November, Asperger syndrome F84.5 ; Epilepsy G40.909 and Oppositional behavior F91.3 [place] [address] 56103- 1470 November, [address] 14788- 1859 Oct, Encounter for Depo-Provera contraception Z30.42 [place] [address] 89805- 0753 Oct, Epilepsy G40.909 ; Asperger syndrome F84.5 ; Vitamin D deficiency E55.9 ; Encounter for Depo-Provera contraception Z30.42 ; GERD ( gastroesophageal reflux disease) K21.9 ; Tremors of nervous system R25.1 and Constipation K59.00 [place] [address] [address]- 8265 13 Oct, 2015 Seizure disorder G40.909 and Depo-Provera contraceptive status Z30.42 [place] [id number] [place] [address] 02020- 3857 12 Oct, 2015 [place] [id number] [place] [address] 25875- 6268 05 Oct, 2015 Epilepsy G40.909 ; Encounter for Depo-Provera contraception Z30.42 ; Asperger syndrome F84.5 and Vitamin D deficiency E55.9 IMMUNIZATIONS No Known Immunizations SOCIAL HISTORY Never Assessed REASON FOR VISIT sore throat x 2 days, fever of 101 starting yesterday kerwin serna PLAN OF CARE Activity Details Follow Up prn Reason: VITAL SIGNS Height 64.75 in 2017-06-24 Weight 232.6 lbs 2017-06-24 Temperature 97.5 degrees Fahrenheit 2017-06-24 Heart Rate 84 bpm 2017-06-24 Respiratory Rate 20 2017-06-24 BMI 39.00 kg/m2 2017-06-24 Blood pressure systolic 112 mmHg 2017-06-24 Blood pressure diastolic 68 mmHg 2017-06-24 MEDICATIONS Medication Instructions Dosage Frequency Start Date End Date Duration Status ibuprofen 1 tab Active Fluticasone Propionate 50 MCG/ACT Nasally Once a day 1 spray in each nostril 24h Dec, 30 day(s) Not-Taking Duac 1.2-5 % Externally 2 times a day apply thin layer to face and upper back 12h May, 30 days Active Propranolol HCl 10 mg Orally Twice a day 1 tablet 12h May, 90 days Active Rexulti 1 MG Orally Once a day 1 tablet 24h Active Lamictal 100 mg Orally Twice a day 1 tablet 12h Active Diazepam 10 mg Rectal with seizure activity 10 mg as needed Oct, Active Omeprazole 20 mg Orally Once a day 1 capsules 24h 90 Active Augmentin 875-125 MG Orally every 12 hrs 1 tablet 12h May, 7 Jun, 2017 10 day(s) Active Triamcinolone Acetonide 0.1 % Externally Twice a day 1 application to affected area 12h November, 7 days Not-Taking Gabapentin 300 MG Orally Three times a day 1 capsule 8h Active Nexplanon 68 MG as directed Dec, Active RESULTS No Results PROCEDURES No Known [...]
--- OUTSIDE RECORDS SUMMARY | 2018-04-17 11:35 | XMS REPORT ---
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 Name Role Phone KENAN LANCE Unavailable PROBLEMS Type Condition ICD9-CM Code DPQ68-HF Code Onset Dates Condition Status SNOMED Code Problem Constipation K59.00 Active 07396902 Problem GERD (gastroesophageal reflux disease) K21.9 Active 854329425 Problem Tremors of nervous system R25.1 Active 029396714 Problem Asperger syndrome F84.5 Active 35412108 Problem Epilepsy G40.909 Active 71208515 Problem Episode of recurrent major depressive disorder, unspecified depression episode severity F33.9 Active 733949583 Problem Morbid (severe) obesity due to excess calories E66.01 Active 512079200 Problem Dysuria R30.0 Active 10524519 Problem Oppositional behavior F91.3 Active 37871562 Problem Body mass index (BMI) of 40.0-44.9 in adult Z68.41 Active 087858536 Problem Mood disorder F39 Active 83390728 ALLERGIES No Known Allergies ENCOUNTERS Encounter Location Date Diagnosis [facility] [id number] [place] [address] 64949- 5029 November, [facility] [id number] [place] [address] 58838- 1259 Aug, [facility] [id number] [place] [address] 36002- 8208 Aug, Asperger syndrome F84.5 [facility] [id number] [place] [address] 64089 -6570 Aug, Diarrhea, unspecified type R19.7 [facility] [id number] [place] [address] 03256- 8243 Aug, Episode of recurrent major depressive disorder, unspecified depression episode severity F33.9 [facility] [id number] [id number] Jul, Dental examination Z01.20 [facility] [id number] [place] [address] 40302- 4275 Jul, Asperger syndrome F84.5 [facility] [id number] [place] [address] 65275- 8058 Jul, Asperger syndrome F84.5 [facility] [id number] [place] [address] 15967- 0575 Jul, Dental examination Z01.20 [facility] [id number] [place] [address] 88520- 1023 Jul, Asperger syndrome F84.5 ; Epilepsy G40.909 ; GERD ( gastroesophageal reflux disease) K21.9 ; Mood disorder F39 ; BMI 40.0-44.9, adult Z68.41 and Tremors of nervous system R25.1 [facility] [address] [place] [address] 10679- 7337 Jul, Asperger syndrome F84.5 and Oppositional behavior F91.3 [facility] [address] [place] [address] 73439- 7051 Jun, Tremors of nervous system R25.1 [place] [address] [place] [address] 08013- 4082 14 Jun, 2017 Asperger syndrome F84.5 [facility] [address] [place] [address] 38713- 8170 Jun, Asperger syndrome F84.5 [facility] [id number] [place] [address] 52600- 9606 30 May, 2017 [facility] [id number] [place] [address] 03550 -2660 May, Acute non-recurrent frontal sinusitis J01.10 [place] [id number] [place] [address] 18681- 8826 May, Mood disorder F39 and Asperger syndrome F84.5 [facility] [id number] [place] [address] 85727- 0254 May, Acne vulgaris L70.0 [facility] [id number] [place] [address] 83032- 5714 May, Acne vulgaris L70.0 and Tremors of nervous system R25.1 [facility] [id number] [place] [address] 27565 -4852 May, Other viral agents as the cause of diseases classified elsewhere B97.89 and Acute upper respiratory infection, unspecified J06.9 [place] [id number] [place] [address] 79410- 2471 May, Mood disorder F39 and Asperger syndrome F84.5 [place] [id number] [place] [address] 21565- 9908 Apr, Asperger syndrome F84.5 [place] [id number] [place] [address] 90330- 8032 Apr, Asperger syndrome F84.5 and Oppositional behavior F91.3 [place] [id number] [place] [address] 41678- 2474 Mar, Mood disorder F39 and Asperger syndrome F84.5 [place] [id number] [place] [address] 12714- 5910 Feb, GERD (gastroesophageal reflux disease) K21.9 ; Dysuria R30.0 ; Otalgia of right ear H92.01 and Decreased urination R34 [place] [id number] [place] [address] 91100- 1218 Feb, Mood disorder F39 and Asperger syndrome F84.5 [place] [id number] [place] [address] 30593- 6840 Feb, Asperger syndrome F84.5 and Oppositional behavior F91.3 [facility] [id number] [place] [address] 05131 -8707 Jan, Viral gastroenteritis A08.4 [facility] [id number] [place] [address] 87767- 6390 Jan, Mood disorder F39 and Asperger syndrome F84.5 [place] [address] 94814- 3857 Jan, Asperger syndrome F84.5 and Oppositional behavior F91.3 [facility] [address] 91564 -6405 Dec, FRANSICO (secretory otitis media), right H65.91 [place] [address] 92437- 7587 Dec, Mood disorder F39 and Asperger syndrome F84.5 [place] [address] 44129- 0278 19 Dec, 2016 Otalgia, left ear H92.02 [place] [address] 20126- 6382 14 Dec, 2016 [place] [id number] [place] [address] 52858- 2418 14 Dec, 2016 Mood disorder F39 and Asperger syndrome F84.5 [facility] [address] [id number] Dec, 2016 Dental examination Z01.20 [place] [address] 15500- 6711 November, Medicare annual wellness visit, subsequent Z00.00 ; GERD ( gastroesophageal reflux disease) K21.9 ; Counseling on health promotion and disease prevention Z71.89 and Encounter for preventative adult health care exam with abnormal findings Z00.01 [facility] [address] 58496 -8544 November, Allergic contact dermatitis due to plants, except food L23.7 [facility] [id number] [place] [address] 18107- 5106 November, Mood disorder F39 and Asperger syndrome F84.5 [facility] [id number] [place] [address] 11363 -8986 Sep, Acute bacterial conjunctivitis of right eye H10.31 and Acute suppurative otitis media of right ear without spontaneous rupture of tympanic membrane, recurrence not specified H66.001 [place] [id number] [place] [address] 17470- 3148 07 Sep, 2016 Nexplanon insertion Z30.017 [place] [address] 61167- 8377 2016 Mood disorder F39 and Asperger syndrome F84.5 [place] [address] 24321- 3062 28 Aug, 2016 Mood disorder F39 and Asperger syndrome F84.5 [place] [id number] [place] [address] 41263- 7578 14 Aug, 2016 control counseling Z30.09 [place] [address] 46556- 3992 08 Aug, 2016 Asperger syndrome F84.5 and Oppositional behavior F91.3 [facility] [address] [id number] Aug, 2016 Dental examination Z01.20 [facility] [id number] [place] [address] 30940- 0314 03 Aug, 2016 Mood disorder F39 and Asperger syndrome F84.5 [facility] [id number] [place] [address] 17076 -9097 Jul, Acute suppurative otitis media of both ears without spontaneous rupture of tympanic membranes, recurrence not specified H66.003 [place] [address] 27035- 9742 Jul, [facility] [id number] [place] [address] 03613- 1234 Jul, Asperger syndrome F84.5 [facility] [id number] [place] [address] 85807- 2126 Jul, [facility] [id number] [place] [address] 33817- 4811 Jul, Mood disorder F39 and Asperger syndrome F84.5 [facility] [address] [place] [address] [id number] Jul, Dental examination Z01.20 [facility] [id number] [place] [address] 26824 -1506 Jul, Acute non-recurrent pansinusitis J01.40 [facility] [id number] [place] [address] 59311- 9243 Jul, Asperger syndrome F84.5 and Oppositional behavior F91.3 [facility] [address] [place] [address] 49917- 0675 Jun, Mood disorder F39 and Asperger syndrome F84.5 [facility] [address] [place] [address] 60037- 6976 Jun, Mood disorder F39 and Asperger syndrome F84.5 [facility] [address] [place] [address] 67497- 0155 Jun, Mood disorder F39 and Asperger syndrome F84.5 [facility] [address] [place] [address] 14790- 1870 30 May, 2016 Mood disorder F39 and Asperger syndrome F84.5 [facility] [address] [place] [address] 43840- 2846 May, [facility] [address] [place] [address] 82511- 5087 May, Asperger syndrome F84.5 and Oppositional behavior F91.3 [facility] [id number] [place] [address] 40912- 7149 17 May, 2016 Oral contraceptive pill surveillance Z30.41 [facility] [id number] [place] [address] 64882- 2299 16 May, 2016 Mood disorder F39 and Asperger syndrome F84.5 [facility] [address] 22741- 9340 11 May, 2016 Asperger syndrome F84.5 and Oppositional behavior F91.3 [place] [address] 30928- 9627 02 May, 2016 Mood disorder F39 and Asperger syndrome F84.5 [place] [address] 07193- 4267 31 Apr, 2016 [facility] [address] 95873- 2756 Apr, Oppositional behavior F91.3 [facility] [id number] [place] [address] 87789- 4768 Apr, Asperger syndrome F84.5 and Oppositional behavior F91.3 [facility] [id number] [place] [address] 45353 -5230 Apr, Contact dermatitis, unspecified contact dermatitis type, unspecified trigger L25.9 [facility] [id number] [place] [address] 07466- 6848 Apr, Mood disorder F39 and Asperger syndrome F84.5 [facility] [address] 58549 -3131 15 Apr, 2016 Encounter for immunization Z23 and Acute non-recurrent frontal sinusitis J01.10 [facility] [id number] [place] [address] [id number] 10 Apr, 2016 Encounter for dental examination Z01.20 [facility] [address] [id number] 21 Mar, 2016 Encounter for routine child health examination without abnormal findings Z00.129 [place] [address] 88753- 7880 14 Mar, 2016 Mood disorder F39 and Asperger syndrome F84.5 [place] [address] 80163- 6114 Mar, [place] [address] 10381- 8135 06 Mar, 2016 Asperger syndrome F84.5 and Oppositional behavior F91.3 [place] [address] 72604- 3159 Feb, Mood disorder F39 and Asperger syndrome F84.5 [place] [address] 79468- 1370 Feb, Fatigue, unspecified type R53.83 and GERD (gastroesophageal reflux disease) K21.9 [place] [address] 43011- 8777 Feb, Mood disorder F39 and Asperger syndrome F84.5 [place] [address] 93518- 9864 Feb, Asperger syndrome F84.5 and Oppositional behavior F91.3 [facility] [id number] [place] [address] 59946 -3296 Feb, Itchy eyes H57.8 [facility] [address] 26347- 1027 Feb, Encounter for initial prescription of contraceptives Z30.019 [facility] [address] 49352- 0377 Feb, Mood disorder F39 and Asperger syndrome F84.5 [place] [address] 35247- 6327 Feb, [place] [address] [place] [address] 71220- 7792 Jan, Asperger syndrome F84.5 and Oppositional behavior F91.3 [place] [id number] [place] [address] 27803- 9716 Jan, Mood disorder F39 and Asperger syndrome F84.5 [place] [id number] [place] [address] 58686- 8869 Jan, [facility] [id number] [place] [address] 29932 -4876 Jan, Acute cystitis without hematuria N30.00 ; Asperger syndrome F84.5 and Oppositional behavior F91.3 [place] [id number] [place] [address] 29771- 3819 Dec, Mood disorder F39 and Asperger syndrome F84.5 [place] [id number] [place] [address] 91799- 7797 Dec, Epilepsy G40.909 ; Asperger syndrome F84.5 ; Vitamin D deficiency E55.9 and Routine health maintenance Z00.00 [place] [id number] [place] [address] 26833- 3428 Dec, Mood disorder F39 and Asperger syndrome F84.5 [place] [id number] [place] [address] 03937- 2670 Dec, Epilepsy G40.909 ; Asperger syndrome F84.5 ; Vitamin D deficiency E55.9 ; GERD (gastroesophageal reflux disease) K21.9 ; Tremors of nervous system R25.1 ; Constipation K59.00 ; Oppositional behavior F91.3 ; Routine health maintenance Z00.00 ; Dysuria R30.0 ; Obesity (BMI 30.0-34.9) E66.9 and Other seasonal allergic rhinitis J30.2 [facility] [address] [place] [address] 67461 -6223 Dec, Leg pain, right M79.604 [place] [id number] [place] [address] 78266- 3154 Dec, [place] [address] 95669- 5601 Dec, Dental examination Z01.20 [place] [address] 38392- 7624 November, Epilepsy G40.909 [place] [address] 15259- 4107 November, Scabies B86 ; Epilepsy G40.909 ; Vitamin D deficiency E55.9 ; Oppositional behavior F91.3 ; GERD (gastroesophageal reflux disease) K21.9 and Tremors of nervous system R25.1 [facility] [address] 93373 -1548 November, Contact dermatitis, unspecified contact dermatitis type, unspecified trigger L25.9 [place] [address] 72022- 6695 November, Asperger syndrome F84.5 ; Epilepsy G40.909 and Oppositional behavior F91.3 [place] [address] 98647- 9053 November, [place] [address] 38922- 6496 Oct, Encounter for Depo-Provera contraception Z30.42 [place] [id number] [place] [address] 17089- 0295 Oct, Epilepsy G40.909 ; Asperger syndrome F84.5 ; Vitamin D deficiency E55.9 ; Encounter for Depo-Provera contraception Z30.42 ; GERD ( gastroesophageal reflux disease) K21.9 ; Tremors of nervous system R25.1 and Constipation K59.00 [place] [address] 00032- 3365 Oct, Seizure disorder G40.909 and Depo-Provera contraceptive status Z30.42 [facility] [address] [facility] [id number] [place] [address]- 5637 12 Oct, 2015 [facility] [address] [facility] [id number] [place] [address]- 5427 05 Oct, 2015 Epilepsy G40.909 ; Encounter for Depo-Provera contraception Z30.42 ; Asperger syndrome F84.5 and Vitamin D deficiency E55.9 IMMUNIZATIONS No Known Immunizations SOCIAL HISTORY Never Assessed REASON FOR VISIT f/u. HectorN PLAN OF CARE Activity Details Follow Up 4 Weeks Reason: VITAL SIGNS Height 63.5 in 2017-02-01 Weight 222.1 lbs 2017-02-01 Heart Rate 80 bpm 2017-02-01 Respiratory Rate 18 2017-02-01 BMI 38.72 kg/m2 2017-02-01 Blood pressure systolic 118 mmHg 2017-02-01 Blood pressure diastolic 74 mmHg 2017-02-01 MEDICATIONS Medication Instructions Dosage Frequency Start Date End Date Duration Status Omeprazole 20 mg Orally Once a day 1 capsules 24h 90 days Active Gabapentin 300 MG Orally Three times a day 1 capsule 8h Active Rexulti 1 MG Orally Once a day 1 tablet 24h Active Diazepam 10 mg Rectal with seizure activity 10 mg as needed Oct, Active Nexplanon 68 MG as directed Dec, Active Fluticasone Propionate 50 MCG/ACT Nasally Once a day 1 spray in each nostril 24h Dec, 30 day(s) Active Lamictal 25 MG Orally Twice a day 2 tablets 12h 30 days Active RESULTS No Results PROCEDURES Procedure Date Ordered Result Body Site Billing Notes on claim February 01, 2017 INSTRUCTIONS MEDICATIONS ADMINISTERED No Known Medications MEDICAL [...]
--- OUTSIDE RECORDS SUMMARY | 2018-04-17 11:35 | XMS REPORT ---
Author Author BRENNAN GONZALEZ Organization [facility] Address [address] [place] [address] Care Team Providers Care Upholsterer Helper Name Role Phone GONZALEZJAE AbdallaELE Unavailable PROBLEMS Type Condition ICD9-CM Code CYE45-OC Code Onset Dates Condition Status SNOMED Code Problem Constipation K59.00 Active 78991163 Problem Dysuria R30.0 Active 33466917 Problem Oppositional behavior F91.3 Active 50790803 Problem Asperger syndrome F84.5 Active 14208152 Problem Epilepsy G40.909 Active 41524280 Problem Tremors of nervous system R25.1 Active 586799744 Problem GERD without esophagitis K21.9 Active 938826556 Problem Benign essential tremor G25.0 Active 922191037 Problem Morbid (severe) obesity due to excess calories E66.01 Active 478241892 Problem Mood disorder F39 Active 64061354 Problem Episode of recurrent major depressive disorder, unspecified depression episode severity F33.9 Active 676513256 Problem Body mass index (BMI) of 40.0-44.9 in adult Z68.41 Active 551021684 ALLERGIES No Information ENCOUNTERS Encounter Location Date Diagnosis [facility] [id number] [place] [address] 05196- 9439 November, Asperger syndrome F84.5 [facility] [address] [place] [address] 00869- 1632 November, [facility] [id number] [place] [address] 77854- 8202 Oct, Benign essential tremor G25.0 and GERD without esophagitis K21.9 [facility] [address] [place] [address] 91963- 5790 Aug, [facility] [id number] [place] [address] 90932- 7851 05 Aug, 2017 Asperger syndrome F84.5 [facility] [address] [place] [address] 22775 -8574 02 Aug, 2017 Diarrhea, unspecified type R19.7 [facility] [id number] [place] [address] 03979- 8233 02 Aug, 2017 Episode of recurrent major depressive disorder, unspecified depression episode severity F33.9 [facility] [id number] [place] [address] [id number] Jul, Dental examination Z01.20 [facility] [address] 63889- 4142 Jul, Asperger syndrome F84.5 [facility] [id number] [place] [address] 02044- 9188 Jul, Asperger syndrome F84.5 [facility] [id number] [place] [address] 33277- 5923 Jul, Dental examination Z01.20 [facility] [id number] [place] [address] 47316- 8766 Jul, Asperger syndrome F84.5 ; Epilepsy G40.909 ; GERD ( gastroesophageal reflux disease) K21.9 ; Mood disorder F39 ; BMI 40.0-44.9, adult Z68.41 and Tremors of nervous system R25.1 [facility] [id number] [place] [address] 14626- 2567 Jul, Asperger syndrome F84.5 and Oppositional behavior F91.3 [facility] [id number] [place] [address] 64524- 0465 Jun, Tremors of nervous system R25.1 [facility] [id number] [place] [address] 77271- 3204 Jun, Asperger syndrome F84.5 [facility] [id number] [place] [address] 03639- 1148 Jun, Asperger syndrome F84.5 [facility] [id number] [place] [address] 34353- 6832 May, [facility] [address] 28394 -8110 May, Acute non-recurrent frontal sinusitis J01.10 [place] [address] 94397- 8096 May, Mood disorder F39 and Asperger syndrome F84.5 [place] [address] 15405- 7543 May, Acne vulgaris L70.0 [place] [address] 45543- 2511 May, Acne vulgaris L70.0 and Tremors of nervous system R25.1 [facility] [id number] [place] [address] 26573 -6614 May, Other viral agents as the cause of diseases classified elsewhere B97.89 and Acute upper respiratory infection, unspecified J06.9 [place] [id number] [place] [address] 33138- 9615 May, Mood disorder F39 and Asperger syndrome F84.5 [place] [id number] [place] [address] 52281- 5931 Apr, Asperger syndrome F84.5 [place] [id number] [place] [address] 20190- 9449 Apr, Asperger syndrome F84.5 and Oppositional behavior F91.3 [place] [address] 26507- 7006 Mar, Mood disorder F39 and Asperger syndrome F84.5 [place] [id number] [place] [address] 01232- 1109 Feb, GERD (gastroesophageal reflux disease) K21.9 ; Dysuria R30.0 ; Otalgia of right ear H92.01 and Decreased urination R34 [facility] [address] 68502- 5049 Feb, Mood disorder F39 and Asperger syndrome F84.5 [facility] [address] 15396- 6259 Feb, Asperger syndrome F84.5 and Oppositional behavior F91.3 [facility] [address] 84375 -9371 Jan, Viral gastroenteritis A08.4 [facility] [address] 22593- 5696 Jan, Mood disorder F39 and Asperger syndrome F84.5 [place] [address] 12288- 9590 Jan, Asperger syndrome F84.5 and Oppositional behavior F91.3 [facility] [address] 16315 -2781 Dec, FRANSICO (secretory otitis media), right H65.91 [facility] [address] 52296- 2676 Dec, Mood disorder F39 and Asperger syndrome F84.5 [facility] [address] 60344- 4126 Dec, Otalgia, left ear H92.02 [facility] [address] 20830- 2295 Dec, [facility] [address] 88159- 3441 Dec, Mood disorder F39 and Asperger syndrome F84.5 [facility] [id number] [place] [address] [id number] 07 Dec, 2016 Dental examination Z01.20 [facility] [address] 14864- 5997 31 Nov, 2016 Medicare annual wellness visit, subsequent Z00.00 ; GERD ( gastroesophageal reflux disease) K21.9 ; Counseling on health promotion and disease prevention Z71.89 and Encounter for preventative adult health care exam with abnormal findings Z00.01 [facility] [address] 93246 -1045 November, Allergic contact dermatitis due to plants, except food L23.7 [place] [address] 30889- 9751 02 Nov, 2016 Mood disorder F39 and Asperger syndrome F84.5 [facility] [address] 18920 -8436 31 Sep, 2016 Acute bacterial conjunctivitis of right eye H10.31 and Acute suppurative otitis media of right ear without spontaneous rupture of tympanic membrane, recurrence not specified H66.001 [place] [address] 12402- 7931 07 Sep, 2016 Nexplanon insertion Z30.017 [place] [address] 37962- 2017 2016 Mood disorder F39 and Asperger syndrome F84.5 [place] [address] 98969- 3486 28 Aug, 2016 Mood disorder F39 and Asperger syndrome F84.5 [place] [address] 88676- 9723 14 Aug, 2016 control counseling Z30.09 [place] [address] 03742- 7129 08 Aug, 2016 Asperger syndrome F84.5 and Oppositional behavior F91.3 [facility] [address] [id number] 08 Aug, 2016 Dental examination Z01.20 [place] [address] 13262- 3002 Aug, Mood disorder F39 and Asperger syndrome F84.5 [facility] [id number] [place] [address] 53898 -1718 Jul, Acute suppurative otitis media of both ears without spontaneous rupture of tympanic membranes, recurrence not specified H66.003 [facility] [id number] [place] [address] 37354- 9355 Jul, [facility] [address] 33695- 4574 Jul, Asperger syndrome F84.5 [facility] [address] 89101- 7042 Jul, [facility] [address] 15789- 8878 Jul, Mood disorder F39 and Asperger syndrome F84.5 [facility] [address] [id number] Jul, Dental examination Z01.20 [facility] [id number] [place] [address] 11984 -3338 Jul, Acute non-recurrent pansinusitis J01.40 [facility] [id number] [place] [address] 89016- 2220 Jul, Asperger syndrome F84.5 and Oppositional behavior F91.3 [facility] [id number] [place] [address] 05619- 1625 Jun, Mood disorder F39 and Asperger syndrome F84.5 [facility] [id number] [place] [address] 35446- 0340 Jun, Mood disorder F39 and Asperger syndrome F84.5 [facility] [id number] [place] [address] 13640- 6789 Jun, Mood disorder F39 and Asperger syndrome F84.5 [facility] [address] [place] [address]- 9071 30 May, 2016 Mood disorder F39 and Asperger syndrome F84.5 [facility] [id number] [place] [address] 39151- 2424 May, [facility] [id number] [place] [address] 23630- 4636 May, Asperger syndrome F84.5 and Oppositional behavior F91.3 [facility] [id number] [place] [address] 48466- 9302 May, Oral contraceptive pill surveillance Z30.41 [place] [address] 82258- 4929 16 May, 2016 Mood disorder F39 and Asperger syndrome F84.5 [place] [id number] [place] [address] 38495- 9714 May, Asperger syndrome F84.5 and Oppositional behavior F91.3 [facility] [id number] [place] [address] 96818- 4099 May, Mood disorder F39 and Asperger syndrome F84.5 [place] [id number] [place] [address] 30542- 2231 31 Apr, 2016 [facility] [id number] [place] [address] 93968- 3566 Apr, Oppositional behavior F91.3 [facility] [id number] [place] [address] 86314- 3236 Apr, Asperger syndrome F84.5 and Oppositional behavior F91.3 [facility] [id number] [place] [address] 00659 -1481 Apr, Contact dermatitis, unspecified contact dermatitis type, unspecified trigger L25.9 [facility] [address] [place] [address] 29881- 0032 Apr, Mood disorder F39 and Asperger syndrome F84.5 [facility] [address] [place] [address] 87664 -5611 15 Apr, 2016 Acute non-recurrent frontal sinusitis J01.10 and Encounter for immunization Z23 [facility] [address] [place] [address] [id number] 10 Apr, 2016 Encounter for dental examination Z01.20 [facility] [id number] [place] [address] [id number] 21 Mar, 2016 Encounter for routine child health examination without abnormal findings Z00.129 [facility] [address] 75027- 8531 14 Mar, 2016 Mood disorder F39 and Asperger syndrome F84.5 [place] [address] 15617- 5263 06 Mar, 2016 [place] [address] 81837- 4480 06 Mar, 2016 Asperger syndrome F84.5 and Oppositional behavior F91.3 [facility] [address] 50529- 0289 Feb, Mood disorder F39 and Asperger syndrome F84.5 [facility] [address] 01873- 5425 Feb, Fatigue, unspecified type R53.83 and GERD (gastroesophageal reflux disease) K21.9 [facility] [id number] [place] [address] 69337- 4318 Feb, Mood disorder F39 and Asperger syndrome F84.5 [facility] [id number] [place] [address] 42155- 9635 Feb, Asperger syndrome F84.5 and Oppositional behavior F91.3 [facility] [id number] [place] [address] 27032 -3807 05 Feb, 2016 Itchy eyes H57.8 [facility] [address] 64978- 3574 Feb, Encounter for initial prescription of contraceptives Z30.019 [place] [facility] [id number] [place] [address] 62528- 4419 Feb, Mood disorder F39 and Asperger syndrome F84.5 [facility] [id number] [place] [address] 44633- 7588 Feb, [place] [address] 49683- 1123 Jan, Asperger syndrome F84.5 and Oppositional behavior F91.3 [place] [id number] [place] [address] 20593- 0301 Jan, Mood disorder F39 and Asperger syndrome F84.5 [place] [id number] [place] [address] 01009- 6658 Jan, [facility] [address] 42632 -8127 Jan, Acute cystitis without hematuria N30.00 ; Asperger syndrome F84.5 and Oppositional behavior F91.3 [place] [id number] [place] [address] 60282- 4925 Dec, Mood disorder F39 and Asperger syndrome F84.5 [place] [id number] [place] [address] 28489- 4001 Dec, Epilepsy G40.909 ; Asperger syndrome F84.5 ; Vitamin D deficiency E55.9 and Routine health maintenance Z00.00 [facility] [id number] [place] [address] 66449- 2083 Dec, Mood disorder F39 and Asperger syndrome F84.5 [place] [id number] [place] [address] 78869- 9611 09 Dec, 2015 Epilepsy G40.909 ; Asperger syndrome F84.5 ; Vitamin D deficiency E55.9 ; GERD (gastroesophageal reflux disease) K21.9 ; Tremors of nervous system R25.1 ; Constipation K59.00 ; Oppositional behavior F91.3 ; Routine health maintenance Z00.00 ; Dysuria R30.0 ; Obesity (BMI 30.0-34.9) E66.9 and Other seasonal allergic rhinitis J30.2 [facility] [address] 91545 -5064 Dec, Leg pain, right M79.604 [place] [address] 56526- 5113 Dec, [place] [address] 16101- 5659 Dec, Dental examination Z01.20 [place] [address] 54242- 5707 November, Epilepsy G40.909 [place] [address] 79017- 4919 November, Scabies B86 ; Epilepsy G40.909 ; Vitamin D deficiency E55.9 ; Oppositional behavior F91.3 ; GERD (gastroesophageal reflux disease) K21.9 and Tremors of nervous system R25.1 [facility] [address] 31012 -5790 November, Contact dermatitis, unspecified contact dermatitis type, unspecified trigger L25.9 [place] [address] 64046- 6445 November, Asperger syndrome F84.5 ; Epilepsy G40.909 and Oppositional behavior F91.3 [place] [address] 25201- 1035 November, [address] 02880- 8485 Oct, Encounter for Depo-Provera contraception Z30.42 [place] [address] 70157- 9926 Oct, Epilepsy G40.909 ; Asperger syndrome F84.5 ; Vitamin D deficiency E55.9 ; Encounter for Depo-Provera contraception Z30.42 ; GERD ( gastroesophageal reflux disease) K21.9 ; Tremors of nervous system R25.1 and Constipation K59.00 [place] [address] [address] 1227 13 Oct, 2015 Seizure disorder G40.909 and Depo-Provera contraceptive status Z30.42 [place] [address] [place] [address] 73873- 3748 12 Oct, 2015 [place] [id number] [place] [address] 24536- 5192 05 Oct, 2015 Epilepsy G40.909 ; Encounter for Depo-Provera contraception Z30.42 ; Asperger syndrome F84.5 and Vitamin D deficiency E55.9 IMMUNIZATIONS No Known Immunizations SOCIAL HISTORY Never Assessed REASON FOR VISIT BENZAMYCIN note PLAN OF CARE VITAL SIGNS MEDICATIONS Medication Instructions Dosage Frequency Start Date End Date Duration Status Duac 1.2-5 % Externally 2 times a day apply thin layer to face and upper back 12h 17 May, 2017 30 days Active RESULTS No Results PROCEDURES [...]
--- OUTSIDE RECORDS SUMMARY | 2018-04-17 11:36 | XMS REPORT ---
Author Author BRENNAN GONZALEZ Organization [facility] Address [address] [place] [address] Care Team Providers Care Splicing Technician Name Role Phone BRENNAN GONZALEZ Unavailable PROBLEMS Type Condition ICD9-CM Code ZWS05-TN Code Onset Dates Condition Status SNOMED Code Problem Constipation K59.00 Active 17320052 Problem GERD (gastroesophageal reflux disease) K21.9 Active 617019615 Problem Tremors of nervous system R25.1 Active 704844078 Problem Asperger syndrome F84.5 Active 68435231 Problem Epilepsy G40.909 Active 45308053 Problem Episode of recurrent major depressive disorder, unspecified depression episode severity F33.9 Active 968274078 Problem Morbid (severe) obesity due to excess calories E66.01 Active 391394427 Problem Dysuria R30.0 Active 23511167 Problem Oppositional behavior F91.3 Active 33107912 Problem Body mass index (BMI) of 40.0-44.9 in adult Z68.41 Active 175994296 Problem Mood disorder F39 Active 09349467 ALLERGIES No Known Allergies ENCOUNTERS Encounter Location Date Diagnosis [facility] [id number] [place] [address] 89181- 6310 November, [facility] [id number] [place] [address] 22873- 1492 Aug, [facility] [id number] [place] [address] 34453- 7770 Aug, Asperger syndrome F84.5 [facility] [id number] [place] [address] [phone] -[phone] Aug, Diarrhea, unspecified type R19.7 [facility] [id number] [place] [address] 45488- 3292 Aug, Episode of recurrent major depressive disorder, unspecified depression episode severity F33.9 [facility] [id number] [id number] Jul, Dental examination Z01.20 [facility] [id number] [place] [address] 15455- 1982 Jul, Asperger syndrome F84.5 [facility] [id number] [place] [address] 96864- 4784 Jul, Asperger syndrome F84.5 [facility] [id number] [place] [address] 01858- 2932 Jul, Dental examination Z01.20 [facility] [id number] [place] [address] 26185- 2240 Jul, Asperger syndrome F84.5 ; Epilepsy G40.909 ; GERD ( gastroesophageal reflux disease) K21.9 ; Mood disorder F39 ; BMI 40.0-44.9, adult Z68.41 and Tremors of nervous system R25.1 [facility] [id number] [place] [address] 69743- 2897 Jul, Asperger syndrome F84.5 and Oppositional behavior F91.3 [facility] [id number] [place] [address] 22226- 2498 Jun, Tremors of nervous system R25.1 [facility] [id number] [place] [address] 12028- 2291 14 Jun, 2017 Asperger syndrome F84.5 [facility] [id number] [place] [address] 60742- 6201 Jun, Asperger syndrome F84.5 [facility] [id number] [place] [address] 29078- 6054 30 May, 2017 [facility] [id number] [place] [address] 16711 -8327 May, Acute non-recurrent frontal sinusitis J01.10 [facility] [id number] [place] [address] 88088- 2107 May, Mood disorder F39 and Asperger syndrome F84.5 [facility] [id number] [place] [address] 48973- 5690 May, Acne vulgaris L70.0 [facility] [id number] [place] [address] 86310- 5563 May, Acne vulgaris L70.0 and Tremors of nervous system R25.1 [facility] [id number] [place] [address] 55662 -6528 May, Other viral agents as the cause of diseases classified elsewhere B97.89 and Acute upper respiratory infection, unspecified J06.9 [facility] [id number] [place] [address] 29084- 2946 May, Mood disorder F39 and Asperger syndrome F84.5 [facility] [id number] [place] [address] 71363- 9252 Apr, Asperger syndrome F84.5 [facility] [id number] [place] [address] 07936- 1890 Apr, Asperger syndrome F84.5 and Oppositional behavior F91.3 [facility] [id number] [place] [address] 57545- 5881 Mar, Mood disorder F39 and Asperger syndrome F84.5 [facility] [id number] [place] [address] 99845- 6508 Feb, GERD (gastroesophageal reflux disease) K21.9 ; Dysuria R30.0 ; Otalgia of right ear H92.01 and Decreased urination R34 [facility] [id number] [place] [address] 42971- 6465 Feb, Mood disorder F39 and Asperger syndrome F84.5 [facility] [id number] [place] [address] 29445- 1010 Feb, Asperger syndrome F84.5 and Oppositional behavior F91.3 [facility] [id number] [place] [address] 53148 -8196 Jan, Viral gastroenteritis A08.4 [facility] [id number] [place] [address] 59535- 5078 Jan, Mood disorder F39 and Asperger syndrome F84.5 [facility] [address] 35663- 4155 Jan, Asperger syndrome F84.5 and Oppositional behavior F91.3 [facility] [address] 75698 -1646 Dec, FRANSICO (secretory otitis media), right H65.91 [facility] [address] 05417- 8885 Dec, Mood disorder F39 and Asperger syndrome F84.5 [facility] [address] 83474- 4263 19 Dec, 2016 Otalgia, left ear H92.02 [facility] [address] 12083- 1342 14 Dec, 2016 [facility] [id number] [place] [address] 48299- 1316 14 Dec, 2016 Mood disorder F39 and Asperger syndrome F84.5 [facility] [address] [phone] 07 Dec, 2016 Dental examination Z01.20 [place] [address] 41003- 5425 November, Medicare annual wellness visit, subsequent Z00.00 ; GERD ( gastroesophageal reflux disease) K21.9 ; Counseling on health promotion and disease prevention Z71.89 and Encounter for preventative adult health care exam with abnormal findings Z00.01 [facility] [address] 08490 -0935 November, Allergic contact dermatitis due to plants, except food L23.7 [facility] [id number] [place] [address] 32773- 6450 November, Mood disorder F39 and Asperger syndrome F84.5 [facility] [id number] [place] [address] 29014 -9882 Sep, Acute bacterial conjunctivitis of right eye H10.31 and Acute suppurative otitis media of right ear without spontaneous rupture of tympanic membrane, recurrence not specified H66.001 [facility] [id number] [place] [address] 81963- 7584 07 Sep, 2016 Nexplanon insertion Z30.017 [facility] [address] 99395- 9934 2016 Mood disorder F39 and Asperger syndrome F84.5 [facility] [address] 63093- 9767 28 Aug, 2016 Mood disorder F39 and Asperger syndrome F84.5 [facility] [id number] [place] [address] 79886- 6487 14 Aug, 2016 control counseling Z30.09 [facility] [address] 87319- 9614 08 Aug, 2016 Asperger syndrome F84.5 and Oppositional behavior F91.3 [facility] [address] [id number] 08 Aug, 2016 Dental examination Z01.20 [facility] [id number] [place] [address] 79303- 3238 03 Aug, 2016 Mood disorder F39 and Asperger syndrome F84.5 [facility] [id number] [place] [address] 20468 -[phone] Jul, Acute suppurative otitis media of both ears without spontaneous rupture of tympanic membranes, recurrence not specified H66.003 [place] [address] 33342- 7691 Jul, [facility] [id number] [place] [address] 80894- 3085 Jul, Asperger syndrome F84.5 [facility] [id number] [place] [address] 02162- 2475 Jul, [facility] [id number] [place] [address] 55839- 1242 Jul, Mood disorder F39 and Asperger syndrome F84.5 [facility] [id number] [place] [address] [phone] Jul, Dental examination Z01.20 [facility] [id number] [place] [address] 54899 -7214 Jul, Acute non-recurrent pansinusitis J01.40 [facility] [id number] [place] [address] 61605- 4189 Jul, Asperger syndrome F84.5 and Oppositional behavior F91.3 [facility] [id number] [place] [address] 08465- 3917 Jun, Mood disorder F39 and Asperger syndrome F84.5 [facility] [id number] [place] [address] 29441- 5372 Jun, Mood disorder F39 and Asperger syndrome F84.5 [facility] [id number] [place] [address] 78396- 0251 Jun, Mood disorder F39 and Asperger syndrome F84.5 [facility] [id number] [place] [address] 32311- 2959 30 May, 2016 Mood disorder F39 and Asperger syndrome F84.5 [facility] [id number] [place] [address] 05962- 7270 May, [facility] [id number] [place] [address] 26094- 4417 May, Asperger syndrome F84.5 and Oppositional behavior F91.3 [facility] [id number] [place] [address] 99501- 2790 17 May, 2016 Oral contraceptive pill surveillance Z30.41 [facility] [id number] [place] [address] 53578- 7319 16 May, 2016 Mood disorder F39 and Asperger syndrome F84.5 [facility] [address] 58094- 1247 11 May, 2016 Asperger syndrome F84.5 and Oppositional behavior F91.3 [facility] [id number] [place] [address] 98559- 4191 02 May, 2016 Mood disorder F39 and Asperger syndrome F84.5 [facility] [address] 72319- 9264 31 Apr, 2016 [facility] [address] 87894- 6539 Apr, Oppositional behavior F91.3 [facility] [id number] [place] [address] 16455- 7187 Apr, Asperger syndrome F84.5 and Oppositional behavior F91.3 [facility] [id number] [place] [address] 31241 -9644 Apr, Contact dermatitis, unspecified contact dermatitis type, unspecified trigger L25.9 [facility] [id number] [place] [address] 05143- 8732 Apr, Mood disorder F39 and Asperger syndrome F84.5 [facility] [id number] [place] [address] 02727 -8607 15 Apr, 2016 Acute non-recurrent frontal sinusitis J01.10 and Encounter for immunization Z23 [facility] [id number] [place] [address] [phone] 10 Apr, 2016 Encounter for dental examination Z01.20 [facility] [id number] [place] [address] [phone] 21 Mar, 2016 Encounter for routine child health examination without abnormal findings Z00.129 [place] [address] 81556- 7462 14 Mar, 2016 Mood disorder F39 and Asperger syndrome F84.5 [place] [address] 77378- 9796 Mar, [place] [address] 26705- 8300 06 Mar, 2016 Asperger syndrome F84.5 and Oppositional behavior F91.3 [place] [address] 50611- 4630 Feb, Mood disorder F39 and Asperger syndrome F84.5 [place] [facility] [address] 68437- 3166 Feb, Fatigue, unspecified type R53.83 and GERD (gastroesophageal reflux disease) K21.9 [facility] [facility] [address] 48657- 8449 Feb, Mood disorder F39 and Asperger syndrome F84.5 [place] [address] 79241- 5547 Feb, Asperger syndrome F84.5 and Oppositional behavior F91.3 [facility] [id number] [place] [address] 83314 -2386 Feb, Itchy eyes H57.8 [facility] [address] 43780- 4370 Feb, Encounter for initial prescription of contraceptives Z30.019 [facility] [address] 03770- 1835 Feb, Mood disorder F39 and Asperger syndrome F84.5 [place] [address] 62333- 1006 Feb, [place] [address] [place] [address] 77777- 5926 Jan, Asperger syndrome F84.5 and Oppositional behavior F91.3 [facility] [id number] [place] [address] 95716- 5596 Jan, Mood disorder F39 and Asperger syndrome F84.5 [facility] [id number] [place] [address] 86653- 3879 Jan, [facility] [id number] [place] [address] 83249 -9505 Jan, Acute cystitis without hematuria N30.00 ; Asperger syndrome F84.5 and Oppositional behavior F91.3 [facility] [id number] [place] [address] 16215- 3517 Dec, Mood disorder F39 and Asperger syndrome F84.5 [facility] [id number] [place] [address] 80940- 7147 Dec, Epilepsy G40.909 ; Asperger syndrome F84.5 ; Vitamin D deficiency E55.9 and Routine health maintenance Z00.00 [facility] [id number] [place] [address] 75071- 4778 Dec, Mood disorder F39 and Asperger syndrome F84.5 [facility] [id number] [place] [address] 66497- 5865 Dec, Epilepsy G40.909 ; Asperger syndrome F84.5 ; Vitamin D deficiency E55.9 ; GERD (gastroesophageal reflux disease) K21.9 ; Tremors of nervous system R25.1 ; Constipation K59.00 ; Oppositional behavior F91.3 ; Routine health maintenance Z00.00 ; Dysuria R30.0 ; Obesity (BMI 30.0-34.9) E66.9 and Other seasonal allergic rhinitis J30.2 [facility] [address] [place] [address] 45773 -1446 Dec, Leg pain, right M79.604 [facility] [id number] [place] [address] 70273- 4182 Dec, [place] [address] 37003- 2365 Dec, Dental examination Z01.20 [place] [address] 39560- 4630 November, Epilepsy G40.909 [place] [address] 29369- 7297 November, Scabies B86 ; Epilepsy G40.909 ; Vitamin D deficiency E55.9 ; Oppositional behavior F91.3 ; GERD (gastroesophageal reflux disease) K21.9 and Tremors of nervous system R25.1 [facility] [address] 38874 -4804 November, Contact dermatitis, unspecified contact dermatitis type, unspecified trigger L25.9 [place] [address] 41112- 0011 November, Asperger syndrome F84.5 ; Epilepsy G40.909 and Oppositional behavior F91.3 [place] [address] 17366- 0313 November, [place] [address] 67417- 9162 Oct, Encounter for Depo-Provera contraception Z30.42 [place] [id number] [place] [address] 95133- 5323 Oct, Epilepsy G40.909 ; Asperger syndrome F84.5 ; Vitamin D deficiency E55.9 ; Encounter for Depo-Provera contraception Z30.42 ; GERD ( gastroesophageal reflux disease) K21.9 ; Tremors of nervous system R25.1 and Constipation K59.00 [place] [address] 97910- 0978 Oct, Seizure disorder G40.909 and Depo-Provera contraceptive status Z30.42 [facility] [address] [facility] [id number] [address]- [address] 12 Oct, 2015 [facility] [address] [facility] [id number] [address] 05 Oct, 2015 Epilepsy G40.909 ; Encounter for Depo-Provera contraception Z30.42 ; Asperger syndrome F84.5 and Vitamin D deficiency E55.9 IMMUNIZATIONS No Known Immunizations SOCIAL HISTORY Never Assessed REASON FOR VISIT GERD [id number], Having complaints about nexplanon placement-inserted in September by Dr. Horton, Right Ear infection PLAN OF CARE Activity Details Follow Up 3 Months, prn Reason: VITAL SIGNS Height 63.5 in 2017-03-19 Weight 222.2 lbs 2017-03-19 Temperature 97.6 degrees Fahrenheit 2017-03-19 Heart Rate 82 bpm 2017-03-19 Respiratory Rate 20 2017-03-19 BMI 38.74 kg/m2 2017-03-19 Blood pressure systolic 114 mmHg 2017-03-19 Blood pressure diastolic 78 mmHg 2017-03-19 MEDICATIONS Medication Instructions Dosage Frequency Start Date End Date Duration Status Rexulti 1 MG Orally Once a day 1 tablet 24h Active Fluticasone Propionate 50 MCG/ACT Nasally Once a day 1 spray in each nostril 24h Dec, 30 day(s) Active Omeprazole 20 mg Orally Once a day 1 capsules 24h 90 days Active Gabapentin 300 MG Orally Three times a day 1 capsule 8h Active Nexplanon 68 MG as directed Dec, Active Lamictal 25 MG Orally Twice a day 2 tablets 12h 30 days Active Diazepam 10 mg Rectal with seizure activity 10 mg as needed Oct, Active RESULTS Name Result Date Reference Range UA LONG DIP (IN HOUSE) 2017-03-19 Lot # [id number] Exp date 12/26/17 Clarity clear Color yellow Odor none GLU negative KEVIN negative KET negative SG 1.015 BLO trace-lysed pH 5.5 Protein negative URO 0.2 NIT negative SHADE negative Lot # Exp date PROCEDURES Procedure Date Ordered Result Body Site URINALYSIS, AUTO, W/O SCOPE Mar 19, 2017 INSTRUCTIONS MEDICATIONS ADMINISTERED No Known Medications [...]
--- OUTSIDE RECORDS SUMMARY | 2018-04-17 11:36 | XMS REPORT ---
Author Author MYLES GARCIA [facility] Address [address] [place] [address] Care Team Providers Care Gun Striper Name Role Phone MYLES GARCIA Unavailable PROBLEMS Type Condition ICD9-CM Code [id number] Code Onset Dates Condition Status SNOMED Code Problem Constipation K59.00 Active 58791539 Problem GERD (gastroesophageal reflux disease) K21.9 Active 963561831 Problem Tremors of nervous system R25.1 Active 812249492 Problem Asperger syndrome F84.5 Active 62891680 Problem Epilepsy G40.909 Active 62689362 Problem Episode of recurrent major depressive disorder, unspecified depression episode severity F33.9 Active 762977085 Problem Morbid (severe) obesity due to excess calories E66.01 Active 523466844 Problem Dysuria R30.0 Active 20661496 Problem Oppositional behavior F91.3 Active 75210278 Problem Body mass index (BMI) of 40.0-44.9 in adult Z68.41 Active 244988398 Problem Mood disorder F39 Active 70641172 ALLERGIES No Information ENCOUNTERS Encounter Location Date Diagnosis [facility] [id number] [place] [address] 42327- 9636 Aug, [facility] [id number] [place] [address] 04706- 3712 Aug, Asperger syndrome F84.5 [facility] [id number] [place] [address] 02354 -2795 Aug, Diarrhea, unspecified type R19.7 [facility] [id number] [place] [address] 14331- 8729 Aug, Episode of recurrent major depressive disorder, unspecified depression episode severity F33.9 [facility] [id number] [place] [address] [id number] Jul, Dental examination Z01.20 [facility] [address] [place] [address] 02477- 7422 Jul, Asperger syndrome F84.5 [facility] [address] [place] [address] 30359- 2632 Jul, Asperger syndrome F84.5 [facility] [id number] [place] [address] 82718- 3675 Jul, Dental examination Z01.20 [facility] [id number] [place] [address] 52563- 5331 Jul, Asperger syndrome F84.5 ; Epilepsy G40.909 ; GERD ( gastroesophageal reflux disease) K21.9 ; Mood disorder F39 ; BMI 40.0-44.9, adult Z68.41 and Tremors of nervous system R25.1 [facility] [id number] [place] [address] 01899- 6639 Jul, Asperger syndrome F84.5 and Oppositional behavior F91.3 [facility] [id number] [place] [address] 14662- 4361 Jun, Tremors of nervous system R25.1 [facility] [address] [place] [address] 08555- 6619 14 Jun, 2017 Asperger syndrome F84.5 [facility] [address] [place] [address] 29219- 8422 Jun, Asperger syndrome F84.5 [facility] [address] [place] [address] 17403- 2153 May, [facility] [id number] [place] [address] 46069 -4684 May, Acute non-recurrent frontal sinusitis J01.10 [facility] [id number] [place] [address] 10110- 2365 May, Mood disorder F39 and Asperger syndrome F84.5 [facility] [id number] [place] [address] 64177- 0296 May, Acne vulgaris L70.0 [facility] [address] 32809- 6983 May, Acne vulgaris L70.0 and Tremors of nervous system R25.1 [facility] [address] 95198 -9791 May, Other viral agents as the cause of diseases classified elsewhere B97.89 and Acute upper respiratory infection, unspecified J06.9 [facility] [address] 13343- 3912 May, Mood disorder F39 and Asperger syndrome F84.5 [facility] [address] 01468- 2039 Apr, Asperger syndrome F84.5 [facility] [address] 12697- 8257 Apr, Asperger syndrome F84.5 and Oppositional behavior F91.3 [facility] [address] 62604- 2120 Mar, Mood disorder F39 and Asperger syndrome F84.5 [facility] [id number] [place] [address] 34586- 3070 Feb, GERD (gastroesophageal reflux disease) K21.9 ; Dysuria R30.0 ; Otalgia of right ear H92.01 and Decreased urination R34 [facility] [id number] [place] [address] 21069- 1823 Feb, Mood disorder F39 and Asperger syndrome F84.5 [facility] [id number] [place] [address] 37807- 3368 Feb, Asperger syndrome F84.5 and Oppositional behavior F91.3 [facility] [address] 70330 -5170 11 Jan, 2017 Viral gastroenteritis A08.4 [facility] [address] 50448- 1650 11 Jan, 2017 Mood disorder F39 and Asperger syndrome F84.5 [facility] [address] 98047- 6528 07 Jan, 2017 Asperger syndrome F84.5 and Oppositional behavior F91.3 [facility] [address] 16131 -8512 27 Dec, 2016 FRANSICO (secretory otitis media), right H65.91 [facility] [address] 35537- 9480 27 Dec, 2016 Mood disorder F39 and Asperger syndrome F84.5 [facility] [address] 20102- 3999 19 Dec, 2016 Otalgia, left ear H92.02 [facility] [address] 10366- 4177 14 Dec, 2016 [facility] [address] 57806- 0065 14 Dec, 2016 Mood disorder F39 and Asperger syndrome F84.5 [facility] [address] [id number] 07 Dec, 2016 Dental examination Z01.20 [facility] [id number] [place] [address] 41486- 4507 November, Medicare annual wellness visit, subsequent Z00.00 ; GERD ( gastroesophageal reflux disease) K21.9 ; Counseling on health promotion and disease prevention Z71.89 and Encounter for preventative adult health care exam with abnormal findings Z00.01 [facility] [id number] [place] [address] 70941 -5650 November, Allergic contact dermatitis due to plants, except food L23.[address] 71483- 7204 November, Mood disorder F39 and Asperger syndrome F84.5 [facility] [id number] [place] [address] 19674 -0491 Sep, Acute bacterial conjunctivitis of right eye H10.31 and Acute suppurative otitis media of right ear without spontaneous rupture of tympanic membrane, recurrence not specified H66.001 [facility] [address] 70259- 5618 07 Sep, 2016 Nexplanon insertion Z30.017 [facility] [address] 02150- 9629 2016 Mood disorder F39 and Asperger syndrome F84.5 [facility] [address] 83900- 8677 28 Aug, 2016 Mood disorder F39 and Asperger syndrome F84.5 [facility] [address] 38043- 5949 14 Aug, 2016 control counseling Z30.09 [facility] [address] 73240- 4580 08 Aug, 2016 Asperger syndrome F84.5 and Oppositional behavior F91.3 [facility] [address] [id number] 08 Aug, 2016 Dental examination Z01.20 [facility] [id number] [place] [address] 45161- 6918 03 Aug, 2016 Mood disorder F39 and Asperger syndrome F84.5 [facility] [id number] [place] [address] 97942 -5877 Jul, Acute suppurative otitis media of both ears without spontaneous rupture of tympanic membranes, recurrence not specified H66.003 [facility] [id number] [place] [address] 43515- 1232 Jul, [facility] [address] [place] [address]- 4201 Jul, Asperger syndrome F84.5 [facility] [id number] [place] [address] 97378- 2511 Jul, [facility] [id number] [place] [address] 59181- 8325 Jul, Mood disorder F39 and Asperger syndrome F84.5 [facility] [address] [place] [address] [id number] Jul, Dental examination Z01.20 [facility] [id number] [place] [address] 78706 -2566 Jul, Acute non-recurrent pansinusitis J01.40 [facility] [id number] [place] [address] 89876- 2858 Jul, Asperger syndrome F84.5 and Oppositional behavior F91.3 [facility] [id number] [place] [address] 27092- 8141 Jun, Mood disorder F39 and Asperger syndrome F84.5 [facility] [id number] [place] [address] 72110- 8073 Jun, Mood disorder F39 and Asperger syndrome F84.5 [facility] [address] [place] [address] 80488- 2237 Jun, Mood disorder F39 and Asperger syndrome F84.5 [facility] [address] [place] [address] 98833- 4345 May, Mood disorder F39 and Asperger syndrome F84.5 [facility] [id number] [place] [address] 52833- 7463 May, [facility] [id number] [place] [address] 57433- 5510 May, Asperger syndrome F84.5 and Oppositional behavior F91.3 [facility] [id number] [place] [address] 49801- 2938 May, Oral contraceptive pill surveillance Z30.41 [facility] [id number] [place] [address] 22346- 0205 16 May, 2016 Mood disorder F39 and Asperger syndrome F84.5 [facility] [id number] [place] [address] 23351- 8492 11 May, 2016 Asperger syndrome F84.5 and Oppositional behavior F91.3 [facility] [address] 71229- 3620 02 May, 2016 Mood disorder F39 and Asperger syndrome F84.5 [facility] [address] 87992- 8432 Apr, [facility] [address] 12909- 8430 Apr, Oppositional behavior F91.3 [facility] [address] 94133- 3810 Apr, Asperger syndrome F84.5 and Oppositional behavior F91.3 [facility] [address] 99038 -1975 Apr, Contact dermatitis, unspecified contact dermatitis type, unspecified trigger L25.9 [facility] [id number] [place] [address] 56515- 3906 Apr, Mood disorder F39 and Asperger syndrome F84.5 [facility] [id number] [place] [address] 18678 -6365 15 Apr, 2016 Encounter for immunization Z23 and Acute non-recurrent frontal sinusitis J01.10 [facility] [id number] [place] [address] [id number] 10 Apr, 2016 Encounter for dental examination Z01.20 [facility] [id number] [place] [address] [id number] 21 Mar, 2016 Encounter for routine child health examination without abnormal findings Z00.129 [facility] [address] [place] [address] 41815- 2810 14 Mar, 2016 Mood disorder F39 and Asperger syndrome F84.5 [facility] [id number] [place] [address] 17012- 5062 Mar, [facility] [id number] [place] [address] 70904- 3943 Mar, Asperger syndrome F84.5 and Oppositional behavior F91.3 [facility] [id number] [place] [address] 34554- 7062 Feb, Mood disorder F39 and Asperger syndrome F84.5 [facility] [id number] [place] [address] 62727- 4062 Feb, Fatigue, unspecified type R53.83 and GERD (gastroesophageal reflux disease) K21.9 [facility] [address] 59182- 6627 Feb, Mood disorder F39 and Asperger syndrome F84.5 [facility] [id number] [place] [address] 12212- 6958 Feb, Asperger syndrome F84.5 and Oppositional behavior F91.3 [facility] [id number] [place] [address] 49813 -8702 Feb, Itchy eyes H57.8 [facility] [address] [place] [address] 03053- 5980 Feb, Encounter for initial prescription of contraceptives Z30.019 [facility] [address] [place] [address] 56135- 4481 Feb, Mood disorder F39 and Asperger syndrome F84.5 [facility] [id number] [place] [address] 17509- 4797 Feb, [facility] [address] [place] [address] 87073- 9644 Jan, Asperger syndrome F84.5 and Oppositional behavior F91.3 [facility] [address] [place] [address] 45801- 5551 Jan, Mood disorder F39 and Asperger syndrome F84.5 [facility] [id number] [place] [address] 60239- 9715 Jan, [facility] [address] [place] [address] 69794 -0581 Jan, Acute cystitis without hematuria N30.00 ; Asperger syndrome F84.5 and Oppositional behavior F91.3 [facility] [id number] [place] [address] 18826- 3648 Dec, Mood disorder F39 and Asperger syndrome F84.5 [facility] [address] [place] [address] 06192- 7219 Dec, Epilepsy G40.909 ; Asperger syndrome F84.5 ; Vitamin D deficiency E55.9 and Routine health maintenance Z00.00 [facility] [address] [place] [address] 11529- 3273 Dec, Mood disorder F39 and Asperger syndrome F84.5 [facility] [address] [place] [address] 05823- 0525 Dec, Epilepsy G40.909 ; Asperger syndrome F84.5 ; Vitamin D deficiency E55.9 ; GERD (gastroesophageal reflux disease) K21.9 ; Tremors of nervous system R25.1 ; Constipation K59.00 ; Oppositional behavior F91.3 ; Routine health maintenance Z00.00 ; Dysuria R30.0 ; Obesity (BMI 30.0-34.9) E66.9 and Other seasonal allergic rhinitis J30.2 [facility] [address] [place] [address] 05718 -6833 Dec, Leg pain, right M79.604 [facility] [id number] [place] [address] 52145- 4034 Dec, [facility] [id number] [place] [address] 74970- 8802 Dec, Dental examination Z01.20 [facility] [address] 84250- 3389 November, Epilepsy G40.909 [facility] [address] 71009- 0694 November, Scabies B86 ; Epilepsy G40.909 ; Vitamin D deficiency E55.9 ; Oppositional behavior F91.3 ; GERD (gastroesophageal reflux disease) K21.9 and Tremors of nervous system R25.1 [facility] [address] 95399 -5415 November, Contact dermatitis, unspecified contact dermatitis type, unspecified trigger L25.9 [facility] [address] 04154- 7413 November, Asperger syndrome F84.5 ; Epilepsy G40.909 and Oppositional behavior F91.3 [facility] [address] 53564- 2528 November, [facility] [address] 97305- 9462 Oct, Encounter for Depo-Provera contraception Z30.42 [facility] [address] 03521- 2722 15 Oct, 2015 Epilepsy G40.909 ; Asperger syndrome F84.5 ; Vitamin D deficiency E55.9 ; Encounter for Depo-Provera contraception Z30.42 ; GERD ( gastroesophageal reflux disease) K21.9 ; Tremors of nervous system R25.1 and Constipation K59.00 [facility] [address] 43246- 7192 13 Oct, 2015 Seizure disorder G40.909 and Depo-Provera contraceptive status Z30.42 [facility] [address] 36288- 1307 Oct, [facility] [address] [facility] [id number] [address]- 0607 Oct, Epilepsy G40.909 ; Encounter for Depo-Provera contraception Z30.42 ; Asperger syndrome F84.5 and Vitamin D deficiency E55.9 IMMUNIZATIONS No Known Immunizations SOCIAL HISTORY Never Assessed REASON FOR VISIT f/u PLAN OF CARE Activity Details Follow Up 2 Weeks Reason: F/U VITAL SIGNS MEDICATIONS Unknown Medications RESULTS [...]
--- OUTSIDE RECORDS SUMMARY | 2018-04-17 11:37 | XMS REPORT ---
Author Author KENAN LANCE [facility] Address [address] [place] [address] Care Team Providers Care Inside Sales Account Representative Name Role Phone KENAN LANCE Unavailable PROBLEMS Type Condition ICD9-CM Code GHI14-ZL Code Onset Dates Condition Status SNOMED Code Problem Constipation K59.00 Active 99540740 Problem Dysuria R30.0 Active 59740694 Problem Oppositional behavior F91.3 Active 76966504 Problem Asperger syndrome F84.5 Active 03677510 Problem Epilepsy G40.909 Active 26433439 Problem Tremors of nervous system R25.1 Active 255954982 Problem GERD without esophagitis K21.9 Active 492696014 Problem Benign essential tremor G25.0 Active 445929521 Problem Morbid (severe) obesity due to excess calories E66.01 Active 702525861 Problem Mood disorder F39 Active 30233727 Problem Episode of recurrent major depressive disorder, unspecified depression episode severity F33.9 Active 344746109 Problem Body mass index (BMI) of 40.0-44.9 in adult Z68.41 Active 939966476 ALLERGIES No Information ENCOUNTERS Encounter Location Date Diagnosis [facility] [address] [place] [address]20 -7270 Dec, Hematuria, unspecified type R31.9 and Acute cystitis with hematuria N30.01 [facility] [address] [place] [address] 77787- 5632 November, Asperger syndrome F84.5 [facility] [address] [place] [id number] [place] [address] 21678- 0776 November, [facility] [id number] [place] [address] 91129- 2615 Oct, Benign essential tremor G25.0 and GERD without esophagitis K21.9 [facility] [address] [address] 06 Aug, 2017 [facility] [id number] [place] [address] 66235- 6478 05 Aug, 2017 Asperger syndrome F84.5 [facility] [address] [place] [address] 34649 -5069 02 Aug, 2017 Diarrhea, unspecified type R19.7 [facility] [id number] [place] [address] 89157- 8584 02 Aug, 2017 Episode of recurrent major depressive disorder, unspecified depression episode severity F33.9 [facility] [address] [place] [address] [phone] Jul, Dental examination Z01.20 [place] [address] [place] [address] 23958- 8766 Jul, Asperger syndrome F84.5 [facility] [id number] [place] [address] 85599- 0347 Jul, Asperger syndrome F84.5 [facility] [id number] [place] [address] 11618- 1447 Jul, Dental examination Z01.20 [facility] [address] [place] [address] 80463- 3212 Jul, Asperger syndrome F84.5 ; Epilepsy G40.909 ; GERD ( gastroesophageal reflux disease) K21.9 ; Mood disorder F39 ; BMI 40.0-44.9, adult Z68.41 and Tremors of nervous system R25.1 [facility] [address] [place] [address] 87518- 6029 Jul, Asperger syndrome F84.5 and Oppositional behavior F91.3 [facility] [address] [place] [address] 64601- 0323 Jun, Tremors of nervous system R25.1 [facility] [id number] [place] [address] 28170- 5679 Jun, Asperger syndrome F84.5 [place] [id number] [place] [address] 97616- 4457 Jun, Asperger syndrome F84.5 [facility] [id number] [place] [address] 57592- 0524 May, [facility] [address] 93330 -3242 May, Acute non-recurrent frontal sinusitis J01.10 [place] [id number] [place] [address] 44831- 5958 May, Mood disorder F39 and Asperger syndrome F84.5 [place] [id number] [place] [address] 04677- 4476 May, Acne vulgaris L70.0 [place] [address] 53692- 4083 May, Acne vulgaris L70.0 and Tremors of nervous system R25.1 [facility] [id number] [place] [address] 27080 -7524 May, Other viral agents as the cause of diseases classified elsewhere B97.89 and Acute upper respiratory infection, unspecified J06.9 [place] [address] [place] [address] 93931- 0264 May, Mood disorder F39 and Asperger syndrome F84.5 [place] [id number] [place] [address] 07476- 6039 Apr, Asperger syndrome F84.5 [place] [id number] [place] [address] 22734- 6717 Apr, Asperger syndrome F84.5 and Oppositional behavior F91.3 [place] [id number] [place] [address] 69332- 0621 Mar, Mood disorder F39 and Asperger syndrome F84.5 [facility] [id number] [place] [address] 76017- 9314 Feb, GERD (gastroesophageal reflux disease) K21.9 ; Dysuria R30.0 ; Otalgia of right ear H92.01 and Decreased urination R34 [place] [id number] [place] [address] 16845- 7857 Feb, Mood disorder F39 and Asperger syndrome F84.5 [place] [address] 56954- 5136 Feb, Asperger syndrome F84.5 and Oppositional behavior F91.3 [facility] [address] 86326 -6708 Jan, Viral gastroenteritis A08.4 [place] [address] 68807- 8820 Jan, Mood disorder F39 and Asperger syndrome F84.5 [place] [id number] [place] [address] 99595- 4117 Jan, Asperger syndrome F84.5 and Oppositional behavior F91.3 [facility] [place] [id number] [place] [address] 34929 -8449 Dec, FRANSICO (secretory otitis media), right H65.91 [place] [address] 50437- 9501 Dec, Mood disorder F39 and Asperger syndrome F84.5 [place] [id number] [place] [address] 64734- 6994 Dec, Otalgia, left ear H92.02 [place] [address] 46127- 2879 Dec, [place] [address] [id number] [place] [address] 50062- 2373 Dec, Mood disorder F39 and Asperger syndrome F84.5 [facility] [address] [place] [address] [phone] 07 Dec, 2016 Dental examination Z01.20 [place] [address] 43037- 0880 31 Nov, 2016 Medicare annual wellness visit, subsequent Z00.00 ; GERD ( gastroesophageal reflux disease) K21.9 ; Counseling on health promotion and disease prevention Z71.89 and Encounter for preventative adult health care exam with abnormal findings Z00.01 [facility] [address] 26352 -0388 25 Nov, 2016 Allergic contact dermatitis due to plants, except food L23.7 [place] [address] 68575- 4539 02 Nov, 2016 Mood disorder F39 and Asperger syndrome F84.5 [facility] [place] [address] 64681 -4824 Sep, Acute bacterial conjunctivitis of right eye H10.31 and Acute suppurative otitis media of right ear without spontaneous rupture of tympanic membrane, recurrence not specified H66.001 [place] [address] 13313- 2887 07 Sep, 2016 Nexplanon insertion Z30.017 [place] [address] 92602- 9699 2016 Mood disorder F39 and Asperger syndrome F84.5 [place] [address] [id number] [place] [address] 16628- 4856 28 Aug, 2016 Mood disorder F39 and Asperger syndrome F84.5 [place] [address] 68978- 2341 14 Aug, 2016 control counseling Z30.09 [place] [address] 11571- 4947 08 Aug, 2016 Asperger syndrome F84.5 and Oppositional behavior F91.3 [facility] [address] [phone] 08 Aug, 2016 Dental examination Z01.20 [facility] [id number] [place] [address] 05145- 8089 03 Aug, 2016 Mood disorder F39 and Asperger syndrome F84.5 [facility] [address] [place] [address] 02226 -5795 Jul, Acute suppurative otitis media of both ears without spontaneous rupture of tympanic membranes, recurrence not specified H66.003 [facility] [address] [place] [address] 93146- 1797 Jul, [facility] [id number] [place] [address] 17174- 0628 Jul, Asperger syndrome F84.5 [facility] [id number] [place] [address] 40199- 8932 Jul, [facility] [id number] [place] [address] 10829- 2985 Jul, Mood disorder F39 and Asperger syndrome F84.5 [facility] [address] [place] [id number] [place] [address] [phone] Jul, Dental examination Z01.20 [facility] [address] [place] [address] 18844 -6307 Jul, Acute non-recurrent pansinusitis J01.40 [facility] [address] [place] [address] 70081- 7561 Jul, Asperger syndrome F84.5 and Oppositional behavior F91.3 [facility] [id number] [place] [address] 35536- 5238 Jun, Mood disorder F39 and Asperger syndrome F84.5 [facility] [address] [place] [address] 60401- 1345 Jun, Mood disorder F39 and Asperger syndrome F84.5 [facility] [address], [place] [address]- 1227 Jun, Mood disorder F39 and Asperger syndrome F84.5 [facility] [id number] [place] [address] 60507- 7647 May, Mood disorder F39 and Asperger syndrome F84.5 [facility] [id number] [place] [address] 00470- 9455 May, [facility] [id number] [place] [address] 35134- 8354 May, Asperger syndrome F84.5 and Oppositional behavior F91.3 [facility] [id number] [place] [address] 40709- 3857 May, Oral contraceptive pill surveillance Z30.41 [facility] [address] [id number] [place] [address] 90708- 1356 16 May, 2016 Mood disorder F39 and Asperger syndrome F84.5 [facility] [id number] [place] [address] 02932- 2364 May, Asperger syndrome F84.5 and Oppositional behavior F91.3 [facility] [id number] [place] [address] 24859- 3455 May, Mood disorder F39 and Asperger syndrome F84.5 [facility] [address] [place] [address] 18207- 2672 Apr, [facility] [address] [place] [address] 90657- 3637 Apr, Oppositional behavior F91.3 [facility] [id number] [place] [address] 91255- 4227 Apr, Asperger syndrome F84.5 and Oppositional behavior F91.3 [facility] [address], [place] [address] Apr, Contact dermatitis, unspecified contact dermatitis type, unspecified trigger L25.9 [facility] [address] [place] [address] 49471- 3764 17 Apr, 2016 Mood disorder F39 and Asperger syndrome F84.5 [facility] [address] [place] [address] 15970 -6088 15 Apr, 2016 Encounter for immunization Z23 and Acute non-recurrent frontal sinusitis J01.10 [facility] [address] [id number] [place] [address] [phone] 10 Apr, 2016 Encounter for dental examination Z01.20 [facility] [address] [id number] 21 Mar, 2016 Encounter for routine child health examination without abnormal findings Z00.129 [facility] [id number] [place] [address] 03594- 4270 14 Mar, 2016 Mood disorder F39 and Asperger syndrome F84.5 [facility] [id number] [place] [address] 76448- 0195 06 Mar, 2016 [facility] [address] 34526- 2410 06 Mar, 2016 Asperger syndrome F84.5 and Oppositional behavior F91.3 [facility] [id number] [place] [address] 28645- 1083 Feb, Mood disorder F39 and Asperger syndrome F84.5 [facility] [id number] [place] [address] 55022- 2822 Feb, Fatigue, unspecified type R53.83 and GERD (gastroesophageal reflux disease) K21.9 [facility] [id number] [place] [address] 73802- 5631 Feb, Mood disorder F39 and Asperger syndrome F84.5 [facility] [address] [place] [address] 91020- 5808 Feb, Asperger syndrome F84.5 and Oppositional behavior F91.3 [facility] [id number] [place] [address] 58342 -9220 Feb, Itchy eyes H57.8 [place] [address] [place] [id number] [place] [address] 10813- 1893 Feb, Encounter for initial prescription of contraceptives Z30.019 [facility] [address] [place] [id number] [place] [address] 29246- 4941 Feb, Mood disorder F39 and Asperger syndrome F84.5 [place] [address] [place] [id number] [place] [address] 95061- 0661 Feb, [place] [address] 48447- 8647 Jan, Asperger syndrome F84.5 and Oppositional behavior F91.3 [place] [address] [place] [address] [id number] [place] [address] 42938- 1504 Jan, Mood disorder F39 and Asperger syndrome F84.5 [place] [address] [place] [address] [id number] [place] [address] 68432- 7829 Jan, [facility] [id number] [place] [address] 61922 -4408 Jan, Acute cystitis without hematuria N30.00 ; Asperger syndrome F84.5 and Oppositional behavior F91.3 [place] [address] [place] [address] [id number] [place] [address] 70912- 3921 Dec, Mood disorder F39 and Asperger syndrome F84.5 [place] [address] [place] [id number] [place] [address] 79731- 3616 Dec, Epilepsy G40.909 ; Asperger syndrome F84.5 ; Vitamin D deficiency E55.9 and Routine health maintenance Z00.00 [facility] [id number] [place] [address] 15799- 6681 Dec, Mood disorder F39 and Asperger syndrome F84.5 [place] [address] [place] [id number] [place] [address] 76926- 2333 Dec, Epilepsy G40.909 ; Asperger syndrome F84.5 ; Vitamin D deficiency E55.9 ; GERD (gastroesophageal reflux disease) K21.9 ; Tremors of nervous system R25.1 ; Constipation K59.00 ; Oppositional behavior F91.3 ; Routine health maintenance Z00.00 ; Dysuria R30.0 ; Obesity (BMI 30.0-34.9) E66.9 and Other seasonal allergic rhinitis J30.2 [facility] [address] 76575 -0211 Dec, Leg pain, right M79.[address] 89778- 4846 Dec, [place] [address] 04205- 2318 Dec, Dental examination Z01.[address] 85694- 6620 November, Epilepsy G40.[address] 26791- 3308 November, Scabies B86 ; Epilepsy G40.909 ; Vitamin D deficiency E55.9 ; Oppositional behavior F91.3 ; GERD (gastroesophageal reflux disease) K21.9 and Tremors of nervous system R25.1 [facility] [address] 13340 -9284 November, Contact dermatitis, unspecified contact dermatitis type, unspecified trigger L25.9 [place] [address] 51028- 6867 November, Asperger syndrome F84.5 ; Epilepsy G40.909 and Oppositional behavior F91.3 [place] [address] 54454- 3206 November, [place] [address] 70792- 3570 Oct, Encounter for Depo-Provera contraception Z30.42 [place] [address] [place] [id number] [place] [address] 81274- 0830 15 Oct, 2015 Epilepsy G40.909 ; Asperger syndrome F84.5 ; Vitamin D deficiency E55.9 ; Encounter for Depo-Provera contraception Z30.42 ; GERD ( gastroesophageal reflux disease) K21.9 ; Tremors of nervous system R25.1 and Constipation K59.00 [place] [address] 72848- 1533 13 Oct, 2015 Seizure disorder G40.909 and Depo-Provera contraceptive status Z30.42 [place] [address] 40981- 5314 12 Oct, 2015 [place] [address] 16401- 3172 05 Oct, 2015 Epilepsy G40.909 ; Encounter for Depo-Provera contraception Z30.42 ; Asperger syndrome F84.5 and Vitamin D deficiency E55.9 IMMUNIZATIONS No Known Immunizations SOCIAL HISTORY Never Assessed REASON FOR VISIT PALS IN-[facility] PLAN OF CARE VITAL SIGNS MEDICATIONS No Known Medications RESULTS No Results PROCEDURES No Known [...]
--- OUTSIDE RECORDS SUMMARY | 2018-04-17 11:37 | XMS REPORT ---
Author Author BRENNAN GONZALEZ Organization [facility] Address [address] [place] [address] Care Team Providers Care Behavioral Therapist Name Role Phone GONZALEZJAE AbdallaELE Unavailable PROBLEMS Type Condition ICD9-CM Code APA35-AL Code Onset Dates Condition Status SNOMED Code Problem Constipation K59.00 Active 44544939 Problem Dysuria R30.0 Active 13023198 Problem Oppositional behavior F91.3 Active 92119386 Problem Asperger syndrome F84.5 Active 98392054 Problem Epilepsy G40.909 Active 61148684 Problem Tremors of nervous system R25.1 Active 982677165 Problem GERD without esophagitis K21.9 Active 455161980 Problem Benign essential tremor G25.0 Active 071565570 Problem Morbid (severe) obesity due to excess calories E66.01 Active 621498520 Problem Mood disorder F39 Active 97991815 Problem Episode of recurrent major depressive disorder, unspecified depression episode severity F33.9 Active 476789371 Problem Body mass index (BMI) of 40.0-44.9 in adult Z68.41 Active 390482819 ALLERGIES No Information ENCOUNTERS Encounter Location Date Diagnosis [facility] [id number] [place] [address] 21696- 3474 November, Asperger syndrome F84.5 [facility] [id number] [place] [address] 54970- 0366 November, [facility] [id number] [place] [address] 12682- 9456 Oct, Benign essential tremor G25.0 and GERD without esophagitis K21.9 [facility] [id number] [place] [address] 42655- 4883 Aug, [facility] [id number] [place] [address] 33223- 0616 05 Aug, 2017 Asperger syndrome F84.5 [facility] [address] [place] [address] 91212 -6860 02 Aug, 2017 Diarrhea, unspecified type R19.7 [facility] [id number] [place] [address] 09297- 2774 02 Aug, 2017 Episode of recurrent major depressive disorder, unspecified depression episode severity F33.9 [facility] [id number] [place] [address] [phone] Jul, Dental examination Z01.20 [facility] [address] 37421- 9667 Jul, Asperger syndrome F84.5 [facility] [id number] [place] [address] 96124- 8765 Jul, Asperger syndrome F84.5 [facility] [id number] [place] [address] 30703- 7216 Jul, Dental examination Z01.20 [facility] [id number] [place] [address] 92149- 2436 Jul, Asperger syndrome F84.5 ; Epilepsy G40.909 ; GERD ( gastroesophageal reflux disease) K21.9 ; Mood disorder F39 ; BMI 40.0-44.9, adult Z68.41 and Tremors of nervous system R25.1 [facility] [id number] [place] [address] 91678- 0820 Jul, Asperger syndrome F84.5 and Oppositional behavior F91.3 [facility] [id number] [place] [address] 87474- 3851 Jun, Tremors of nervous system R25.1 [facility] [id number] [place] [address] 51455- 2186 Jun, Asperger syndrome F84.5 [facility] [id number] [place] [address] 50157- 6258 Jun, Asperger syndrome F84.5 [facility] [id number] [place] [address] 06932- 8585 May, [facility] [address] 72908 -4699 May, Acute non-recurrent frontal sinusitis J01.10 [place] [address] 46804- 7339 May, Mood disorder F39 and Asperger syndrome F84.5 [place] [address] 59427- 8153 May, Acne vulgaris L70.0 [place] [address] 21034- 2224 May, Acne vulgaris L70.0 and Tremors of nervous system R25.1 [facility] [id number] [place] [address] 30821 -7080 May, Other viral agents as the cause of diseases classified elsewhere B97.89 and Acute upper respiratory infection, unspecified J06.9 [place] [id number] [place] [address] 20484- 7094 May, Mood disorder F39 and Asperger syndrome F84.5 [place] [id number] [place] [address] 16097- 3120 Apr, Asperger syndrome F84.5 [place] [id number] [place] [address] 12066- 2104 Apr, Asperger syndrome F84.5 and Oppositional behavior F91.3 [place] [address] 05638- 1032 Mar, Mood disorder F39 and Asperger syndrome F84.5 [place] [id number] [place] [address] 50168- 0876 Feb, GERD (gastroesophageal reflux disease) K21.9 ; Dysuria R30.0 ; Otalgia of right ear H92.01 and Decreased urination R34 [facility] [address] 46148- 6455 Feb, Mood disorder F39 and Asperger syndrome F84.5 [facility] [address] 95891- 9421 Feb, Asperger syndrome F84.5 and Oppositional behavior F91.3 [facility] [address] 09837 -2028 Jan, Viral gastroenteritis A08.4 [facility] [address] 75876- 0971 Jan, Mood disorder F39 and Asperger syndrome F84.5 [place] [address] 05437- 3330 Jan, Asperger syndrome F84.5 and Oppositional behavior F91.3 [facility] [address] 18434 -7422 Dec, FRANSICO (secretory otitis media), right H65.91 [facility] [address] 53598- 2517 Dec, Mood disorder F39 and Asperger syndrome F84.5 [facility] [address] 88428- 7988 Dec, Otalgia, left ear H92.02 [facility] [address] 61830- 1541 Dec, [facility] [address] 64331- 1733 Dec, Mood disorder F39 and Asperger syndrome F84.5 [facility] [id number] [place] [address] [id number] 07 Dec, 2016 Dental examination Z01.20 [facility] [address] 38758- 2416 31 Nov, 2016 Medicare annual wellness visit, subsequent Z00.00 ; GERD ( gastroesophageal reflux disease) K21.9 ; Counseling on health promotion and disease prevention Z71.89 and Encounter for preventative adult health care exam with abnormal findings Z00.01 [facility] [address] 79990 -2931 November, Allergic contact dermatitis due to plants, except food L23.7 [place] [address] 35983- 9509 02 Nov, 2016 Mood disorder F39 and Asperger syndrome F84.5 [facility] [address] 28176 -3325 31 Sep, 2016 Acute bacterial conjunctivitis of right eye H10.31 and Acute suppurative otitis media of right ear without spontaneous rupture of tympanic membrane, recurrence not specified H66.001 [place] [address] 69943- 7183 07 Sep, 2016 Nexplanon insertion Z30.017 [place] [address] 49155- 4890 2016 Mood disorder F39 and Asperger syndrome F84.5 [place] [address] 68100- 8672 28 Aug, 2016 Mood disorder F39 and Asperger syndrome F84.5 [place] [address] 07144- 3066 14 Aug, 2016 control counseling Z30.09 [place] [address] 75405- 9146 08 Aug, 2016 Asperger syndrome F84.5 and Oppositional behavior F91.3 [facility] [address] [id number] 08 Aug, 2016 Dental examination Z01.20 [place] [address] 45991- 8264 Aug, Mood disorder F39 and Asperger syndrome F84.5 [facility] [id number] [place] [address] 90219 -1970 Jul, Acute suppurative otitis media of both ears without spontaneous rupture of tympanic membranes, recurrence not specified H66.003 [facility] [id number] [place] [address] 26809- 8431 Jul, [facility] [address] 74771- 8451 Jul, Asperger syndrome F84.5 [facility] [address] 76258- 1470 Jul, [facility] [address] 90393- 6384 Jul, Mood disorder F39 and Asperger syndrome F84.5 [facility] [address] [id number] Jul, Dental examination Z01.20 [facility] [id number] [place] [address] 06436 -7106 Jul, Acute non-recurrent pansinusitis J01.40 [facility] [id number] [place] [address] 09972- 9824 Jul, Asperger syndrome F84.5 and Oppositional behavior F91.3 [facility] [id number] [place] [address] 97616- 6405 Jun, Mood disorder F39 and Asperger syndrome F84.5 [facility] [id number] [place] [address] 52421- 5235 Jun, Mood disorder F39 and Asperger syndrome F84.5 [facility] [id number] [place] [address] 54205- 7791 Jun, Mood disorder F39 and Asperger syndrome F84.5 [facility] [address] [place] [address]- 0340 30 May, 2016 Mood disorder F39 and Asperger syndrome F84.5 [facility] [id number] [place] [address] 85071- 4683 May, [facility] [id number] [place] [address] 94019- 4210 May, Asperger syndrome F84.5 and Oppositional behavior F91.3 [facility] [id number] [place] [address] 67928- 2397 May, Oral contraceptive pill surveillance Z30.41 [place] [address] 24565- 8876 16 May, 2016 Mood disorder F39 and Asperger syndrome F84.5 [place] [id number] [place] [address] 14689- 9695 May, Asperger syndrome F84.5 and Oppositional behavior F91.3 [facility] [id number] [place] [address] 03575- 5625 May, Mood disorder F39 and Asperger syndrome F84.5 [place] [id number] [place] [address] 84018- 0612 31 Apr, 2016 [facility] [id number] [place] [address] 92175- 1927 Apr, Oppositional behavior F91.3 [facility] [id number] [place] [address] 11259- 4429 Apr, Asperger syndrome F84.5 and Oppositional behavior F91.3 [facility] [id number] [place] [address] 26090 -8211 Apr, Contact dermatitis, unspecified contact dermatitis type, unspecified trigger L25.9 [facility] [address] [place] [address] 57860- 5670 Apr, Mood disorder F39 and Asperger syndrome F84.5 [facility] [address] [place] [address] 87749 -9092 15 Apr, 2016 Acute non-recurrent frontal sinusitis J01.10 and Encounter for immunization Z23 [facility] [address] [place] [address] [id number] 10 Apr, 2016 Encounter for dental examination Z01.20 [facility] [id number] [place] [address] [id number] 21 Mar, 2016 Encounter for routine child health examination without abnormal findings Z00.129 [facility] [address] 64433- 1757 14 Mar, 2016 Mood disorder F39 and Asperger syndrome F84.5 [place] [address] 93488- 6179 06 Mar, 2016 [place] [address] 74518- 3575 06 Mar, 2016 Asperger syndrome F84.5 and Oppositional behavior F91.3 [facility] [address] 29137- 6636 Feb, Mood disorder F39 and Asperger syndrome F84.5 [facility] [address] 65446- 5360 Feb, Fatigue, unspecified type R53.83 and GERD (gastroesophageal reflux disease) K21.9 [facility] [id number] [place] [address] 32443- 7919 Feb, Mood disorder F39 and Asperger syndrome F84.5 [facility] [id number] [place] [address] 89245- 5345 Feb, Asperger syndrome F84.5 and Oppositional behavior F91.3 [facility] [id number] [place] [address] 43638 -0331 05 Feb, 2016 Itchy eyes H57.8 [facility] [address] 84855- 6039 Feb, Encounter for initial prescription of contraceptives Z30.019 [place] [id number] [place] [address] 17338- 6456 Feb, Mood disorder F39 and Asperger syndrome F84.5 [facility] [id number] [place] [address] 30925- 8197 Feb, [place] [address] 72096- 7979 Jan, Asperger syndrome F84.5 and Oppositional behavior F91.3 [place] [id number] [place] [address] 63023- 0190 Jan, Mood disorder F39 and Asperger syndrome F84.5 [place] [id number] [place] [address] 00110- 7198 Jan, [facility] [address] 08572 -6922 Jan, Acute cystitis without hematuria N30.00 ; Asperger syndrome F84.5 and Oppositional behavior F91.3 [place] [id number] [place] [address] 05373- 7450 Dec, Mood disorder F39 and Asperger syndrome F84.5 [place] [id number] [place] [address] 87657- 0225 Dec, Epilepsy G40.909 ; Asperger syndrome F84.5 ; Vitamin D deficiency E55.9 and Routine health maintenance Z00.00 [facility] [id number] [place] [address] 18932- 9734 Dec, Mood disorder F39 and Asperger syndrome F84.5 [place] [id number] [place] [address] 87515- 5254 09 Dec, 2015 Epilepsy G40.909 ; Asperger syndrome F84.5 ; Vitamin D deficiency E55.9 ; GERD (gastroesophageal reflux disease) K21.9 ; Tremors of nervous system R25.1 ; Constipation K59.00 ; Oppositional behavior F91.3 ; Routine health maintenance Z00.00 ; Dysuria R30.0 ; Obesity (BMI 30.0-34.9) E66.9 and Other seasonal allergic rhinitis J30.2 [facility] [address] 78112 -2558 Dec, Leg pain, right M79.604 [place] [address] 85903- 9869 Dec, [place] [address] 68102- 1441 Dec, Dental examination Z01.20 [place] [address] 22585- 8340 November, Epilepsy G40.909 [place] [address] 51546- 8017 November, Scabies B86 ; Epilepsy G40.909 ; Vitamin D deficiency E55.9 ; Oppositional behavior F91.3 ; GERD (gastroesophageal reflux disease) K21.9 and Tremors of nervous system R25.1 [facility] [address] 82177 -5317 November, Contact dermatitis, unspecified contact dermatitis type, unspecified trigger L25.9 [place] [address] 60628- 1134 November, Asperger syndrome F84.5 ; Epilepsy G40.909 and Oppositional behavior F91.3 [place] [address] 52804- 0613 November, [address] 62384- 2194 Oct, Encounter for Depo-Provera contraception Z30.42 [place] [address] 14063- 3686 Oct, Epilepsy G40.909 ; Asperger syndrome F84.5 ; Vitamin D deficiency E55.9 ; Encounter for Depo-Provera contraception Z30.42 ; GERD ( gastroesophageal reflux disease) K21.9 ; Tremors of nervous system R25.1 and Constipation K59.00 [place] [address] [address] 9834 13 Oct, 2015 Seizure disorder G40.909 and Depo-Provera contraceptive status Z30.42 [place] [address] [address]- 1569 12 Oct, 2015 [place] [address] [place] [address] 48141- 2949 05 Oct, 2015 Epilepsy G40.909 ; Encounter for Depo-Provera contraception Z30.42 ; Asperger syndrome F84.5 and Vitamin D deficiency E55.9 IMMUNIZATIONS No Known Immunizations SOCIAL HISTORY Never Assessed REASON FOR VISIT Medication refill request PLAN OF CARE VITAL SIGNS MEDICATIONS Medication Instructions Dosage Frequency Start Date End Date Duration Status Omeprazole 20 mg Orally Once a day 1 capsules 24h 30 days Active Propranolol HCl 10 mg Orally Twice a day 1 tablet 12h 17 May, 2017 30 days Active [...]
--- OUTSIDE RECORDS SUMMARY | 2018-04-17 11:38 | XMS REPORT ---
Author Author DESTINI PATIÑO [facility] Address [address] [place] [address] Care Team Providers Care Labor Employment Associate Name Role Phone DESTINI PATIÑO Unavailable PROBLEMS Type Condition ICD9-CM Code REL49-QA Code Onset Dates Condition Status SNOMED Code Problem Constipation K59.00 Active 07554993 Problem Dysuria R30.0 Active 78370150 Problem Oppositional behavior F91.3 Active 45374846 Problem Asperger syndrome F84.5 Active 04025061 Problem Epilepsy G40.909 Active 29970583 Problem Tremors of nervous system R25.1 Active 763430714 Problem GERD without esophagitis K21.9 Active 554200891 Problem Benign essential tremor G25.0 Active 133275501 Problem Morbid (severe) obesity due to excess calories E66.01 Active 330545077 Problem Mood disorder F39 Active 60816072 Problem Episode of recurrent major depressive disorder, unspecified depression episode severity F33.9 Active 413509345 Problem Body mass index (BMI) of 40.0-44.9 in adult Z68.41 Active 897427514 ALLERGIES No Known Allergies ENCOUNTERS Encounter Location Date Diagnosis [facility] [id number] [address] Dec, Hematuria, unspecified type R31.9 and Acute cystitis with hematuria N30.01 [facility] [id number], [place] [address] November, Asperger syndrome F84.5 [facility] [address] [place] [address] 45499- 7678 November, [facility] [address] [address] Oct, Benign essential tremor G25.0 and GERD without esophagitis K21.9 [facility] [address] [place] [address] 36704- 0027 06 Aug, 2017 [facility] [id number] [place] [address] 92337- 9888 05 Aug, 2017 Asperger syndrome F84.5 [facility] [id number] [place] [address] 98531 -7614 02 Aug, 2017 Diarrhea, unspecified type R19.7 [facility] [id number] [place] [address] 65067- 4093 02 Aug, 2017 Episode of recurrent major depressive disorder, unspecified depression episode severity F33.9 [facility] [id number] [place] [address] [id number] Jul, Dental examination Z01.20 [place] [id number] [place] [address] 38141- 8227 Jul, Asperger syndrome F84.5 [facility] [id number] [place] [address] 99480- 0045 Jul, Asperger syndrome F84.5 [facility] [id number] [place] [address] 43671- 7040 Jul, Dental examination Z01.20 [facility] [id number] [place] [address] 06293- 1762 Jul, Asperger syndrome F84.5 ; Epilepsy G40.909 ; GERD ( gastroesophageal reflux disease) K21.9 ; Mood disorder F39 ; BMI 40.0-44.9, adult Z68.41 and Tremors of nervous system R25.1 [facility] [id number] [place] [address] 43604- 7323 Jul, Asperger syndrome F84.5 and Oppositional behavior F91.3 [facility] [id number] [place] [address] 12548- 3618 Jun, Tremors of nervous system R25.1 [place] [address] [place] [address] 27334- 9285 Jun, Asperger syndrome F84.5 [facility] [id number] [place] [address] 07654- 5810 Jun, Asperger syndrome F84.5 [facility] [id number] [place] [address] 51781- 8605 May, [facility] [id number] [place] [address] 39030 -7552 May, Acute non-recurrent frontal sinusitis J01.10 [place] [address] [address]76- 1961 May, Mood disorder F39 and Asperger syndrome F84.5 [place] [id number] [place] [address] 51519- 2302 May, Acne vulgaris L70.0 [place] [id number] [place] [address] 70892- 7877 May, Acne vulgaris L70.0 and Tremors of nervous system R25.1 [facility] [id number] [place] [address] 11125 -4800 May, Other viral agents as the cause of diseases classified elsewhere B97.89 and Acute upper respiratory infection, unspecified J06.9 [place] [id number] [place] [address] 64269- 2420 May, Mood disorder F39 and Asperger syndrome F84.5 [place] [id number] [place] [address] 01222- 1713 Apr, Asperger syndrome F84.5 [place] [id number] [place] [address] 18284- 2764 Apr, Asperger syndrome F84.5 and Oppositional behavior F91.3 [place] [id number] [place] [address] 58268- 6902 Mar, Mood disorder F39 and Asperger syndrome F84.5 [facility] [id number] [place] [address] 11854- 7191 Feb, GERD (gastroesophageal reflux disease) K21.9 ; Dysuria R30.0 ; Otalgia of right ear H92.01 and Decreased urination R34 [place] [address] 2[address]- [address] Feb, Mood disorder F39 and Asperger syndrome F84.5 [place] [address] 43766- 7926 Feb, Asperger syndrome F84.5 and Oppositional behavior F91.3 [facility] [address] [address] Jan, Viral gastroenteritis A08.4 [place] [address] 56645- 2150 Jan, Mood disorder F39 and Asperger syndrome F84.5 [place] [address] 09722- 7053 Jan, Asperger syndrome F84.5 and Oppositional behavior F91.3 [facility] [place] [id number] [place] [address] 14681 -6829 Dec, FRANSICO (secretory otitis media), right H65.91 [place] [address] 69294- 1434 Dec, Mood disorder F39 and Asperger syndrome F84.5 [place] [address] 35379- 6035 Dec, Otalgia, left ear H92.02 [place] [address] 74185- 1769 Dec, [place] [address] 61590- 7878 Dec, Mood disorder F39 and Asperger syndrome F84.5 [facility] [id number] [place] [address] [phone] 07 Dec, 2016 Dental examination Z01.20 [place] [id number] [place] [address] 41690- 7035 31 Nov, 2016 Medicare annual wellness visit, subsequent Z00.00 ; GERD ( gastroesophageal reflux disease) K21.9 ; Counseling on health promotion and disease prevention Z71.89 and Encounter for preventative adult health care exam with abnormal findings Z00.01 [facility] [id number] [place] [address] 28447 -0256 25 Nov, 2016 Allergic contact dermatitis due to plants, except food L23.7 [place] [id number] [place] [address] 02561- 4171 02 Nov, 2016 Mood disorder F39 and Asperger syndrome F84.5 [facility] [id number] [place] [address] 34987 -5780 31 Sep, 2016 Acute bacterial conjunctivitis of right eye H10.31 and Acute suppurative otitis media of right ear without spontaneous rupture of tympanic membrane, recurrence not specified H66.001 [place] [id number] [place] [address] 10206- 8818 07 Sep, 2016 Nexplanon insertion Z30.017 [place] [id number] [place] [address] 95873- 9636 2016 Mood disorder F39 and Asperger syndrome F84.5 [place] [address] [place] [address] 81595- 7357 28 Aug, 2016 Mood disorder F39 and Asperger syndrome F84.5 [place] [id number] [place] [address] 40884- 7358 14 Aug, 2016 control counseling Z30.09 [place] [id number] [place] [address] 34373- 2596 08 Aug, 2016 Asperger syndrome F84.5 and Oppositional behavior F91.3 [facility] [address] [id number] 08 Aug, 2016 Dental examination Z01.20 [facility] [address] [place] [address] 62671- 3593 03 Aug, 2016 Mood disorder F39 and Asperger syndrome F84.5 [facility] [address] [place] [address] 21523 -5943 Jul, Acute suppurative otitis media of both ears without spontaneous rupture of tympanic membranes, recurrence not specified H66.003 [facility] [address] [place] [address] 47592- 2852 Jul, [facility] [id number] [place] [address] 61178- 0374 Jul, Asperger syndrome F84.5 [facility] [address] [place] [address] 33378- 9450 Jul, [facility] [id number] [place] [address] 53849- 3833 Jul, Mood disorder F39 and Asperger syndrome F84.5 [facility] [address] [place] [address] [phone] Jul, Dental examination Z01.20 [facility] [address] [place] [address] 99285 -6441 Jul, Acute non-recurrent pansinusitis J01.40 [facility] [address] [place] [address] 17569- 3261 Jul, Asperger syndrome F84.5 and Oppositional behavior F91.3 [facility] [address] [place] [address] 90375- 1126 Jun, Mood disorder F39 and Asperger syndrome F84.5 [facility] [address] [place] [address] 99206- 8993 Jun, Mood disorder F39 and Asperger syndrome F84.5 [facility] [address] [place] [address] 98197- 7743 09 Jun, 2016 Mood disorder F39 and Asperger syndrome F84.5 [facility] [id number] [place] [address] 85610- 0779 30 May, 2016 Mood disorder F39 and Asperger syndrome F84.5 [facility] [id number] [place] [address] 80682- 0140 May, [facility] [id number] [place] [address] 95326- 1659 May, Asperger syndrome F84.5 and Oppositional behavior F91.3 [facility] [id number] [place] [address] 01675- 8319 17 May, 2016 Oral contraceptive pill surveillance Z30.41 [facility] [id number] [place] [address] 49838- 8075 16 May, 2016 Mood disorder F39 and Asperger syndrome F84.5 [facility] [id number] [place] [address] 42228- 7956 May, Asperger syndrome F84.5 and Oppositional behavior F91.3 [facility] [address] [place] [address] 10611- 3124 May, Mood disorder F39 and Asperger syndrome F84.5 [facility] [address] [place] [address] 87268- 4235 Apr, [facility] [address] [place] [address] 33871- 9714 Apr, Oppositional behavior F91.3 [facility] [id number] [place] [address] 08688- 3524 Apr, Asperger syndrome F84.5 and Oppositional behavior F91.3 [facility] [address], [place] [address] Apr, Contact dermatitis, unspecified contact dermatitis type, unspecified trigger L25.9 [facility] [id number] [place] [address] 78612- 9081 17 Apr, 2016 Mood disorder F39 and Asperger syndrome F84.5 [facility] [id number] [place] [address] 29582 -9767 15 Apr, 2016 Encounter for immunization Z23 and Acute non-recurrent frontal sinusitis J01.10 [facility] [address] [id number] 10 Apr, 2016 Encounter for dental examination Z01.20 [facility] [address] [id number] 21 Mar, 2016 Encounter for routine child health examination without abnormal findings Z00.129 [place] [address] 26673- 5069 14 Mar, 2016 Mood disorder F39 and Asperger syndrome F84.5 [place] [address] 32917- 1930 06 Mar, 2016 [place] [address] 80310- 4428 06 Mar, 2016 Asperger syndrome F84.5 and Oppositional behavior F91.3 [facility] [id number] [place] [address] 45875- 9078 Feb, Mood disorder F39 and Asperger syndrome F84.5 [place] [id number] [place] [address] 31386- 7615 Feb, Fatigue, unspecified type R53.83 and GERD (gastroesophageal reflux disease) K21.9 [place] [id number] [place] [address] 87792- 0851 Feb, Mood disorder F39 and Asperger syndrome F84.5 [place] [id number] [place] [address] 39186- 9541 Feb, Asperger syndrome F84.5 and Oppositional behavior F91.3 [facility] [address] [place] [address] 50953 -2747 Feb, Itchy eyes H57.8 [place] [id number] [place] [address] 43636- 6239 Feb, Encounter for initial prescription of contraceptives Z30.019 [place] [id number] [place] [address] 56538- 5749 Feb, Mood disorder F39 and Asperger syndrome F84.5 [place] [id number] [place] [address] 82950- 8710 Feb, [place] [address] 56707- 2406 Jan, Asperger syndrome F84.5 and Oppositional behavior F91.3 [place] [id number] [place] [address] 39149- 5445 Jan, Mood disorder F39 and Asperger syndrome F84.5 [place] [id number] [place] [address] 72493- 1796 Jan, [facility] [id number] [place] [address] 46454 -3688 Jan, Acute cystitis without hematuria N30.00 ; Asperger syndrome F84.5 and Oppositional behavior F91.3 [place] [id number] [place] [address] 61280- 7067 Dec, Mood disorder F39 and Asperger syndrome F84.5 [place] [id number] [place] [address] 56787- 3149 Dec, Epilepsy G40.909 ; Asperger syndrome F84.5 ; Vitamin D deficiency E55.9 and Routine health maintenance Z00.00 [facility] [address] [place] [address] 94950- 5688 Dec, Mood disorder F39 and Asperger syndrome F84.5 [place] [address] [place] [address] 25715- 2954 Dec, Epilepsy G40.909 ; Asperger syndrome F84.5 ; Vitamin D deficiency E55.9 ; GERD (gastroesophageal reflux disease) K21.9 ; Tremors of nervous system R25.1 ; Constipation K59.00 ; Oppositional behavior F91.3 ; Routine health maintenance Z00.00 ; Dysuria R30.0 ; Obesity (BMI 30.0-34.9) E66.9 and Other seasonal allergic rhinitis J30.2 [facility] [address] 59740 -2174 Dec, Leg pain, right M79.604 [place] [address] 05842- 1346 Dec, [place] [address] 32621- 0222 Dec, Dental examination Z01.20 [place] [address] 36171- 4500 November, Epilepsy G40.909 [place] [address] 03999- 8551 November, Scabies B86 ; Epilepsy G40.909 ; Vitamin D deficiency E55.9 ; Oppositional behavior F91.3 ; GERD (gastroesophageal reflux disease) K21.9 and Tremors of nervous system R25.1 [facility] [address] 80898 -6262 November, Contact dermatitis, unspecified contact dermatitis type, unspecified trigger L25.9 [place] [address] 51874- 1033 November, Asperger syndrome F84.5 ; Epilepsy G40.909 and Oppositional behavior F91.3 [place] [address] 08592- 2293 November, [place] [address] 29544- 7125 28 Oct, 2015 Encounter for Depo-Provera contraception Z30.42 [place] [address] [place] [address] 92584- 2900 15 Oct, 2015 Epilepsy G40.909 ; Asperger syndrome F84.5 ; Vitamin D deficiency E55.9 ; Encounter for Depo-Provera contraception Z30.42 ; GERD ( gastroesophageal reflux disease) K21.9 ; Tremors of nervous system R25.1 and Constipation K59.00 [place] [address] [place] [address] 44038- 4662 13 Oct, 2015 Seizure disorder G40.909 and Depo-Provera contraceptive status Z30.42 [place] [id number] [place] [address] 87724- 3941 12 Oct, 2015 [place] [id number] [place] [address] 26451- 2238 05 Oct, 2015 Epilepsy G40.909 ; Encounter for Depo-Provera contraception Z30.42 ; Asperger syndrome F84.5 and Vitamin D deficiency E55.9 IMMUNIZATIONS No Known Immunizations SOCIAL HISTORY Never Assessed REASON FOR VISIT Upset stomach, diarrhea started Wed- fever last night JStrasserRN PLAN OF CARE Activity Details Follow Up prn Reason: VITAL SIGNS Height 64.75 in 2017-08-30 Weight 237.0 lbs 2017-08-30 Temperature 98.5 degrees Fahrenheit 2017-08-30 Heart Rate 74 bpm 2017-08-30 Respiratory Rate 18 2017-08-30 BMI 39.74 kg/m2 2017-08-30 Blood pressure systolic 100 mmHg 2017-08-30 Blood pressure diastolic 70 mmHg 2017-08-30 MEDICATIONS Medication Instructions Dosage Frequency Start Date End Date Duration Status Nexplanon 68 MG as directed Dec, Active Diazepam 10 mg Rectal with seizure activity 10 mg as needed Oct, Active Propranolol HCl 10 mg Orally Twice a day 1 tablet 12h 17 May, 2017 90 days Active Zoloft 25 MG Orally Once a day 1 tablet 24h 12 Jul, 2017 30 day(s) Not -Taking Rexulti 1 MG Orally Once a day 1 tablet 24h 90 days Active Omeprazole 20 mg Orally 2 times a day 1 capsules 12h 90 days Active ibuprofen 1 tab Not-Taking Lamictal 100 mg Orally Twice a day 1 tab am and 1 tab hs 12h 90 days Active RESULTS No Results [...]
--- OUTSIDE RECORDS SUMMARY | 2018-04-17 11:38 | XMS REPORT ---
Author Author LISA BRENNAN Organization [facility] Address [address] [place] [address] Care Team Providers Care Cigarette Filter Inspector Name Role Phone LISAJAEBRENNAN Unavailable PROBLEMS Type Condition ICD9-CM Code ESK31-YT Code Onset Dates Condition Status SNOMED Code Problem Constipation K59.00 Active 31323233 Problem Dysuria R30.0 Active 91271049 Problem Oppositional behavior F91.3 Active 29776488 Problem Asperger syndrome F84.5 Active 07368608 Problem Epilepsy G40.909 Active 22326648 Problem Tremors of nervous system R25.1 Active 612392002 Problem GERD without esophagitis K21.9 Active 253306060 Problem Benign essential tremor G25.0 Active 780469307 Problem Morbid (severe) obesity due to excess calories E66.01 Active 867832188 Problem Mood disorder F39 Active 40531449 Problem Episode of recurrent major depressive disorder, unspecified depression episode severity F33.9 Active 512790716 Problem Body mass index (BMI) of 40.0-44.9 in adult Z68.41 Active 008314489 ALLERGIES No Information ENCOUNTERS Encounter Location Date Diagnosis [facility] WALK IN [facility] [id number] [place] [address] 30177 -4604 Dec, Hematuria, unspecified type R31.9 and Acute cystitis with hematuria N30.01 [facility] [id number] [place] [address] 20921- 2300 November, Asperger syndrome F84.5 [facility] [address] [id number] [place] [address] 23180- 5911 November, [facility] [id number] [place] [address] 13949- 0089 Oct, Benign essential tremor G25.0 and GERD without esophagitis K21.9 [facility] [address] [address] 2982 06 Aug, 2017 [facility] [id number] [place] [address] 07133- 2375 05 Aug, 2017 Asperger syndrome F84.5 [facility] [id number] [place] [address] 33447 -4143 02 Aug, 2017 Diarrhea, unspecified type R19.7 [facility] [id number] [place] [address] 69853- 7478 02 Aug, 2017 Episode of recurrent major depressive disorder, unspecified depression episode severity F33.9 [facility] [id number] [place] [address] [phone] Jul, Dental examination Z01.20 [place] [id number] [place] [address] 76091- 7514 Jul, Asperger syndrome F84.5 [facility] [id number] [place] [address] 29836- 7683 Jul, Asperger syndrome F84.5 [facility] [id number] [place] [address] 45489- 5539 Jul, Dental examination Z01.20 [facility] [id number] [place] [address] 92501- 8222 Jul, Asperger syndrome F84.5 ; Epilepsy G40.909 ; GERD ( gastroesophageal reflux disease) K21.9 ; Mood disorder F39 ; BMI 40.0-44.9, adult Z68.41 and Tremors of nervous system R25.1 [facility] [id number] [place] [address] 31039- 7142 Jul, Asperger syndrome F84.5 and Oppositional behavior F91.3 [facility] [id number] [place] [address] 88918- 4524 Jun, Tremors of nervous system R25.1 [facility] [id number] [place] [address] 47465- 0426 Jun, Asperger syndrome F84.5 [place] [id number] [place] [address] 34437- 5367 Jun, Asperger syndrome F84.5 [facility] [id number] [place] [address] 99479- 5595 May, [facility] [address] 34580 -7832 May, Acute non-recurrent frontal sinusitis J01.10 [place] [id number] [place] [address] 21418- 6709 May, Mood disorder F39 and Asperger syndrome F84.5 [place] [id number] [place] [address] 19601- 1417 May, Acne vulgaris L70.0 [place] [address] 41163- 5601 May, Acne vulgaris L70.0 and Tremors of nervous system R25.[address] [facility] [id number] [place] [address] 89055 -0514 May, Other viral agents as the cause of diseases classified elsewhere B97.89 and Acute upper respiratory infection, unspecified J06.9 [place] [id number] [place] [address] 61388- 9750 May, Mood disorder F39 and Asperger syndrome F84.5 [place] [id number] [place] [address] 79999- 1308 Apr, Asperger syndrome F84.5 [place] [id number] [place] [address] 13283- 1024 Apr, Asperger syndrome F84.5 and Oppositional behavior F91.3 [place] [id number] [place] [address] 94017- 9098 Mar, Mood disorder F39 and Asperger syndrome F84.5 [facility] [id number] [place] [address] 49893- 3885 Feb, GERD (gastroesophageal reflux disease) K21.9 ; Dysuria R30.0 ; Otalgia of right ear H92.01 and Decreased urination R34 [place] [address] [place] [id number] [place] [address] 83171- 8958 Feb, Mood disorder F39 and Asperger syndrome F84.5 [place] [address] 81964- 6244 Feb, Asperger syndrome F84.5 and Oppositional behavior F91.3 [facility] [address] 39449 -8463 Jan, Viral gastroenteritis A08.4 [place] [address] 38609- 2862 Jan, Mood disorder F39 and Asperger syndrome F84.5 [place] [id number] [place] [address] 68941- 1694 Jan, Asperger syndrome F84.5 and Oppositional behavior F91.[address] [facility] [place] [id number] [place] [address] 97690 -9601 Dec, FRANSICO (secretory otitis media), right H65.91 [place] [address] 70319- 2644 Dec, Mood disorder F39 and Asperger syndrome F84.5 [place] [id number] [place] [address] 71775- 8470 Dec, Otalgia, left ear H92.02 [place] [address] 49722- 6172 Dec, [place] [address] [id number] [place] [address] 04153- 4369 Dec, Mood disorder F39 and Asperger syndrome F84.5 [facility] [address] [place] [address] [phone] Dec, 2016 Dental examination Z01.20 [place] [address] 64637- 2792 31 Nov, 2016 Medicare annual wellness visit, subsequent Z00.00 ; GERD ( gastroesophageal reflux disease) K21.9 ; Counseling on health promotion and disease prevention Z71.89 and Encounter for preventative adult health care exam with abnormal findings Z00.01 [facility] [address] 88464 -1821 25 Nov, 2016 Allergic contact dermatitis due to plants, except food L23.7 [place] [address] 28865- 9040 02 Nov, 2016 Mood disorder F39 and Asperger syndrome F84.5 [facility] [place] [address] 94906 -3879 Sep, Acute bacterial conjunctivitis of right eye H10.31 and Acute suppurative otitis media of right ear without spontaneous rupture of tympanic membrane, recurrence not specified H66.001 [place] [address] 16037- 9298 07 Sep, 2016 Nexplanon insertion Z30.017 [place] [address] 82218- 4782 2016 Mood disorder F39 and Asperger syndrome F84.5 [place] [id number] [place] [address] 15787- 6697 28 Aug, 2016 Mood disorder F39 and Asperger syndrome F84.5 [place] [address] 33084- 0950 14 Aug, 2016 control counseling Z30.09 [place] [address] 32318- 3522 08 Aug, 2016 Asperger syndrome F84.5 and Oppositional behavior F91.3 [facility] [address] [phone] 08 Aug, 2016 Dental examination Z01.20 [facility] [id number] [place] [address] 99702- 3001 03 Aug, 2016 Mood disorder F39 and Asperger syndrome F84.[address] [facility] [id number] [place] [address] 35521 -1149 Jul, Acute suppurative otitis media of both ears without spontaneous rupture of tympanic membranes, recurrence not specified H66.003 [facility] [id number] [place] [address] 26913- 2718 Jul, [facility] [id number] [place] [address] 44470- 7184 Jul, Asperger syndrome F84.5 [facility] [id number] [place] [address] 41675- 7001 Jul, [facility] [id number] [place] [address] 50180- 5540 Jul, Mood disorder F39 and Asperger syndrome F84.5 [facility] [address] [id number] [place] [address] [phone] Jul, Dental examination Z01.20 [facility] [id number] [place] [address] 87092 -3238 Jul, Acute non-recurrent pansinusitis J01.40 [facility] [id number] [place] [address] 04167- 7645 Jul, Asperger syndrome F84.5 and Oppositional behavior F91.3 [facility] [id number] [place] [address] 70121- 2761 Jun, Mood disorder F39 and Asperger syndrome F84.5 [facility] [id number] [place] [address] 78917- 2206 Jun, Mood disorder F39 and Asperger syndrome F84.5 [facility] [address] [address]- 2621 Jun, Mood disorder F39 and Asperger syndrome F84.5 [facility] [id number] [place] [address] 07292- 2076 May, Mood disorder F39 and Asperger syndrome F84.5 [facility] [id number] [place] [address] 15421- 8797 May, [facility] [id number] [place] [address] 09565- 2135 May, Asperger syndrome F84.5 and Oppositional behavior F91.3 [facility] [id number] [place] [address] 09243- 0880 May, Oral contraceptive pill surveillance Z30.41 [facility] [id number] [place] [address] 37159- 5022 16 May, 2016 Mood disorder F39 and Asperger syndrome F84.5 [facility] [id number] [place] [address] 76197- 6429 May, Asperger syndrome F84.5 and Oppositional behavior F91.3 [facility] [id number] [place] [address] 47690- 2216 May, Mood disorder F39 and Asperger syndrome F84.5 [facility] [id number] [place] [address] 20879- 3218 Apr, [facility] [id number] [place] [address] 42360- 0220 Apr, Oppositional behavior F91.3 [facility] [id number] [place] [address] 67416- 0859 Apr, Asperger syndrome F84.5 and Oppositional behavior F91.3 [facility] [address], [place] [address] -9659 Apr, Contact dermatitis, unspecified contact dermatitis type, unspecified trigger L25.9 [facility] [id number] [place] [address] 27882- 3466 17 Apr, 2016 Mood disorder F39 and Asperger syndrome F84.[address] [facility] [id number] [place] [address] 71247 -0914 15 Apr, 2016 Acute non-recurrent frontal sinusitis J01.10 and Encounter for immunization Z23 [facility] [address] [place] [id number] [place] [address] [phone] 10 Apr, 2016 Encounter for dental examination Z01.20 [facility] [address] [id number] 21 Mar, 2016 Encounter for routine child health examination without abnormal findings Z00.129 [facility] [id number] [place] [address] 97101- 4794 14 Mar, 2016 Mood disorder F39 and Asperger syndrome F84.5 [facility] [id number] [place] [address] 12104- 2754 06 Mar, 2016 [facility] [address] 80127- 4428 06 Mar, 2016 Asperger syndrome F84.5 and Oppositional behavior F91.3 [facility] [id number] [place] [address] 06041- 9742 Feb, Mood disorder F39 and Asperger syndrome F84.5 [facility] [id number] [place] [address] 64435- 1746 Feb, Fatigue, unspecified type R53.83 and GERD (gastroesophageal reflux disease) K21.9 [facility] [id number] [place] [address] 98792- 0550 Feb, Mood disorder F39 and Asperger syndrome F84.5 [facility] [id number] [place] [address] 47308- 7218 Feb, Asperger syndrome F84.5 and Oppositional behavior F91.3 [facility] [id number] [place] [address] 17039 -8697 Feb, Itchy eyes H57.8 [place] [address] [place] [id number] [place] [address] 91161- 6496 Feb, Encounter for initial prescription of contraceptives Z30.019 [facility] [id number] [place] [address] 32423- 1417 Feb, Mood disorder F39 and Asperger syndrome F84.5 [place] [address] [place] [id number] [place] [address] 61235- 2194 Feb, [place] [address] 92138- 6202 Jan, Asperger syndrome F84.5 and Oppositional behavior F91.3 [place] [address] [id number] [place] [address] 62299- 7838 Jan, Mood disorder F39 and Asperger syndrome F84.5 [place] [address] [place] [address] [id number] [place] [address] 03256- 0284 Jan, [facility] [id number] [place] [address] 97904 -8029 Jan, Acute cystitis without hematuria N30.00 ; Asperger syndrome F84.5 and Oppositional behavior F91.3 [place] [address] [place] [address] [id number] [place] [address] 53585- 4753 Dec, Mood disorder F39 and Asperger syndrome F84.5 [place] [address] [place] [address] [id number] [place] [address] 45528- 6240 Dec, Epilepsy G40.909 ; Asperger syndrome F84.5 ; Vitamin D deficiency E55.9 and Routine health maintenance Z00.00 [facility] [address] [id number] [place] [address] 52834- 1277 Dec, Mood disorder F39 and Asperger syndrome F84.5 [place] [address] [place] [address] [id number] [place] [address] 78980- 4447 Dec, Epilepsy G40.909 ; Asperger syndrome F84.5 ; Vitamin D deficiency E55.9 ; GERD (gastroesophageal reflux disease) K21.9 ; Tremors of nervous system R25.1 ; Constipation K59.00 ; Oppositional behavior F91.3 ; Routine health maintenance Z00.00 ; Dysuria R30.0 ; Obesity (BMI 30.0-34.9) E66.9 and Other seasonal allergic rhinitis J30.2 [facility] [address] 16879 -4265 Dec, Leg pain, right M79.[address] 40839- 2035 Dec, [place] [address] 05520- 4266 Dec, Dental examination Z01.[address] 48998- 9925 November, Epilepsy G40.[address] 99420- 5825 November, Scabies B86 ; Epilepsy G40.909 ; Vitamin D deficiency E55.9 ; Oppositional behavior F91.3 ; GERD (gastroesophageal reflux disease) K21.9 and Tremors of nervous system R25.1 [facility] [address] 30951 -8864 November, Contact dermatitis, unspecified contact dermatitis type, unspecified trigger L25.9 [place] [address] 98741- 1153 November, Asperger syndrome F84.5 ; Epilepsy G40.909 and Oppositional behavior F91.3 [place] [address] 11747- 4952 November, [place] [address] 67716- 5232 Oct, Encounter for Depo-Provera contraception Z30.42 [place] [address] [place] [id number] [place] [address] 73010- 8682 15 Oct, 2015 Epilepsy G40.909 ; Asperger syndrome F84.5 ; Vitamin D deficiency E55.9 ; Encounter for Depo-Provera contraception Z30.42 ; GERD ( gastroesophageal reflux disease) K21.9 ; Tremors of nervous system R25.1 and Constipation K59.00 [place] [address] [place] [id number] [place] [address] 57448- 6388 13 Oct, 2015 Seizure disorder G40.909 and Depo-Provera contraceptive status Z30.42 [place] [address] [place] [id number] [place] [address] 69047- 6596 12 Oct, 2015 [place] [address] [place] [id number] [place] [address] 92575- 3918 05 Oct, 2015 Epilepsy G40.909 ; Encounter for Depo-Provera contraception Z30.42 ; Asperger syndrome F84.5 and Vitamin D deficiency E55.9 IMMUNIZATIONS No Known Immunizations SOCIAL HISTORY Never Assessed REASON FOR VISIT PLAN OF CARE VITAL SIGNS MEDICATIONS Medication Instructions Dosage Frequency Start Date End Date Duration Status Rexulti 1 MG Orally Once a day 1 tablet 24h 90 days Active Lamictal 100 mg Orally Twice a day 1 tab am and 1 tab hs 12h 90 days Active Zoloft 25 MG Orally Once a day 1 tablet 24h Jul, 90 days Active RESULTS No Results PROCEDURES [...]
--- OUTSIDE RECORDS SUMMARY | 2018-04-17 11:39 | XMS REPORT ---
Author Author BRENNAN GONZALEZ Organization [facility] [place] Address [address] [place] [address] Care Team Providers Care Wealth Management Consultant Name Role Phone GONZALEZJAE AbdallaELE Unavailable PROBLEMS Type Condition ICD9-CM Code TVJ63-VD Code Onset Dates Condition Status SNOMED Code Problem Constipation K59.00 Active 08726793 Problem Dysuria R30.0 Active 90614634 Problem Oppositional behavior F91.3 Active 17026631 Problem Asperger syndrome F84.5 Active 74716646 Problem Epilepsy G40.909 Active 72285911 Problem Tremors of nervous system R25.1 Active 825381298 Problem GERD without esophagitis K21.9 Active 591023332 Problem Benign essential tremor G25.0 Active 715993923 Problem Morbid (severe) obesity due to excess calories E66.01 Active 021402998 Problem Mood disorder F39 Active 23223787 Problem Episode of recurrent major depressive disorder, unspecified depression episode severity F33.9 Active 507111984 Problem Body mass index (BMI) of 40.0-44.9 in adult Z68.41 Active 119702241 ALLERGIES No Information ENCOUNTERS Encounter Location Date Diagnosis [facility] [place] [id number] [place] [address] 18124- 1011 November, Asperger syndrome F84.5 [facility] [place] [id number] [place] [address] 35891- 4920 November, [facility] [place] [id number] [place] [address] 10219- 6793 Oct, Benign essential tremor G25.0 and GERD without esophagitis K21.9 [facility] [place] [id number] [place] [address] 48384- 7022 Aug, [facility] [place] [id number] [place] [address] 29233- 3844 05 Aug, 2017 Asperger syndrome F84.5 [facility] [id number] [place] [address] 28084 -5814 02 Aug, 2017 Diarrhea, unspecified type R19.7 [facility] [place] [id number] [place] [address] 47250- 4537 02 Aug, 2017 Episode of recurrent major depressive disorder, unspecified depression episode severity F33.9 [facility] [id number] [place] [address] [id number] Jul, Dental examination Z01.20 [facility] [place] [address] 20040- 7172 Jul, Asperger syndrome F84.5 [facility] [place] [id number] [place] [address] 84692- 2871 Jul, Asperger syndrome F84.5 [facility] [place] [id number] [place] [address] 70787- 9562 Jul, Dental examination Z01.20 [facility] [place] [id number] [place] [address] 15760- 6152 Jul, Asperger syndrome F84.5 ; Epilepsy G40.909 ; GERD ( gastroesophageal reflux disease) K21.9 ; Mood disorder F39 ; BMI 40.0-44.9, adult Z68.41 and Tremors of nervous system R25.1 [facility] [place] [id number] [place] [address] 43223- 6009 Jul, Asperger syndrome F84.5 and Oppositional behavior F91.3 [facility] [place] [id number] [place] [address] 00135- 6957 Jun, Tremors of nervous system R25.1 [facility] [place] [id number] [place] [address] 69277- 5417 Jun, Asperger syndrome F84.5 [facility] [place] [id number] [place] [address] 67953- 7275 Jun, Asperger syndrome F84.5 [facility] [place] [id number] [place] [address] 10805- 0829 May, [facility] [address] 97697 -6201 May, Acute non-recurrent frontal sinusitis J01.10 [place] [address] 21363- 5789 May, Mood disorder F39 and Asperger syndrome F84.5 [place] [address] 97627- 8008 May, Acne vulgaris L70.0 [place] [address] 55913- 5375 May, Acne vulgaris L70.0 and Tremors of nervous system R25.1 [facility] [id number] [place] [address] 27851 -8727 May, Other viral agents as the cause of diseases classified elsewhere B97.89 and Acute upper respiratory infection, unspecified J06.9 [place] [id number] [place] [address] 41613- 2152 May, Mood disorder F39 and Asperger syndrome F84.5 [place] [id number] [place] [address] 51612- 3140 Apr, Asperger syndrome F84.5 [place] [id number] [place] [address] 62695- 5700 Apr, Asperger syndrome F84.5 and Oppositional behavior F91.3 [place] [address] 60356- 0051 Mar, Mood disorder F39 and Asperger syndrome F84.5 [place] [id number] [place] [address] 59933- 1558 Feb, GERD (gastroesophageal reflux disease) K21.9 ; Dysuria R30.0 ; Otalgia of right ear H92.01 and Decreased urination R34 [facility] [place] [address] 27967- 8391 Feb, Mood disorder F39 and Asperger syndrome F84.5 [facility] [place] [address] 50409- 4964 Feb, Asperger syndrome F84.5 and Oppositional behavior F91.3 [facility] [address] 72656 -2955 Jan, Viral gastroenteritis A08.4 [facility] [place] [address] 98501- 5582 Jan, Mood disorder F39 and Asperger syndrome F84.5 [place] [address] 24912- 9895 Jan, Asperger syndrome F84.5 and Oppositional behavior F91.3 [facility] [address] 07979 -9375 Dec, FRANSICO (secretory otitis media), right H65.91 [facility] [place] [address] 70857- 0952 Dec, Mood disorder F39 and Asperger syndrome F84.5 [facility] [place] [address] 51864- 7349 Dec, Otalgia, left ear H92.02 [facility] [place] [address] 11370- 9676 Dec, [facility] [place] [address] 60677- 0689 Dec, Mood disorder F39 and Asperger syndrome F84.5 [facility] [id number] [place] [address] [id number] 07 Dec, 2016 Dental examination Z01.20 [facility] [place] [address] 87402- 8078 31 Nov, 2016 Medicare annual wellness visit, subsequent Z00.00 ; GERD ( gastroesophageal reflux disease) K21.9 ; Counseling on health promotion and disease prevention Z71.89 and Encounter for preventative adult health care exam with abnormal findings Z00.01 [facility] [address] 71866 -7032 November, Allergic contact dermatitis due to plants, except food L23.7 [place] [address] 99197- 1141 02 Nov, 2016 Mood disorder F39 and Asperger syndrome F84.5 [facility] [address] 06174 -3243 31 Sep, 2016 Acute bacterial conjunctivitis of right eye H10.31 and Acute suppurative otitis media of right ear without spontaneous rupture of tympanic membrane, recurrence not specified H66.001 [place] [address] 55733- 7002 07 Sep, 2016 Nexplanon insertion Z30.017 [place] [address] 82765- 9345 2016 Mood disorder F39 and Asperger syndrome F84.5 [place] [address] 09899- 3206 28 Aug, 2016 Mood disorder F39 and Asperger syndrome F84.5 [place] [address] 46635- 8719 14 Aug, 2016 control counseling Z30.09 [place] [address] 46865- 8423 08 Aug, 2016 Asperger syndrome F84.5 and Oppositional behavior F91.3 [facility] [address] [id number] 08 Aug, 2016 Dental examination Z01.20 [place] [address] 01797- 1442 Aug, Mood disorder F39 and Asperger syndrome F84.5 [facility] [id number] [place] [address] 71817 -8501 Jul, Acute suppurative otitis media of both ears without spontaneous rupture of tympanic membranes, recurrence not specified H66.003 [facility] [place] [id number] [place] [address] 02374- 6488 Jul, [facility] [place] [address] 95086- 4371 Jul, Asperger syndrome F84.5 [facility] [place] [address] 29496- 5971 Jul, [facility] [place] [address] 33047- 7331 Jul, Mood disorder F39 and Asperger syndrome F84.5 [facility] [address] [id number] Jul, Dental examination Z01.20 [facility] [id number] [place] [address] 24251 -0025 Jul, Acute non-recurrent pansinusitis J01.40 [facility] [place] [id number] [place] [address] 52992- 1279 Jul, Asperger syndrome F84.5 and Oppositional behavior F91.3 [facility] [place] [id number] [place] [address] 45449- 3894 Jun, Mood disorder F39 and Asperger syndrome F84.5 [facility] [place] [id number] [place] [address] 06319- 9442 Jun, Mood disorder F39 and Asperger syndrome F84.5 [facility] [place] [id number] [place] [address] 45235- 9423 Jun, Mood disorder F39 and Asperger syndrome F84.5 [facility] [place] [address] [place] [address]- 6294 30 May, 2016 Mood disorder F39 and Asperger syndrome F84.5 [facility] [place] [id number] [place] [address] 94868- 4517 May, [facility] [place] [id number] [place] [address] 67812- 8627 May, Asperger syndrome F84.5 and Oppositional behavior F91.3 [facility] [place] [id number] [place] [address] 32750- 4486 May, Oral contraceptive pill surveillance Z30.41 [place] [address] 25706- 3730 16 May, 2016 Mood disorder F39 and Asperger syndrome F84.5 [place] [id number] [place] [address] 53833- 9222 May, Asperger syndrome F84.5 and Oppositional behavior F91.3 [facility] [place] [id number] [place] [address] 29866- 8545 May, Mood disorder F39 and Asperger syndrome F84.5 [place] [id number] [place] [address] 72322- 8312 31 Apr, 2016 [facility] [place] [id number] [place] [address] 05251- 1785 Apr, Oppositional behavior F91.3 [facility] [place] [id number] [place] [address] 37722- 8321 Apr, Asperger syndrome F84.5 and Oppositional behavior F91.3 [facility] [id number] [place] [address] 12734 -1528 Apr, Contact dermatitis, unspecified contact dermatitis type, unspecified trigger L25.9 [facility] [place] [id number] [place] [address] 96221- 8758 Apr, Mood disorder F39 and Asperger syndrome F84.5 [facility] [id number] [place] [address] 24658 -3950 15 Apr, 2016 Acute non-recurrent frontal sinusitis J01.10 and Encounter for immunization Z23 [facility] [address] [place] [address] [id number] 10 Apr, 2016 Encounter for dental examination Z01.20 [facility] [id number] [place] [address] [id number] 21 Mar, 2016 Encounter for routine child health examination without abnormal findings Z00.129 [facility] [place] [address] 15616- 8176 14 Mar, 2016 Mood disorder F39 and Asperger syndrome F84.5 [place] [address] 63511- 5505 06 Mar, 2016 [place] [address] 50078- 2684 06 Mar, 2016 Asperger syndrome F84.5 and Oppositional behavior F91.3 [facility] [place] [address] 88945- 0457 Feb, Mood disorder F39 and Asperger syndrome F84.5 [facility] [place] [address] 31298- 3047 Feb, Fatigue, unspecified type R53.83 and GERD (gastroesophageal reflux disease) K21.9 [facility] [place] [id number] [place] [address] 44547- 0605 Feb, Mood disorder F39 and Asperger syndrome F84.5 [facility] [place] [id number] [place] [address] 73118- 8889 Feb, Asperger syndrome F84.5 and Oppositional behavior F91.3 [facility] [id number] [place] [address] 98635 -4642 05 Feb, 2016 Itchy eyes H57.8 [facility] [place] [address] 35558- 7420 Feb, Encounter for initial prescription of contraceptives Z30.019 [place] [id number] [place] [address] 43427- 9776 Feb, Mood disorder F39 and Asperger syndrome F84.5 [facility] [place] [id number] [place] [address] 77459- 5879 Feb, [place] [address] 67553- 8811 Jan, Asperger syndrome F84.5 and Oppositional behavior F91.3 [place] [id number] [place] [address] 50781- 0967 Jan, Mood disorder F39 and Asperger syndrome F84.5 [place] [id number] [place] [address] 14246- 9882 Jan, [facility] [address] 57573 -3470 Jan, Acute cystitis without hematuria N30.00 ; Asperger syndrome F84.5 and Oppositional behavior F91.3 [place] [id number] [place] [address] 05361- 0294 Dec, Mood disorder F39 and Asperger syndrome F84.5 [place] [id number] [place] [address] 00854- 0278 Dec, Epilepsy G40.909 ; Asperger syndrome F84.5 ; Vitamin D deficiency E55.9 and Routine health maintenance Z00.00 [facility] [place] [id number] [place] [address] 45701- 0430 Dec, Mood disorder F39 and Asperger syndrome F84.5 [place] [id number] [place] [address] 00105- 4689 09 Dec, 2015 Epilepsy G40.909 ; Asperger syndrome F84.5 ; Vitamin D deficiency E55.9 ; GERD (gastroesophageal reflux disease) K21.9 ; Tremors of nervous system R25.1 ; Constipation K59.00 ; Oppositional behavior F91.3 ; Routine health maintenance Z00.00 ; Dysuria R30.0 ; Obesity (BMI 30.0-34.9) E66.9 and Other seasonal allergic rhinitis J30.2 [facility] [address] 23175 -9994 Dec, Leg pain, right M79.604 [place] [address] 07626- 5229 Dec, [place] [address] 79463- 9687 Dec, Dental examination Z01.20 [place] [address] 17666- 7199 November, Epilepsy G40.909 [place] [address] 59019- 4759 November, Scabies B86 ; Epilepsy G40.909 ; Vitamin D deficiency E55.9 ; Oppositional behavior F91.3 ; GERD (gastroesophageal reflux disease) K21.9 and Tremors of nervous system R25.1 [facility] [address] 31314 -4206 November, Contact dermatitis, unspecified contact dermatitis type, unspecified trigger L25.9 [place] [address] 61542- 0581 November, Asperger syndrome F84.5 ; Epilepsy G40.909 and Oppositional behavior F91.3 [place] [address] 42303- 1229 November, [address] 89471- 4742 Oct, Encounter for Depo-Provera contraception Z30.42 [place] [address] 41435- 8555 Oct, Epilepsy G40.909 ; Asperger syndrome F84.5 ; Vitamin D deficiency E55.9 ; Encounter for Depo-Provera contraception Z30.42 ; GERD ( gastroesophageal reflux disease) K21.9 ; Tremors of nervous system R25.1 and Constipation K59.00 [place] [address] [address] 6397 13 Oct, 2015 Seizure disorder G40.909 and Depo-Provera contraceptive status Z30.42 [place] [id number] [place] [address] 80153- 0624 12 Oct, 2015 [place] [id number] [place] [address] 28388- 4869 05 Oct, 2015 Epilepsy G40.909 ; Encounter for Depo-Provera contraception Z30.42 ; Asperger syndrome F84.5 and Vitamin D deficiency E55.9 IMMUNIZATIONS No Known Immunizations SOCIAL HISTORY Never Assessed REASON FOR VISIT Repository Medication PLAN OF CARE VITAL SIGNS MEDICATIONS Medication Instructions Dosage Frequency Start Date End Date Duration Status Lamictal 100 mg Orally Twice a day 1 tablet 12h 45 days Active RESULTS No Results PROCEDURES No [...]
--- OUTSIDE RECORDS SUMMARY | 2018-04-17 11:39 | XMS REPORT ---
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 Name Role Phone KENAN LANCE Unavailable PROBLEMS Type Condition ICD9-CM Code [id number] Code Onset Dates Condition Status SNOMED Code Problem Constipation K59.00 Active 64588167 Problem Dysuria R30.0 Active 68024572 Problem Oppositional behavior F91.3 Active 43777359 Problem Asperger syndrome F84.5 Active 92661517 Problem Epilepsy G40.909 Active 68582411 Problem Tremors of nervous system R25.1 Active 273089194 Problem GERD without esophagitis K21.9 Active 620723703 Problem Benign essential tremor G25.0 Active 494674881 Problem Morbid (severe) obesity due to excess calories E66.01 Active 074273432 Problem Mood disorder F39 Active 10209008 Problem Episode of recurrent major depressive disorder, unspecified depression episode severity F33.9 Active 778304754 Problem Body mass index (BMI) of 40.0-44.9 in adult Z68.41 Active [id number] ALLERGIES No Information ENCOUNTERS Encounter Location Date Diagnosis [facility] [id number] [place] [address]385 -1260 Dec, Hematuria, unspecified type R31.9 and Acute cystitis with hematuria N30.01 [facility] [id number] [place] [address] 99947- 0047 November, Asperger syndrome F84.5 [facility] [id number] [place] [address] 74955- 1980 November, [facility] [id number] [place] [address] 74589- 3702 Oct, Benign essential tremor G25.0 and GERD without esophagitis K21.9 [facility] [address] [address] 06 Aug, 2017 [facility] [id number] [place] [address] 84859- 9752 05 Aug, 2017 Asperger syndrome F84.5 [facility] [address] [place] [address] 58108 -9821 02 Aug, 2017 Diarrhea, unspecified type R19.7 [facility] [id number] [place] [address] 07927- 1008 02 Aug, 2017 Episode of recurrent major depressive disorder, unspecified depression episode severity F33.9 [facility] [address] [place] [address] [phone] Jul, Dental examination Z01.20 [place] [address] [place] [address] 08965- 4905 Jul, Asperger syndrome F84.5 [facility] [id number] [place] [address] 70113- 6747 Jul, Asperger syndrome F84.5 [facility] [id number] [place] [address] 80981- 9698 Jul, Dental examination Z01.20 [facility] [address] [place] [address] 03336- 4484 Jul, Asperger syndrome F84.5 ; Epilepsy G40.909 ; GERD ( gastroesophageal reflux disease) K21.9 ; Mood disorder F39 ; BMI 40.0-44.9, adult Z68.41 and Tremors of nervous system R25.1 [facility] [address] [place] [address] 07813- 4352 Jul, Asperger syndrome F84.5 and Oppositional behavior F91.3 [facility] [address] [place] [address] 22190- 5565 Jun, Tremors of nervous system R25.1 [facility] [id number] [place] [address] 99078- 3285 Jun, Asperger syndrome F84.5 [place] [id number] [place] [address] 40263- 3613 Jun, Asperger syndrome F84.5 [facility] [id number] [place] [address] 31088- 1593 May, [facility] [address] 98834 -2759 May, Acute non-recurrent frontal sinusitis J01.10 [place] [id number] [place] [address] 35322- 3019 May, Mood disorder F39 and Asperger syndrome F84.5 [place] [id number] [place] [address] 74247- 9266 May, Acne vulgaris L70.0 [place] [address] 31326- 0301 May, Acne vulgaris L70.0 and Tremors of nervous system R25.1 [facility] [id number] [place] [address] 76392 -5073 May, Other viral agents as the cause of diseases classified elsewhere B97.89 and Acute upper respiratory infection, unspecified J06.9 [place] [address] [place] [address] 54770- 2919 May, Mood disorder F39 and Asperger syndrome F84.5 [place] [id number] [place] [address] 79925- 3141 Apr, Asperger syndrome F84.5 [place] [id number] [place] [address] 79954- 3118 Apr, Asperger syndrome F84.5 and Oppositional behavior F91.3 [place] [id number] [place] [address] 26687- 1176 Mar, Mood disorder F39 and Asperger syndrome F84.5 [facility] [id number] [place] [address] 15500- 0905 Feb, GERD (gastroesophageal reflux disease) K21.9 ; Dysuria R30.0 ; Otalgia of right ear H92.01 and Decreased urination R34 [place] [id number] [place] [address] 70590- 7090 Feb, Mood disorder F39 and Asperger syndrome F84.5 [place] [address] 77948- 3568 Feb, Asperger syndrome F84.5 and Oppositional behavior F91.3 [facility] [address] 55568 -6957 Jan, Viral gastroenteritis A08.4 [place] [address] 59228- 0367 Jan, Mood disorder F39 and Asperger syndrome F84.5 [place] [id number] [place] [address] 10886- 6268 Jan, Asperger syndrome F84.5 and Oppositional behavior F91.3 [facility] [place] [id number] [place] [address] 48598 -4939 Dec, FRANSICO (secretory otitis media), right H65.91 [place] [address] 52340- 1816 Dec, Mood disorder F39 and Asperger syndrome F84.5 [place] [id number] [place] [address] 22173- 0465 Dec, Otalgia, left ear H92.02 [place] [address] 62482- 9285 Dec, [place] [id number] [place] [address] 52769- 5964 Dec, Mood disorder F39 and Asperger syndrome F84.5 [facility] [address] [place] [address] [phone] 07 Dec, 2016 Dental examination Z01.20 [place] [address] 61265- 6973 31 Nov, 2016 Medicare annual wellness visit, subsequent Z00.00 ; GERD ( gastroesophageal reflux disease) K21.9 ; Counseling on health promotion and disease prevention Z71.89 and Encounter for preventative adult health care exam with abnormal findings Z00.01 [facility] [address] 33210 -7370 25 Nov, 2016 Allergic contact dermatitis due to plants, except food L23.7 [place] [address] 01827- 5176 02 Nov, 2016 Mood disorder F39 and Asperger syndrome F84.5 [facility] [place] [address] 75341 -9096 Sep, Acute bacterial conjunctivitis of right eye H10.31 and Acute suppurative otitis media of right ear without spontaneous rupture of tympanic membrane, recurrence not specified H66.001 [place] [address] 83039- 9201 07 Sep, 2016 Nexplanon insertion Z30.017 [place] [address] 13862- 2254 2016 Mood disorder F39 and Asperger syndrome F84.5 [place] [id number] [place] [address] 46170- 3341 28 Aug, 2016 Mood disorder F39 and Asperger syndrome F84.5 [place] [address] 42589- 5238 14 Aug, 2016 control counseling Z30.09 [place] [address] 64768- 0364 08 Aug, 2016 Asperger syndrome F84.5 and Oppositional behavior F91.3 [facility] [address] [phone] 08 Aug, 2016 Dental examination Z01.20 [facility] [id number] [place] [address] 23251- 1533 03 Aug, 2016 Mood disorder F39 and Asperger syndrome F84.5 [facility] [address] [place] [address] 28042 -4680 Jul, Acute suppurative otitis media of both ears without spontaneous rupture of tympanic membranes, recurrence not specified H66.003 [facility] [address] [place] [address] 66014- 3282 Jul, [facility] [id number] [place] [address] 69810- 8158 Jul, Asperger syndrome F84.5 [facility] [id number] [place] [address] 01830- 6584 Jul, [facility] [id number] [place] [address] 80323- 9951 Jul, Mood disorder F39 and Asperger syndrome F84.5 [facility] [id number] [place] [address] [phone] Jul, Dental examination Z01.20 [facility] [address] [place] [address] 57042 -8456 Jul, Acute non-recurrent pansinusitis J01.40 [facility] [address] [place] [address] 23608- 8836 Jul, Asperger syndrome F84.5 and Oppositional behavior F91.3 [facility] [id number] [place] [address] 68455- 0286 Jun, Mood disorder F39 and Asperger syndrome F84.5 [facility] [address] [place] [address] 61644- 9047 Jun, Mood disorder F39 and Asperger syndrome F84.5 [facility] [address], [place] [address]- 1174 Jun, Mood disorder F39 and Asperger syndrome F84.5 [facility] [id number] [place] [address] 04085- 5460 May, Mood disorder F39 and Asperger syndrome F84.5 [facility] [id number] [place] [address] 80775- 6232 May, [facility] [id number] [place] [address] 56313- 5011 May, Asperger syndrome F84.5 and Oppositional behavior F91.3 [facility] [id number] [place] [address] 39494- 3362 May, Oral contraceptive pill surveillance Z30.41 [facility] [id number] [place] [address] 07507- 7984 16 May, 2016 Mood disorder F39 and Asperger syndrome F84.5 [facility] [id number] [place] [address] 15354- 6586 May, Asperger syndrome F84.5 and Oppositional behavior F91.3 [facility] [id number] [place] [address] 08644- 4413 May, Mood disorder F39 and Asperger syndrome F84.5 [facility] [address] [place] [address] 97629- 3068 Apr, [facility] [address] [place] [address] 68867- 7673 Apr, Oppositional behavior F91.3 [facility] [id number] [place] [address] 01455- 9899 Apr, Asperger syndrome F84.5 and Oppositional behavior F91.3 [facility] [address] [address] -1203 Apr, Contact dermatitis, unspecified contact dermatitis type, unspecified trigger L25.9 [facility] [id number] [place] [address] 19493- 7498 17 Apr, 2016 Mood disorder F39 and Asperger syndrome F84.5 [facility] [id number] [place] [address] 12149 -5282 15 Apr, 2016 Acute non-recurrent frontal sinusitis J01.10 and Encounter for immunization Z23 [facility] [address] [address] [id number] [place] [address] [phone] 10 Apr, 2016 Encounter for dental examination Z01.20 [facility] [address] [id number] 21 Mar, 2016 Encounter for routine child health examination without abnormal findings Z00.129 [facility] [id number] [place] [address] 92327- 6086 14 Mar, 2016 Mood disorder F39 and Asperger syndrome F84.5 [facility] [id number] [place] [address] 96869- 2927 06 Mar, 2016 [facility] [address] 18049- 0371 06 Mar, 2016 Asperger syndrome F84.5 and Oppositional behavior F91.3 [facility] [id number] [place] [address] 26504- 1892 Feb, Mood disorder F39 and Asperger syndrome F84.5 [facility] [id number] [place] [address] 87733- 6339 Feb, Fatigue, unspecified type R53.83 and GERD (gastroesophageal reflux disease) K21.9 [facility] [id number] [place] [address] 31252- 8382 Feb, Mood disorder F39 and Asperger syndrome F84.5 [facility] [address] [place] [address] 47294- 8910 Feb, Asperger syndrome F84.5 and Oppositional behavior F91.3 [facility] [id number] [place] [address] 09157 -4672 Feb, Itchy eyes H57.8 [place] [address] [id number] [place] [address] 57373- 1783 Feb, Encounter for initial prescription of contraceptives Z30.019 [facility] [id number] [place] [address] 04457- 7638 Feb, Mood disorder F39 and Asperger syndrome F84.5 [place] [id number] [place] [address] 81150- 3300 Feb, [place] [address] 86166- 1706 Jan, Asperger syndrome F84.5 and Oppositional behavior F91.3 [place] [id number] [place] [address] 31135- 1162 Jan, Mood disorder F39 and Asperger syndrome F84.5 [place] [id number] [place] [address] 93422- 1382 Jan, [facility] [id number] [place] [address] 05872 -4413 Jan, Acute cystitis without hematuria N30.00 ; Asperger syndrome F84.5 and Oppositional behavior F91.3 [place] [id number] [place] [address] 91607- 5728 Dec, Mood disorder F39 and Asperger syndrome F84.5 [place] [id number] [place] [address] 13458- 1039 Dec, Epilepsy G40.909 ; Asperger syndrome F84.5 ; Vitamin D deficiency E55.9 and Routine health maintenance Z00.00 [facility] [id number] [place] [address] 88060- 0160 Dec, Mood disorder F39 and Asperger syndrome F84.5 [place] [id number] [place] [address] 84034- 0208 Dec, Epilepsy G40.909 ; Asperger syndrome F84.5 ; Vitamin D deficiency E55.9 ; GERD (gastroesophageal reflux disease) K21.9 ; Tremors of nervous system R25.1 ; Constipation K59.00 ; Oppositional behavior F91.3 ; Routine health maintenance Z00.00 ; Dysuria R30.0 ; Obesity (BMI 30.0-34.9) E66.9 and Other seasonal allergic rhinitis J30.2 [facility] [address] 05552 -6154 Dec, Leg pain, right M79.[address] 99474- 2716 Dec, [place] [address] 92444- 2024 Dec, Dental examination Z01.[address] 27627- 1192 November, Epilepsy G40.[address] 58005- 1660 November, Scabies B86 ; Epilepsy G40.909 ; Vitamin D deficiency E55.9 ; Oppositional behavior F91.3 ; GERD (gastroesophageal reflux disease) K21.9 and Tremors of nervous system R25.1 [facility] [address] 88601 -1601 November, Contact dermatitis, unspecified contact dermatitis type, unspecified trigger L25.9 [place] [address] 76851- 7821 November, Asperger syndrome F84.5 ; Epilepsy G40.909 and Oppositional behavior F91.3 [place] [address] 80231- 4518 November, [place] [address] 32868- 9689 Oct, Encounter for Depo-Provera contraception Z30.42 [place] [id number] [place] [address] 49552- 3851 15 Oct, 2015 Epilepsy G40.909 ; Asperger syndrome F84.5 ; Vitamin D deficiency E55.9 ; Encounter for Depo-Provera contraception Z30.42 ; GERD ( gastroesophageal reflux disease) K21.9 ; Tremors of nervous system R25.1 and Constipation K59.00 [place] [address] 91285- 0546 13 Oct, 2015 Seizure disorder G40.909 and Depo-Provera contraceptive status Z30.42 [place] [address] 07829- 3003 12 Oct, 2015 [place] [address] 37232- 6808 05 Oct, 2015 Epilepsy G40.909 ; Encounter for Depo-Provera contraception Z30.42 ; Asperger syndrome F84.5 and Vitamin D deficiency E55.9 IMMUNIZATIONS No Known Immunizations SOCIAL HISTORY Never Assessed REASON FOR VISIT Rexulti dx code PLAN OF CARE VITAL SIGNS MEDICATIONS No [...]
--- OUTSIDE RECORDS SUMMARY | 2018-04-17 11:40 | XMS REPORT ---
Author Author HUMERA Cross Organization [facility] Address [address] [place] [address] Care Team Providers Care Design Cell Engineer Name Role Phone HUMERA Cross Unavailable PROBLEMS Type Condition ICD9-CM Code PID99-FG Code Onset Dates Condition Status SNOMED Code Problem Constipation K59.00 Active 65147608 Problem GERD (gastroesophageal reflux disease) K21.9 Active 031544221 Problem Tremors of nervous system R25.1 Active 547902164 Problem Asperger syndrome F84.5 Active 57257797 Problem Epilepsy G40.909 Active 89987529 Problem Episode of recurrent major depressive disorder, unspecified depression episode severity F33.9 Active 627349355 Problem Morbid (severe) obesity due to excess calories E66.01 Active 865627191 Problem Dysuria R30.0 Active 28720074 Problem Oppositional behavior F91.3 Active 79365724 Problem Body mass index (BMI) of 40.0-44.9 in adult Z68.41 Active 147103647 Problem Mood disorder F39 Active 82474183 ALLERGIES No Known Allergies ENCOUNTERS Encounter Location Date Diagnosis [facility] [id number] [place] [address] 68202- 2867 Aug, [facility] [id number] [place] [address] 81519- 5003 Aug, Asperger syndrome F84.5 [facility] [id number] [place] [address] 24235 -7069 Aug, Diarrhea, unspecified type R19.7 [facility] [address] [place] [address] 13561- 1892 Aug, Episode of recurrent major depressive disorder, unspecified depression episode severity F33.9 [facility] [id number] [id number] Jul, Dental examination Z01.20 [facility] [id number] [place] [address] 43169- 7974 Jul, Asperger syndrome F84.5 [facility] [id number] [place] [address] 53858- 0870 Jul, Asperger syndrome F84.5 [facility] [id number] [place] [address] 16318- 0142 Jul, Dental examination Z01.20 [facility] [id number] [place] [address] 63849- 3629 Jul, Asperger syndrome F84.5 ; Epilepsy G40.909 ; GERD ( gastroesophageal reflux disease) K21.9 ; Mood disorder F39 ; BMI 40.0-44.9, adult Z68.41 and Tremors of nervous system R25.1 [facility] [id number] [place] [address] 10530- 2319 Jul, Asperger syndrome F84.5 and Oppositional behavior F91.3 [facility] [id number] [place] [address] 97571- 8660 Jun, Tremors of nervous system R25.1 [facility] [id number] [place] [address] 87950- 0781 14 Jun, 2017 Asperger syndrome F84.5 [facility] [id number] [place] [address] 84592- 2306 Jun, Asperger syndrome F84.5 [facility] [id number] [place] [address] 50173- 4595 May, [facility] [id number] [place] [address] 02798 -6432 May, Acute non-recurrent frontal sinusitis J01.10 [facility] [id number] [place] [address] 06888- 2125 May, Mood disorder F39 and Asperger syndrome F84.5 [place] [id number] [place] [address] 71715- 6719 May, Acne vulgaris L70.0 [facility] [id number] [place] [address] 39782- 8319 May, Acne vulgaris L70.0 and Tremors of nervous system R25.1 [facility] [address] 70015 -0584 May, Other viral agents as the cause of diseases classified elsewhere B97.89 and Acute upper respiratory infection, unspecified J06.9 [facility] [address] 56933- 4461 May, Mood disorder F39 and Asperger syndrome F84.5 [facility] [address] 75882- 5523 Apr, Asperger syndrome F84.5 [facility] [address] 18578- 7832 Apr, Asperger syndrome F84.5 and Oppositional behavior F91.3 [facility] [id number] [place] [address] 93564- 1733 Mar, Mood disorder F39 and Asperger syndrome F84.5 [facility] [address] 39930- 4617 Feb, GERD (gastroesophageal reflux disease) K21.9 ; Dysuria R30.0 ; Otalgia of right ear H92.01 and Decreased urination R34 [facility] [id number] [place] [address] 27697- 3321 Feb, Mood disorder F39 and Asperger syndrome F84.5 [facility] [id number] [place] [address] 75751- 5078 Feb, Asperger syndrome F84.5 and Oppositional behavior F91.3 [facility] [id number] [place] [address] 68334 -4708 11 Jan, 2017 Viral gastroenteritis A08.4 [facility] [address] 81573- 2843 11 Jan, 2017 Mood disorder F39 and Asperger syndrome F84.5 [facility] [address] 51451- 5236 07 Jan, 2017 Asperger syndrome F84.5 and Oppositional behavior F91.3 [facility] [id number] [place] [address] 23048 -9417 27 Dec, 2016 FRANSICO (secretory otitis media), right H65.91 [facility] [address] 38982- 3805 27 Dec, 2016 Mood disorder F39 and Asperger syndrome F84.5 [facility] [address] 40941- 7556 Dec, Otalgia, left ear H92.02 [facility] [address] 04177- 6410 14 Dec, [address] 50171- 6805 14 Dec, 2016 Mood disorder F39 and Asperger syndrome F84.5 [facility] [id number] [place] [address] [phone] 07 Dec, 2016 Dental examination Z01.20 [facility] [id number] [place] [address] 28556- 5415 31 Nov, 2016 Medicare annual wellness visit, subsequent Z00.00 ; GERD ( gastroesophageal reflux disease) K21.9 ; Counseling on health promotion and disease prevention Z71.89 and Encounter for preventative adult health care exam with abnormal findings Z00.01 [facility] [id number] [place] [address] 45111 -2126 November, Allergic contact dermatitis due to plants, except food L23.7 [facility] [id number] [place] [address] 13593- 2166 November, Mood disorder F39 and Asperger syndrome F84.5 [facility] [id number] [place] [address] 89398 -9604 Sep, Acute bacterial conjunctivitis of right eye H10.31 and Acute suppurative otitis media of right ear without spontaneous rupture of tympanic membrane, recurrence not specified H66.001 [place] [address] 20138- 2781 07 Sep, 2016 Nexplanon insertion Z30.017 [facility] [address] 10915- 0981 2016 Mood disorder F39 and Asperger syndrome F84.5 [facility] [address] 01730- 5151 28 Aug, 2016 Mood disorder F39 and Asperger syndrome F84.5 [facility] [id number] [place] [address] 87005- 4905 14 Aug, 2016 control counseling Z30.09 [facility] [address] 38209- 7458 08 Aug, 2016 Asperger syndrome F84.5 and Oppositional behavior F91.3 [facility] [address] [phone] 08 Aug, 2016 Dental examination Z01.20 [facility] [id number] [place] [address] 86838- 3666 03 Aug, 2016 Mood disorder F39 and Asperger syndrome F84.5 [facility] [id number] [place] [address] 23038 -9756 Jul, Acute suppurative otitis media of both ears without spontaneous rupture of tympanic membranes, recurrence not specified H66.003 [facility] [id number] [place] [address] 84058- 3005 Jul, [facility] [address], [place] [address] 7912 Jul, Asperger syndrome F84.5 [facility] [address] [place] [address] 93720- 4718 Jul, [facility] [address] [place] [address] 40117- 1816 Jul, Mood disorder F39 and Asperger syndrome F84.5 [facility] [address] [id number] Jul, Dental examination Z01.20 [facility] [id number] [place] [address] 32492 -1510 Jul, Acute non-recurrent pansinusitis J01.40 [facility] [id number] [place] [address] 30920- 9224 Jul, Asperger syndrome F84.5 and Oppositional behavior F91.3 [facility] [address] [place] [address] 78011- 5459 Jun, Mood disorder F39 and Asperger syndrome F84.5 [facility] [id number] [place] [address] 00929- 2587 Jun, Mood disorder F39 and Asperger syndrome F84.5 [facility] [address], [place] [address]- 9865 Jun, Mood disorder F39 and Asperger syndrome F84.5 [facility] [address], [place] [address]- 2746 May, Mood disorder F39 and Asperger syndrome F84.5 [facility] [address] [place] [address] 82345- 3649 May, [facility] [address] [address]- 1690 May, Asperger syndrome F84.5 and Oppositional behavior F91.3 [facility] [id number] [place] [address] 70269- 4138 17 May, 2016 Oral contraceptive pill surveillance Z30.41 [facility] [address] 59202- 5164 16 May, 2016 Mood disorder F39 and Asperger syndrome F84.5 [facility] [id number] [place] [address] 26333- 7255 11 May, 2016 Asperger syndrome F84.5 and Oppositional behavior F91.3 [facility] [id number] [place] [address] 75955- 8121 02 May, 2016 Mood disorder F39 and Asperger syndrome F84.5 [place] [facility] [address] 73162- 9143 31 Apr, 2016 [facility] [address] 52937- 6601 Apr, Oppositional behavior F91.3 [facility] [address] 22990- 5687 Apr, Asperger syndrome F84.5 and Oppositional behavior F91.3 [facility] [id number] [place] [address] 54036 -5966 Apr, Contact dermatitis, unspecified contact dermatitis type, unspecified trigger L25.9 [facility] [id number] [place] [address] 40903- 1935 Apr, Mood disorder F39 and Asperger syndrome F84.5 [facility] [id number] [place] [address] 32498 -4962 15 Apr, 2016 Acute non-recurrent frontal sinusitis J01.10 and Encounter for immunization Z23 [facility] [id number] [place] [address] [phone] 10 Apr, 2016 Encounter for dental examination Z01.20 [facility] [id number] [place] [address] [phone] 21 Mar, 2016 Encounter for routine child health examination without abnormal findings Z00.129 [facility] [id number] [place] [address] 39091- 9358 14 Mar, 2016 Mood disorder F39 and Asperger syndrome F84.5 [facility] [id number] [place] [address] 40513- 6043 Mar, [facility] [id number] [place] [address] 40839- 7458 Mar, Asperger syndrome F84.5 and Oppositional behavior F91.3 [facility] [address] 51534- 3741 Feb, Mood disorder F39 and Asperger syndrome F84.5 [facility] [address] 57046- 4073 Feb, Fatigue, unspecified type R53.83 and GERD (gastroesophageal reflux disease) K21.9 [facility] [address] 45191- 1842 Feb, Mood disorder F39 and Asperger syndrome F84.5 [place] [facility] [address] 85122- 4886 Feb, Asperger syndrome F84.5 and Oppositional behavior F91.3 [facility] [address] 94995 -5502 Feb, Itchy eyes H57.8 [facility] [id number] [place] [address] 39879- 6805 Feb, Encounter for initial prescription of contraceptives Z30.019 [facility] [address] 27198- 4839 Feb, Mood disorder F39 and Asperger syndrome F84.5 [facility] [id number] [place] [address] 50073- 4179 Feb, [facility] [address] 83640- 0771 Jan, Asperger syndrome F84.5 and Oppositional behavior F91.3 [place] [address] [place] [address] 66403- 9032 Jan, Mood disorder F39 and Asperger syndrome F84.5 [facility] [id number] [place] [address] 93038- 2079 Jan, [facility] [id number] [place] [address] 70047 -2143 Jan, Acute cystitis without hematuria N30.00 ; Asperger syndrome F84.5 and Oppositional behavior F91.3 [facility] [id number] [place] [address] 95395- 2666 Dec, Mood disorder F39 and Asperger syndrome F84.5 [facility] [id number] [place] [address] 24873- 2397 Dec, Epilepsy G40.909 ; Asperger syndrome F84.5 ; Vitamin D deficiency E55.9 and Routine health maintenance Z00.00 [facility] [id number] [place] [address] 28552- 6799 Dec, Mood disorder F39 and Asperger syndrome F84.5 [facility] [address] [place] [address] 42538- 2660 Dec, Epilepsy G40.909 ; Asperger syndrome F84.5 ; Vitamin D deficiency E55.9 ; GERD (gastroesophageal reflux disease) K21.9 ; Tremors of nervous system R25.1 ; Constipation K59.00 ; Oppositional behavior F91.3 ; Routine health maintenance Z00.00 ; Dysuria R30.0 ; Obesity (BMI 30.0-34.9) E66.9 and Other seasonal allergic rhinitis J30.2 [facility] [address] [place] [address] 47339 -7012 Dec, Leg pain, right M79.604 [place] [id number] [place] [address] 96684- 4955 Dec, [facility] [id number] [place] [address] 60403- 7097 Dec, Dental examination Z01.20 [facility] [address] 22486- 8842 November, Epilepsy G40.909 [facility] [address] 55813- 7278 November, Scabies B86 ; Epilepsy G40.909 ; Vitamin D deficiency E55.9 ; Oppositional behavior F91.3 ; GERD (gastroesophageal reflux disease) K21.9 and Tremors of nervous system R25.1 [facility] [address] 96997 -0322 November, Contact dermatitis, unspecified contact dermatitis type, unspecified trigger L25.9 [place] [place] [address] 90727- 2082 November, Asperger syndrome F84.5 ; Epilepsy G40.909 and Oppositional behavior F91.3 [facility] [address] 30469- 5751 November, [place] [address] [id number]- 5280 Oct, Encounter for Depo-Provera contraception Z30.42 [facility] [address] 41144- 2484 15 Oct, 2015 Epilepsy G40.909 ; Asperger syndrome F84.5 ; Vitamin D deficiency E55.9 ; Encounter for Depo-Provera contraception Z30.42 ; GERD ( gastroesophageal reflux disease) K21.9 ; Tremors of nervous system R25.1 and Constipation K59.00 [facility] [id number] [place] [address] 55998- 4146 13 Oct, 2015 Seizure disorder G40.909 and Depo-Provera contraceptive status Z30.42 [facility] [address] [address]- 4805 Oct, [facility] [address] [facility] [id number] [address] Oct, Epilepsy G40.909 ; Encounter for Depo-Provera contraception Z30.42 ; Asperger syndrome F84.5 and Vitamin D deficiency E55.9 IMMUNIZATIONS No Known Immunizations SOCIAL HISTORY Never Assessed REASON FOR VISIT Right ear pain started 2-3 days ago JStrasserRN PLAN OF CARE Activity Details Follow Up 2 Weeks, prn Reason: VITAL SIGNS Height 63.5 in 2017-01-22 Weight 224.6 lbs 2017-01-22 Temperature 98.4 degrees Fahrenheit 2017-01-22 Heart Rate 78 bpm 2017-01-22 Respiratory Rate 18 2017-01-22 BMI 39.16 kg/m2 2017-01-22 Blood pressure systolic 110 mmHg 2017-01-22 Blood pressure diastolic 72 mmHg 2017-01-22 MEDICATIONS Medication Instructions Dosage Frequency Start Date End Date Duration Status Nexplanon 68 MG as directed Dec, Active Lamictal 25 MG Orally Twice a day 2 tablets 12h Active Gabapentin 300 MG Orally Three times a day 1 capsule 8h Active Fluticasone Propionate 50 MCG/ACT Nasally Once a day 1 spray in each nostril 24h Dec, 30 day(s) Active Omeprazole 20 mg Orally Once a day 1 capsules 24h 90 days Active Cetirizine HCl 10 mg Orally Once a day 1 tablet 24h Dec, Mar, 90 days Active PredniSONE 10 mg Orally twice a day 1 tablet 12h 27 Dec, 2016 Jan, 05 days Active Diazepam 10 mg Rectal with seizure activity 10 mg as needed Oct, Active RESULTS No Results PROCEDURES No Known [...]
--- OUTSIDE RECORDS SUMMARY | 2018-04-17 11:41 | XMS REPORT ---
Author Author KENAN LANCE [facility] Address [address] [place] [address] Care Team Providers Care Advertising Sales Representative Name Role Phone KENAN LANCE Unavailable PROBLEMS Type Condition ICD9-CM Code TYX47-OP Code Onset Dates Condition Status SNOMED Code Problem Constipation K59.00 Active 89795183 Problem Dysuria R30.0 Active 42744918 Problem Oppositional behavior F91.3 Active 07477528 Problem Asperger syndrome F84.5 Active 32454016 Problem Epilepsy G40.909 Active 29740186 Problem Tremors of nervous system R25.1 Active 790703194 Problem GERD without esophagitis K21.9 Active 852653147 Problem Benign essential tremor G25.0 Active 226207966 Problem Morbid (severe) obesity due to excess calories E66.01 Active 465856594 Problem Mood disorder F39 Active 51898329 Problem Episode of recurrent major depressive disorder, unspecified depression episode severity F33.9 Active 624183213 Problem Body mass index (BMI) of 40.0-44.9 in adult Z68.41 Active 526854728 ALLERGIES No Information ENCOUNTERS Encounter Location Date Diagnosis [facility]LY [facility] IN [facility] [id number] [place] [address] 67633 -2336 Dec, Hematuria, unspecified type R31.9 and Acute cystitis with hematuria N30.01 [facility] [id number] [place] [address] 78501- 7105 November, Asperger syndrome F84.5 [facility] [id number] [place] [address] 99380- 4631 November, [facility] [id number] [place] [address] 75873- 1952 Oct, Benign essential tremor G25.0 and GERD without esophagitis K21.9 [facility] [address] [address] 06 Aug, 2017 [facility] [id number] [place] [address] 20371- 1206 05 Aug, 2017 Asperger syndrome F84.5 [facility] [id number] [place] [address] 40744 -3244 02 Aug, 2017 Diarrhea, unspecified type R19.7 [facility] [id number] [place] [address] 59081- 1271 02 Aug, 2017 Episode of recurrent major depressive disorder, unspecified depression episode severity F33.9 [facility] [id number] [place] [address] [id number] Jul, Dental examination Z01.20 [place] [id number] [place] [address] 92440- 3791 Jul, Asperger syndrome F84.5 [facility] [id number] [place] [address] 30290- 5679 Jul, Asperger syndrome F84.5 [facility] [id number] [place] [address] 72223- 1371 Jul, Dental examination Z01.20 [facility] [address] [place] [address] 30790- 5471 Jul, Asperger syndrome F84.5 ; Epilepsy G40.909 ; GERD ( gastroesophageal reflux disease) K21.9 ; Mood disorder F39 ; BMI 40.0-44.9, adult Z68.41 and Tremors of nervous system R25.1 [facility] [id number] [place] [address] 40208- 6186 Jul, Asperger syndrome F84.5 and Oppositional behavior F91.3 [facility] [id number] [place] [address] 15569- 5431 Jun, Tremors of nervous system R25.1 [facility] [id number] [place] [address] 78093- 0181 Jun, Asperger syndrome F84.5 [place] [id number] [place] [address] 36622- 4093 Jun, Asperger syndrome F84.5 [facility] [id number] [place] [address] 57198- 9959 May, [facility] [address] 35996 -0121 May, Acute non-recurrent frontal sinusitis J01.10 [place] [id number] [place] [address] 86829- 0488 May, Mood disorder F39 and Asperger syndrome F84.5 [place] [id number] [place] [address] 99960- 9027 May, Acne vulgaris L70.0 [place] [address] 36264- 8915 May, Acne vulgaris L70.0 and Tremors of nervous system R25.1 [facility] [id number] [place] [address] 09193 -6169 May, Other viral agents as the cause of diseases classified elsewhere B97.89 and Acute upper respiratory infection, unspecified J06.9 [place] [address] [place] [address] 95448- 1842 May, Mood disorder F39 and Asperger syndrome F84.5 [facility] [id number] [place] [address] 73801- 8392 Apr, Asperger syndrome F84.5 [place] [id number] [place] [address] 62625- 9143 Apr, Asperger syndrome F84.5 and Oppositional behavior F91.3 [place] [id number] [place] [address] 51993- 0460 Mar, Mood disorder F39 and Asperger syndrome F84.5 [facility] [id number] [place] [address] 23108- 9096 Feb, GERD (gastroesophageal reflux disease) K21.9 ; Dysuria R30.0 ; Otalgia of right ear H92.01 and Decreased urination R34 [place] [id number] [place] [address] 35389- 1885 Feb, Mood disorder F39 and Asperger syndrome F84.5 [place] [address] 01886- 2532 Feb, Asperger syndrome F84.5 and Oppositional behavior F91.3 [facility] [address] 48147 -8304 Jan, Viral gastroenteritis A08.4 [place] [address] 46023- 7146 Jan, Mood disorder F39 and Asperger syndrome F84.5 [facility] [id number] [place] [address] 10020- 5029 Jan, Asperger syndrome F84.5 and Oppositional behavior F91.3 [facility] [place] [id number] [place] [address] 81980 -6103 Dec, FRANSICO (secretory otitis media), right H65.91 [place] [address] 01136- 2367 Dec, Mood disorder F39 and Asperger syndrome F84.5 [place] [id number] [place] [address] 13049- 4628 Dec, Otalgia, left ear H92.02 [place] [address] 65713- 4190 Dec, [place] [id number] [place] [address] 54270- 1470 Dec, Mood disorder F39 and Asperger syndrome F84.5 [facility] [address] [place] [address] [id number] 07 Dec, 2016 Dental examination Z01.20 [place] [address] 37989- 8230 31 Nov, 2016 Medicare annual wellness visit, subsequent Z00.00 ; GERD ( gastroesophageal reflux disease) K21.9 ; Counseling on health promotion and disease prevention Z71.89 and Encounter for preventative adult health care exam with abnormal findings Z00.01 [facility] [address] 41798 -1556 25 Nov, 2016 Allergic contact dermatitis due to plants, except food L23.7 [place] [address] 05914- 1313 02 Nov, 2016 Mood disorder F39 and Asperger syndrome F84.5 [facility] [place] [address] 64732 -7000 Sep, Acute bacterial conjunctivitis of right eye H10.31 and Acute suppurative otitis media of right ear without spontaneous rupture of tympanic membrane, recurrence not specified H66.001 [place] [address] 21838- 2193 07 Sep, 2016 Nexplanon insertion Z30.017 [place] [address] 17179- 9773 2016 Mood disorder F39 and Asperger syndrome F84.5 [place] [id number] [place] [address] 11839- 7015 28 Aug, 2016 Mood disorder F39 and Asperger syndrome F84.5 [place] [address] 47531- 6403 14 Aug, 2016 control counseling Z30.09 [place] [address] 69128- 8408 08 Aug, 2016 Asperger syndrome F84.5 and Oppositional behavior F91.3 [facility] [address] [id number] 08 Aug, 2016 Dental examination Z01.20 [facility] [id number] [place] [address] 10461- 2992 03 Aug, 2016 Mood disorder F39 and Asperger syndrome F84.5 [facility] [address] [place] [address] 42527 -4613 Jul, Acute suppurative otitis media of both ears without spontaneous rupture of tympanic membranes, recurrence not specified H66.003 [facility] [address] [place] [address] 57871- 5887 Jul, [facility] [id number] [place] [address] 08866- 5012 Jul, Asperger syndrome F84.5 [facility] [id number] [place] [address] 60884- 3995 Jul, [facility] [id number] [place] [address] 57475- 1943 Jul, Mood disorder F39 and Asperger syndrome F84.5 [facility] [id number] [place] [address] [id number] Jul, Dental examination Z01.20 [facility] [address] [place] [address] 09838 -7494 Jul, Acute non-recurrent pansinusitis J01.40 [facility] [address] [place] [address] 53646- 8569 Jul, Asperger syndrome F84.5 and Oppositional behavior F91.3 [facility] [id number] [place] [address] 07329- 8108 Jun, Mood disorder F39 and Asperger syndrome F84.5 [facility] [address] [place] [address] 50074- 3231 Jun, Mood disorder F39 and Asperger syndrome F84.5 [facility] [address] [address]- 8659 Jun, Mood disorder F39 and Asperger syndrome F84.5 [facility] [id number] [place] [address] 87077- 5336 May, Mood disorder F39 and Asperger syndrome F84.5 [facility] [id number] [place] [address] 42318- 8822 May, [facility] [id number] [place] [address] 05962- 4207 May, Asperger syndrome F84.5 and Oppositional behavior F91.3 [facility] [id number] [place] [address] 36463- 2885 May, Oral contraceptive pill surveillance Z30.41 [facility] [id number] [place] [address] 12245- 5262 16 May, 2016 Mood disorder F39 and Asperger syndrome F84.5 [facility] [id number] [place] [address] 15700- 9028 May, Asperger syndrome F84.5 and Oppositional behavior F91.3 [facility] [id number] [place] [address] 13922- 0098 May, Mood disorder F39 and Asperger syndrome F84.5 [facility] [address] [place] [address] 07502- 4645 Apr, [facility] [id number] [place] [address] 07152- 9831 Apr, Oppositional behavior F91.3 [facility] [id number] [place] [address] 46009- 0336 Apr, Asperger syndrome F84.5 and Oppositional behavior F91.3 [facility] [address], [place] [address] Apr, Contact dermatitis, unspecified contact dermatitis type, unspecified trigger L25.9 [facility] [id number] [place] [address] 58667- 7185 17 Apr, 2016 Mood disorder F39 and Asperger syndrome F84.5 [facility] [id number] [place] [address] 55502 -1936 15 Apr, 2016 Acute non-recurrent frontal sinusitis J01.10 and Encounter for immunization Z23 [facility] [address] [place] [address] [id number] [place] [address] [id number] 10 Apr, 2016 Encounter for dental examination Z01.20 [facility] [address] [id number] 21 Mar, 2016 Encounter for routine child health examination without abnormal findings Z00.129 [facility] [id number] [place] [address] 79556- 9532 14 Mar, 2016 Mood disorder F39 and Asperger syndrome F84.5 [facility] [id number] [place] [address] 50822- 2710 06 Mar, 2016 [facility] [address] 34198- 4418 06 Mar, 2016 Asperger syndrome F84.5 and Oppositional behavior F91.3 [facility] [id number] [place] [address] 06460- 3783 Feb, Mood disorder F39 and Asperger syndrome F84.5 [facility] [id number] [place] [address] 49920- 2326 Feb, Fatigue, unspecified type R53.83 and GERD (gastroesophageal reflux disease) K21.9 [facility] [id number] [place] [address] 71352- 0610 Feb, Mood disorder F39 and Asperger syndrome F84.5 [facility] [address] [place] [address] 34197- 2256 Feb, Asperger syndrome F84.5 and Oppositional behavior F91.3 [facility] [id number] [place] [address] 22137 -5084 Feb, Itchy eyes H57.8 [place] [address] [id number] [place] [address] 63086- 8671 Feb, Encounter for initial prescription of contraceptives Z30.019 [facility] [id number] [place] [address] 28341- 3082 Feb, Mood disorder F39 and Asperger syndrome F84.5 [place] [address] [place] [id number] [place] [address] 73272- 7551 Feb, [place] [address] 60157- 1557 Jan, Asperger syndrome F84.5 and Oppositional behavior F91.3 [place] [id number] [place] [address] 43207- 0322 Jan, Mood disorder F39 and Asperger syndrome F84.5 [place] [id number] [place] [address] 79565- 8347 Jan, [facility] [id number] [place] [address] 60874 -1342 Jan, Acute cystitis without hematuria N30.00 ; Asperger syndrome F84.5 and Oppositional behavior F91.3 [place] [id number] [place] [address] 44433- 8767 Dec, Mood disorder F39 and Asperger syndrome F84.5 [place] [address] [id number] [place] [address] 00662- 3222 Dec, Epilepsy G40.909 ; Asperger syndrome F84.5 ; Vitamin D deficiency E55.9 and Routine health maintenance Z00.00 [facility] [id number] [place] [address] 14561- 3521 Dec, Mood disorder F39 and Asperger syndrome F84.5 [place] [id number] [place] [address] 99499- 9546 Dec, Epilepsy G40.909 ; Asperger syndrome F84.5 ; Vitamin D deficiency E55.9 ; GERD (gastroesophageal reflux disease) K21.9 ; Tremors of nervous system R25.1 ; Constipation K59.00 ; Oppositional behavior F91.3 ; Routine health maintenance Z00.00 ; Dysuria R30.0 ; Obesity (BMI 30.0-34.9) E66.9 and Other seasonal allergic rhinitis J30.2 [facility] [address] 65754 -7888 Dec, Leg pain, right M79.[address] 44521- 3430 Dec, [place] [address] 48979- 7417 Dec, Dental examination Z01.[address] 81788- 9161 November, Epilepsy G40.[address] 76259- 0220 November, Scabies B86 ; Epilepsy G40.909 ; Vitamin D deficiency E55.9 ; Oppositional behavior F91.3 ; GERD (gastroesophageal reflux disease) K21.9 and Tremors of nervous system R25.1 [facility] [address] 24374 -7442 November, Contact dermatitis, unspecified contact dermatitis type, unspecified trigger L25.9 [place] [address] 92409- 6187 November, Asperger syndrome F84.5 ; Epilepsy G40.909 and Oppositional behavior F91.3 [place] [address] 89225- 2323 November, [place] [address] 69928- 2391 Oct, Encounter for Depo-Provera contraception Z30.42 [place] [address] [id number] [place] [address] 98025- 8292 15 Oct, 2015 Epilepsy G40.909 ; Asperger syndrome F84.5 ; Vitamin D deficiency E55.9 ; Encounter for Depo-Provera contraception Z30.42 ; GERD ( gastroesophageal reflux disease) K21.9 ; Tremors of nervous system R25.1 and Constipation K59.00 [place] [address] 23291- 7728 13 Oct, 2015 Seizure disorder G40.909 and Depo-Provera contraceptive status Z30.42 [place] [address] [id number] [place] [address] 75639- 8680 12 Oct, 2015 [place] [address] 09271- 6347 05 Oct, 2015 Epilepsy G40.909 ; Encounter for Depo-Provera contraception Z30.42 ; Asperger syndrome F84.5 and Vitamin D deficiency E55.9 IMMUNIZATIONS No Known Immunizations SOCIAL HISTORY Never Assessed REASON FOR VISIT PALS-lamictal PLAN OF CARE VITAL SIGNS MEDICATIONS Medication [...]
--- OUTSIDE RECORDS SUMMARY | 2018-04-17 11:41 | XMS REPORT ---
Author Author KENAN LANCE [facility] Address [address] [place] [address] Care Team Providers Care Surgical Garment Assembler Name Role Phone KENAN LANCE Unavailable PROBLEMS Type Condition ICD9-CM Code OWB14-MF Code Onset Dates Condition Status SNOMED Code Problem Constipation K59.00 Active 91692097 Problem Dysuria R30.0 Active 45295967 Problem Oppositional behavior F91.3 Active 95115367 Problem Asperger syndrome F84.5 Active 06597108 Problem Epilepsy G40.909 Active 13715214 Problem Tremors of nervous system R25.1 Active 353768366 Problem GERD without esophagitis K21.9 Active 094063903 Problem Benign essential tremor G25.0 Active 246614265 Problem Morbid (severe) obesity due to excess calories E66.01 Active 129959189 Problem Mood disorder F39 Active 59680070 Problem Episode of recurrent major depressive disorder, unspecified depression episode severity F33.9 Active 829918832 Problem Body mass index (BMI) of 40.0-44.9 in adult Z68.41 Active 480216943 ALLERGIES No Information ENCOUNTERS Encounter Location Date Diagnosis [facility] [id number] [place] [address] 60150 -3365 Dec, Hematuria, unspecified type R31.9 and Acute cystitis with hematuria N30.01 [facility] [id number] [place] [address] 43296- 0380 November, Asperger syndrome F84.5 [facility] [address] [id number] [place] [address] 70195- 1171 November, [facility] [id number] [place] [address] 68977- 0586 Oct, Benign essential tremor G25.0 and GERD without esophagitis K21.9 [facility] [address] [address] 06 Aug, 2017 [facility] [id number] [place] [address] 62248- 5440 05 Aug, 2017 Asperger syndrome F84.5 [facility] [id number] [place] [address] 03314 -3529 02 Aug, 2017 Diarrhea, unspecified type R19.7 [facility] [id number] [place] [address] 39912- 0518 02 Aug, 2017 Episode of recurrent major depressive disorder, unspecified depression episode severity F33.9 [facility] [id number] [place] [address] [id number] Jul, Dental examination Z01.20 [place] [id number] [place] [address] 37953- 3954 Jul, Asperger syndrome F84.5 [facility] [id number] [place] [address] 38021- 8436 Jul, Asperger syndrome F84.5 [facility] [id number] [place] [address] 59159- 6007 Jul, Dental examination Z01.20 [facility] [id number] [place] [address] 15274- 0929 Jul, Asperger syndrome F84.5 ; Epilepsy G40.909 ; GERD ( gastroesophageal reflux disease) K21.9 ; Mood disorder F39 ; BMI 40.0-44.9, adult Z68.41 and Tremors of nervous system R25.1 [facility] [id number] [place] [address] 32642- 0026 Jul, Asperger syndrome F84.5 and Oppositional behavior F91.3 [facility] [id number] [place] [address] 72918- 8177 Jun, Tremors of nervous system R25.1 [facility] [id number] [place] [address] 69298- 1763 Jun, Asperger syndrome F84.5 [place] [id number] [place] [address] 77673- 8806 Jun, Asperger syndrome F84.5 [facility] [id number] [place] [address] 03393- 9219 May, [facility] [address] 04009 -6134 May, Acute non-recurrent frontal sinusitis J01.10 [place] [id number] [place] [address] 71725- 8409 May, Mood disorder F39 and Asperger syndrome F84.5 [place] [id number] [place] [address] 00025- 1303 May, Acne vulgaris L70.0 [place] [address] 43339- 8790 May, Acne vulgaris L70.0 and Tremors of nervous system R25.1 [facility] [id number] [place] [address] 39967 -9499 May, Other viral agents as the cause of diseases classified elsewhere B97.89 and Acute upper respiratory infection, unspecified J06.9 [place] [id number] [place] [address] 49598- 0316 May, Mood disorder F39 and Asperger syndrome F84.5 [place] [id number] [place] [address] 93504- 8969 Apr, Asperger syndrome F84.5 [place] [id number] [place] [address] 62819- 7988 Apr, Asperger syndrome F84.5 and Oppositional behavior F91.3 [place] [id number] [place] [address] 27182- 9651 Mar, Mood disorder F39 and Asperger syndrome F84.5 [facility] [id number] [place] [address] 75146- 0217 Feb, GERD (gastroesophageal reflux disease) K21.9 ; Dysuria R30.0 ; Otalgia of right ear H92.01 and Decreased urination R34 [place] [address] [id number] [place] [address] 13940- 2973 Feb, Mood disorder F39 and Asperger syndrome F84.5 [place] [address] 38441- 1008 Feb, Asperger syndrome F84.5 and Oppositional behavior F91.3 [facility] [address] 80590 -7534 Jan, Viral gastroenteritis A08.4 [place] [address] 16160- 9204 Jan, Mood disorder F39 and Asperger syndrome F84.5 [place] [id number] [place] [address] 45485- 8515 Jan, Asperger syndrome F84.5 and Oppositional behavior F91.3 [facility] [place] [id number] [place] [address] 44360 -3469 Dec, FRANSICO (secretory otitis media), right H65.91 [place] [address] 01870- 7418 Dec, Mood disorder F39 and Asperger syndrome F84.5 [place] [id number] [place] [address] 36131- 4269 Dec, Otalgia, left ear H92.02 [place] [address] 07161- 8148 Dec, [place] [address] [id number] [place] [address] 90742- 5963 Dec, Mood disorder F39 and Asperger syndrome F84.5 [facility] [id number] [place] [address] [id number] 07 Dec, 2016 Dental examination Z01.20 [place] [address] 92382- 7577 31 Nov, 2016 Medicare annual wellness visit, subsequent Z00.00 ; GERD ( gastroesophageal reflux disease) K21.9 ; Counseling on health promotion and disease prevention Z71.89 and Encounter for preventative adult health care exam with abnormal findings Z00.01 [facility] [address] 26736 -7146 25 Nov, 2016 Allergic contact dermatitis due to plants, except food L23.7 [place] [address] 01475- 9604 02 Nov, 2016 Mood disorder F39 and Asperger syndrome F84.5 [facility] [place] [address] 43159 -5298 Sep, Acute bacterial conjunctivitis of right eye H10.31 and Acute suppurative otitis media of right ear without spontaneous rupture of tympanic membrane, recurrence not specified H66.001 [place] [address] 71764- 7772 07 Sep, 2016 Nexplanon insertion Z30.017 [place] [address] 35337- 9674 2016 Mood disorder F39 and Asperger syndrome F84.5 [place] [address] [place] [id number] [place] [address] 62394- 2779 28 Aug, 2016 Mood disorder F39 and Asperger syndrome F84.5 [place] [address] 08195- 5551 14 Aug, 2016 control counseling Z30.09 [place] [address] 25685- 1818 08 Aug, 2016 Asperger syndrome F84.5 and Oppositional behavior F91.3 [facility] [address] [address] 08 Aug, 2016 Dental examination Z01.20 [facility] [id number] [place] [address] 85758- 2811 03 Aug, 2016 Mood disorder F39 and Asperger syndrome F84.5 [facility] [id number] [place] [address] 54006 -6994 Jul, Acute suppurative otitis media of both ears without spontaneous rupture of tympanic membranes, recurrence not specified H66.003 [facility] [id number] [place] [address] 09609- 3883 Jul, [facility] [id number] [place] [address] 85876- 3634 Jul, Asperger syndrome F84.5 [facility] [id number] [place] [address] 98313- 8704 Jul, [facility] [id number] [place] [address] 45100- 9803 Jul, Mood disorder F39 and Asperger syndrome F84.5 [facility] [address] [place] [id number] [place] [address] [id number] Jul, Dental examination Z01.20 [facility] [id number] [place] [address] 15032 -3025 Jul, Acute non-recurrent pansinusitis J01.40 [facility] [id number] [place] [address] 01384- 4532 Jul, Asperger syndrome F84.5 and Oppositional behavior F91.3 [facility] [id number] [place] [address] 35299- 7661 Jun, Mood disorder F39 and Asperger syndrome F84.5 [facility] [id number] [place] [address] 93682- 9155 Jun, Mood disorder F39 and Asperger syndrome F84.5 [facility] [address] [address]- 9846 Jun, Mood disorder F39 and Asperger syndrome F84.5 [facility] [id number] [place] [address] 72616- 3408 May, Mood disorder F39 and Asperger syndrome F84.5 [facility] [id number] [place] [address] 48698- 9377 May, [facility] [id number] [place] [address] 85437- 2721 May, Asperger syndrome F84.5 and Oppositional behavior F91.3 [facility] [id number] [place] [address] 84997- 1213 May, Oral contraceptive pill surveillance Z30.41 [facility] [address] [place] [id number] [place] [address] 31392- 3623 16 May, 2016 Mood disorder F39 and Asperger syndrome F84.5 [facility] [id number] [place] [address] 37666- 4356 May, Asperger syndrome F84.5 and Oppositional behavior F91.3 [facility] [id number] [place] [address] 38609- 3263 May, Mood disorder F39 and Asperger syndrome F84.5 [facility] [id number] [place] [address] 40114- 5651 Apr, [facility] [id number] [place] [address] 68277- 6226 Apr, Oppositional behavior F91.3 [facility] [id number] [place] [address] 28908- 8992 Apr, Asperger syndrome F84.5 and Oppositional behavior F91.3 [facility] [address] [address] Apr, Contact dermatitis, unspecified contact dermatitis type, unspecified trigger L25.9 [facility] [id number] [place] [address] 90740- 8418 17 Apr, 2016 Mood disorder F39 and Asperger syndrome F84.5 [facility] [id number] [place] [address] 68188 -1882 15 Apr, 2016 Acute non-recurrent frontal sinusitis J01.10 and Encounter for immunization Z23 [facility] [address] [place] [address] [id number] [place] [address] [id number] 10 Apr, 2016 Encounter for dental examination Z01.20 [facility] [address] [id number] 21 Mar, 2016 Encounter for routine child health examination without abnormal findings Z00.129 [facility] [id number] [place] [address] 97086- 7019 14 Mar, 2016 Mood disorder F39 and Asperger syndrome F84.5 [facility] [id number] [place] [address] 32552- 4205 06 Mar, 2016 [facility] [address] 82302- 6004 06 Mar, 2016 Asperger syndrome F84.5 and Oppositional behavior F91.3 [facility] [id number] [place] [address] 95878- 8871 Feb, Mood disorder F39 and Asperger syndrome F84.5 [facility] [id number] [place] [address] 04266- 5666 Feb, Fatigue, unspecified type R53.83 and GERD (gastroesophageal reflux disease) K21.9 [facility] [id number] [place] [address] 49991- 1448 Feb, Mood disorder F39 and Asperger syndrome F84.5 [facility] [id number] [place] [address] 54038- 3229 Feb, Asperger syndrome F84.5 and Oppositional behavior F91.3 [facility] [id number] [place] [address] 46077 -2392 Feb, Itchy eyes H57.8 [place] [address] [place] [id number] [place] [address] 65124- 0094 Feb, Encounter for initial prescription of contraceptives Z30.019 [facility] [address] [place] [id number] [place] [address] 80444- 7293 Feb, Mood disorder F39 and Asperger syndrome F84.5 [place] [address] [place] [id number] [place] [address] 55633- 7752 Feb, [place] [address] 68449- 0600 Jan, Asperger syndrome F84.5 and Oppositional behavior F91.3 [place] [address] [place] [address] [id number] [place] [address] 09282- 6040 Jan, Mood disorder F39 and Asperger syndrome F84.5 [place] [address] [place] [id number] [place] [address] 52468- 6813 Jan, [facility] [id number] [place] [address] 13413 -2932 Jan, Acute cystitis without hematuria N30.00 ; Asperger syndrome F84.5 and Oppositional behavior F91.3 [place] [address] [place] [address] [id number] [place] [address] 97585- 5047 Dec, Mood disorder F39 and Asperger syndrome F84.5 [place] [address] [place] [id number] [place] [address] 46554- 8540 Dec, Epilepsy G40.909 ; Asperger syndrome F84.5 ; Vitamin D deficiency E55.9 and Routine health maintenance Z00.00 [facility] [id number] [place] [address] 78425- 1057 Dec, Mood disorder F39 and Asperger syndrome F84.5 [place] [address] [place] [id number] [place] [address] 09155- 2658 Dec, Epilepsy G40.909 ; Asperger syndrome F84.5 ; Vitamin D deficiency E55.9 ; GERD (gastroesophageal reflux disease) K21.9 ; Tremors of nervous system R25.1 ; Constipation K59.00 ; Oppositional behavior F91.3 ; Routine health maintenance Z00.00 ; Dysuria R30.0 ; Obesity (BMI 30.0-34.9) E66.9 and Other seasonal allergic rhinitis J30.2 [facility] [address] 05336 -4192 Dec, Leg pain, right M79.[address] 98474- 5211 Dec, [place] [address] 95650- 2860 Dec, Dental examination Z01.[address] 10185- 4212 November, Epilepsy G40.[address] 58871- 6036 November, Scabies B86 ; Epilepsy G40.909 ; Vitamin D deficiency E55.9 ; Oppositional behavior F91.3 ; GERD (gastroesophageal reflux disease) K21.9 and Tremors of nervous system R25.1 [facility] [address] 07542 -4373 November, Contact dermatitis, unspecified contact dermatitis type, unspecified trigger L25.9 [place] [address] 86451- 1727 November, Asperger syndrome F84.5 ; Epilepsy G40.909 and Oppositional behavior F91.3 [place] [address] 10791- 7909 November, [place] [address] 46282- 5608 Oct, Encounter for Depo-Provera contraception Z30.42 [place] [address] [place] [id number] [place] [address] 23642- 2253 15 Oct, 2015 Epilepsy G40.909 ; Asperger syndrome F84.5 ; Vitamin D deficiency E55.9 ; Encounter for Depo-Provera contraception Z30.42 ; GERD ( gastroesophageal reflux disease) K21.9 ; Tremors of nervous system R25.1 and Constipation K59.00 [place] [address] 18863- 7644 13 Oct, 2015 Seizure disorder G40.909 and Depo-Provera contraceptive status Z30.42 [place] [address] [place] [id number] [place] [address] 98685- 3231 12 Oct, 2015 [place] [address] 70219- 6519 05 Oct, 2015 Epilepsy G40.909 ; Encounter for Depo-Provera contraception Z30.42 ; Asperger syndrome F84.5 and Vitamin D deficiency E55.9 IMMUNIZATIONS No Known Immunizations SOCIAL HISTORY Never Assessed REASON FOR VISIT PALS-rexulti PLAN OF CARE VITAL SIGNS MEDICATIONS Medication Instructions Dosage Frequency Start Date End Date Duration Status Rexulti 1 MG Orally Once a day 1 tablet 24h 90 days Active RESULTS No Results PROCEDURES [...]
--- OUTSIDE RECORDS SUMMARY | 2018-04-17 11:42 | XMS REPORT ---
Author Author BRENNAN GONZALEZ Organization [facility] Address [address] [place] [address] Care Team Providers Care Mobile Lounge Driver Name Role Phone GONZALEZJAE AbdallaELE Unavailable PROBLEMS Type Condition ICD9-CM Code QCX08-DW Code Onset Dates Condition Status SNOMED Code Problem Constipation K59.00 Active 57176401 Problem Dysuria R30.0 Active 85621127 Problem Oppositional behavior F91.3 Active 44393399 Problem Asperger syndrome F84.5 Active 36275740 Problem Epilepsy G40.909 Active 98169790 Problem Tremors of nervous system R25.1 Active 350427575 Problem GERD without esophagitis K21.9 Active 255936971 Problem Benign essential tremor G25.0 Active 718464086 Problem Morbid (severe) obesity due to excess calories E66.01 Active 419960240 Problem Mood disorder F39 Active 93438816 Problem Episode of recurrent major depressive disorder, unspecified depression episode severity F33.9 Active 991875331 Problem Body mass index (BMI) of 40.0-44.9 in adult Z68.41 Active 406492813 ALLERGIES No Information ENCOUNTERS Encounter Location Date Diagnosis [facility] [id number] [place] [address] 02358- 3852 November, Asperger syndrome F84.5 [facility] [id number] [place] [address] 75248- 9695 November, [facility] [id number] [place] [address] 07771- 0452 Oct, Benign essential tremor G25.0 and GERD without esophagitis K21.9 [facility] [id number] [place] [address] 87654- 5557 Aug, [facility] [id number] [place] [address] 00967- 7139 05 Aug, 2017 Asperger syndrome F84.5 [facility] [id number] [place] [address] 17901 -4249 02 Aug, 2017 Diarrhea, unspecified type R19.7 [facility] [id number] [place] [address] 15315- 7936 02 Aug, 2017 Episode of recurrent major depressive disorder, unspecified depression episode severity F33.9 [facility] [id number] [place] [address] [id number] Jul, Dental examination Z01.20 [facility] [address] 92688- 0706 Jul, Asperger syndrome F84.5 [facility] [id number] [place] [address] 26129- 5775 Jul, Asperger syndrome F84.5 [facility] [id number] [place] [address] 74829- 1567 Jul, Dental examination Z01.20 [facility] [id number] [place] [address] 11127- 7354 Jul, Asperger syndrome F84.5 ; Epilepsy G40.909 ; GERD ( gastroesophageal reflux disease) K21.9 ; Mood disorder F39 ; BMI 40.0-44.9, adult Z68.41 and Tremors of nervous system R25.1 [facility] [id number] [place] [address] 87212- 0006 Jul, Asperger syndrome F84.5 and Oppositional behavior F91.3 [facility] [id number] [place] [address] 00838- 5568 Jun, Tremors of nervous system R25.1 [facility] [id number] [place] [address] 73214- 0805 Jun, Asperger syndrome F84.5 [facility] [id number] [place] [address] 96634- 0823 Jun, Asperger syndrome F84.5 [facility] [id number] [place] [address] 54334- 5791 May, [facility] [address] 47110 -0013 May, Acute non-recurrent frontal sinusitis J01.10 [place] [address] 82268- 4556 May, Mood disorder F39 and Asperger syndrome F84.5 [place] [address] 48544- 8688 May, Acne vulgaris L70.0 [place] [address] 13037- 0175 May, Acne vulgaris L70.0 and Tremors of nervous system R25.1 [facility] [id number] [place] [address] 00985 -9260 May, Other viral agents as the cause of diseases classified elsewhere B97.89 and Acute upper respiratory infection, unspecified J06.9 [place] [id number] [place] [address] 71529- 6971 May, Mood disorder F39 and Asperger syndrome F84.5 [facility] [id number] [place] [address] 12038- 2791 Apr, Asperger syndrome F84.5 [place] [id number] [place] [address] 48787- 8609 Apr, Asperger syndrome F84.5 and Oppositional behavior F91.3 [place] [address] 26146- 6133 Mar, Mood disorder F39 and Asperger syndrome F84.5 [place] [id number] [place] [address] 14708- 7636 Feb, GERD (gastroesophageal reflux disease) K21.9 ; Dysuria R30.0 ; Otalgia of right ear H92.01 and Decreased urination R34 [facility] [address] 37235- 9060 Feb, Mood disorder F39 and Asperger syndrome F84.5 [facility] [address] 19025- 5230 Feb, Asperger syndrome F84.5 and Oppositional behavior F91.3 [facility] [address] 07419 -6605 Jan, Viral gastroenteritis A08.4 [facility] [address] 69071- 4435 Jan, Mood disorder F39 and Asperger syndrome F84.5 [place] [address] 07672- 2690 Jan, Asperger syndrome F84.5 and Oppositional behavior F91.3 [facility] [address] 94973 -2022 Dec, FRANSICO (secretory otitis media), right H65.91 [facility] [address] 51286- 1782 Dec, Mood disorder F39 and Asperger syndrome F84.5 [facility] [address] 52559- 1482 Dec, Otalgia, left ear H92.02 [facility] [address] 28001- 1896 Dec, [facility] [address] 69251- 7464 Dec, Mood disorder F39 and Asperger syndrome F84.5 [facility] [id number] [place] [address] [id number] 07 Dec, 2016 Dental examination Z01.20 [facility] [address] 64469- 4217 31 Nov, 2016 Medicare annual wellness visit, subsequent Z00.00 ; GERD ( gastroesophageal reflux disease) K21.9 ; Counseling on health promotion and disease prevention Z71.89 and Encounter for preventative adult health care exam with abnormal findings Z00.01 [facility] [address] 39178 -1671 November, Allergic contact dermatitis due to plants, except food L23.7 [place] [address] 43986- 0360 02 Nov, 2016 Mood disorder F39 and Asperger syndrome F84.5 [facility] [address] 76369 -3523 31 Sep, 2016 Acute bacterial conjunctivitis of right eye H10.31 and Acute suppurative otitis media of right ear without spontaneous rupture of tympanic membrane, recurrence not specified H66.001 [place] [address] 23734- 8379 07 Sep, 2016 Nexplanon insertion Z30.017 [place] [address] 85566- 0006 2016 Mood disorder F39 and Asperger syndrome F84.5 [place] [address] 57215- 8213 28 Aug, 2016 Mood disorder F39 and Asperger syndrome F84.5 [place] [address] 54337- 9183 14 Aug, 2016 control counseling Z30.09 [place] [address] 68417- 4729 08 Aug, 2016 Asperger syndrome F84.5 and Oppositional behavior F91.3 [facility] [address] [id number] Aug, 2016 Dental examination Z01.20 [place] [address] 13783- 0503 Aug, Mood disorder F39 and Asperger syndrome F84.5 [facility] [id number] [place] [address] 85447 -4177 Jul, Acute suppurative otitis media of both ears without spontaneous rupture of tympanic membranes, recurrence not specified H66.003 [facility] [id number] [place] [address] 82034- 6612 Jul, [facility] [address] 81365- 0592 Jul, Asperger syndrome F84.5 [facility] [address] 28398- 5728 Jul, [facility] [address] 90779- 2206 Jul, Mood disorder F39 and Asperger syndrome F84.5 [facility] [address] [id number] Jul, Dental examination Z01.20 [facility] [id number] [place] [address] 80258 -2491 Jul, Acute non-recurrent pansinusitis J01.40 [facility] [id number] [place] [address] 58529- 2638 Jul, Asperger syndrome F84.5 and Oppositional behavior F91.3 [facility] [id number] [place] [address] 72282- 2164 Jun, Mood disorder F39 and Asperger syndrome F84.5 [facility] [id number] [place] [address] 16543- 9233 Jun, Mood disorder F39 and Asperger syndrome F84.5 [facility] [id number] [place] [address] 32943- 7682 Jun, Mood disorder F39 and Asperger syndrome F84.5 [facility] [address] [place] [address]- 8754 30 May, 2016 Mood disorder F39 and Asperger syndrome F84.5 [facility] [id number] [place] [address] 95147- 9297 May, [facility] [id number] [place] [address] 95961- 3567 May, Asperger syndrome F84.5 and Oppositional behavior F91.3 [facility] [id number] [place] [address] 61457- 4217 May, Oral contraceptive pill surveillance Z30.41 [place] [address] 83795- 1124 16 May, 2016 Mood disorder F39 and Asperger syndrome F84.5 [place] [id number] [place] [address] 20452- 2963 May, Asperger syndrome F84.5 and Oppositional behavior F91.3 [facility] [id number] [place] [address] 61987- 5747 May, Mood disorder F39 and Asperger syndrome F84.5 [place] [id number] [place] [address] 45276- 2756 31 Apr, 2016 [facility] [id number] [place] [address] 84986- 6475 Apr, Oppositional behavior F91.3 [facility] [id number] [place] [address] 92177- 6690 Apr, Asperger syndrome F84.5 and Oppositional behavior F91.3 [facility] [id number] [place] [address] 87115 -9415 Apr, Contact dermatitis, unspecified contact dermatitis type, unspecified trigger L25.9 [facility] [id number] [place] [address] 47265- 4422 Apr, Mood disorder F39 and Asperger syndrome F84.5 [facility] [address] [place] [address] 68654 -2096 15 Apr, 2016 Acute non-recurrent frontal sinusitis J01.10 and Encounter for immunization Z23 [facility] [id number] [place] [address] [id number] 10 Apr, 2016 Encounter for dental examination Z01.20 [facility] [id number] [place] [address] [id number] 21 Mar, 2016 Encounter for routine child health examination without abnormal findings Z00.129 [facility] [address] 28048- 6250 14 Mar, 2016 Mood disorder F39 and Asperger syndrome F84.5 [place] [address] 43567- 9639 06 Mar, 2016 [place] [address] 18501- 6433 06 Mar, 2016 Asperger syndrome F84.5 and Oppositional behavior F91.3 [facility] [address] 85861- 6722 Feb, Mood disorder F39 and Asperger syndrome F84.5 [facility] [address] 73605- 9715 Feb, Fatigue, unspecified type R53.83 and GERD (gastroesophageal reflux disease) K21.9 [facility] [id number] [place] [address] 35514- 6424 Feb, Mood disorder F39 and Asperger syndrome F84.5 [facility] [id number] [place] [address] 70144- 1655 Feb, Asperger syndrome F84.5 and Oppositional behavior F91.3 [facility] [id number] [place] [address] 15002 -0008 05 Feb, 2016 Itchy eyes H57.8 [facility] [address] 52161- 2559 Feb, Encounter for initial prescription of contraceptives Z30.019 [place] [id number] [place] [address] 57018- 0884 Feb, Mood disorder F39 and Asperger syndrome F84.5 [facility] [id number] [place] [address] 42973- 5890 Feb, [place] [address] 37934- 5091 Jan, Asperger syndrome F84.5 and Oppositional behavior F91.3 [place] [id number] [place] [address] 52753- 2365 Jan, Mood disorder F39 and Asperger syndrome F84.5 [place] [id number] [place] [address] 69827- 2152 Jan, [facility] [address] 16780 -2173 Jan, Acute cystitis without hematuria N30.00 ; Asperger syndrome F84.5 and Oppositional behavior F91.3 [place] [id number] [place] [address] 66661- 5489 Dec, Mood disorder F39 and Asperger syndrome F84.5 [place] [id number] [place] [address] 11360- 9331 Dec, Epilepsy G40.909 ; Asperger syndrome F84.5 ; Vitamin D deficiency E55.9 and Routine health maintenance Z00.00 [facility] [id number] [place] [address] 68156- 8308 Dec, Mood disorder F39 and Asperger syndrome F84.5 [place] [id number] [place] [address] 25293- 5010 09 Dec, 2015 Epilepsy G40.909 ; Asperger syndrome F84.5 ; Vitamin D deficiency E55.9 ; GERD (gastroesophageal reflux disease) K21.9 ; Tremors of nervous system R25.1 ; Constipation K59.00 ; Oppositional behavior F91.3 ; Routine health maintenance Z00.00 ; Dysuria R30.0 ; Obesity (BMI 30.0-34.9) E66.9 and Other seasonal allergic rhinitis J30.2 [facility] [address] 11770 -1797 Dec, Leg pain, right M79.604 [place] [address] 22522- 3411 Dec, [place] [address] 73903- 6915 Dec, Dental examination Z01.20 [place] [address] 99753- 3480 November, Epilepsy G40.909 [place] [address] 45376- 0000 November, Scabies B86 ; Epilepsy G40.909 ; Vitamin D deficiency E55.9 ; Oppositional behavior F91.3 ; GERD (gastroesophageal reflux disease) K21.9 and Tremors of nervous system R25.1 [facility] [address] 08728 -7035 November, Contact dermatitis, unspecified contact dermatitis type, unspecified trigger L25.9 [place] [address] 48134- 8462 November, Asperger syndrome F84.5 ; Epilepsy G40.909 and Oppositional behavior F91.3 [place] [address] 24959- 5629 November, [address] 60247- 6790 Oct, Encounter for Depo-Provera contraception Z30.42 [place] [address] 69135- 1384 Oct, Epilepsy G40.909 ; Asperger syndrome F84.5 ; Vitamin D deficiency E55.9 ; Encounter for Depo-Provera contraception Z30.42 ; GERD ( gastroesophageal reflux disease) K21.9 ; Tremors of nervous system R25.1 and Constipation K59.00 [place] [address] [address]- 2929 13 Oct, 2015 Seizure disorder G40.909 and Depo-Provera contraceptive status Z30.42 [place] [id number] [place] [address] 31649- 3833 12 Oct, 2015 [place] [id number] [place] [address] 83217- 0912 05 Oct, 2015 Epilepsy G40.909 ; Encounter for Depo-Provera contraception Z30.42 ; Asperger syndrome F84.5 and Vitamin D deficiency E55.9 IMMUNIZATIONS No Known Immunizations SOCIAL HISTORY Never Assessed REASON FOR VISIT referral PLAN OF CARE VITAL SIGNS MEDICATIONS Unknown [...]
--- OUTSIDE RECORDS SUMMARY | 2018-04-17 11:42 | XMS REPORT ---
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 Name Role Phone MYLES GARCIA Unavailable PROBLEMS Type Condition ICD9-CM Code [id number] Code Onset Dates Condition Status SNOMED Code Problem Constipation K59.00 Active 64308754 Problem Dysuria R30.0 Active 07226669 Problem Oppositional behavior F91.3 Active 81180077 Problem Asperger syndrome F84.5 Active 69775787 Problem Epilepsy G40.909 Active 58895145 Problem Tremors of nervous system R25.1 Active 047457414 Problem GERD without esophagitis K21.9 Active 068042817 Problem Benign essential tremor G25.0 Active 552388869 Problem Morbid (severe) obesity due to excess calories E66.01 Active 857580529 Problem Mood disorder F39 Active 73400977 Problem Episode of recurrent major depressive disorder, unspecified depression episode severity F33.9 Active 126134017 Problem Body mass index (BMI) of 40.0-44.9 in adult Z68.41 Active 852847239 ALLERGIES No Information ENCOUNTERS Encounter Location Date Diagnosis [place] [id number] [address] November, Asperger syndrome F84.5 [facility] [address] [address] November, [facility] [address] [place] [address] 43205- 7854 Oct, Benign essential tremor G25.0 and GERD without esophagitis K21.9 [facility] [address] [address] Aug, [facility] [id number] [place] [address] 66506- 9597 Aug, Asperger syndrome F84.5 [facility] [address] [place] [address] 58233 -5224 02 Aug, 2017 Diarrhea, unspecified type R19.7 [facility] [id number] [place] [address] 12590- 8787 Aug, Episode of recurrent major depressive disorder, unspecified depression episode severity F33.9 [facility] [facility] [id number] [place] [address] [phone] Jul, Dental examination Z01.20 [facility] [address] 37151- 1460 Jul, Asperger syndrome F84.5 [facility] [id number] [place] [address] 45213- 6203 Jul, Asperger syndrome F84.5 [facility] [id number] [place] [address] 42258- 6832 Jul, Dental examination Z01.20 [facility] [id number] [place] [address] 42616- 1434 Jul, Asperger syndrome F84.5 ; Epilepsy G40.909 ; GERD ( gastroesophageal reflux disease) K21.9 ; Mood disorder F39 ; BMI 40.0-44.9, adult Z68.41 and Tremors of nervous system R25.1 [facility] [id number] [place] [address] 51241- 5519 Jul, Asperger syndrome F84.5 and Oppositional behavior F91.3 [facility] [id number] [place] [address] 62439- 5458 Jun, Tremors of nervous system R25.1 [facility] [id number] [place] [address] 38562- 0971 Jun, Asperger syndrome F84.5 [facility] [id number] [place] [address] 50482- 2391 Jun, Asperger syndrome F84.5 [place] [address] [place] [id number] [place] [address] 89021- 2435 May, [facility] [id number] [place] [address] 03185 -3730 May, Acute non-recurrent frontal sinusitis J01.10 [place] [address] 01578- 0372 May, Mood disorder F39 and Asperger syndrome F84.5 [place] [address] [place] [id number] [place] [address] 87614- 7182 May, Acne vulgaris L70.0 [place] [address] [place] [id number] [place] [address] 72654- 5492 May, Acne vulgaris L70.0 and Tremors of nervous system R25.1 [facility] [id number] [place] [address] 68989 -5537 May, Other viral agents as the cause of diseases classified elsewhere B97.89 and Acute upper respiratory infection, unspecified J06.9 [place] [address] [place] [id number] [place] [address] 24490- 5887 May, Mood disorder F39 and Asperger syndrome F84.5 [place] [address] [place] [id number] [place] [address] 71375- 5792 Apr, Asperger syndrome F84.5 [place] [address] [place] [id number] [place] [address] 13998- 8352 Apr, Asperger syndrome F84.5 and Oppositional behavior F91.3 [place] [address] 06533- 2508 Mar, Mood disorder F39 and Asperger syndrome F84.5 [place] [address] [place] [id number] [place] [address] 86994- 3481 Feb, GERD (gastroesophageal reflux disease) K21.9 ; Dysuria R30.0 ; Otalgia of right ear H92.01 and Decreased urination R34 [facility] [id number] [place] [address] 18155- 8069 Feb, Mood disorder F39 and Asperger syndrome F84.5 [facility] [id number] [place] [address] 63470- 5420 Feb, Asperger syndrome F84.5 and Oppositional behavior F91.3 [facility] [id number] [place] [address] 29686 -3496 Jan, Viral gastroenteritis A08.4 [facility] [address] 29604- 8472 Jan, Mood disorder F39 and Asperger syndrome F84.5 [place] [address] 67346- 0246 Jan, Asperger syndrome F84.5 and Oppositional behavior F91.3 [facility] [address] 92537 -7684 Dec, FRANSICO (secretory otitis media), right H65.91 [facility] [id number] [place] [address] 66307- 4310 Dec, Mood disorder F39 and Asperger syndrome F84.5 [place] [address] [place] [id number] [place] [address] 16623- 4324 Dec, Otalgia, left ear H92.02 [facility] [id number] [place] [address] 28673- 9785 Dec, [facility] [address] 36060- 0357 14 Dec, 2016 Mood disorder F39 and Asperger syndrome F84.5 [facility] [address] [place] [address] [id number] 07 Dec, 2016 Dental examination Z01.20 [facility] [address] [place] [address]- 1061 31 Nov, 2016 Medicare annual wellness visit, subsequent Z00.00 ; GERD ( gastroesophageal reflux disease) K21.9 ; Counseling on health promotion and disease prevention Z71.89 and Encounter for preventative adult health care exam with abnormal findings Z00.01 [facility] [address] 83147 -4451 25 Nov, 2016 Allergic contact dermatitis due to plants, except food L23.7 [place] [address] 79257- 1236 02 Nov, 2016 Mood disorder F39 and Asperger syndrome F84.5 [facility] [address] 87788 -3840 31 Sep, 2016 Acute bacterial conjunctivitis of right eye H10.31 and Acute suppurative otitis media of right ear without spontaneous rupture of tympanic membrane, recurrence not specified H66.001 [place] [address] 21723- 2076 07 Sep, 2016 Nexplanon insertion Z30.017 [place] [address] 55838- 7199 2016 Mood disorder F39 and Asperger syndrome F84.5 [place] [address] 40249- 7851 28 Aug, 2016 Mood disorder F39 and Asperger syndrome F84.5 [place] [address] 41561- 3256 14 Aug, 2016 control counseling Z30.09 [place] [address] 65236- 4664 08 Aug, 2016 Asperger syndrome F84.5 and Oppositional behavior F91.3 [facility] [id number] [place] [address] [phone] 08 Aug, 2016 Dental examination Z01.20 [place] [address] 11470- 7817 Aug, Mood disorder F39 and Asperger syndrome F84.5 [facility] [address] [place] [address] 15173 -3876 Jul, Acute suppurative otitis media of both ears without spontaneous rupture of tympanic membranes, recurrence not specified H66.003 [facility] [address] [id number] [place] [address] 20063- 6550 Jul, [facility] [id number] [place] [address] 93851- 6277 Jul, Asperger syndrome F84.5 [facility] [id number] [place] [address] 98333- 2409 Jul, [facility] [id number] [place] [address] 88810- 7853 Jul, Mood disorder F39 and Asperger syndrome F84.5 [facility] [id number] [place] [address] [id number] Jul, Dental examination Z01.20 [facility] [address] [place] [address] 06304 -0971 Jul, Acute non-recurrent pansinusitis J01.40 [facility] [id number] [place] [address] 15476- 7126 Jul, Asperger syndrome F84.5 and Oppositional behavior F91.3 [facility] [id number] [place] [address] 15460- 9951 Jun, Mood disorder F39 and Asperger syndrome F84.5 [facility] [id number] [place] [address] 65122- 4541 Jun, Mood disorder F39 and Asperger syndrome F84.5 [facility] [address] [place] [address] 62050- 3810 Jun, Mood disorder F39 and Asperger syndrome F84.5 [facility] [address] [place] [address] [place] [address]- 1271 30 May, 2016 Mood disorder F39 and Asperger syndrome F84.5 [facility] [id number] [place] [address] 22002- 7321 28 May, 2016 [facility] [id number] [place] [address] 97811- 0893 May, Asperger syndrome F84.5 and Oppositional behavior F91.3 [facility] [id number] [place] [address] 17032- 6376 17 May, 2016 Oral contraceptive pill surveillance Z30.41 [facility] [address] 864111- 9613 16 May, 2016 Mood disorder F39 and Asperger syndrome F84.5 [facility] [id number] [place] [address] 18151- 5431 May, Asperger syndrome F84.5 and Oppositional behavior F91.3 [facility] [id number] [place] [address] 10189- 5148 May, Mood disorder F39 and Asperger syndrome F84.5 [place] [address] [place] [id number] [place] [address] 53601- 7123 Apr, [facility] [id number] [place] [address] 20749- 5559 Apr, Oppositional behavior F91.3 [facility] [id number] [place] [address] 20445- 6610 Apr, Asperger syndrome F84.5 and Oppositional behavior F91.3 [facility] [id number] [place] [address] 85535 -6013 Apr, Contact dermatitis, unspecified contact dermatitis type, unspecified trigger L25.9 [facility] [id number] [place] [address] 19730- 7541 Apr, Mood disorder F39 and Asperger syndrome F84.5 [facility] [address] [place] [address] 38406 -9355 15 Apr, 2016 Acute non-recurrent frontal sinusitis J01.10 and Encounter for immunization Z23 [facility] [id number] [place] [address] [id number] 10 Apr, 2016 Encounter for dental examination Z01.20 [facility] [address] [id number] 21 Mar, 2016 Encounter for routine child health examination without abnormal findings Z00.129 [facility] [address] 38298- 4875 14 Mar, 2016 Mood disorder F39 and Asperger syndrome F84.5 [facility] [address] 72520- 1829 06 Mar, 2016 [facility] [address] 87442- 4613 06 Mar, 2016 Asperger syndrome F84.5 and Oppositional behavior F91.3 [facility] [address] 29433- 1303 Feb, Mood disorder F39 and Asperger syndrome F84.5 [facility] [address] 53476- 2660 Feb, Fatigue, unspecified type R53.83 and GERD (gastroesophageal reflux disease) K21.9 [facility] [id number] [place] [address] 21728- 1522 Feb, Mood disorder F39 and Asperger syndrome F84.5 [facility] [id number] [place] [address] 21286- 2301 09 Feb, 2016 Asperger syndrome F84.5 and Oppositional behavior F91.3 [facility] [id number] [place] [address] 37411 -0121 05 Feb, 2016 Itchy eyes H57.8 [facility] [address] 29313- 1215 Feb, Encounter for initial prescription of contraceptives Z30.019 [facility] [id number] [place] [address] 71149- 3699 Feb, Mood disorder F39 and Asperger syndrome F84.5 [facility] [id number] [place] [address] 12675- 6173 Feb, [place] [address] [place] [id number] [place] [address] 71350- 3463 Jan, Asperger syndrome F84.5 and Oppositional behavior F91.3 [place] [address] [place] [id number] [place] [address] 68192- 1448 Jan, Mood disorder F39 and Asperger syndrome F84.5 [place] [address] [place] [id number] [place] [address] 54679- 3755 Jan, [facility] [id number] [place] [address] 64669 -2845 Jan, Acute cystitis without hematuria N30.00 ; Asperger syndrome F84.5 and Oppositional behavior F91.3 [place] [address] [place] [id number] [place] [address] 58157- 6223 Dec, Mood disorder F39 and Asperger syndrome F84.5 [place] [address] [place] [id number] [place] [address] 51479- 1236 Dec, Epilepsy G40.909 ; Asperger syndrome F84.5 ; Vitamin D deficiency E55.9 and Routine health maintenance Z00.00 [facility] [address] [place] [address] 05342- 1078 Dec, Mood disorder F39 and Asperger syndrome F84.5 [facility] [address] [place] [address] 26446- 6735 09 Dec, 2015 Epilepsy G40.909 ; Asperger syndrome F84.5 ; Vitamin D deficiency E55.9 ; GERD (gastroesophageal reflux disease) K21.9 ; Tremors of nervous system R25.1 ; Constipation K59.00 ; Oppositional behavior F91.3 ; Routine health maintenance Z00.00 ; Dysuria R30.0 ; Obesity (BMI 30.0-34.9) E66.9 and Other seasonal allergic rhinitis J30.2 [facility] [address] 62928 -4663 Dec, Leg pain, right M79.604 [place] [address] 37128- 8940 Dec, [place] [address] 36471- 2095 Dec, Dental examination Z01.20 [place] [address] 35802- 0066 November, Epilepsy G40.[address] 39092- 4483 November, Scabies B86 ; Epilepsy G40.909 ; Vitamin D deficiency E55.9 ; Oppositional behavior F91.3 ; GERD (gastroesophageal reflux disease) K21.9 and Tremors of nervous system R25.1 [facility] [address] 89807 -6503 November, Contact dermatitis, unspecified contact dermatitis type, unspecified trigger L25.9 [place] [address] 49361- 8988 November, Asperger syndrome F84.5 ; Epilepsy G40.909 and Oppositional behavior F91.3 [place] [address] 23327- 6996 November, [address] 70545- 8063 Oct, Encounter for Depo-Provera contraception Z30.42 [place] [address] 50833- 9513 Oct, Epilepsy G40.909 ; Asperger syndrome F84.5 ; Vitamin D deficiency E55.9 ; Encounter for Depo-Provera contraception Z30.42 ; GERD ( gastroesophageal reflux disease) K21.9 ; Tremors of nervous system R25.1 and Constipation K59.00 [place] [address] [address]- 0752 13 Oct, 2015 Seizure disorder G40.909 and Depo-Provera contraceptive status Z30.42 [place] [address] [place] [address] 83569- 6044 12 Oct, 2015 [place] [address] [place] [id number] [place] [address] 65733- 9796 05 Oct, 2015 Epilepsy G40.909 ; Encounter for Depo-Provera contraception Z30.42 ; Asperger syndrome F84.5 and Vitamin D deficiency E55.9 IMMUNIZATIONS No Known Immunizations SOCIAL HISTORY Never Assessed REASON FOR VISIT f/u PLAN OF CARE Activity Details Follow Up 3 Weeks Reason: F/U VITAL SIGNS MEDICATIONS Unknown [...]
--- OUTSIDE RECORDS SUMMARY | 2018-04-17 11:43 | XMS REPORT ---
Author Author BRENNAN GONZALEZ Organization [facility] Address [address] [place] [address] Care Team Providers Care C2 Tactical Analysis Technician Name Role Phone GONZALEZJAE AbdallaELE Unavailable PROBLEMS Type Condition ICD9-CM Code [id number] Code Onset Dates Condition Status SNOMED Code Problem Constipation K59.00 Active 04258006 Problem Dysuria R30.0 Active 63298944 Problem Oppositional behavior F91.3 Active 14215651 Problem Asperger syndrome F84.5 Active 48026287 Problem Epilepsy G40.909 Active 32925673 Problem Tremors of nervous system R25.1 Active 212558014 Problem GERD without esophagitis K21.9 Active 917839436 Problem Benign essential tremor G25.0 Active 899729777 Problem Morbid (severe) obesity due to excess calories E66.01 Active 315408652 Problem Mood disorder F39 Active 89133521 Problem Episode of recurrent major depressive disorder, unspecified depression episode severity F33.9 Active 462239770 Problem Body mass index (BMI) of 40.0-44.9 in adult Z68.41 Active 070650863 ALLERGIES No Information ENCOUNTERS Encounter Location Date Diagnosis [facility] [id number] [place] [address] 17281- 2021 November, Asperger syndrome F84.5 [facility] [id number] [place] [address] 14277- 1842 November, [facility] [id number] [place] [address] 72842- 3201 Oct, Benign essential tremor G25.0 and GERD without esophagitis K21.9 [facility] [id number] [place] [address] 88061- 2775 Aug, [facility] [id number] [place] [address] 87549- 9654 05 Aug, 2017 Asperger syndrome F84.[address] [facility] [id number] [place] [address] 21977 -0610 02 Aug, 2017 Diarrhea, unspecified type R19.7 [facility] [id number] [place] [address] 50073- 2586 02 Aug, 2017 Episode of recurrent major depressive disorder, unspecified depression episode severity F33.9 [facility] [id number] [place] [address] [phone] Jul, Dental examination Z01.20 [facility] [address] 81852- 2282 Jul, Asperger syndrome F84.5 [facility] [id number] [place] [address] 74789- 0427 Jul, Asperger syndrome F84.5 [facility] [id number] [place] [address] 23948- 1158 Jul, Dental examination Z01.20 [facility] [id number] [place] [address] 66219- 7812 Jul, Asperger syndrome F84.5 ; Epilepsy G40.909 ; GERD ( gastroesophageal reflux disease) K21.9 ; Mood disorder F39 ; BMI 40.0-44.9, adult Z68.41 and Tremors of nervous system R25.1 [facility] [id number] [place] [address] 74867- 4870 Jul, Asperger syndrome F84.5 and Oppositional behavior F91.3 [facility] [id number] [place] [address] 83782- 2233 Jun, Tremors of nervous system R25.1 [facility] [id number] [place] [address] 31753- 6728 Jun, Asperger syndrome F84.5 [facility] [id number] [place] [address] 49188- 8614 Jun, Asperger syndrome F84.5 [facility] [id number] [place] [address] 13070- 1969 May, [facility] [address] 55080 -1438 May, Acute non-recurrent frontal sinusitis J01.10 [place] [address] 33808- 8295 May, Mood disorder F39 and Asperger syndrome F84.5 [place] [address] 28626- 3655 May, Acne vulgaris L70.0 [place] [address] 15819- 7417 May, Acne vulgaris L70.0 and Tremors of nervous system R25.[address] [facility] [id number] [place] [address] 18774 -8203 May, Other viral agents as the cause of diseases classified elsewhere B97.89 and Acute upper respiratory infection, unspecified J06.9 [place] [id number] [place] [address] 06338- 8124 May, Mood disorder F39 and Asperger syndrome F84.5 [place] [id number] [place] [address] 08980- 0568 Apr, Asperger syndrome F84.5 [place] [id number] [place] [address] 88059- 7851 Apr, Asperger syndrome F84.5 and Oppositional behavior F91.3 [place] [address] 74123- 8780 Mar, Mood disorder F39 and Asperger syndrome F84.5 [place] [id number] [place] [address] 64295- 8402 Feb, GERD (gastroesophageal reflux disease) K21.9 ; Dysuria R30.0 ; Otalgia of right ear H92.01 and Decreased urination R34 [facility] [address] 92106- 3488 Feb, Mood disorder F39 and Asperger syndrome F84.5 [facility] [address] 04001- 8382 Feb, Asperger syndrome F84.5 and Oppositional behavior F91.3 [facility] [address] 13469 -3175 Jan, Viral gastroenteritis A08.4 [facility] [address] 42500- 6786 Jan, Mood disorder F39 and Asperger syndrome F84.5 [place] [address] 94357- 3030 Jan, Asperger syndrome F84.5 and Oppositional behavior F91.3 [facility] [address] 92[address]1983 Dec, FRANSICO (secretory otitis media), right H65.91 [facility] [address] 84477- 5042 Dec, Mood disorder F39 and Asperger syndrome F84.5 [facility] [address] 47307- 1467 Dec, Otalgia, left ear H92.02 [facility] [address] 30111- 5661 Dec, [facility] [address] 27834- 8775 Dec, Mood disorder F39 and Asperger syndrome F84.5 [facility] [id number] [place] [address] [phone] 07 Dec, 2016 Dental examination Z01.20 [facility] [address] 63685- 1533 31 Nov, 2016 Medicare annual wellness visit, subsequent Z00.00 ; GERD ( gastroesophageal reflux disease) K21.9 ; Counseling on health promotion and disease prevention Z71.89 and Encounter for preventative adult health care exam with abnormal findings Z00.01 [facility] [address] 59998 -9043 November, Allergic contact dermatitis due to plants, except food L23.7 [place] [address] 38318- 1408 02 Nov, 2016 Mood disorder F39 and Asperger syndrome F84.5 [facility] [address] 91129 -5507 31 Sep, 2016 Acute bacterial conjunctivitis of right eye H10.31 and Acute suppurative otitis media of right ear without spontaneous rupture of tympanic membrane, recurrence not specified H66.001 [place] [address] 61330- 8705 07 Sep, 2016 Nexplanon insertion Z30.017 [place] [address] 70872- 0154 2016 Mood disorder F39 and Asperger syndrome F84.5 [place] [address] 20015- 7998 28 Aug, 2016 Mood disorder F39 and Asperger syndrome F84.5 [place] [address] 72421- 5136 14 Aug, 2016 control counseling Z30.09 [place] [address] 84957- 9684 08 Aug, 2016 Asperger syndrome F84.5 and Oppositional behavior F91.3 [facility] [address] [id number] 08 Aug, 2016 Dental examination Z01.20 [place] [address] 17788- 7254 Aug, Mood disorder F39 and Asperger syndrome F84.5 [facility] [id number] [place] [address] 97024 -2117 Jul, Acute suppurative otitis media of both ears without spontaneous rupture of tympanic membranes, recurrence not specified H66.003 [facility] [id number] [place] [address] 94047- 1950 Jul, [facility] [address] 26977- 9576 Jul, Asperger syndrome F84.5 [facility] [address] 65555- 8627 Jul, [facility] [address] 62013- 6321 Jul, Mood disorder F39 and Asperger syndrome F84.5 [facility] [address] [id number] Jul, Dental examination Z01.[address] [facility] [id number] [place] [address] 43698 -5224 Jul, Acute non-recurrent pansinusitis J01.40 [facility] [id number] [place] [address] 82770- 1817 Jul, Asperger syndrome F84.5 and Oppositional behavior F91.3 [facility] [id number] [place] [address] 28701- 8988 Jun, Mood disorder F39 and Asperger syndrome F84.5 [facility] [id number] [place] [address] 13528- 8739 Jun, Mood disorder F39 and Asperger syndrome F84.5 [facility] [id number] [place] [address] 53122- 2350 Jun, Mood disorder F39 and Asperger syndrome F84.5 [facility] [address] [place] [address]- 9429 30 May, 2016 Mood disorder F39 and Asperger syndrome F84.5 [facility] [id number] [place] [address] 94812- 2945 May, [facility] [id number] [place] [address] 44935- 9450 May, Asperger syndrome F84.5 and Oppositional behavior F91.3 [facility] [id number] [place] [address] 74145- 6907 May, Oral contraceptive pill surveillance Z30.41 [place] [address] 96950- 7849 16 May, 2016 Mood disorder F39 and Asperger syndrome F84.5 [place] [id number] [place] [address] 00017- 9646 May, Asperger syndrome F84.5 and Oppositional behavior F91.3 [facility] [id number] [place] [address] 84717- 3660 May, Mood disorder F39 and Asperger syndrome F84.5 [place] [id number] [place] [address] 50709- 1002 31 Apr, 2016 [facility] [id number] [place] [address] 59727- 6630 Apr, Oppositional behavior F91.3 [facility] [id number] [place] [address] 60292- 6119 Apr, Asperger syndrome F84.5 and Oppositional behavior F91.3 [facility] [id number] [place] [address] 20753 -4705 Apr, Contact dermatitis, unspecified contact dermatitis type, unspecified trigger L25.9 [facility] [id number] [place] [address] 58337- 4164 Apr, Mood disorder F39 and Asperger syndrome F84.5 [facility] [id number] [place] [address] 34893 -8763 15 Apr, 2016 Encounter for immunization Z23 and Acute non-recurrent frontal sinusitis J01.10 [facility] [address] [place] [address] [id number] 10 Apr, 2016 Encounter for dental examination Z01.20 [facility] [id number] [place] [address] [id number] 21 Mar, 2016 Encounter for routine child health examination without abnormal findings Z00.129 [facility] [address] 89793- 3386 14 Mar, 2016 Mood disorder F39 and Asperger syndrome F84.5 [place] [address] 73799- 1251 06 Mar, 2016 [place] [address] 61648- 6103 06 Mar, 2016 Asperger syndrome F84.5 and Oppositional behavior F91.3 [facility] [address] 86558- 8799 Feb, Mood disorder F39 and Asperger syndrome F84.5 [place] [address] 27333- 0022 Feb, Fatigue, unspecified type R53.83 and GERD (gastroesophageal reflux disease) K21.9 [facility] [id number] [place] [address] 09001- 9371 Feb, Mood disorder F39 and Asperger syndrome F84.5 [facility] [id number] [place] [address] 21752- 3526 Feb, Asperger syndrome F84.5 and Oppositional behavior F91.3 [facility] [id number] [place] [address] 45610 -1015 05 Feb, 2016 Itchy eyes H57.8 [facility] [address] 36284- 2317 Feb, Encounter for initial prescription of contraceptives Z30.019 [place] [id number] [place] [address] 91260- 6604 Feb, Mood disorder F39 and Asperger syndrome F84.5 [facility] [id number] [place] [address] 15112- 3783 Feb, [place] [address] 88356- 3834 Jan, Asperger syndrome F84.5 and Oppositional behavior F91.3 [place] [id number] [place] [address] 08639- 7717 Jan, Mood disorder F39 and Asperger syndrome F84.5 [place] [id number] [place] [address] 42892- 9520 Jan, [facility] [address] 84179 -4746 Jan, Acute cystitis without hematuria N30.00 ; Asperger syndrome F84.5 and Oppositional behavior F91.3 [place] [id number] [place] [address] 22486- 1897 Dec, Mood disorder F39 and Asperger syndrome F84.5 [place] [id number] [place] [address] 24430- 6251 Dec, Epilepsy G40.909 ; Asperger syndrome F84.5 ; Vitamin D deficiency E55.9 and Routine health maintenance Z00.00 [facility] [id number] [place] [address] 31411- 6293 Dec, Mood disorder F39 and Asperger syndrome F84.5 [place] [id number] [place] [address] 21440- 4941 09 Dec, 2015 Epilepsy G40.909 ; Asperger syndrome F84.5 ; Vitamin D deficiency E55.9 ; GERD (gastroesophageal reflux disease) K21.9 ; Tremors of nervous system R25.1 ; Constipation K59.00 ; Oppositional behavior F91.3 ; Routine health maintenance Z00.00 ; Dysuria R30.0 ; Obesity (BMI 30.0-34.9) E66.9 and Other seasonal allergic rhinitis J30.[address] [facility] [address] 93187 -6763 Dec, Leg pain, right M79.604 [place] [address] 70129- 0578 Dec, [place] [address] 09345- 8993 Dec, Dental examination Z01.20 [place] [address] 70857- 7236 November, Epilepsy G40.909 [place] [address] 22715- 5936 November, Scabies B86 ; Epilepsy G40.909 ; Vitamin D deficiency E55.9 ; Oppositional behavior F91.3 ; GERD (gastroesophageal reflux disease) K21.9 and Tremors of nervous system R25.1 [facility] [address] 15275 -8591 November, Contact dermatitis, unspecified contact dermatitis type, unspecified trigger L25.9 [place] [address] 26674- 0433 November, Asperger syndrome F84.5 ; Epilepsy G40.909 and Oppositional behavior F91.3 [place] [address] 99380- 1910 November, [address] 9[address]11- 4602 Oct, Encounter for Depo-Provera contraception Z30.42 [place] [address] 56412- 4293 Oct, Epilepsy G40.909 ; Asperger syndrome F84.5 ; Vitamin D deficiency E55.9 ; Encounter for Depo-Provera contraception Z30.42 ; GERD ( gastroesophageal reflux disease) K21.9 ; Tremors of nervous system R25.1 and Constipation K59.00 [place] [address] [address]- 2380 13 Oct, 2015 Seizure disorder G40.909 and Depo-Provera contraceptive status Z30.42 [place] [address] [place] [address] 77109- 5280 12 Oct, 2015 [place] [id number] [place] [address] 50711- 4793 05 Oct, 2015 Epilepsy G40.909 ; Encounter for Depo-Provera contraception Z30.42 ; Asperger syndrome F84.5 and Vitamin D deficiency E55.9 IMMUNIZATIONS No Known Immunizations SOCIAL HISTORY Never Assessed REASON FOR VISIT Medication Questions PLAN OF CARE VITAL SIGNS MEDICATIONS Medication Instructions Dosage Frequency Start Date End Date Duration Status Lamictal 100 mg Orally Twice a day 1 tablet 12h 135 days Active RESULTS No Results PROCEDURES No [...]
--- OUTSIDE RECORDS SUMMARY | 2018-04-17 11:46 | XMS REPORT ---
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 Name Role Phone MYLES GARCIA Unavailable PROBLEMS Type Condition ICD9-CM Code SUM53-LU Code Onset Dates Condition Status SNOMED Code Problem Constipation K59.00 Active 37506859 Problem GERD (gastroesophageal reflux disease) K21.9 Active 281445887 Problem Tremors of nervous system R25.1 Active 868039934 Problem Asperger syndrome F84.5 Active 61798250 Problem Epilepsy G40.909 Active 20206434 Problem Episode of recurrent major depressive disorder, unspecified depression episode severity F33.9 Active 870621264 Problem Morbid (severe) obesity due to excess calories E66.01 Active 824625648 Problem Dysuria R30.0 Active 69997968 Problem Oppositional behavior F91.3 Active 99106824 Problem Body mass index (BMI) of 40.0-44.9 in adult Z68.41 Active 090744855 Problem Mood disorder F39 Active 34267520 ALLERGIES No Information ENCOUNTERS Encounter Location Date Diagnosis [facility] [id number] [place] [address] 55668- 8694 November, [facility] [id number] [place] [address] 81004- 3220 Aug, [facility] [id number] [place] [address] 28064- 1894 Aug, Asperger syndrome F84.5 [facility] [id number] [place] [address] 84072 -3936 Aug, Diarrhea, unspecified type R19.7 [facility] [id number] [place] [address] 31456- 1585 Aug, Episode of recurrent major depressive disorder, unspecified depression episode severity F33.9 [facility] [address] [id number] [id number] Jul, Dental examination Z01.20 [facility] [id number] [place] [address] 91643- 3445 Jul, Asperger syndrome F84.5 [facility] [id number] [place] [address] 26601- 7289 Jul, Asperger syndrome F84.5 [facility] [id number] [place] [address] 81212- 2521 Jul, Dental examination Z01.20 [facility] [id number] [place] [address] 77806- 9107 Jul, Asperger syndrome F84.5 ; Epilepsy G40.909 ; GERD ( gastroesophageal reflux disease) K21.9 ; Mood disorder F39 ; BMI 40.0-44.9, adult Z68.41 and Tremors of nervous system R25.1 [facility] [id number] [place] [address] 69349- 9239 Jul, Asperger syndrome F84.5 and Oppositional behavior F91.3 [facility] [id number] [place] [address] 73434- 2388 Jun, Tremors of nervous system R25.1 [facility] [id number] [place] [address] 68020- 0884 14 Jun, 2017 Asperger syndrome F84.5 [facility] [id number] [place] [address] 15815- 7415 Jun, Asperger syndrome F84.5 [facility] [id number] [place] [address] 57617- 7090 30 May, 2017 [facility] [id number] [place] [address] 97615 -5085 May, Acute non-recurrent frontal sinusitis J01.10 [place] [id number] [place] [address] 55030- 7824 May, Mood disorder F39 and Asperger syndrome F84.5 [facility] [id number] [place] [address] 25079- 3892 May, Acne vulgaris L70.0 [facility] [id number] [place] [address] 01957- 8327 May, Acne vulgaris L70.0 and Tremors of nervous system R25.1 [facility] [id number] [place] [address] 53095 -2026 May, Other viral agents as the cause of diseases classified elsewhere B97.89 and Acute upper respiratory infection, unspecified J06.9 [place] [id number] [place] [address] 41219- 2019 May, Mood disorder F39 and Asperger syndrome F84.5 [place] [id number] [place] [address] 49371- 1892 Apr, Asperger syndrome F84.5 [place] [address] 12745- 0723 Apr, Asperger syndrome F84.5 and Oppositional behavior F91.3 [place] [id number] [place] [address] 84299- 7637 Mar, Mood disorder F39 and Asperger syndrome F84.5 [place] [id number] [place] [address] 84482- 3743 Feb, GERD (gastroesophageal reflux disease) K21.9 ; Dysuria R30.0 ; Otalgia of right ear H92.01 and Decreased urination R34 [place] [id number] [place] [address] 95803- 6205 Feb, Mood disorder F39 and Asperger syndrome F84.5 [place] [id number] [place] [address] 15410- 4915 Feb, Asperger syndrome F84.5 and Oppositional behavior F91.3 [facility] [id number] [place] [address] 20168 -8938 Jan, Viral gastroenteritis A08.4 [facility] [id number] [place] [address] 95029- 7923 Jan, Mood disorder F39 and Asperger syndrome F84.5 [place] [address] 48362- 6241 Jan, Asperger syndrome F84.5 and Oppositional behavior F91.3 [facility] [address] 87873 -9063 Dec, FRANSICO (secretory otitis media), right H65.91 [place] [address] 65636- 2325 Dec, Mood disorder F39 and Asperger syndrome F84.5 [place] [address] 83357- 7972 19 Dec, 2016 Otalgia, left ear H92.02 [place] [address] 67169- 3525 14 Dec, 2016 [place] [id number] [place] [address] 46536- 9415 14 Dec, 2016 Mood disorder F39 and Asperger syndrome F84.5 [facility] [address] [id number] Dec, 2016 Dental examination Z01.20 [place] [address] 11885- 4929 November, Medicare annual wellness visit, subsequent Z00.00 ; GERD ( gastroesophageal reflux disease) K21.9 ; Counseling on health promotion and disease prevention Z71.89 and Encounter for preventative adult health care exam with abnormal findings Z00.01 [facility] [id number] [place] [address] 75080 -7098 November, Allergic contact dermatitis due to plants, except food L23.7 [facility] [id number] [place] [address] 89623- 6790 November, Mood disorder F39 and Asperger syndrome F84.5 [facility] [id number] [place] [address] 26999 -2497 Sep, Acute bacterial conjunctivitis of right eye H10.31 and Acute suppurative otitis media of right ear without spontaneous rupture of tympanic membrane, recurrence not specified H66.001 [place] [id number] [place] [address] 85434- 3919 07 Sep, 2016 Nexplanon insertion Z30.017 [place] [address] 73574- 4651 2016 Mood disorder F39 and Asperger syndrome F84.5 [place] [address] 73813- 2967 28 Aug, 2016 Mood disorder F39 and Asperger syndrome F84.5 [place] [id number] [place] [address] 48538- 2911 14 Aug, 2016 control counseling Z30.09 [place] [address] 39526- 2980 08 Aug, 2016 Asperger syndrome F84.5 and Oppositional behavior F91.3 [facility] [address] [id number] 08 Aug, 2016 Dental examination Z01.20 [place] [id number] [place] [address] 40721- 6231 03 Aug, 2016 Mood disorder F39 and Asperger syndrome F84.5 [facility] [id number] [place] [address] 42156 -2268 Jul, Acute suppurative otitis media of both ears without spontaneous rupture of tympanic membranes, recurrence not specified H66.003 [place] [address] [place] [address]- 6259 Jul, [facility] [id number] [place] [address] 18907- 0103 Jul, Asperger syndrome F84.5 [facility] [id number] [place] [address] 44093- 1747 Jul, [facility] [id number] [place] [address] 87776- 0787 Jul, Mood disorder F39 and Asperger syndrome F84.5 [facility] [address] [place] [address] [id number] Jul, Dental examination Z01.20 [facility] [id number] [place] [address] 95486 -3921 Jul, Acute non-recurrent pansinusitis J01.40 [facility] [id number] [place] [address] 74112- 4715 Jul, Asperger syndrome F84.5 and Oppositional behavior F91.3 [facility] [id number] [place] [address] 88736- 0666 Jun, Mood disorder F39 and Asperger syndrome F84.5 [facility] [id number] [place] [address] 33471- 1055 Jun, Mood disorder F39 and Asperger syndrome F84.5 [facility] [id number] [place] [address] 39596- 0105 Jun, Mood disorder F39 and Asperger syndrome F84.5 [facility] [id number] [place] [address] 44484- 3296 30 May, 2016 Mood disorder F39 and Asperger syndrome F84.5 [facility] [id number] [place] [address] 86309- 6858 May, [facility] [id number] [place] [address] 99709- 7711 May, Asperger syndrome F84.5 and Oppositional behavior F91.3 [facility] [id number] [place] [address] 79704- 7721 17 May, 2016 Oral contraceptive pill surveillance Z30.41 [facility] [id number] [place] [address] 45343- 4294 16 May, 2016 Mood disorder F39 and Asperger syndrome F84.5 [facility] [id number] [place] [address] 78030- 7801 May, Asperger syndrome F84.5 and Oppositional behavior F91.3 [facility] [id number] [place] [address] 41441- 5672 02 May, 2016 Mood disorder F39 and Asperger syndrome F84.5 [facility] [address] 23007- 5216 Apr, [facility] [address] 30681- 2727 Apr, Oppositional behavior F91.3 [facility] [id number] [place] [address] 76124- 8871 Apr, Asperger syndrome F84.5 and Oppositional behavior F91.3 [facility] [id number] [place] [address] 82671 -9688 Apr, Contact dermatitis, unspecified contact dermatitis type, unspecified trigger L25.9 [facility] [id number] [place] [address] 83537- 6375 Apr, Mood disorder F39 and Asperger syndrome F84.5 [facility] [id number] [place] [address] 98027 -4560 15 Apr, 2016 Encounter for immunization Z23 and Acute non-recurrent frontal sinusitis J01.10 [facility] [address] [id number] [id number] 10 Apr, 2016 Encounter for dental examination Z01.20 [facility] [id number] [place] [address] [id number] 21 Mar, 2016 Encounter for routine child health examination without abnormal findings Z00.129 [place] [address] 64307- 4219 14 Mar, 2016 Mood disorder F39 and Asperger syndrome F84.5 [place] [address] 74311- 2487 Mar, [place] [address] 30923- 1346 Mar, Asperger syndrome F84.5 and Oppositional behavior F91.3 [place] [address] 04391- 8386 Feb, Mood disorder F39 and Asperger syndrome F84.5 [place] [address] 78985- 9869 Feb, Fatigue, unspecified type R53.83 and GERD (gastroesophageal reflux disease) K21.9 [place] [address] 47755- 9199 Feb, Mood disorder F39 and Asperger syndrome F84.5 [place] [address] 55479- 5831 Feb, Asperger syndrome F84.5 and Oppositional behavior F91.3 [facility] [id number] [place] [address] 72120 -4094 Feb, Itchy eyes H57.8 [facility] [address] 47545- 0986 Feb, Encounter for initial prescription of contraceptives Z30.019 [address] [place] [address] 03785- 9345 Feb, Mood disorder F39 and Asperger syndrome F84.5 [place] [address] 86323- 2902 Feb, [place] [id number] [place] [address] 35500- 0749 Jan, Asperger syndrome F84.5 and Oppositional behavior F91.3 [place] [id number] [place] [address] 90183- 7826 Jan, Mood disorder F39 and Asperger syndrome F84.5 [place] [id number] [place] [address] 08126- 9691 Jan, [facility] [id number] [place] [address] 70891 -4846 Jan, Acute cystitis without hematuria N30.00 ; Asperger syndrome F84.5 and Oppositional behavior F91.3 [place] [id number] [place] [address] 22014- 0852 Dec, Mood disorder F39 and Asperger syndrome F84.5 [place] [id number] [place] [address] 84826- 9979 Dec, Epilepsy G40.909 ; Asperger syndrome F84.5 ; Vitamin D deficiency E55.9 and Routine health maintenance Z00.00 [place] [id number] [place] [address] 62684- 2544 Dec, Mood disorder F39 and Asperger syndrome F84.5 [place] [id number] [place] [address] 63395- 1944 Dec, Epilepsy G40.909 ; Asperger syndrome F84.5 ; Vitamin D deficiency E55.9 ; GERD (gastroesophageal reflux disease) K21.9 ; Tremors of nervous system R25.1 ; Constipation K59.00 ; Oppositional behavior F91.3 ; Routine health maintenance Z00.00 ; Dysuria R30.0 ; Obesity (BMI 30.0-34.9) E66.9 and Other seasonal allergic rhinitis J30.2 [facility] [address] [place] [address] 47564 -0186 Dec, Leg pain, right M79.604 [place] [address] 50774- 1288 Dec, [place] [address] 37200- 7952 Dec, Dental examination Z01.20 [place] [address] 31073- 3627 November, Epilepsy G40.909 [place] [address] 93322- 8659 November, Scabies B86 ; Epilepsy G40.909 ; Vitamin D deficiency E55.9 ; Oppositional behavior F91.3 ; GERD (gastroesophageal reflux disease) K21.9 and Tremors of nervous system R25.1 [facility] [address] 00305 -6986 November, Contact dermatitis, unspecified contact dermatitis type, unspecified trigger L25.9 [place] [address] 66675- 2943 November, Asperger syndrome F84.5 ; Epilepsy G40.909 and Oppositional behavior F91.3 [place] [address] 59756- 8795 November, [place] [address] 58738- 0892 Oct, Encounter for Depo-Provera contraception Z30.42 [place] [address] 73832- 8532 Oct, Epilepsy G40.909 ; Asperger syndrome F84.5 ; Vitamin D deficiency E55.9 ; Encounter for Depo-Provera contraception Z30.42 ; GERD ( gastroesophageal reflux disease) K21.9 ; Tremors of nervous system R25.1 and Constipation K59.00 [place] [address] 81589- 8968 Oct, Seizure disorder G40.909 and Depo-Provera contraceptive status Z30.42 [facility] [address] [id number] [place] [address]- 0925 12 Oct, 2015 [facility] [address] [id number] [place] [address]- 1546 05 Oct, 2015 Epilepsy G40.909 ; Encounter for Depo-Provera contraception Z30.42 ; Asperger syndrome F84.5 and Vitamin D deficiency E55.9 IMMUNIZATIONS No Known Immunizations SOCIAL HISTORY Never Assessed REASON FOR VISIT f/u PLAN OF CARE Activity Details Follow Up Next available Reason: F/U VITAL SIGNS MEDICATIONS Unknown Medications [...]
[2018-04-17 11:52] LABS: BILIRUBIN,URINE NEGATIVE (NEGATIVE); CLARITY,URINE SLIGHTLY CLOUDY; COLOR,URINE YELLOW; GLUCOSE, URINE (UA) NEGATIVE (NEGATIVE); KETONES,URINE NEGATIVE (NEGATIVE); LEUKOCYTE ESTERASE ,URINE 1+ (NEGATIVE); NITRITE,URINE NEGATIVE (NEGATIVE); PH,URINE 5 (5-9); PROTEIN,URINE NEGATIVE (NEGATIVE); UROBILINOGEN,URINE NORMAL (NORMAL)
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
[2018-04-17 12:12] LABS: BASOPHILS % (AUTO) 0 % (0-10); EOSINOPHILS # (AUTO) 0.1 10^3/uL (0.0-0.3); EOSINOPHILS % (AUTO) 1 % (0-10); HEMATOCRIT 35 % (35-52); HEMOGLOBIN 11.6 G/DL (11.5-16.0); LYMPHOCYTES # (AUTO) 3.2 X 10^3 (1.0-4.0); LYMPHOCYTES % (AUTO) 51 % (12-44); MEAN CORPUSCULAR HEMOGLOBIN 27 PG (25-34); MEAN CORPUSCULAR HGB CONC 33 G/DL (32-36); MEAN CORPUSCULAR VOLUME 83 FL (80-99); MEAN PLATELET VOLUME 8.8 FL (7.4-10.4); MONOCYTES # (AUTO) 0.5 X 10^3 (0.0-1.0); MONOCYTES % (AUTO) 8 % (0-12); NEUTROPHILS # (AUTO) 2.5 X 10^3 (1.8-7.8); NEUTROPHILS % (AUTO) 40 % (42-75); PLATELET COUNT 277 10^3/uL (130-400); RED BLOOD COUNT 4.23 10^6/uL (4.35-5.85); WHITE BLOOD COUNT 6.3 10^3/uL (4.3-11.0)
[2018-04-17 12:21] LABS: BACTERIA,URINE TRACE /HPF
[2018-04-17 12:36] LABS: ALANINE AMINOTRANSFERASE 16 U/L (0-55); ALBUMIN 4.2 GM/DL (3.2-4.5); ALKALINE PHOSPHATASE 86 U/L (40-136); BILIRUBIN,TOTAL 0.3 MG/DL (0.1-1.0); BUN/CREATININE RATIO 8; CALCIUM 9.5 MG/DL (8.5-10.1); CARBON DIOXIDE 25 MMOL/L (21-32); CHLORIDE 110 MMOL/L (98-107); CREATININE SERUM 0.75 MG/DL (0.60-1.30); GFR ESTIMATED > 60; GLUCOSE 86 MG/DL (70-105); POTASSIUM 4.3 MMOL/L (3.6-5.0); SODIUM 142 MMOL/L (135-145)
[2018-04-17 13:21] VITALS: BP 117/66
== END 2018-04-17 13:21 | disposition home or self-care (01) ==
LOC: EDUNIT# 11:25 → ER 11:26
DX: R10.9 Unspecified abdominal pain (principal); R30.0 Dysuria; G40.909 Epilepsy, unspecified, not intractable, without status epilepticus; K21.9 Gastro-esophageal reflux disease without esophagitis; F84.5 Asperger's syndrome; Z77.22 Contact with and (suspected) exposure to environmental tobacco smoke (acute) (chronic); Z90.89 Acquired absence of other organs
CPT/HCPCS: 36415; 80053; 81000; 84703; 85025; 99282

== ENCOUNTER 2018-11-19 17:27 | Emergency (ER) | payer MEDICAID ==
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
== END 2018-11-19 18:00 | disposition left against medical advice (07) ==
LOC: EDUNIT# 17:27 → ER FS 17:29
DX: T74.21XA Adult sexual abuse, confirmed, initial encounter (principal); R10.2 Pelvic and perineal pain